=== PATIENT | male | born 1945 | race Caucasian/White ===

== ENCOUNTER 2017-12-09 09:11 | Emergency (ER) | payer MEDICARE, SELFPAY ==
[2017-12-09 09:16] VITALS: BP 150/74; PULSE 81; RESP 16; TEMP 37; O2SAT 95
--- NOTE | 2017-12-09 09:56 | DI.RAD_ITS ---
SYMPTOMS/DIAGNOSIS: PAIN LATERAL ANKLE, PAIN WITH AMBULATION RIGHT ANKLE: No bony or joint abnormality is seen.
--- NOTE | 2017-12-09 10:07 | ED.GENADUL_ITS ---
Discharge Plan Disposition Patient Disposition: HOME Discharge Details Chief Complaint: Orthopedic Clinical Impression: Right ankle sprain Primary Care Provider: Rayshawn Kothari ED Provider: Narayan Callahan Home Meds and New Rx's Prescriptions: Continue inhalational spacing device [Space Chamber Plus] 1 EACH spacer 1 ea Miscellaneous PRN Qty: 1 RF: 0 losartan 25 MG tablet 25 mg PO DAILY Qty: 90 RF: 4 omeprazole 20 MG capsule,delayed release(DR/EC) 20 mg PO DAILY Qty: 90 RF: 3 amlodipine [Norvasc] 10 MG tablet 1 tab PO HS Qty: 90 RF: 4 Atorvastatin Calcium 20 MG tablet 20 mg PO DAILY Qty: 90 RF: 4 lorazepam 0.5 MG tablet 0.5 mg PO BID PRNQty: 20 RF: 0 fluticasone-vilanterol [Breo Ellipta] 1 EACH blister with device 1 tab Inhalation DAILY RF: 0 tiotropium-olodaterol [Stiolto Respimat] 4 GM mist 2 puff Inhalation DAILY RF: 0 naloxone [Narcan] 4 MG spray,non-aerosol 4 mg NS PRN Qty: 2 RF: 0 hydrocodone-acetaminophen 5-325 mg tablet 1 tab PO TID PRN (Reason: chronic pain) Qty: 90 RF: 0 levalbuterol tartrate [Xopenex HFA] 200 PUFF HFA aerosol inhaler 2 puff Inhalation Q6H RF: 0 Discharge Instructions Instructions: Ankle Sprain (ED) Additional Instructions: Please use lace up ankle stabilizer and crutches for the next 1-2 weeks. Should symptoms persist or worsen despite treatment, please follow-up with orthopedics. Please contact your primary care physician to arrange follow-up. Return to the ER for any worsening or new concerning symptoms. Referrals: Eliot Pettit MD [ [facility] STAFF PHYSICIAN] - Rayshawn Kothari [Primary Care Provider] - Medical Decision Making MDM Narrative Medical decision making narrative: 72-year-old here with pain in his anterior lateral ankle with ambulation after severe cramp last night. Neurovascular intact distally. X-ray of the ankle reviewed and interpreted by me: No fracture Suspect sprain secondary to cramp. Plan to treat patient with lace up ankle stabilizer and crutches. He was encouraged to follow-up with his primary care physician and to return to the ER should he have any worsening or new concerning symptoms. HPI - General Adult General Date/Time Provider Initiated Documentation: 12/09/17 09:41 . Limitations to Documentation: no limitations . Information obtained by: patient . HPI Narrative: 72-year-old male presents with chief complaint of right ankle pain. Patient notes that last night while lying in bed he experienced a severe cramp in his right lower leg that caused his foot to pull medially. Patient notes that he has cramps every so often. Patient notes that since resolution of the cramp, anytime he tries to walk, he has pain in his anterior lateral ankle. Pain is described as sore. Occurs with ambulation only. No associated numbness or weakness. Related Data Home Medications Medication Instructions Recorded Confirmed inhalational spacing device [Space #1 04/27/14 Chamber Plus] levalbuterol tartrate [Xopenex HFA] 2 puff INHALATION Q6H 01/08/17 12/09/17 lorazepam 0.5 mg PO BID PRN #20 tab-cap 08/28/17 12/09/17 fluticasone-vilanterol [Breo 1 tab INHALATION DAILY 10/15/17 12/09/17 Ellipta] tiotropium-olodaterol [Stiolto 2 puff INHALATION DAILY 10/15/17 12/09/17 Respimat] Previous Rx's Medication Instructions Recorded losartan 25 mg PO DAILY #90 tab-cap 01/01/17 omeprazole 20 mg PO DAILY #90 tab-cap 03/10/17 amlodipine [Norvasc] 1 tab PO HS #90 tab-cap 05/05/17 naloxone [Narcan] 4 mg NS PRN #2 spray 10/15/17 hydrocodone 5 mg-acetaminophen 325 1 tab PO TID PRN #90 tab 11/28/17 mg tablet Allergies Allergy/AdvReac Type Severity Reaction Status Date / Time lisinopril Allergy Intermediate RASH; Unverified 12/09/17 09:20 PRURITIS diphenhydramine HCl AdvReac Severe Makes him Unverified 12/09/17 09:20 [From Benadryl] crazy/anxious NSAIDS (Non-Steroidal AdvReac Intermediate GI Unverified 12/09/17 09:20 Anti-Inflamma Intolerance tramadol AdvReac Intermediate nausea/vomi Unverified 12/09/17 09:20 ting gabapentin AdvReac Unknown GI UPSET Unverified 12/09/17 09:20 SCALLOP Allergy Severe THROAT Uncoded 12/09/17 09:20 SWELLING General Stated Complaint: Orthopedic ALFREDO: 4 Review of Systems Gastrointestinal Denies diarrhea and Denies vomiting Musculoskeletal Reports as per HPI, Denies deformity, Reports muscle cramps (Single muscle cramp as described in HPI), Denies muscle weakness and Denies numbness Neurologic Denies numbness PFSH Family History Mother Diabetes Essential hypertension Personal history of malignant neoplasm Heart disease Hyperlipidemia Brother Essential hypertension Heart disease Grandmother Personal history of malignant neoplasm Medical History Arthritis (Acute) Social History Smoking/Tobacco Use Status: Former Tobacco Use Surgical History Total replacement of hip Exam Const General: no acute distress and well developed Orientation: alert and awake HENMT Mouth: moist mucous membranes Cardio Rate: regular rate Rhythm: regular rhythm Pulses: dorsalis pedis pulses present Neuro General: alert, awake and tone normal Motor: other Other: distal motor and sensation intact Extrem General: no pedal edema Right lower extremity: ankle Details: tenderness Location: of the lateral malleolus and normal ROM; no swelling, no edema and no unusual warmth Course Vital Signs Temperature 37 C 12/09/17 09:16 Pulse 81 12/09/17 09:16 Respiratory Rate 16 12/09/17 09:16 Blood Pressure 150/74 H 12/09/17 09:16 Pulse Oximetry 95 12/09/17 09:16 Temperature 37 C 12/09/17 09:16 Pulse 81 12/09/17 09:16 Respiratory Rate 16 12/09/17 09:16 Blood Pressure 150/74 H 12/09/17 09:16 Pulse Oximetry 95 12/09/17 09:16
== END 2017-12-09 10:39 | disposition home or self-care (01) ==
PROVIDERS: Emergency Provider Student in an Organized Health Care Education/Training Program; PCP Family Medicine
DX: R25.2 Cramp and spasm (principal); S93.401A Sprain of unspecified ligament of right ankle, initial encounter; I10 Essential (primary) hypertension; J44.9 Chronic obstructive pulmonary disease, unspecified; Z87.891 Personal history of nicotine dependence
CPT/HCPCS: 29515; 99283; 73610; E0114; L1902

== ENCOUNTER 2018-01-15 01:09 | Outpatient (CLI) | payer MEDICARE, SELFPAY ==
[2018-01-15 13:26] LABS: CREATININE 1.14 mg/dL (0.70-1.30); Potassium 4.1 mmol/L (3.5-5.1)
== END 2018-01-15 01:29 ==
PROVIDERS: PCP Family Medicine; Visit Provider Family Medicine
DX: I10 Essential (primary) hypertension (principal)
CPT/HCPCS: 36415; 82565; 84132

== ENCOUNTER 2018-02-02 01:07 | Outpatient (CLI) | payer MEDICARE, SELFPAY ==
--- NOTE | 2018-02-02 14:26 | DI.CTLCSR_ITS ---
SYMPTOM/DIAGNOSIS: COPD, J44.9, FORMER SMOKER Z87.891 CT CHEST: CT scan of the chest was performed according to the lung cancer screening protocol. Comparison 02/03/17 There is atherosclerosis of the thoracic aorta. Heart size is within normal limits. No significant pericardial effusion is seen. No significant thoracic adenopathy is present. No pleural effusion or pneumothorax is identified. Since the prior examination there has developed an ill-defined opacity in the left upper lobe measuring 1.1 cm x 1 cm in size. There is a small ill-defined air space opacity also in the anterior aspect in the right upper lobe measuring 0.5 cm in diameter. No other nodules or infiltrates are seen in the lungs. Upper abdominal images again show a cyst in the upper pole of the right kidney which is stable in size. The liver has a nodular appearance with an enlarged left lobe and left caudad lobe suspicious for hepatic cirrhosis. Degenerative changes are seen in the spine. IMPRESSION: Interval development of two rounded opacities in the left upper lobe. Category 4-B.
== END 2018-02-02 01:27 ==
PROVIDERS: PCP Family Medicine; Visit Provider Internal Medicine
DX: J44.9 Chronic obstructive pulmonary disease, unspecified (principal); J98.4 Other disorders of lung; Z12.2 Encounter for screening for malignant neoplasm of respiratory organs; Z87.891 Personal history of nicotine dependence
CPT/HCPCS: G0297

== ENCOUNTER 2018-02-22 23:05 | Emergency (ER) | payer MEDICARE, SELFPAY ==
[2018-02-22 23:17] VITALS: BP 133/69; PULSE 74; RESP 19; TEMP 36.4; O2SAT 96
[2018-02-22 23:25] VITALS: RESP 18
[2018-02-22 23:26] LABS: Abs Immature Grans 0.02 k/cumm (0.0-0.09); Absolute Basophil Count 0.04 k/cumm (0.0-0.2); Absolute Lymphocyte Count 2.99 k/cumm (1.2-3.4); Absolute Monocyte Count 1.19 k/cumm (0.11-0.7); Absolute Neutrophil Count 5.98 k/cumm (1.2-6.7); Basophils % 0.4; Eosinophils % 3.8; HCT 40.2 % (40.0-50.0); HGB 13.9 g/dL (13.5-17.5); Immature Grans % 0.2; Lymphocytes % 28.2; Mean Corp. HGB Concentration 34.6 g/dL (32.0-36.0); Mean Corpuscular Hemoglobin 30.8 pg (27.0-33.0); Mean Corpuscular Volume 88.9 fL (80-95); Mean Platelet Volume 10.5 fL (8.0-11.0); Monocytes % 11.2; Neutrophils % 56.2; Platelet Count 123 x1000/uL (130-400); RBC 4.52 m/cumm (4.50-6.00); RBC Distribution Width 13.5 % (11.8-14.1); White Blood Cell Count 10.62 k/cumm (4.4-10.8)
[2018-02-22 23:31] VITALS: BP 135/83; PULSE 76; PULSE 83; RESP 19; O2SAT 93
--- NOTE | 2018-02-22 23:40 | W.ED.GENAD ---
Discharge Plan Disposition Patient Disposition: HOME Condition: Good Discharge Details Chief Complaint: Chest Pain Clinical Impression: Chest pain Primary Care Provider: Rayshawn Kohtari ED Provider: Fito Malave Home Meds and New Rx's Prescriptions: No Action levalbuterol tartrate [Xopenex HFA] 45 mcg/actuation HFA aerosol inhaler 2 puff Inhalation Q6H PRN (Reason: shortness of breath) Qty: 15 RF: 3 losartan 25 mg tablet 25 mg PO DAILY Qty: 90 RF: 4 inhalational spacing device [Space Chamber Plus] 1 EACH spacer 1 ea Miscellaneous PRN Qty: 1 RF: 0 amlodipine [Norvasc] 10 MG tablet 1 tab PO HS Qty: 90 RF: 4 Atorvastatin Calcium 20 MG tablet 20 mg PO DAILY Qty: 90 RF: 4 lorazepam 0.5 MG tablet 0.5 mg PO BID PRNQty: 20 RF: 0 fluticasone-vilanterol [Breo Ellipta] 1 EACH blister with device 1 tab Inhalation DAILY RF: 0 tiotropium-olodaterol [Stiolto Respimat] 4 GM mist 2 puff Inhalation DAILY RF: 0 naloxone [Narcan] 4 MG spray,non-aerosol 4 mg NS PRN Qty: 2 RF: 0 omeprazole 20 mg capsule,delayed release(DR/EC) 20 mg PO DAILY Qty: 90 RF: 3 hydrocodone-acetaminophen 5-325 mg tablet 1 tab PO TID MDD 3 tabs PRN (Reason: chronic pain) Qty: 90 RF: 0 Discharge Instructions Instructions: Chest Pain (ED), Palpitations (ED) Additional Instructions: Please come back on Friday and contact respiratory therapy for placement of your cardiac monitoring patch. Please contact your primary care provider this morning to set up a follow-up appointment this week. if you notice any worsening of your symptoms, or any new symptoms such as vomiting, diarrhea, fever, chills, shortness of breath, chest pain, numbness, weakness, or fainting , please return immediately to the emergency department for reevaluation. Please follow up with your primary care provider as soon as possible for reassessment and reevaluation. As always, it was a pleasure participating in your medical care today. Referrals: Rayshawn Kothari [Primary Care Provider] - Medical Decision Making This is a very pleasant 72-year-old male who presents for evaluation of intermittent nonexertional chest achiness, with no radiation to his neck or arm. He has some associated brief episodes of palpitations all lasting less than 1 minutes. He denies any syncope, pleuritic chest pain, or acute shortness of breath. Physical exam demonstrates no significant abnormalities. Patient signs and symptoms are very benign, and with the duration of 5 days, the nonexertional component, I feel it unlikely that he is actively having a heart attack. Patient did have a cardiac catheterization prior to getting his aortic valve replaced, at which time they noted no significant coronary artery disease. We will evaluate for potential cardiac etiology to the source of his pain, he currently has no pain whatsoever now. If the patient's cardiac and imaging workup is negative, I feel he can be safely discharged home with close follow-up with his primary care provider. EKG 23: 10 Rate 77, sinus rhythm, W[place] 138, QTc 455, QRS 114, RSR prime in V1, no significant ST elevations or depressions, no T wave inversions. No Q waves. Patient's laboratory workup has returned, his electrolytes are normal, no significant lab abnormalities, troponin is normal. Chest x-ray shows evidence of CO PD but no other acute process. Patient continues to have no significant chest pain or palpitations while here. He did have one brief episode of that sensation of palpitation, I did review it on the telemetry board and this was during the incidence of a PVC. No other abnormalities noted on EKG at that time. With a benign workup, and no other significant abnormalities I feel he can be safely discharged home however I do feel that he would benefit from a zeo patch. 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 With his symptoms lasting greater than 5 days, then being nonexertional, and with no consistent chest pain, I feel his signs and symptoms are certainly inconsistent with a cardiac ischemia etiology. I had a long discussion with the patient regarding red flags for which to return and the patient understands. I have extensively reviewed the treatment plan and discharge instructions with the patient. I have addressed all patient concerns at this time. The patient was made aware of what symptoms to monitor for that would warrant a return to the emergency department. Discussed the plan with the patient, they demonstrate verbal understanding and agreement with our assessment and plan at this time. FINDINGS: Lungs: Lungs are hyperinflated. Pleural space: Unremarkable. No evidence of pneumothorax. Heart/Mediastinum: Unremarkable. Heart size within normal limits for technique. Bones/joints: Unremarkable. No evidence of acute fracture. IMPRESSION: COPD. Dictated and Authenticated by: Eddie Leahy MD. HPI General Date/Time Provider Initiated Documentation: 02/22/18 23:16. HPI Narrative: This is a very pleasant 72-year-old male with a past medical history of COPD, hypertension, and high cholesterol, a bicuspid aortic valve which was replaced 1 year ago with a cow valve, cardiac catheterization 1 year ago which showed clean arteries, who presents today for evaluation of left-sided chest pain. Patient states that over the last 5 days he has had intermittent left-sided chest pain which she describes as being a very mild dull ache that comes and goes just medial to his left nipple. It is nonexertional, it is not improved with rest or activity. It lasts a few minutes and then goes away on its own. He has associated symptoms of feeling of intermittent palpitations over that area as well. He denies any associated tearing sensation, shortness of breath, pleuritic chest pain, arm neck or shoulder pain, or any other complaints. He denies having symptoms like this in the past. He denies any cough, fever, chills, hemoptysis, vomiting or diarrhea. He describes the pain is very mild in nature. Patient denies any other aggravating or relieving factors. Past surgical history is positive for open heart surgery for his valve replacement. Patient denies any current IV or illicit drug use. Patient has no other complaints at this time. Related Data Home Medications Medication Instructions Recorded Confirmed inhalational spacing device [Space #1 04/27/14 02/23/18 Chamber Plus] amlodipine [Norvasc] 1 tab PO HS #90 tab-cap 05/05/17 02/23/18 lorazepam 0.5 mg PO BID PRN #20 tab-cap 08/28/17 02/23/18 fluticasone-vilanterol [Breo 1 tab INHALATION DAILY 10/15/17 02/23/18 Ellipta] naloxone [Narcan] 4 mg NS PRN #2 spray 10/15/17 02/23/18 tiotropium-olodaterol [Stiolto 2 puff INHALATION DAILY 10/15/17 02/23/18 Respimat] omeprazole 20 mg capsule,delayed 20 mg PO DAILY #90 tab-cap 12/22/17 02/23/18 release levalbuterol HFA 45 mcg/actuation 2 puff INHALATION Q6H PRN #15 gm 01/14/18 02/23/18 aerosol inhaler losartan 25 mg tablet 25 mg PO DAILY #90 tab-cap 01/14/18 02/23/18 hydrocodone 5 mg-acetaminophen 325 1 tab PO TID PRN #90 tab MDD 3 tabs 01/23/18 02/23/18 mg tablet Previous Rx's Medication Instructions Recorded amlodipine [Norvasc] 1 tab PO HS #90 tab-cap 05/05/17 naloxone [Narcan] 4 mg NS PRN #2 spray 10/15/17 omeprazole 20 mg capsule,delayed 20 mg PO DAILY #90 tab-cap 12/22/17 release levalbuterol HFA 45 mcg/actuation 2 puff INHALATION Q6H PRN #15 gm 01/14/18 aerosol inhaler losartan 25 mg tablet 25 mg PO DAILY #90 tab-cap 01/14/18 hydrocodone 5 mg-acetaminophen 325 1 tab PO TID PRN #90 tab MDD 3 tabs 01/23/18 mg tablet Allergies Allergy/AdvReac Type Severity Reaction Status Date / Time lisinopril Allergy Intermediate RASH; Unverified 02/23/18 00:04 PRURITIS diphenhydramine HCl AdvReac Severe Makes him Unverified 02/23/18 00:04 [From Benadryl] crazy/anxious NSAIDS (Non-Steroidal AdvReac Intermediate GI Unverified 02/23/18 00:04 Anti-Inflamma Intolerance tramadol AdvReac Intermediate nausea/vomi Unverified 02/23/18 00:04 ting gabapentin AdvReac Unknown GI UPSET Unverified 02/23/18 00:04 SCALLOP Allergy Severe THROAT Uncoded 02/23/18 00:04 SWELLING General Stated Complaint: Chest Pain ALFREDO: 2 Review of Systems Review of Systems All systems reviewed & are unremarkable except as noted in HPI and below PFSH Family History Mother Diabetes Essential hypertension Personal history of malignant neoplasm Heart disease Hyperlipidemia Brother Essential hypertension Heart disease Grandmother Personal history of malignant neoplasm Medical History Arthritis (Acute) Social History Smoking/Tobacco Use Status: Former Tobacco Use Surgical History Total replacement of hip Social History Smoking/Tobacco Use Status: Former Tobacco Use Exam Narrative Exam Narrative: 1.Const: Well-nourished, Well-developed, appearing stated age 2.Eyes: PERRL, no conjunctival injection, and symmetrical lids. 3.ENT: Atraumatic external nose and ears. Moist MM. Neck: Symmetric, trachea midline, No thyromegaly. 4.CVS: +S1/S2, No murmurs or gallops. Peripheral pulses 2+ and equal in all extremities. Brisk capillary refill in all extremities. Radial pulses equal bilaterally. Brisk capillary refill. No significant reproducible chest wall tenderness. Patient does have an anterior thoracic scar noted. This is completely healed. 5.RESP: Unlabored respiratory effort. Clear to auscultation bilaterally. No wheezes rales or rhonchi 6.GI: Soft, Nontender/Nondistended, No hepatosplenomegaly. No guarding or rebound. 7.MSK: Normocephalic/Atraumatic, Extremities w/o deformity or ttp No cyanosis or clubbing, Normal movement of all extremities 8.Skin: Warm, Dry. No rashes or lesions. 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 Sensation grossly intact, no focal neurologic deficits. 10.Psych: (AAO) x3. Appropriate mood and affect Course Vital Signs Temperature 36.4 C L 02/22/18 23:17 Pulse 74 02/22/18 23:17 Respiratory Rate 19 02/22/18 23:17 Blood Pressure 133/69 02/22/18 23:17 Pulse Oximetry 96 02/22/18 23:17 Temperature 36.4 C L 02/22/18 23:17 Temperature Source Temporal Artery Scan 02/22/18 23:17 Pulse 74 02/22/18 23:17 Respiratory Rate 18 02/22/18 23:25 Respiratory Effort Non-Labored 02/22/18 23:25 Respiratory Depth Normal 02/22/18 23:25 Respiratory Pattern Normal 02/22/18 23:25 Blood Pressure 133/69 02/22/18 23:17 Blood Pressure Position Sitting 02/22/18 23:17 Pulse Oximetry 96 02/22/18 23:17 Oxygen Delivery Method Room Air 02/22/18 23:17 Oxygen Flow Rate 0 02/22/18 23:17 Pain Level 3 02/22/18 23:25 Lab/Test Results Lab/Test Results: Laboratory Tests Range/Units 02/22/18 23:21 WBC (4.4-10.8) k/cumm 10.62 RBC (4.50-6.00) m/cumm 4.52 Hgb (13.5-17.5) g/dL 13.9 Hct (40.0-50.0) % 40.2 MCV (80-95) fL 88.9 MCH (27.0-33.0) pg 30.8 MCHC (32.0-36.0) g/dL 34.6 RDW (11.8-14.1) % 13.5 Plt Count (130-400) x1000/uL 123 L MPV (8.0-11.0) fL 10.5 Immature Gran % 0.2 Neutrophils % 56.2 Lymphocytes % 28.2 Monocytes % 11.2 Eosinophils % 3.8 Basophils % 0.4 Absolute Neutrophils (1.2-6.7) k/cumm 5.98 Absolute Lymphocytes (1.2-3.4) k/cumm 2.99 Absolute Monocytes (0.11-0.7) k/cumm 1.19 H Absolute Eosinophils (0.0-0.7) k/cumm 0.40 Absolute Basophils (0.0-0.2) k/cumm 0.04
[2018-02-22 23:43] LABS: ALT 32 U/L (12-78); AST 25 U/L (15-37); Albumin 3.9 g/dL (3.4-5.0); Alkaline Phosphatase 109 U/L (46-116); Anion Gap 11.1 mmol/L (3-11); BUN 21 mg/dL (7-18); Bilirubin, Total 0.6 mg/dL (0.2-1.0); CO2 24.9 mmol/L (21.0-32.0); CREATININE 1.49 mg/dL (0.70-1.30); Calcium 9.1 mg/dL (8.5-10.1); Chloride 101 mmol/L (98-107); Estimated GFR 46.63 (mL/min/1.73m2); Glucose 93 mg/dL (70-100); Magnesium 1.9 mg/dL (1.8-2.4); Potassium 3.8 mmol/L (3.5-5.1); Sodium 137 mmol/L (136-145); Total Protein 7.7 g/dL (6.4-8.2)
[2018-02-22 23:44] LABS: Troponin I < 0.02 ng/mL (0.00-0.06)
[2018-02-22 23:46] VITALS: BP 143/77; PULSE 79; PULSE 82; RESP 18; O2SAT 94
--- NOTE | 2018-02-22 23:47 | DI.RAD_ITS ---
SYMPTOMS/DIAGNOSIS: LT CHEST PAIN JUST MEDIAL TO NIPPLE CHEST: Frontal and lateral views. Comparison 04/14/17. The heart size and pulmonary vasculature are within normal limits. The lungs are clear. No effusions or pneumothoraces are identified. The lungs are hyperinflated. There is an aortic valve replacement in place. IMPRESSION: No acute pulmonary process.
--- NOTE | 2018-02-23 00:35 | DI.VRAD_ITS ---
EXAM: XR Chest, 2 Views EXAM DATE/TIME: 02/22/2018 11:47 PM CLINICAL HISTORY: 72 years old, male; Pain; Chest pain; Left-sided chest pain; Prior surgery; Surgery date: 6+ months TECHNIQUE: XR of the chest, 2 views. COMPARISON: CR CHEST 2 VIEWS PA,LAT 04/14/2017 9:25 AM FINDINGS: Lungs: Lungs are hyperinflated. Pleural space: Unremarkable. No evidence of pneumothorax. Heart/Mediastinum: Unremarkable. Heart size within normal limits for technique. Bones/joints: Unremarkable. No evidence of acute fracture. IMPRESSION: COPD. Dictated and Authenticated by: Eddie Leahy MD. Ordering:JOAQUIN NOVOA MD
[2018-02-23] MEDS: Albuterol/Ipratropium 3 ML UPD VIAL UPD (00:55)
[2018-02-23 02:06] VITALS: BP 133/75; PULSE 70; RESP 17; TEMP 36.4; O2SAT 94
--- NOTE | 2018-03-03 16:49 | ZIOP_ITS ---
DATE OF DICTATION: March 03, 2018 STUDY INDICATION: Palpitations REQUESTING PROVIDER: Narayan Callahan M.D. FINDINGS: The patient was monitored for one day and twenty-two hours. The predominant underlying rhythm was sinus rhythm. Average heart rate in sinus rhythm 80 bpm, range 53-132 bpm. There was frequent supraventricular ectopy, 12.5% PAC's. There were 33 atrial runs, average heart ra te 127 bpm, range 78-169 bpm. The longest episode lasted 14.3 seconds with an average heart rate of 106 bpm. There was rare ventricular ectopy. There were no pauses greater than three seconds. There was no high-degree heart block. There were no patient events. FINAL INTERPRETATION: Asymptomatic bursts of supraventricular tachycardia.
== END 2018-02-23 02:06 | disposition home or self-care (01) ==
LOC: ER 02-23 01:47
PROVIDERS: Emergency Provider Student in an Organized Health Care Education/Training Program; PCP Family Medicine
DX: R07.9 Chest pain, unspecified (principal); R00.2 Palpitations; I25.810 Atherosclerosis of coronary artery bypass graft(s) without angina pectoris; Z95.1 Presence of aortocoronary bypass graft; J44.9 Chronic obstructive pulmonary disease, unspecified; Z87.891 Personal history of nicotine dependence; I10 Essential (primary) hypertension
CPT/HCPCS: 36415; 80053; 93005; 93225; 94640; 99285; 71046; 83735; 84484; 85025; 93010; J7620

== ENCOUNTER 2018-03-03 16:25 | Outpatient (CLI) | payer MEDICARE, SELFPAY | END 2018-03-03 16:45 | PROVIDERS: PCP Family Medicine; Referring Provider Student in an Organized Health Care Education/Training Program; Visit Provider Student in an Organized Health Care Education/Training Program | DX: R00.2 Palpitations (principal); I47.1 Supraventricular tachycardia | CPT/HCPCS: 0298T ==

== ENCOUNTER 2018-05-11 00:54 | Outpatient (CLI) | payer MEDICARE, SELFPAY ==
--- NOTE | 2018-05-11 08:16 | DI.CT_ITS ---
SYMPTOM/DIAGNOSIS: CHRONIC OBSTRUCTIVE LUNG DISEASE, J44.9, F/U JOSH NODULES CHEST CT: CT scan of the chest was performed according to the low dose protocol. Comparison CT scan is 02/02/18. There is atherosclerosis of the thoracic aorta. Heart size is within normal limits. No significant pericardial effusion is seen. Coronary artery calcifications are present. No significant adenopathy is seen in the chest on this noncontrast examination. No pleural effusion or pneumothorax is identified. Moderate centrilobular emphysematous changes are present in the lungs. The 1.1 cm. nodule in the left upper lobe appears stable. The smaller more ill defined opacity previously noted in the anterior aspect of the left upper lobe is no longer visualized. No new pulmonary nodules are appreciated. There are atelectatic changes seen in the right lung base. The tracheobronchial tree is unremarkable. There is again seen a nodular appearance of the liver with an enlarged left and caudate lobe suspicious for hepatic cirrhosis. There is a stable cyst in the upper pole of the right kidney. There is a moderate hiatal hernia noted. Degenerative changes are seen in the spine. Sternal wires are in place. IMPRESSION: 1. Stable 1.1 cm. left upper lobe pulmonary nodule. No other pulmonary nodules. The previously seen second nodule appears to have resolved and likely reflected an infiltrate. 2. Moderate centrilobular emphysema. 3. Findings suggestive of hepatic cirrhosis.
== END 2018-05-11 01:14 ==
PROVIDERS: PCP Family Medicine; Visit Provider Internal Medicine
DX: J44.9 Chronic obstructive pulmonary disease, unspecified (principal); R91.1 Solitary pulmonary nodule; J43.9 Emphysema, unspecified
CPT/HCPCS: 71250

== ENCOUNTER 2018-07-06 14:50 | Outpatient (CLI) | payer MEDICARE, SELFPAY | END 2018-07-06 15:10 | PROVIDERS: PCP Family Medicine; Referring Provider Family Medicine; Visit Provider Student in an Organized Health Care Education/Training Program | DX: M17.11 Unilateral primary osteoarthritis, right knee (principal); Z53.9 Procedure and treatment not carried out, unspecified reason; M67.911 Unspecified disorder of synovium and tendon, right shoulder; M67.912 Unspecified disorder of synovium and tendon, left shoulder | CPT/HCPCS: 20610; 99213; J1040 ==

== ENCOUNTER 2018-07-23 08:10 | Outpatient (CLI) | payer MEDICARE, SELFPAY ==
--- NOTE | 2018-07-23 09:00 | MERGE_ITS ---
*[facility]* *[facility]* [address] [place] [address] Date of study: 07/23/2018 Transthoracic Echocardiography M-mode, complete 2D, complete spectral Doppler, and color Doppler *STUDY CONCLUSIONS* Summary: 1. Left ventricle: The cavity size was normal. Wall thickness was increased in a pattern of mild LVH. Systolic function was normal. The estimated ejection fraction was 60-65%. Wall motion was normal; there were no regional wall motion abnormalities. 2. Right ventricle: The cavity size was normal. Systolic function was normal. 3. Left atrium: The atrium was mildly dilated. 4. Aortic valve: A bioprosthesis was present and functioning normally. Mean gradient (S): 18mm Hg. 5. Ascending aorta: The ascending aorta was mildly dilated (43 mm). 6. Pulmonary arteries: Pulmonary systolic pressure was increased, in the range of 40mm Hg to 45mm Hg. 7. Inferior vena cava: The vessel was patent and normal in size. The respirophasic diameter changes were in the normal range (greater than or equal to 50%), consistent with normal central venous pressure. *PATIENT PRESENTATION* Height: 170.2cm ((67in) ) S/D Pressure: 142 / 77 Weight: 76.2kg ((167.6lb) ) BSA: 1.91m^2 Test start time: 09:30 AM. Test stop time: 10:20 AM. ORDERING Nya Baez REFERRING Nya Baez PERFORMING Unknown CONSULTING Rayshawn Kothari PERFORMING [facility] FURNACE CLERK RT Francoise (R)(CT), RDCS *PROCEDURE DATA* Procedure information: The patient was identified by two identifiers. This study was interpreted by [facility]. Pertinent images and digital data are archived for permanent storage and are available for subsequent review. No prior study was available for comparison. Study status: Routine. Transthoracic echocardiography. M-mode, complete 2D, complete spectral Doppler, and color Doppler. A Transthoracic Echocardiogram was performed. Scanning was performed from the parasternal, apical, subcostal, and suprasternal notch acoustic windows. Images were obtained using an [id number] cardiac ultrasound machine. Image quality was adequate. Study completion: The patient tolerated the procedure well. There were no complications. History: PMH: Atrial fibrillation. I48.91 *CARDIAC ANATOMY* Left ventricle: The cavity size was normal. Wall thickness was increased in a pattern of mild LVH. Systolic function was normal. The estimated ejection fraction was 60-65%. Wall motion was normal; there were no regional wall motion abnormalities. Findings consistent with diastolic dysfunction. There was no evidence of elevated ventricular filling pressure by Doppler parameters. Aortic valve: A bioprosthesis was present and functioning normally. Mobility was not restricted. Doppler: Transvalvular velocity was within the normal range. There was no stenosis. There was no significant regurgitation. VTI ratio of LVOT to aortic valve: 0.48. Valve area (VTI): 1.4cm^2. Indexed valve area (VTI): 0.8cm^2/m^2. Peak velocity ratio of LVOT to aortic valve: 0.45. Valve area (Vmax): 1.4cm^2. Indexed valve area (Vmax): 0.7cm^2/m^2. Mean velocity ratio of LVOT to aortic valve: 0.47. Valve area (Vmean): 1.4cm^2. Indexed valve area (Vmean): 0.7cm^2/m^2. Mean gradient (S): 18mm Hg. Peak gradient (S): 30.3mm Hg. Aorta: Aortic root: The aortic root dilated. Ascending aorta: The ascending aorta was mildly dilated (43 mm). Mitral valve: Mildly calcified annulus. Mildly thickened leaflets. Mobility was not restricted. Doppler: Transvalvular velocity was within the normal range. There was no evidence for stenosis. There was mild regurgitation. Valve area by pressure half-time: 3.6cm^2. Indexed valve area by pressure half-time: 1.9cm^2/m^2. Peak gradient (D): 2.9mm Hg. Left atrium: The atrium was mildly dilated. Right ventricle: The cavity size was normal. Systolic function was normal. Pulmonic valve: Poorly visualized. Doppler: Transvalvular velocity was within the normal range. There was no evidence for stenosis. There was trivial regurgitation. Tricuspid valve: Structurally normal valve. Doppler: Transvalvular velocity was within the normal range. There was no evidence for stenosis. There was trivial regurgitation. Pulmonary artery: Poorly visualized. Pulmonary systolic pressure was increased, in the range of 40mm Hg to 45mm Hg. Right atrium: The atrium was dilated. Pericardium: There was no pericardial effusion. Systemic veins: Inferior vena cava: Well visualized. The vessel was patent and normal in size. The respirophasic diameter changes were in the normal range (greater than or equal to 50%), consistent with normal central venous pressure. Baseline ECG: Normal sinus rhythm. Measurements Left ventricle Value 11/07/2016 Reference LV ID, ED, PLAX 4.9 cm 5.5 3.5 - 6.0 LV ID, ES, PLAX 3.2 cm 3.7 2.1 - 4.0 LV PW thickness, ED, PLAX 1.0 cm 0.9 LV end-diastolic volume, 61 ml 79 1-p A2C LV ejection fraction, 1-p 72 % 66 A2C LV end-diastolic volume, 79 ml 130 1-p A4C LV ejection fraction, 1-p 62 % 62 A4C LV e', lateral 0.116 m/sec LV E/e', lateral 7 LV e', medial 0.094 m/sec LV E/e', medial 9 LV e', average 0.105 m/sec LV E/e', average 8 Ventricular septum Value 11/07/2016 Reference IVS thickness, ED, PLAX 1.2 cm 0.9 LVOT Value 11/07/2016 Reference LVOT ID, A-P 2.0 cm 2.1 LVOT area 3 cm^2 3.4 LVOT peak velocity, S 1.24 m/sec 0.93 LVOT mean velocity, S 0.97 m/sec LVOT VTI, S 28.8 cm 25.9 LVOT peak gradient, S 6.1 mm Hg LVOT mean gradient, S 4.1 mm Hg 2.3 Stroke volume (SV), LVOT 86 ml DP Stroke index (SV/bsa), 45 ml/m^2 LVOT DP Aortic valve Value 11/07/2016 Reference Aortic valve peak 2.8 m/sec 4 velocity, S Aortic valve mean 2.07 m/sec velocity, S Aortic valve VTI, S 60.0 cm Aortic mean gradient, S 18 mm Hg 39 Aortic peak gradient, S 30.3 mm Hg 62.4 VTI ratio, LVOT/AV 0.48 0.25 Aortic valve area, VTI 1.4 cm^2 0.8 Velocity ratio, peak, 0.45 0.23 LVOT/AV Aortic valve area, peak 1.4 cm^2 0.8 velocity Velocity ratio, mean, 0.47 LVOT/AV Aortic valve area, mean 1.4 cm^2 velocity Aortic valve area/bsa, 0.7 cm^2/m^2 mean velocity Aorta Value 11/07/2016 Reference Ascending aorta ID, A-P, S 4.3 cm 4.5 Left atrium Value 11/07/2016 Reference LA ID, A-P, ES 4.1 cm LA ID/bsa, A-P 2.1 cm/m^2 <=2.2 LA area, ES, A4C (H) 26 cm^2 22 8.8 - 23.4 LA area, ES, A2C 22 cm^2 LA volume/bsa, ES, 1-p A4C 42 ml/m^2 40 LA volume, ES, 2-p 67 ml LA volume/bsa, ES, 2-p 35 ml/m^2 Mitral valve Value 11/07/2016 Reference Mitral E-wave peak 0.85 m/sec 0.66 velocity Mitral A-wave peak 0.95 m/sec 0.82 velocity Mitral deceleration time 209 ms 150 - 230 Mitral pressure half-time 61 ms 102 Mitral peak gradient, D 2.9 mm Hg Mitral E/A ratio, peak 0.9 0.8 Mitral valve area, PHT, DP 3.6 cm^2 2.2 Tricuspid valve Value 11/07/2016 Reference Tricuspid regurg peak 2.9 m/sec 3.1 velocity Tricuspid peak RV-RA 33.8 mm Hg 38.2 gradient Right atrium Value 11/07/2016 Reference RA area, ES, A4C (H) 20.5 cm^2 23.6 8.3 - 19.5 Legend: (L) and (H) mercedes values outside specified reference range. I have personally reviewed the images and have reviewed and edited the reported findings. Electronically signed by Simon Mcdonough 07/23/2018 13:34
== END 2018-07-23 08:30 ==
PROVIDERS: PCP Family Medicine; Visit Provider Internal Medicine
DX: I48.91 Unspecified atrial fibrillation (principal); I51.7 Cardiomegaly; I10 Essential (primary) hypertension; Z95.2 Presence of prosthetic heart valve
CPT/HCPCS: 93306

== ENCOUNTER 2018-07-27 13:59 | Emergency (ER) | payer MEDICARE, SELFPAY ==
[2018-07-27] VITALS (35 sets, daily range): BP systolic 109–137; BP diastolic 66–88; PULSE 88–129; RESP 8–30; TEMP 36.6; O2SAT 93–98
--- NOTE | 2018-07-27 14:11 | ED.GENADUL_ITS ---
Discharge Plan Disposition Patient Disposition: HOME Condition: Stable Discharge Details Chief Complaint: SOB Clinical Impression: Chronic obstructive pulmonary disease Primary Care Provider: Rayshawn Kothari ED Provider: Alfonso Brown Home Meds and New Rx's Prescriptions: Continued levalbuterol tartrate [Xopenex HFA] 45 mcg/actuation HFA aerosol inhaler 2 puff Inhalation Q6H PRN (Reason: shortness of breath) Qty: 15 RF: 3 losartan 25 mg tablet 25 mg PO DAILY Qty: 90 RF: 4 hydrocodone-acetaminophen 5-325 mg tablet 1 tab PO TID MDD 3 tabs PRN (Reason: chronic pain) Qty: 90 RF: 0 Space Chamber Plus 1 EACH spacer 1 ea Miscellaneous PRN Qty: 1 RF: 0 Atorvastatin Calcium 20 MG tablet 20 mg PO DAILY Qty: 90 RF: 4 Breo Ellipta 1 EACH blister with device 1 tab Inhalation DAILY RF: 0 Stiolto Respimat 4 GM mist 2 puff Inhalation DAILY RF: 0 Narcan 4 MG spray,non-aerosol 4 mg NS PRN Qty: 2 RF: 0 omeprazole 20 mg capsule,delayed release(DR/EC) 20 mg PO DAILY Qty: 90 RF: 3 amlodipine [Norvasc] 10 mg tablet 10 mg PO HS Qty: 90 RF: 4 lorazepam 0.5 mg tablet 0.5 mg PO BID PRN (Reason: anxiety) Qty: 20 RF: 0 hydrocodone-acetaminophen 7.5-325 mg tablet 1 tab PO .q 8 h MDD 3 tabs PRN (Reason: pain) Qty: 60 RF: 0 Discharge Instructions Instructions: COPD (Chronic Obstructive Pulmonary Disease) (ED) Additional Instructions: Please continue current medications as previously prescribed. Follow-up with pulmonary on as planned. We will refer you for pulmonary rehab as well as pulmonary function testing. Return to the ED if you develop fever, cough, chest pain, acute worsening of shortness of breath. Referrals: Nya Baez MD [ [facility] STAFF PHYSICIAN] - Rayshawn Kothari [Primary Care Provider] - Discharge Data Discharge Date/Time-TO BE ENTERED AT DEPARTURE: 07/27/18 17:30 Medical Decision Making Patient presenting with a gradual but progressive worsening of shortness of breath. 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 She is initiating a cardiac work-up to be sure his breathing issues are not cardiac related. He has had an echo which is unremarkable. He has not seen cardiology yet. He did have a catheterization within the last few years before he got his aortic valve and had nonobstructive disease. He was not stented. He is given a DuoNeb treatment here which he states did not really help. He states that the nebulizers and inhalers at home do not really seem to help. Chest x-ray ordered. Laboratory studies ordered. CBC unremarkable other than platelet count being a little low. Chemistries with a little bit worsening renal function. Glucose a little high to 16. Troponin is negative. BNP is normal. Chest x-ray is unremarkable. ABG was obtained. His pH is normal and his PCO2 is normal. PO2 is low at 49 with saturations at 85%. This does not correlate with his pulse ox which is been persistently 93%. We got him up and ambulated him. He did not become overly tachypneic and he did not drop his saturations. There really has been no acute change in the patient's status. I do not see an admission to the hospital helping him at all. I have referred him to respiratory for PFTs and pulmonary rehab. According to respiratory he is due for PFTs as it was over 4 years ago. Patient will see his retail loss prevention investigator this week. Return to ED if he develops fever, cough, acute change in respiratory status, chest pain. Medical Records Medical records reviewed: Yes I reviewed the patient's medical records. Lab Data Lab results reviewed: Yes I reviewed the patient's lab results. ECG Data Attestation: I personally reviewed and interpreted this ECG (s) as follows: Prior ECG tracings: available for review Interpretation: Sinus rhythm at 100. Normal axis and intervals but incomplete right bundle branch block pattern. No acute ST changes. No change from old. HPI General Mode of arrival: ambulatory . Date/Time Provider Initiated Documentation: 07/27/18 14:06 . Limitations to Documentation: no limitations . Information obtained by: patient and old records reviewed . HPI Narrative: Patient presents to the ED with complaints of progressively worsening shortness of breath. He was seen by pulmonary a couple weeks ago. He was placed on prednisone. His inhalers have not been working. Ambulation makes his breathing much worse. When he gets significantly short of breath he develops chest tightness. He denies having cough. He denies having fever. He recently had an echo as part of the work-up his retail loss prevention investigator is doing for his worsening shortness of breath. He is becoming less able to even perform easy task without getting short of breath. Related Data Home Medications Medication Instructions Recorded Confirmed Space Chamber Plus #1 04/27/14 07/15/18 Breo Ellipta 1 tab INHALATION DAILY 10/15/17 07/15/18 Narcan 4 mg NS PRN #2 spray 10/15/17 07/15/18 Stiolto Respimat 2 puff INHALATION DAILY 10/15/17 07/15/18 omeprazole 20 mg capsule,delayed 20 mg PO DAILY #90 tab-cap 12/22/17 07/15/18 release levalbuterol HFA 45 mcg/actuation 2 puff INHALATION Q6H PRN #15 gm 01/14/18 07/15/18 aerosol inhaler losartan 25 mg tablet 25 mg PO DAILY #90 tab-cap 01/14/18 07/15/18 amlodipine 10 mg tablet 10 mg PO HS #90 tab-cap 03/18/18 07/15/18 lorazepam 0.5 mg tablet 0.5 mg PO BID PRN #20 tab 05/26/18 07/15/18 hydrocodone 7.5 mg-acetaminophen 1 tab PO .q 8 h PRN #60 tab MDD 3 06/19/18 07/15/18 325 mg tablet tabs hydrocodone 5 mg-acetaminophen 325 1 tab PO TID PRN #90 tab MDD 3 tabs 07/15/18 07/15/18 mg tablet Previous Rx's Medication Instructions Recorded Narcan 4 mg NS PRN #2 spray 10/15/17 omeprazole 20 mg capsule,delayed 20 mg PO DAILY #90 tab-cap 12/22/17 release levalbuterol HFA 45 mcg/actuation 2 puff INHALATION Q6H PRN #15 gm 01/14/18 aerosol inhaler losartan 25 mg tablet 25 mg PO DAILY #90 tab-cap 01/14/18 amlodipine 10 mg tablet 10 mg PO HS #90 tab-cap 03/18/18 lorazepam 0.5 mg tablet 0.5 mg PO BID PRN #20 tab 05/26/18 hydrocodone 7.5 mg-acetaminophen 1 tab PO .q 8 h PRN #60 tab MDD 3 06/19/18 325 mg tablet tabs hydrocodone 5 mg-acetaminophen 325 1 tab PO TID PRN #90 tab MDD 3 tabs 07/15/18 mg tablet Allergies Allergy/AdvReac Type Severity Reaction Status Date / Time lisinopril Allergy Intermediate RASH; Verified 07/15/18 07:59 PRURITIS diphenhydramine HCl AdvReac Severe Makes him Verified 07/15/18 07:59 [From Benadryl] crazy/anxious NSAIDS (Non-Steroidal AdvReac Intermediate GI Verified 07/15/18 07:59 Anti-Inflamma Intolerance tramadol AdvReac Intermediate nausea/vomi Verified 07/15/18 07:59 ting gabapentin AdvReac Unknown GI UPSET Verified 07/15/18 07:59 SCALLOP Allergy Severe THROAT Uncoded 07/06/18 14:11 SWELLING General ALFREDO: 2 Review of Systems Review of Systems 01/04 Review of Systems completed and is negative except as stated above in HPI (Systems reviewed: Const, Eyes, ENT, Resp, CV, GI, , MSK, Skin, Neuro) PFSH Medical History SVT (supraventricular tachycardia) (Chronic ~02/2018) Paroxysmal atrial fibrillation (Resolved 01/28/17) Gastro-esophageal reflux (Chronic 09/15/13) Essential hypertension (Chronic 02/26/16) Esophageal varices without bleeding (Chronic 05/14/16) Chronic obstructive pulmonary disease (Chronic 08/05/17) CAD (coronary artery disease) (Chronic 12/05/16) Benign prostatic hyperplasia (Chronic 02/03/13) Chronic pain syndrome (Chronic) Cirrhosis (Chronic) Surgical History Aortic valve replaced (Chronic) Total replacement of hip (Chronic) Family History Mother Diabetes Essential hypertension Personal history of malignant neoplasm Heart disease Hyperlipidemia Brother Essential hypertension Heart disease Grandmother Personal history of malignant neoplasm Social History Smoking/Tobacco Use Status: Former Tobacco Use Drug use: Never Do you feel safe at home: Yes Do you feel safe in your relationship?: Yes Exam Narrative Exam Narrative: Vitals: Afebrile. Mildly tachycardic on presentation but resolved. Saturations in low 90s on RA. Const: WDWN elderly male in NAD. HEENT: NC/AT. Normal facial exam. Eyes: Normal conjunctiva and sclera. Neck: Supple. Trachea midline. Lungs: Normal respiratory effort. Lungs are clear but a little diminished. Barrel chest. Cor: RRR without murmur/gallop. Good radial pulses. GI: Soft. NT/ND. No guarding or rebound. Neuro: A+O x 3. CN grossly in tact. Good strength and no focal deficit. Ext: No C/C/E. No deformity or tenderness. Skin: Warm and dry without rash.
--- NOTE | 2018-07-27 14:38 | DI.RAD_ITS ---
SYMPTOM/DIAGNOSIS: SOB FRONTAL AND LATERAL CHEST: Comparison is made with 02/22/18. Heart size and pulmonary vasculature are within normal limits. Sternal wires are in place. The lungs are clear. No effusions or pneumothoraces are identified. Note is made of an aortic valve replacement. IMPRESSION: No acute pulmonary process.
[2018-07-27 14:50] LABS: Abs Immature Grans 0.03 k/cumm (0.0-0.09); Absolute Eosinophil Count 0.01 k/cumm (0.0-0.7); Absolute Lymphocyte Count 0.77 k/cumm (1.2-3.4); Absolute Monocyte Count 0.58 k/cumm (0.11-0.7); Absolute Neutrophil Count 8.27 k/cumm (1.2-6.7); Eosinophils % 0.1; HGB 14.5 g/dL (13.5-17.5); Immature Grans % 0.3; Mean Corp. HGB Concentration 33.7 g/dL (32.0-36.0); Mean Corpuscular Hemoglobin 30.7 pg (27.0-33.0); Mean Corpuscular Volume 91.1 fL (80-95); Mean Platelet Volume 10.7 fL (8.0-11.0); Neutrophils % 85.6; Platelet Count 109 x1000/uL (130-400); RBC 4.72 m/cumm (4.50-6.00); RBC Distribution Width 14.2 % (11.8-14.1); White Blood Cell Count 9.66 k/cumm (4.4-10.8)
[2018-07-27] MEDS: Albuterol/Ipratropium 3 ML UPD VIAL (15:00)
[2018-07-27 15:09] LABS: Anion Gap 8.2 mmol/L (3-11); BUN 25 mg/dL (7-18); CO2 25.8 mmol/L (21.0-32.0); CREATININE 1.72 mg/dL (0.70-1.30); Calcium 9.2 mg/dL (8.5-10.1); Chloride 104 mmol/L (98-107); Estimated GFR 39.39 (mL/min/1.73m2); Glucose 216 mg/dL (70-100); Magnesium 1.9 mg/dL (1.8-2.4); NT-proBNP 94 pg/mL; Sodium 138 mmol/L (136-145); Troponin I 0.02 ng/mL (0.00-0.06)
[2018-07-27 15:52] LABS: BE 2.9 mmol/L (-3-3); HCO3 27 mmol/L (22-28); pCO2 41 mmHg (34-47); pH 7.43 (7.35-7.45); pO2 49 mmHg (83-108); sO2 85 % (94-98); tCO2 24 mmol/L (22-29)
[2018-07-27 15:55] LABS: Site Left Radial
[2018-07-27 15:56] LABS: FIO2 21 %
== END 2018-07-27 17:30 | disposition home or self-care (01) ==
PROVIDERS: Emergency Provider Emergency Medicine; PCP Family Medicine
DX: J44.9 Chronic obstructive pulmonary disease, unspecified (principal); I47.1 Supraventricular tachycardia; I48.0 Paroxysmal atrial fibrillation; I10 Essential (primary) hypertension; I25.10 Atherosclerotic heart disease of native coronary artery without angina pectoris; Z87.891 Personal history of nicotine dependence; Z95.2 Presence of prosthetic heart valve
CPT/HCPCS: 36415; 80048; 82805; 93005; 94640; 99285; 36600; 71046; 83735; 83880; 84484; 85025; 93010; J7620

== ENCOUNTER 2018-08-14 14:30 | Emergency (ER) | payer MEDICARE, SELFPAY ==
[2018-08-14] VITALS (23 sets, daily range): BP systolic 95–147; BP diastolic 55–77; PULSE 87–104; RESP 2–31; TEMP 37.2; O2SAT 92–99
--- NOTE | 2018-08-14 14:42 | DI.RAD_ITS ---
SYMPTOMS/DIAGNOSIS: COUGH, SHORTNESS OF BREATH PA AND LATERAL CHEST: Comparison is made with July,. The heart size is normal. Sternal wires and valve prosthesis are again noted. The lungs appear clear. No infiltrate, effusion or pulmonary edema is seen. There is minimal apical scarring. There are underlying emphysematous and mild fibrotic changes. IMPRESSION: No acute abnormality.
[2018-08-14] MEDS: Albuterol/Ipratropium 3 ML UPD VIAL UPD (14:44)
--- NOTE | 2018-08-14 14:45 | ED.GENADUL_ITS ---
Discharge Plan Disposition Patient Disposition: HOME Condition: Improving Discharge Details Chief Complaint: SOB Clinical Impression: Acute exacerbation of chronic obstructive pulmonary disease (COPD) Primary Care Provider: Rayshawn Kothari ED Provider: Tobias Gillespie Home Meds and New Rx's Prescriptions: New prednisone 10 mg tablet 10 mg PO DAILY Qty: 45 RF: 0 Continued levalbuterol tartrate [Xopenex HFA] 45 mcg/actuation HFA aerosol inhaler 2 puff Inhalation Q6H PRN (Reason: shortness of breath) Qty: 15 RF: 3 losartan 25 mg tablet 25 mg PO DAILY Qty: 90 RF: 4 Space Chamber Plus 1 EACH spacer 1 ea Miscellaneous PRN Qty: 1 RF: 0 Atorvastatin Calcium 20 MG tablet 20 mg PO DAILY Qty: 90 RF: 4 Breo Ellipta 1 EACH blister with device 1 tab Inhalation DAILY RF: 0 Stiolto Respimat 4 GM mist 2 puff Inhalation DAILY RF: 0 Narcan 4 MG spray,non-aerosol 4 mg NS PRN Qty: 2 RF: 0 omeprazole 20 mg capsule,delayed release(DR/EC) 20 mg PO DAILY Qty: 90 RF: 3 amlodipine [Norvasc] 10 mg tablet 10 mg PO HS Qty: 90 RF: 4 hydrocodone-acetaminophen 7.5-325 mg tablet 1 tab PO .q 8 h MDD 3 tabs PRN (Reason: pain) Qty: 60 RF: 0 hydrocodone-acetaminophen 5-325 mg tablet 1 tab PO TID MDD 3 tabs PRN (Reason: chronic pain) Qty: 90 RF: 0 lorazepam 0.5 mg tablet 0.5 mg PO BID PRN (Reason: anxiety) Qty: 20 RF: 0 Discharge Instructions Instructions: COPD (Chronic Obstructive Pulmonary Disease) (ED) Additional Instructions: Return if you develop a fever, increasing difficulty breathing, or any other acute concerns. I will refer you for a follow-up appointment with pulmonology. Please follow-up for pulmonary function testing on August 24 as planned. Take prednisone as prescribed including taper. Continue your regular medications Medical Decision Making 73-year-old male with advanced COPD presents with slowly worsening dyspnea over weeks time, more pronounced since discontinuing recent steroid burst and taper. He has a chronic cough but otherwise no new complaints. He arrives afebrile with a temperature of 37, pulse 80-90, blood pressure 129/77 and oxygenation of 93% on room air. He is quite diminished on exam. Differential diagnosis includes COPD exacerbation, bronchitis, must exclude underlying pneumonia or pneumothorax. Patient IV access established, given inhaled DuoNeb updraft, parenteral steroids and magnesium. He does report some jittery feelings when receiving beta agonist and GI second inhaled updraft was given with Xopenex. White blood cell count 7.8, hematocrit 42, platelets 199. Sodium 139, potassium 3.8, chloride 103, bicarb 25, BUN 15, creatinine 1.2, troponin less than 0.02. BNP 59. Chest x-ray with no acute infiltrate or acute findings. Please see formal report. He has some improvement with parenteral steroids, magnesium, inhaled beta agonist treatments. I do feel he has reached end-stage of COPD. He has PFTs scheduled for August 24 and I will asked that we arrange a follow-up appointment with pulmonology. At some point, he may benefit from a discussion of palliative options. I will place him on a burst and then taper of prednisone. He is stable, not hypoxic, and may be discharged home at this time. Please note: Parking Lot Attendant And Cashier/documentation created with NoWait software. There may be voice to text translation errors in this documentation. Lab Data Lab results reviewed: Yes I reviewed the patient's lab results. Laboratory Results - last 24 hr 08/14/18 08/14/18 08/14/18 14:35 14:35 14:35 WBC 7.85 RBC 4.69 Hgb 14.4 Hct 42.1 MCV 89.8 MCH 30.7 MCHC 34.2 RDW 13.2 Plt Count 199 MPV 9.8 Immature Gran % 0.3 Neutrophils % 51.9 Lymphocytes % 32.6 Monocytes % 11.0 Eosinophils % 3.8 Basophils % 0.4 Absolute Neutrophils 4.08 Absolute Lymphocytes 2.56 Absolute Monocytes 0.86 H Absolute Eosinophils 0.30 Absolute Basophils 0.03 Sodium 139 Potassium 3.8 Chloride 103 Carbon Dioxide 25.7 Anion Gap 10.3 BUN 15 Creatinine 1.29 Estimated GFR/1.73 m2 54.91 Glucose 87 Calcium 9.1 Magnesium 1.9 Total Bilirubin 0.5 AST 25 ALT 47 Alkaline Phosphatase 121 H Troponin I < 0.02 NT-Pro-B Natriuret Pep 59 Total Protein 7.6 Albumin 3.3 L ECG Data Attestation: I personally reviewed and interpreted this ECG (s) as follows: Interpretation: Normal sinus rhythm with a rate of 95, slight intraventricular conduction delay, no acute ST segment elevation HPI General Mode of arrival: ambulatory . Date/Time Provider Initiated Documentation: 08/14/18 14:34 . Limitations to Documentation: no limitations . Information obtained by: patient . History of Present Illness 73 year old M presents to the emergency department with the chief complaint of Shortness of breath, described as moderate and similar to prior episodes, Quality is described as dull and constant, and is localized to the chest. Patient reports no radiation. Patient started experiencing this day(s) and it has been constant. No relieving factors improve symptom(s), No exacerbating factors reported . Patient notes cough and shortness of breath; denies fever/chills. Patient did receive the following treatments prior to arrival, none Related Data Home Medications Medication Instructions Recorded Confirmed Space Chamber Plus #1 04/27/14 08/14/18 Breo Ellipta 1 tab INHALATION DAILY 10/15/17 08/14/18 Narcan 4 mg NS PRN #2 spray 10/15/17 08/14/18 Stiolto Respimat 2 puff INHALATION DAILY 10/15/17 08/14/18 omeprazole 20 mg capsule,delayed 20 mg PO DAILY #90 tab-cap 12/22/17 08/14/18 release levalbuterol HFA 45 mcg/actuation 2 puff INHALATION Q6H PRN #15 gm 01/14/18 08/14/18 aerosol inhaler losartan 25 mg tablet 25 mg PO DAILY #90 tab-cap 01/14/18 08/14/18 amlodipine 10 mg tablet 10 mg PO HS #90 tab-cap 03/18/18 08/14/18 hydrocodone 7.5 mg-acetaminophen 1 tab PO .q 8 h PRN #60 tab MDD 3 06/19/18 08/14/18 325 mg tablet tabs hydrocodone 5 mg-acetaminophen 325 1 tab PO TID PRN #90 tab MDD 3 tabs 08/12/18 08/14/18 mg tablet lorazepam 0.5 mg tablet 0.5 mg PO BID PRN #20 tab 08/12/18 08/14/18 prednisone 10 mg PO DAILY #45 tab 08/14/18 Previous Rx's Medication Instructions Recorded Narcan 4 mg NS PRN #2 spray 10/15/17 omeprazole 20 mg capsule,delayed 20 mg PO DAILY #90 tab-cap 12/22/17 release levalbuterol HFA 45 mcg/actuation 2 puff INHALATION Q6H PRN #15 gm 01/14/18 aerosol inhaler losartan 25 mg tablet 25 mg PO DAILY #90 tab-cap 01/14/18 amlodipine 10 mg tablet 10 mg PO HS #90 tab-cap 03/18/18 hydrocodone 7.5 mg-acetaminophen 1 tab PO .q 8 h PRN #60 tab MDD 3 06/19/18 325 mg tablet tabs hydrocodone 5 mg-acetaminophen 325 1 tab PO TID PRN #90 tab MDD 3 tabs 08/12/18 mg tablet lorazepam 0.5 mg tablet 0.5 mg PO BID PRN #20 tab 08/12/18 prednisone 10 mg PO DAILY #45 tab 08/14/18 Allergies Allergy/AdvReac Type Severity Reaction Status Date / Time lisinopril Allergy Intermediate RASH; Verified 07/15/18 07:59 PRURITIS diphenhydramine HCl AdvReac Severe Makes him Verified 07/15/18 07:59 [From Benadryl] crazy/anxious NSAIDS (Non-Steroidal AdvReac Intermediate GI Verified 07/15/18 07:59 Anti-Inflamma Intolerance tramadol AdvReac Intermediate nausea/vomi Verified 07/15/18 07:59 ting gabapentin AdvReac Unknown GI UPSET Verified 07/15/18 07:59 SCALLOP Allergy Severe THROAT Uncoded 07/06/18 14:11 SWELLING General Stated Complaint: SOB ALFREDO: 2 Review of Systems Review of Systems 6 systems reviewed and otherwise negative [facility] Medical History SVT (supraventricular tachycardia) (Chronic ~02/2018) Paroxysmal atrial fibrillation (Resolved 01/28/17) Gastro-esophageal reflux (Chronic 09/15/13) Essential hypertension (Chronic 02/26/16) Esophageal varices without bleeding (Chronic 05/14/16) Chronic obstructive pulmonary disease (Chronic 08/05/17) CAD (coronary artery disease) (Chronic 12/05/16) Benign prostatic hyperplasia (Chronic 02/03/13) Chronic pain syndrome (Chronic) Cirrhosis (Chronic) Surgical History Aortic valve replaced (Chronic) Total replacement of hip (Chronic) Family History Mother Diabetes Essential hypertension Personal history of malignant neoplasm Heart disease Hyperlipidemia Brother Essential hypertension Heart disease Grandmother Personal history of malignant neoplasm Social History Smoking/Tobacco Use Status: Former Tobacco Use Drug use: Never Do you feel safe at home: Yes Do you feel safe in your relationship?: Yes Exam Narrative Exam Narrative: GEN: awake, alert, oriented 3. Pleasant, well groomed, interactive. HEAD: Normocephalic, atraumatic ENT: Mucous membranes moist, oropharynx unremarkable, External ear exam unremarkable EYES: PERRL, EOMI NECK: Full ROM, no DAVE, no menigismus CHEST/RESP: Nontender, increased respiratory rate, diminished bilaterally with discrete end expiratory wheeze CARDIOVASCULAR: RRR, heart sounds distant, no murmur, rub shilpi. 2+ Rad pulse bilateral ABDOMEN: Soft, nontender, no mass. +Bowel sounds EXT: Full ROM, no edema, no rash Neuro: Grossly normal neurologic exam, conversant, interactive. Psych: Speech fluent, thoughts congruent, affect normal Course Vital Signs Temperature 37.2 C 08/14/18 14:35 Pulse 94 H 08/14/18 14:35 Respiratory Rate 30 H 08/14/18 14:35 Blood Pressure 129/77 08/14/18 14:35 Pulse Oximetry 95 08/14/18 14:35 Temperature 37.2 C 08/14/18 14:35 Temperature Source Skin 08/14/18 14:35 Pulse 94 H 08/14/18 14:35 Respiratory Rate 30 H 08/14/18 14:35 Respiratory Effort Labored 08/14/18 14:40 Blood Pressure 129/77 08/14/18 14:35 Blood Pressure Position Sitting 08/14/18 14:35 Pulse Oximetry 95 08/14/18 14:35 Oxygen Delivery Method Room Air 08/14/18 14:35 Oxygen Flow Rate 0 08/14/18 14:35
[2018-08-14] MEDS: MAGNESIUM SULFATE 1 GM/100 ML BAG IVPB (14:49)
[2018-08-14] MEDS: methylPREDNISolone SUCC 125 MG VIAL IVP (14:50)
[2018-08-14 14:56] LABS: Abs Immature Grans 0.02 k/cumm (0.0-0.09); Absolute Basophil Count 0.03 k/cumm (0.0-0.2); Absolute Lymphocyte Count 2.56 k/cumm (1.2-3.4); Absolute Monocyte Count 0.86 k/cumm (0.11-0.7); Absolute Neutrophil Count 4.08 k/cumm (1.2-6.7); Basophils % 0.4; Eosinophils % 3.8; HCT 42.1 % (40.0-50.0); HGB 14.4 g/dL (13.5-17.5); Immature Grans % 0.3; Lymphocytes % 32.6; Mean Corp. HGB Concentration 34.2 g/dL (32.0-36.0); Mean Corpuscular Hemoglobin 30.7 pg (27.0-33.0); Mean Corpuscular Volume 89.8 fL (80-95); Mean Platelet Volume 9.8 fL (8.0-11.0); Neutrophils % 51.9; Platelet Count 199 x1000/uL (130-400); RBC 4.69 m/cumm (4.50-6.00); RBC Distribution Width 13.2 % (11.8-14.1); White Blood Cell Count 7.85 k/cumm (4.4-10.8)
[2018-08-14] MEDS: Levalbuterol 1.25 MG/3 ML UPD VIAL UPD (15:05)
[2018-08-14 15:13] LABS: ALT 47 U/L (12-78); AST 25 U/L (15-37); Albumin 3.3 g/dL (3.4-5.0); Alkaline Phosphatase 121 U/L (46-116); Anion Gap 10.3 mmol/L (3-11); BUN 15 mg/dL (7-18); Bilirubin, Total 0.5 mg/dL (0.2-1.0); CO2 25.7 mmol/L (21.0-32.0); CREATININE 1.29 mg/dL (0.70-1.30); Calcium 9.1 mg/dL (8.5-10.1); Chloride 103 mmol/L (98-107); Estimated GFR 54.91 (mL/min/1.73m2); Glucose 87 mg/dL (70-100); Potassium 3.8 mmol/L (3.5-5.1); Sodium 139 mmol/L (136-145); Total Protein 7.6 g/dL (6.4-8.2); Troponin I < 0.02 ng/mL (0.00-0.06)
[2018-08-14 15:20] LABS: Magnesium 1.9 mg/dL (1.8-2.4); NT-proBNP 59 pg/mL
[2018-08-14] MEDS: predniSONE 40 MG, predniSONE 10 MG 50 MG PO (16:21)
--- NOTE | 2018-08-18 12:14 | CMPROGNOTE_ITS ---
Care Management Progress Note 08/18-Dr. Gillespie requested assistance with a Pulmonology f/u (Jayne) as soon as possible for COPD. Referral faxed to [facility] requested they make the referral.
== END 2018-08-14 16:23 | disposition home or self-care (01) ==
PROVIDERS: Emergency Provider Emergency Medicine; PCP Family Medicine
DX: J44.1 Chronic obstructive pulmonary disease with (acute) exacerbation (principal); I10 Essential (primary) hypertension; I25.10 Atherosclerotic heart disease of native coronary artery without angina pectoris; Z87.891 Personal history of nicotine dependence
CPT/HCPCS: 36415; 80053; 93005; 94640; 96365; 96375; 99285; 71046; 83735; 83880; 84484; 85025; 93010; J2930; J3475; J7512; J7614; J7620

== ENCOUNTER 2018-08-24 12:55 | Observation (INO) | payer MEDICARE, SELFPAY ==
[2018-08-24] VITALS (36 sets, daily range): BP systolic 114–158; BP diastolic 74–104; PULSE 75–109; RESP 10–24; TEMP 36.6–37.4; O2SAT 93–97
[2018-08-24 13:21] LABS: Abs Immature Grans 0.17 k/cumm (0.0-0.09); Absolute Basophil Count 0.01 k/cumm (0.0-0.2); Absolute Eosinophil Count 0.01 k/cumm (0.0-0.7); Absolute Lymphocyte Count 1.03 k/cumm (1.2-3.4); Absolute Monocyte Count 0.54 k/cumm (0.11-0.7); Absolute Neutrophil Count 9.25 k/cumm (1.2-6.7); Basophils % 0.1; Eosinophils % 0.1; HCT 43.9 % (40.0-50.0); HGB 15.1 g/dL (13.5-17.5); Immature Grans % 1.5; Lymphocytes % 9.4; Mean Corp. HGB Concentration 34.4 g/dL (32.0-36.0); Mean Corpuscular Hemoglobin 31.2 pg (27.0-33.0); Mean Corpuscular Volume 90.7 fL (80-95); Mean Platelet Volume 10.3 fL (8.0-11.0); Monocytes % 4.9; Platelet Count 167 x1000/uL (130-400); RBC 4.84 m/cumm (4.50-6.00); RBC Distribution Width 13.8 % (11.8-14.1); White Blood Cell Count 11.01 k/cumm (4.4-10.8)
--- NOTE | 2018-08-24 13:22 | W.ED.GENAD ---
Discharge Plan Disposition Patient Disposition: [facility] INPATIENT Condition: Stable Discharge Details Chief Complaint: GenMedical Clinical Impression: SOB (shortness of breath), Abnormal stress test Primary Care Provider: Rayshawn Kothari ED Provider: Fito Malave Home Meds and New Rx's Prescriptions: No Action levalbuterol tartrate [Xopenex HFA] 45 mcg/actuation HFA aerosol inhaler 2 puff Inhalation Q6H PRN (Reason: shortness of breath) Qty: 15 RF: 3 losartan 25 mg tablet 25 mg PO DAILY Qty: 90 RF: 4 Space Chamber Plus 1 EACH spacer 1 ea Miscellaneous PRN Qty: 1 RF: 0 Atorvastatin Calcium 20 MG tablet 20 mg PO DAILY Qty: 90 RF: 4 Breo Ellipta 1 EACH blister with device 1 tab Inhalation DAILY RF: 0 Stiolto Respimat 4 GM mist 2 puff Inhalation DAILY RF: 0 Narcan 4 MG spray,non-aerosol 4 mg NS PRN Qty: 2 RF: 0 omeprazole 20 mg capsule,delayed release(DR/EC) 20 mg PO DAILY Qty: 90 RF: 3 amlodipine [Norvasc] 10 mg tablet 10 mg PO HS Qty: 90 RF: 4 hydrocodone-acetaminophen 7.5-325 mg tablet 1 tab PO .q 8 h MDD 3 tabs PRN (Reason: pain) Qty: 60 RF: 0 hydrocodone-acetaminophen 5-325 mg tablet 1 tab PO TID MDD 3 tabs PRN (Reason: chronic pain) Qty: 90 RF: 0 lorazepam 0.5 mg tablet 0.5 mg PO BID PRN (Reason: anxiety) Qty: 20 RF: 0 prednisone 10 mg tablet 10 mg PO DAILY Qty: 45 RF: 0 Medical Decision Making This is a pleasant 73-year-old male with a past medical history of hypertension, high cholesterol, aortic valve replacement 2 years ago with a bioprosthetic valve, and a known chronic lung disease. He was seeing his director of nuclear medicine, after negative pulmonary function testing, and stress test was ordered and during that he had 1 to [address] depression in V4 V5 and V6. Pulmonology did contact Dr. Cosme of cardiology who recommended admission for provocative nuclear stress testing. Currently the patient is pain-free, he has no chest symptoms whatsoever. He does admit to notable shortness of breath with exertion. He denies any other complaints. No history of PE or dissection. Signs and symptoms appear clinically consistent with that. We will get basic laboratory work-up, check a troponin, EKG at this time is benign and unremarkable. 4:01 PM Patient's laboratory work-up is returned relatively benign, no significant abnormalities. Troponin is less than 0.02. Renal function stable, chest x-ray shows no acute process. Patient continues to remain pain-free. Initially no telemetry beds were available at [facility], we did contact [facility] with Dr. Cosme also works, and there were no telemetry beds available there either. However during this transition time a telemetry bed opened up, the patient has agreed to stay here overnight for serial troponins and then nuclear stress test on Friday. He is well aware of this delay and the current plan. I contacted and she agrees with the assessment and plan. I have extensively reviewed the treatment plan with the patient. I have addressed all patient concerns at this time. I have also discussed the plan with the admitting physician and they agree with the current assessment and plan and have agreed to assume responsibility for the patient. All parties demonstrate verbal understanding and agreement with our assessment and plan at this time. EKG 13: 07 Rate 87, intervals normal, sinus rhythm, no significant ST elevations or depressions, no T wave inversions, Q waves present in lead III. No evidence of STEMI. RSR in V1 is present. Exam(s) a RAD:XR chest 2V PA & lateral SYMPTOMS/DIAGNOSIS: CHRONIC SHORTNESS OF BREATH PA AND LATERAL CHEST: The heart is not enlarged. There is an aortic valve prosthesis. The lungs appear generally clear. No pleural effusion seen. CONCLUSION: No evidence of acute disease. Ordered By: Fito Malave DO CC: HPI General Date/Time Provider Initiated Documentation: 08/24/18 12:59. HPI Narrative: This is a 73-year-old male with a past medical history of bioprosthetic valve replacement roughly 2 years ago, chronic severe lung disease, who was being seen by pulmonology today for progressive shortness of breath over the last 2 weeks. He had no associated chest pain. Pulmonary function testing at pulmonology was negative for any worsening of his lung function, and he was doing a stress test today where they noted a small 1 to 2 mm depressions in V4 V5 and V6. Pulmonology contacted Dr. Cosme of cardiology, Dr. Cosme recommended the patient be admitted for nuclear stress testing and rule out. The patient did not want to go to [place], so he came down here for subsequent admission. Currently the patient states that he has no chest pain, arm pain neck pain shoulder pain or chest heaviness or tightness. He denies any pleuritic chest pain. He states that he does get notably short of breath with exertion. He denies any vomiting or diarrhea. He denies any calf pain or tenderness. He has no other complaints at this time. No other modifying factors. Related Data Home Medications Medication Instructions Recorded Confirmed Space Chamber Plus #1 04/27/14 08/14/18 Breo Ellipta 1 tab INHALATION DAILY 10/15/17 08/14/18 Narcan 4 mg NS PRN #2 spray 10/15/17 08/14/18 Stiolto Respimat 2 puff INHALATION DAILY 10/15/17 08/14/18 omeprazole 20 mg capsule,delayed 20 mg PO DAILY #90 tab-cap 12/22/17 08/14/18 release levalbuterol HFA 45 mcg/actuation 2 puff INHALATION Q6H PRN #15 gm 01/14/18 08/14/18 aerosol inhaler losartan 25 mg tablet 25 mg PO DAILY #90 tab-cap 01/14/18 08/14/18 amlodipine 10 mg tablet 10 mg PO HS #90 tab-cap 03/18/18 08/14/18 hydrocodone 7.5 mg-acetaminophen 1 tab PO .q 8 h PRN #60 tab MDD 3 06/19/18 08/14/18 325 mg tablet tabs hydrocodone 5 mg-acetaminophen 325 1 tab PO TID PRN #90 tab MDD 3 tabs 08/12/18 08/14/18 mg tablet lorazepam 0.5 mg tablet 0.5 mg PO BID PRN #20 tab 08/12/18 08/14/18 prednisone 10 mg PO DAILY #45 tab 08/14/18 Previous Rx's Medication Instructions Recorded Narcan 4 mg NS PRN #2 spray 10/15/17 omeprazole 20 mg capsule,delayed 20 mg PO DAILY #90 tab-cap 12/22/17 release levalbuterol HFA 45 mcg/actuation 2 puff INHALATION Q6H PRN #15 gm 01/14/18 aerosol inhaler losartan 25 mg tablet 25 mg PO DAILY #90 tab-cap 01/14/18 amlodipine 10 mg tablet 10 mg PO HS #90 tab-cap 03/18/18 hydrocodone 7.5 mg-acetaminophen 1 tab PO .q 8 h PRN #60 tab MDD 3 06/19/18 325 mg tablet tabs hydrocodone 5 mg-acetaminophen 325 1 tab PO TID PRN #90 tab MDD 3 tabs 08/12/18 mg tablet lorazepam 0.5 mg tablet 0.5 mg PO BID PRN #20 tab 08/12/18 prednisone 10 mg PO DAILY #45 tab 08/14/18 Allergies Allergy/AdvReac Type Severity Reaction Status Date / Time lisinopril Allergy Intermediate RASH; Verified 07/15/18 07:59 PRURITIS diphenhydramine HCl AdvReac Severe Makes him Verified 07/15/18 07:59 [From Benadryl] crazy/anxious NSAIDS (Non-Steroidal AdvReac Intermediate GI Verified 07/15/18 07:59 Anti-Inflamma Intolerance tramadol AdvReac Intermediate nausea/vomi Verified 07/15/18 07:59 ting gabapentin AdvReac Unknown GI UPSET Verified 07/15/18 07:59 SCALLOP Allergy Severe THROAT Uncoded 07/06/18 14:11 SWELLING General Stated Complaint: GenMedical ALFREDO: 3 Review of Systems Review of Systems All systems reviewed & are unremarkable except as noted in HPI and below PFSH Social History Smoking/Tobacco Use Status: Former Tobacco Use Drug use: Never Do you feel safe at home: Yes Do you feel safe in your relationship?: Yes Exam Narrative Exam Narrative: 1.Const: Well-nourished, Well-developed, appearing stated age 2.Eyes: PERRL, no conjunctival injection, and symmetrical lids. 3.ENT: Atraumatic external nose and ears. Moist MM. Neck: Symmetric, trachea midline, No thyromegaly. 4.CVS: +S1/S2, No murmurs or gallops. Peripheral pulses 2+ and equal in all extremities. Brisk capillary refill in all extremities. 5.RESP: Unlabored respiratory effort. Slightly reduced breath sounds throughout. Clear to auscultation bilaterally. No wheezes rales or rhonchi 6.GI: Soft, Nontender/Nondistended, No hepatosplenomegaly. No guarding or rebound. 7.MSK: Normocephalic/Atraumatic, Extremities w/o deformity or ttp No cyanosis or clubbing, Normal movement of all extremities. No calf tenderness. 8.Skin: Warm, Dry. No rashes or lesions. 9.Neuro: postdoctoral research fellow II-XII grossly intact. Sensation grossly intact, no focal neurologic deficits. 10.Psych: (AAO) x3. Appropriate mood and affect Course Vital Signs Temperature 36.8 C 08/24/18 13:01 Pulse 94 H 08/24/18 13:01 Respiratory Rate 12 08/24/18 13:01 Blood Pressure 131/78 08/24/18 13:01 Pulse Oximetry 96 08/24/18 13:01 Temperature 36.8 C 08/24/18 13:01 Temperature Source Temporal Artery Scan 08/24/18 13:01 Pulse 94 H 08/24/18 13:01 Respiratory Rate 12 08/24/18 13:01 Respiratory Effort Non-Labored 08/24/18 13:03 Blood Pressure 131/78 08/24/18 13:01 Blood Pressure Position Sitting 08/24/18 13:01 Pulse Oximetry 96 08/24/18 13:01 Oxygen Delivery Method Room Air 08/24/18 13:01 Oxygen Flow Rate 0 08/24/18 13:01 Pain Level 0 08/24/18 13:01 Lab/Test Results Lab/Test Results: Laboratory Tests Range/Units 08/24/18 13:11 WBC (4.4-10.8) k/cumm 11.01 H RBC (4.50-6.00) m/cumm 4.84 Hgb (13.5-17.5) g/dL 15.1 Hct (40.0-50.0) % 43.9 MCV (80-95) fL 90.7 MCH (27.0-33.0) pg 31.2 MCHC (32.0-36.0) g/dL 34.4 RDW (11.8-14.1) % 13.8 Plt Count (130-400) x1000/uL 167 MPV (8.0-11.0) fL 10.3 Immature Gran % 1.5 Neutrophils % 84.0 Lymphocytes % 9.4 Monocytes % 4.9 Eosinophils % 0.1 Basophils % 0.1 Absolute Neutrophils (1.2-6.7) k/cumm 9.25 H Absolute Lymphocytes (1.2-3.4) k/cumm 1.03 L Absolute Monocytes (0.11-0.7) k/cumm 0.54 Absolute Eosinophils (0.0-0.7) k/cumm 0.01 Absolute Basophils (0.0-0.2) k/cumm 0.01
--- NOTE | 2018-08-24 13:29 | ED.GENADUL_ITS ---
Discharge Plan Disposition Patient Disposition: [facility] INPATIENT Condition: Stable Discharge Details Chief Complaint: GenMedical Clinical Impression: SOB (shortness of breath), Abnormal stress test Primary Care Provider: Rayshawn Kothari ED Provider: Fito Malave Home Meds and New Rx's Prescriptions: No Action levalbuterol tartrate [Xopenex HFA] 45 mcg/actuation HFA aerosol inhaler 2 puff Inhalation Q6H PRN (Reason: shortness of breath) Qty: 15 RF: 3 losartan 25 mg tablet 25 mg PO DAILY Qty: 90 RF: 4 Space Chamber Plus 1 EACH spacer 1 ea Miscellaneous PRN Qty: 1 RF: 0 Atorvastatin Calcium 20 MG tablet 20 mg PO DAILY Qty: 90 RF: 4 Breo Ellipta 1 EACH blister with device 1 tab Inhalation DAILY RF: 0 Stiolto Respimat 4 GM mist 2 puff Inhalation DAILY RF: 0 Narcan 4 MG spray,non-aerosol 4 mg NS PRN Qty: 2 RF: 0 omeprazole 20 mg capsule,delayed release(DR/EC) 20 mg PO DAILY Qty: 90 RF: 3 amlodipine [Norvasc] 10 mg tablet 10 mg PO HS Qty: 90 RF: 4 hydrocodone-acetaminophen 7.5-325 mg tablet 1 tab PO .q 8 h MDD 3 tabs PRN (Reason: pain) Qty: 60 RF: 0 hydrocodone-acetaminophen 5-325 mg tablet 1 tab PO TID MDD 3 tabs PRN (Reason: chronic pain) Qty: 90 RF: 0 lorazepam 0.5 mg tablet 0.5 mg PO BID PRN (Reason: anxiety) Qty: 20 RF: 0 prednisone 10 mg tablet 10 mg PO DAILY Qty: 45 RF: 0 Medical Decision Making This is a pleasant 73-year-old male with a past medical history of hypertension, high cholesterol, aortic valve replacement 2 years ago with a bioprosthetic valve, and a known chronic lung disease. He was seeing his breakfast server, after negative pulmonary function testing, and stress test was ordered and during that he had 1 to [address] depression in V4 V5 and V6. Pulmonology did contact Dr. Cosme of cardiology who recommended admission for provocative nuclear stress testing. Currently the patient is pain-free, he has no chest symptoms whatsoever. He does admit to notable shortness of breath with exertion. He denies any other complaints. No history of PE or dissection. Signs and symptoms appear clinically consistent with that. We will get basic laboratory work-up, check a troponin, EKG at this time is benign and unremarkable. 4:01 PM Patient's laboratory work-up is returned relatively benign, no significant ab normalities. Troponin is less than 0.02. Renal function stable, chest x-ray shows no acute process. Patient continues to remain pain-free. Initially no telemetry beds were available at [facility], we did contact [facility] with Dr. Cosme also works, and there were no telemetry beds available there either. However during this transition time a telemetry bed opened up, the patient has agreed to stay here overnight for serial troponins and then nuclear stress test on Friday. He is well aware of this delay and the current plan. I contacted and she agrees with the assessment and plan. I have extensively reviewed the treatment plan with the patient. I have addressed all patient concerns at this time. I have also discussed the plan with the admitting physician and they agree with the current assessment and plan and have agreed to assume responsibility for the patient. All parties demonstrate verbal understanding and agreement with our assessment and plan at this time. EKG 13: 07 Rate 87, intervals normal, sinus rhythm, no significant ST elevations or depressions, no T wave inversions, Q waves present in lead III. No evidence of STEMI. RSR in V1 is present. Exam(s) a RAD:XR chest 2V PA & lateral SYMPTOMS/DIAGNOSIS: CHRONIC SHORTNESS OF BREATH PA AND LATERAL CHEST: The heart is not enlarged. There is an aortic valve prosthesis. The lungs appear generally clear. No pleural effusion seen. CONCLUSION: No evidence of acute disease. Ordered By: Fito Malave DO CC: HPI General Date/Time Provider Initiated Documentation: 08/24/18 12:59 . HPI Narrative: This is a 73-year-old male with a past medical history of biopros thetic valve replacement roughly 2 years ago, chronic severe lung disease, who was being seen by pulmonology today for progressive shortness of breath over the last 2 weeks. He had no associated chest pain. Pulmonary function testing at pulmonology was negative for any worsening of his lung function, and he was doing a stress test today where they noted a small 1 to 2 mm depressions in V4 V5 and V6. Pulmonology contacted Dr. Cosme of cardiology, Dr. Cosme recommended the patient be admitted for nuclear stress testing and rule out. The patient did not want to go to [place], so he came down here for subsequent admission. Currently the patient states that he has no chest pain, arm pain neck pain shoulder pain or chest heaviness or tightness. He denies any pleuritic chest pain. He states that he does get notably short of breath with exertion. He denies any vomiting or diarrhea. He denies any calf pain or tenderness. He has no other complaints at this time. No other modifying factors. Related Data Home Medications Medication Instructions Recorded Confirmed Space Chamber Plus #1 04/27/14 08/14/18 Breo Ellipta 1 tab INHALATION DAILY 10/15/17 08/14/18 Narcan 4 mg NS PRN #2 spray 10/15/17 08/14/18 Stiolto Respimat 2 puff INHALATION DAILY 10/15/17 08/14/18 omeprazole 20 mg capsule,delayed 20 mg PO DAILY #90 tab-cap 12/22/17 08/14/18 release levalbuterol HFA 45 mcg/actuation 2 puff INHALATION Q6H PRN #15 gm 01/14/18 08/14/18 aerosol inhaler losartan 25 mg tablet 25 mg PO DAILY #90 tab-cap 01/14/18 08/14/18 amlodipine 10 mg tablet 10 mg PO HS #90 tab-cap 03/18/18 08/14/18 hydrocodone 7.5 mg-acetaminophen 1 tab PO .q 8 h PRN #60 tab MDD 3 06/19/18 08/14/18 325 mg tablet tabs hydrocodone 5 mg-acetaminophen 325 1 tab PO TID PRN #90 tab MDD 3 tabs 08/12/18 08/14/18 mg tablet lorazepam 0.5 mg tablet 0.5 mg PO BID PRN #20 tab 08/12/18 08/14/18 prednisone 10 mg PO DAILY #45 tab 08/14/18 Previous Rx's Medication Instructions Recorded Narcan 4 mg NS PRN #2 spray 10/15/17 omeprazole 20 mg capsule,delayed 20 mg PO DAILY #90 tab-cap 12/22/17 release levalbuterol HFA 45 mcg/actuation 2 puff INHALATION Q6H PRN #15 gm 01/14/18 aerosol inhaler losartan 25 mg tablet 25 mg PO DAILY #90 tab-cap 01/14/18 amlodipine 10 mg tablet 10 mg PO HS #90 tab-cap 03/18/18 hydrocodone 7.5 mg-acetaminophen 1 tab PO .q 8 h PRN #60 tab MDD 3 06/19/18 325 mg tablet tabs hydrocodone 5 mg-acetaminophen 325 1 tab PO TID PRN #90 tab MDD 3 tabs 08/12/18 mg tablet lorazepam 0.5 mg tablet 0.5 mg PO BID PRN #20 tab 08/12/18 prednisone 10 mg PO DAILY #45 tab 08/14/18 Allergies Allergy/AdvReac Type Severity Reaction Status Date / Time lisinopril Allergy Intermediate RASH; Verified 07/15/18 07:59 PRURITIS diphenhydramine HCl AdvReac Severe Makes him Verified 07/15/18 07:59 [From Benadryl] crazy/anxious NSAIDS (Non-Steroidal AdvReac Intermediate GI Verified 07/15/18 07:59 Anti-Inflamma Intolerance tramadol AdvReac Intermediate nausea/vomi Verified 07/15/18 07:59 ting gabapentin AdvReac Unknown GI UPSET Verified 07/15/18 07:59 SCALLOP Allergy Severe THROAT Uncoded 07/06/18 14:11 SWELLING General Stated Complaint: GenMedical ALFREDO: 3 Review of Systems Review of Systems All systems reviewed & are unremarkable except as noted in HPI and below PFSH Social History Smoking/Tobacco Use Status: Former Tobacco Use Drug use: Never Do you feel safe at home: Yes Do you feel safe in your relationship?: Yes Exam Narrative Exam Narrative: 1.Const: Well-nourished, Well-developed, appearing stated age 2.Eyes: PERRL, no conjunctival injection, and symmetrical lids. 3.ENT: Atraumatic external nose and ears. Moist MM. Neck: Symmetric, trachea midline, No thyromegaly. 4.CVS: +S1/S2, No murmurs or gallops. Peripheral pulses 2+ and equal in all extremities. Brisk capillary refill in all extremities. 5.RESP: Unlabored respiratory effort. Slightly reduced breath sounds throughout. Clear to auscultation bilaterally. No wheezes rales or rhonchi 6.GI: Soft, Nontender/Nondistended, No hepatosplenomegaly. No guarding or rebound. 7.MSK: Normocephalic/Atraumatic, Extremities w/o deformity or ttp No cyanosis or clubbing, Normal movement of all extremities. No calf tenderness. 8.Skin: Warm, Dry. No rashes or lesions. 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 Sensation grossly intact, no focal neurologic deficits. 10.Psych: (AAO) x3. Appropriate mood and affect Course Vital Signs Temperature 36.8 C 08/24/18 13:01 Pulse 94 H 08/24/18 13:01 Respiratory Rate 12 08/24/18 13:01 Blood Pressure 131/78 08/24/18 13:01 Pulse Oximetry 96 08/24/18 13:01 Temperature 36.8 C 08/24/18 13:01 Temperature Source Temporal Artery Scan 08/24/18 13:01 Pulse 94 H 08/24/18 13:01 Respiratory Rate 12 08/24/18 13:01 Respiratory Effort Non-Labored 08/24/18 13:03 Blood Pressure 131/78 08/24/18 13:01 Blood Pressure Position Sitting 08/24/18 13:01 Pulse Oximetry 96 08/24/18 13:01 Oxygen Delivery Method Room Air 08/24/18 13:01 Oxygen Flow Rate 0 08/24/18 13:01 Pain Level 0 08/24/18 13:01 Lab/Test Results Lab/Test Results: Laboratory Tests Range/Units 08/24/18 13:11 WBC (4.4-10.8) k/cumm 11.01 H RBC (4.50-6.00) m/cumm 4.84 Hgb (13.5-17.5) g/dL 15.1 Hct (40.0-50.0) % 43.9 MCV (80-95) fL 90.7 MCH (27.0-33.0) pg 31.2 MCHC (32.0-36.0) g/dL 34.4 RDW (11.8-14.1) % 13.8 Plt Count (130-400) x1000/uL 167 MPV (8.0-11.0) fL 10.3 Immature Gran % 1.5 Neutrophils % 84.0 Lymphocytes % 9.4 Monocytes % 4.9 Eosinophils % 0.1 Basophils % 0.1 Absolute Neutrophils (1.2-6.7) k/cumm 9.25 H Absolute Lymphocytes (1.2-3.4) k/cumm 1.03 L Absolute Monocytes (0.11-0.7) k/cumm 0.54 Absolute Eosinophils (0.0-0.7) k/cumm 0.01 Absolute Basophils (0.0-0.2) k/cumm 0.01
[2018-08-24 13:34] LABS: Prothrombin Time 9.9 sec (9.3-11.0)
[2018-08-24 13:42] LABS: ALT 77 U/L (12-78); AST 32 U/L (15-37); Albumin 3.5 g/dL (3.4-5.0); Alkaline Phosphatase 119 U/L (46-116); Anion Gap 11.1 mmol/L (3-11); BUN 18 mg/dL (7-18); Bilirubin, Total 0.7 mg/dL (0.2-1.0); CO2 24.9 mmol/L (21.0-32.0); CREATININE 1.34 mg/dL (0.70-1.30); Calcium 9.4 mg/dL (8.5-10.1); Chloride 99 mmol/L (98-107); Estimated GFR 52.55 (mL/min/1.73m2); Glucose 245 mg/dL (70-100); Potassium 4.2 mmol/L (3.5-5.1); Sodium 135 mmol/L (136-145); Total Protein 7.4 g/dL (6.4-8.2); Troponin I < 0.02 ng/mL (0.00-0.06)
--- NOTE | 2018-08-24 14:07 | DI.RAD_ITS ---
SYMPTOMS/DIAGNOSIS: CHRONIC SHORTNESS OF BREATH PA AND LATERAL CHEST: The heart is not enlarged. There is an aortic valve prosthesis. The lungs appear generally clear. No pleural effusion seen. CONCLUSION: No evidence of acute disease.
[2018-08-24] MEDS: Omeprazole 20 MG CAPCR PO (16:06)
--- NOTE | 2018-08-24 18:36 | HPE_ITS ---
Date of service: 08/24/18 Time of Service: 18:48 Assessment and Plan (1) Positive cardiac stress test: Current visit: Yes Status: Acute positive exercise EKG stress test. Dr Cosme, who was consulted by Dr Baez, recommends inpatient nuclear stress test - will be obtained for 08/26/18. Will monitor on tele and trend troponins For now, will start on empiric asa - but will check hemoccult. There is a report that the patient has a h/o esophageal varices. (2) Chronic obstructive pulmonary disease: Current visit: No Status: Chronic on steroid taper - complete while inpatient (3) Gastro-esophageal reflux: Current visit: No Status: Chronic increase GERD as patient does describe symptoms thereof to me this morning (4) Essential hypertension: Current visit: No Status: Chronic Continue outpatient therapy (5) Paroxysmal atrial fibrillation: Current visit: No Status: Resolved rate appears controlled. Will be monitored on tele. (6) Chronic pain: Current visit: No Status: Chronic Continue outpatient therapy (7) CAD (coronary artery disease): Current visit: No Status: Chronic As above - will monitor on tele, trend troponins. For stress test on Friday (8) Esophageal varices without bleeding: Current visit: No Status: Chronic Check hemoccult. Avoid chemical DVT ppx due to this. (9) Hyperlipidemia: Current visit: Yes Status: Acute check fasting lipid panel (10) Discharge planning issues: Current visit: Yes Status: Acute Full code (11) DVT prophylaxis: Current visit: Yes Status: Acute TEDs + SCD's - avoiding chemical DVT ppx due to h/o esophageal varices. History of Present Illness Chief Complaint: positive EKG stress test Narrative: Mr Hanson is a 73 year old male with PMHx of AVR, paroxysmal Afib not on anticoagulation, HTN, HLP, COPD, presently on a steroid taper, sent in from his communication studies professor's office where he had an EKG exercise stress test today, which reportedly was positive and revealed ST depressions in V4-V6. The patient states that his symptoms during the stress test was extreme shortness of breath. He states he lasted about 10 minutes on the exercise bike. He denied any chest pain during stress test, but does occasionally get chest pains, sometimes on the right, sometimes on the left - he thinks maybe they are gas pains. The reason he had the stress test today is because he is being worked up for shortness of breath, especially bad for the last 12 weeks. He states he had 2 ER visits, is completing his second steroid taper, with very minimal relief. Shortness of breath happens with exertion but also with rest. The patient also describes feeling dizzy during stress test when he was asked to blow into a tube (?spirometry). Review of Systems Review of Systems 12 systems reviewed. Pertinent positives and negatives are as per HPI. Additionally reports long standing numbness of toes on RLE - worse lately. No ankle symptoms and denies back pain. Also reports leg cramping at night. [facility] Medical History SVT (supraventricular tachycardia) (Chronic ~02/2018) Paroxysmal atrial fibrillation (Resolved 01/28/17) Gastro-esophageal reflux (Chronic 09/15/13) Essential hypertension (Chronic 02/26/16) Esophageal varices without bleeding (Chronic 05/14/16) Chronic obstructive pulmonary disease (Chronic 08/05/17) CAD (coronary artery disease) (Chronic 12/05/16) Benign prostatic hyperplasia (Chronic 02/03/13) Chronic pain syndrome (Chronic) Anxiety (Chronic) Arthritis (Chronic) Cataracts, bilateral (Chronic) Chronic, continuous use of opioids (Chronic) Nocturnal hypoxia (Chronic) Cirrhosis (Chronic) Surgical History History of surgical procedure on eye proper using laser (Chronic) S/P cardiac cath (Chronic) Aortic valve replaced (Chronic) Total replacement of hip (Chronic) Social History Smoking/Tobacco Use Status: Former Tobacco Use Drug use: Never Do you feel safe at home: Yes Do you feel safe in your relationship?: Yes Meds Home Medications Medication Instructions Recorded Confirmed Type Space Chamber Plus #1 04/27/14 08/24/18 History Atorvastatin Calcium 20 mg PO DAILY #90 tab-cap 08/19/17 08/24/18 Clinic Breo Ellipta 1 tab INHALATION DAILY 10/15/17 08/24/18 History Stiolto Respimat 2 puff INHALATION DAILY 10/15/17 08/24/18 History losartan 25 mg tablet 25 mg PO DAILY #90 tab-cap 01/14/18 08/24/18 Rx hydrocodone 5 mg-acetaminophen 325 1 tab PO TID PRN #90 tab MDD 3 tabs 08/12/18 08/24/18 Rx mg tablet lorazepam 0.5 mg tablet 0.5 mg PO BID PRN #20 tab 08/12/18 08/24/18 Rx albuterol sulfate [Ventolin HFA] 2 puff INHALATION Q6H PRN 08/24/18 08/24/18 His tory amlodipine [Norvasc] 10 mg PO DAILY 08/24/18 08/24/18 History multivitamin 1 tab PO DAILY 08/24/18 08/24/18 History omeprazole 20 mg PO HS 08/24/18 08/24/18 History prednisone See Rx Instructions .ROUTE .COMPLEX 08/24/18 08/24/18 History Allergies Allergy/AdvReac Type Severity Reaction Status Date / Time lisinopril Allergy Intermediate RASH; Verified 07/15/18 07:59 PRURITIS diphenhydramine HCl AdvReac Severe Makes him Verified 07/15/18 07:59 [From Benadryl] crazy/anxious NSAIDS (Non-Steroidal AdvReac Intermediate GI Verified 07/15/18 07:59 Anti-Inflamma Intolerance tramadol AdvReac Intermediate nausea/vomi Verified 07/15/18 07:59 ting gabapentin AdvReac Unknown GI UPSET Verified 07/15/18 07:59 SCALLOP Allergy Severe THROAT Uncoded 07/06/18 14:11 SWELLING Exam Narrative Exam Narrative: General: Anxious elderly male, does not seem to have any problems completing multiple sentences while speaking with a loud voice, no coughing heard while I am in the room, A&Ox3, sitting comfortably at the edge of the bed Neurological: A&OX3, no focal deficits Psychiatric: Anxious; somewhat inappropriately confrontational about his course of treatment (insulin for his elevated BG, the fact that he was prescribed narcan as outpatient), otherwise appropriate speech pattern/content Skin: intact HEENT: Atraumatic, normocephalic, EOMI, MMM, +thrush, no submandibular or cervical lymphadenopathy, no goiter or JVD Cardiovascular: Irregularly irregular rhythm, quiet ERIS Lungs: CTAB with excellent bilateral air entry Gastrointestinal: abdomen is soft, nontender, nondistended Extremities: trace ankle edema, +1 pedal pulses B, no c/c Results Imaging Additional studies: EKG: HR 87, NSR, no acute ischemia or ST depressions appreciated. Unfortunately, the stress test EKG is not available for my review at this time, and I am unable to open the scanned document in [employer]. Labs : 08/24/18 13:11 08/24/18 13:11 Laboratory Results - last 24 hr 08/24/18 08/24/18 08/24/18 13:11 13:11 13:11 WBC 11.01 H RBC 4.84 Hgb 15.1 Hct 43.9 MCV 90.7 MCH 31.2 MCHC 34.4 RDW 13.8 Plt Count 167 MPV 10.3 Immature Gran % 1.5 Neutrophils % 84.0 Lymphocytes % 9.4 Monocytes % 4.9 Eosinophils % 0.1 Basophils % 0.1 Absolute Neutrophils 9.25 H Absolute Lymphocytes 1.03 L Absolute Monocytes 0.54 Absolute Eosinophils 0.01 Absolute Basophils 0.01 PT 9.9 INR 1.0 APTT 21.0 Sodium 135 L Potassium 4.2 Chloride 99 Carbon Dioxide 24.9 Anion Gap 11.1 H BUN 18 Creatinine 1.34 H Estimated GFR/1.73 m2 52.55 Glucose 245 H Calcium 9.4 Total Bilirubin 0.7 AST 32 ALT 77 Alkaline Phosphatase 119 H Troponin I < 0.02 Total Protein 7.4 Albumin 3.5 CXR 08/24/18: No evidence of acute disease. Last Vital Signs Temp 36.6 C 08/24/18 17:24 Pulse 93 H 08/24/18 17:24 Resp 20 08/24/18 17:24 BP 158/81 H 08/24/18 17:24 Pulse Ox 95 08/24/18 17:24
[2018-08-24] MEDS: Insulin Aspart 300 UNITS/3 ML PEN SC (18:46)
[2018-08-24] MEDS: Enoxaparin 40 MG/0.4 ML SYR SC (18:46)
[2018-08-24] MEDS: LORazepam 0.5 MG TAB PO (20:52)
[2018-08-24] MEDS: HYDROcodone 5/Acetaminophen 325 TAB PO (21:57)
[2018-08-24] MEDS: Pantoprazole 40 MG TABCR PO (21:58)
[2018-08-24] MEDS: Nystatin 500000 UNITS/5 ML SUSP 5ML CUP PO (21:58)
[2018-08-24 23:04] LABS: Troponin I < 0.02 ng/mL (0.00-0.06)
[2018-08-25] VITALS (12 sets, daily range): BP systolic 117–153; BP diastolic 71–84; PULSE 65–95; RESP 16–18; TEMP 36–37.2; O2SAT 95–96
[2018-08-25] MEDS: Mylanta Suspension 30 ML CUP PO (04:52)
[2018-08-25] MEDS: Nystatin 500000 UNITS/5 ML SUSP 5ML CUP PO ×5 (05:30→22:21)
[2018-08-25 07:02] LABS: Abs Immature Grans 0.11 k/cumm (0.0-0.09); Absolute Basophil Count 0.02 k/cumm (0.0-0.2); Absolute Eosinophil Count 0.17 k/cumm (0.0-0.7); Absolute Lymphocyte Count 2.67 k/cumm (1.2-3.4); Absolute Monocyte Count 0.99 k/cumm (0.11-0.7); Absolute Neutrophil Count 5.89 k/cumm (1.2-6.7); Basophils % 0.2; Eosinophils % 1.7; HCT 40.3 % (40.0-50.0); HGB 13.7 g/dL (13.5-17.5); Immature Grans % 1.1; Lymphocytes % 27.1; Mean Corpuscular Hemoglobin 31.1 pg (27.0-33.0); Mean Corpuscular Volume 91.4 fL (80-95); Mean Platelet Volume 10.1 fL (8.0-11.0); Monocytes % 10.1; Neutrophils % 59.8; Platelet Count 136 x1000/uL (130-400); RBC 4.41 m/cumm (4.50-6.00); RBC Distribution Width 13.9 % (11.8-14.1); White Blood Cell Count 9.85 k/cumm (4.4-10.8)
[2018-08-25 07:22] LABS: Anion Gap 6.1 mmol/L (3-11); BUN 24 mg/dL (7-18); CO2 29.9 mmol/L (21.0-32.0); CREATININE 1.32 mg/dL (0.70-1.30); Calcium 8.5 mg/dL (8.5-10.1); Calculated LDL 52; Chloride 104 mmol/L (98-107); Cholesterol 144 mg/dL (50-200); Estimated GFR 53.47 (mL/min/1.73m2); Glucose 116 mg/dL (70-100); HDL Cholesterol 75 mg/dL (40-60); Potassium 3.5 mmol/L (3.5-5.1); Sodium 140 mmol/L (136-145); Triglyceride 89 mg/dL (30-150)
[2018-08-25 07:23] LABS: Troponin I < 0.02 ng/mL (0.00-0.06)
[2018-08-25 07:45] LABS: Vitamin B12 478 pg/mL (193-986)
[2018-08-25] MEDS: amLODIPine 10 MG TAB PO (07:57)
[2018-08-25] MEDS: Aspirin E.C. 81 MG TABEC PO (07:58)
[2018-08-25] MEDS: predniSONE 20 MG TAB PO (07:58)
[2018-08-25] MEDS: Multivitamin TAB 1 TAB PO (07:58)
[2018-08-25] MEDS: Losartan 25 MG TAB PO (07:58)
[2018-08-25] MEDS: Atorvastatin 20 MG TAB PO (07:58)
[2018-08-25 08:03] LABS: Hemoglobin A1C 7.1 % (4.5-6.2)
--- NOTE | 2018-08-25 08:06 | PDOC.CMIN ---
- If Service Date Differs Date of service: 08/25/18 Time of Service: 08:07 Care Management Initial Assess REASON FOR HOSPITALIZATION:: Positive cardiac stress test PAST MEDICAL HISTORY/PAST SURGICAL HISTORY:: Medical History: SVT (supraventricular tachycardia) (Chronic ~02/2018). Paroxysmal atrial fibrillation (Resolved 01/28/17). Gastro-esophageal reflux (Chronic 09/15/13). Essential hypertension (Chronic 02/26/16). Esophageal varices without bleeding (Chronic 05/14/16). Chronic obstructive pulmonary disease (Chronic 08/05/17). CAD (coronary artery disease) (Chronic 12/05/16). Benign prostatic hyperplasia (Chronic 02/03/13). Chronic pain syndrome (Chronic). Anxiety (Chronic). Arthritis (Chronic). Cataracts, bilateral (Chronic). Chronic, continuous use of opioids (Chronic). Nocturnal hypoxia (Chronic). Cirrhosis (Chronic). Surgical History: History of surgical procedure on eye proper using laser (Chronic). S/P cardiac cath (Chronic). Aortic valve replaced (Chronic). Total replacement of hip (Chronic) PREVIOUS FUNCTIONAL STATUS/SOCIAL/FAMILY SUPPORTS:: Rafiq lives in [place] with his in a mobile home. 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 His is disabled so he also helps with her care as well. They have children but are estranged from them at the moment. He identifies a couple of nephews and a few close friends as his main support system. 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 CURRENT FUNCTIONAL STATUS:: Rafiq was sitting up in bed during CM visit. He was pleasant and engaged easily in conversation. He states that Dr. Cosme is coming tomorrow to do a nuclear stress test. According to Rafiq, his plan of care will be determined by the results of that test.CM will continue to follow. ADVANCE DIRECTIVES:: On file at [employer]. Perlita Hanson Has patient been provided with information about the portal?: Yes Did the patient sign up for the portal?: No CODE STATUS:: Full Code INSURANCE COVERAGE / FINANCIAL ISSUES:: Medicare. Financial Assist 100 CURRENT HOME/COMMUNITY SERVICES/EQUIPMENT:: none currently PRIMARY CARE PHYSICIAN:: Rayshawn Kothari MD POTENTIAL DISCHARGE NEEDS:: to be determined. PATIENT/FAMILY EDUCATION NEEDS:: Discharge plan, limitations, follow up plan of care, Ask me Three ANTICIPATED BARRIERS TO DISCHARGE:: none identified TRANSPORTATION:: Via private automobile with family or friends when ready. PLAN:: Rafiq is undergoing testing to follow up on an abnormal stress test done yesterday at his welcome center agent's office. He will have a nuclear stress test tomorrow and follow up plan of care will be determined by the test results. Rafiq stated he thinks that he may need new home oxygen. Appropriate testing will be completed to make that determination. CM will continue to provide support to patient, family, care team and discharge plan of care.
--- NOTE | 2018-08-25 08:12 | INITIAL_ITS ---
- If Service Date Differs Date of service: 08/25/18 Time of Service: 08:07 Care Management Initial Assess REASON FOR HOSPITALIZATION:: Positive cardiac stress test PAST MEDICAL HISTORY/PAST SURGICAL HISTORY:: Medical History: SVT (supraventricular tachycardia) (Chronic ~02/2018). Paroxysmal atrial fibrillation (Resolved 01/28/17). Gastro-esophageal reflux (Chronic 09/15/13). Essential hypertension (Chronic 02/26/16). Esophageal varices without bleeding (Chronic 05/14/16). Chronic obstructive pulmonary disease (Chronic 08/05/17). CAD (coronary artery disease) (Chronic 12/05/16). Benign prostatic hyperplasia (Chronic 02/03/13). Chronic pain syndrome (Chronic). Anxiety (Chronic). Arthritis (Chronic). Cataracts, bilateral (Chronic). Chronic, continuous use of opioids (Chronic). Nocturnal hypoxia (Chronic). Cirrhosis (Chronic). Surgical History: History of surgical procedure on eye proper using laser (Chronic). S/P cardiac cath (Chronic). Aortic valve replaced (Chronic). Total replacement of hip (Chronic) PREVIOUS FUNCTIONAL STATUS/SOCIAL/FAMILY SUPPORTS:: Rafiq lives in [place] with his in a mobile home. 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 His is disabled so he also helps with her care as well. They have children but are estranged from them at the moment. He identifies a couple of nephews and a few close friends as his main support system. 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 CURRENT FUNCTIONAL STATUS:: Rafiq was sitting up in bed during CM visit. He was pleasant and engaged easily in conversation. He states that Dr. Cosme is coming tomorrow to do a nuclear stress test. According to Rafiq, his plan of care will be determined by the results of that test.CM will continue to follow. ADVANCE DIRECTIVES:: On file at [facility]. Perlita Hanson Has patient been provided with information about the portal?: Yes Did the patient sign up for the portal?: No CODE STATUS:: Full Code INSURANCE COVERAGE / FINANCIAL ISSUES:: Medicare. Financial Assist 100 CURRENT HOME/COMMUNITY SERVICES/EQUIPMENT:: none currently PRIMARY CARE PHYSICIAN:: Rayshawn Kothari MD POTENTIAL DISCHARGE NEEDS:: to be determined. PATIENT/FAMILY EDUCATION NEEDS:: Discharge plan, limitations, follow up plan of care, Ask me Three ANTICIPATED BARRIERS TO DISCHARGE:: none identified TRANSPORTATION:: Via private automobile with family or friends when ready. PLAN:: Rafiq is undergoing testing to follow up on an abnormal stress test done yesterday at his sales service assistant's office. He will have a nuclear stress test tomorrow and follow up plan of care will be determined by the test results. Rafiq stated he thinks that he may need new home oxygen. Appropriate testing will be completed to make that determination. CM will continue to provide support to patient, family, care team and discharge plan of care.
[2018-08-25] MEDS: Normal Saline Flush 10 ML SYR IVP ×2 (09:41→20:02)
[2018-08-25] MEDS: Insulin Aspart 300 UNITS/3 ML PEN SC ×2 (11:46→16:41)
--- NOTE | 2018-08-25 18:21 | PGE_ITS ---
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 Cosme, cardiology.Troponin negative x3. Pending MPI tomorrow. Continue to monitor on telemetry. Continue empiric aspirin. Hematest stools. (2) Chronic obstructive pulmonary disease: Current visit: No Status: Chronic Complete current steroid taper. (3) Gastro-esophageal reflux: Current visit: No Status: Chronic Increased GERD symptoms. Increase PPI to 40mg BID. (4) Essential hypertension: Current visit: No Status: Chronic Controlled on amlodpine. Continue outpatient therapy. (5) Paroxysmal atrial fibrillation: Current visit: No Status: Resolved Has been in NSR with frequent PVCs occasional PACs on telemetry. Rate controlled in the 80s. Continue to monitor on tele. (6) Chronic pain: Current visit: No Status: Chronic Continue outpatient regimen. (7) CAD (coronary artery disease): Current visit: No Status: Chronic As above - Pending MPI. Troponin negative x3. Continue to monitor on tele. (8) Hyperlipidemia: Current visit: Yes Status: Acute Continue atorvastatin. (9) Anxiety: Current visit: Yes Status: Chronic Takes ativan 1 mg at HS as needed as an outpatient, continue current regimen. (10) DVT prophylaxis: Current visit: Yes Status: Acute TEDs + SCD's - avoiding chemical DVT ppx due to h/o esophageal varices. (11) Discharge planning issues: Current visit: Yes Status: Acute He is a FULL CODE. He is scheduled for MPI tomorrow. This case was discussed with Dr. Garrido who is in agreement. Subjective Interval history since last seen: Mr. Hanson is feeling anxious awaiting his stress test that is scheduled for tomorrow. He reports that he occasionally feels short of breath at rest, he has shortness of breath with activity, this has been present for the past 4 months. He has occasional bilateral chest pains that he states is gas pain. He has been experiencing acid reflux. He asked to hold off on PFTs until his stress test was complete. He is eating and drinking, he denies nausea, vomiting, diarrhea. His bowels have been moving slowly due to his decreased activity. He denies edema. Exam Narrative Exam Narrative: General: Anxious elderly male, does not appear short of breath at this time. He is A&Ox3, sitting comfortably at the edge of the bed. Pleasant and cooperative. Neurological: A&OX3, no focal deficits Psychiatric: appears anxious, appropriate speech pattern/content, speech clear and articulate. Skin: no significant rash or lesion noted. HEENT: Atraumatic, normocephalic, EOMI, MMM. Neck: supple, no JVD Cardiovascular: Irregularly irregular rhythm, 2/6 murmur noted at apex. Lungs: respirations even and unlabored. Lung sounds clear bilaterally. Gastrointestinal: normoactive bowel sounds, abdomen is soft, nontender, nondist ended Extremities: no lower extremity edema, +1 pedal pulses bilaterally. Objective Objective Clinical Data: Abnormal lab results 08/25/18 08/25/18 08/25/18 Range/Units 06:25 06:25 06:25 RBC 4.41 L (4.50-6.00) m/cumm Absolute Monocytes 0.99 H (0.11-0.7) k/cumm BUN 24 H (7-18) mg/dL Creatinine 1.32 H (0.70-1.30) mg/dL Glucose 116 H D (70-100) mg/dL Hemoglobin A1c 7.1 H (4.5-6.2) % HDL Cholesterol 75 H (40-60) mg/dL Vital Signs Temperature 36.0 C L 08/25/18 15:59 Temperature Source Tympanic 08/25/18 15:59 Pulse 82 08/25/18 15:59 Pulse Rhythm Regular 08/25/18 07:48 Pulse 103 H 08/24/18 16:31 Respiratory Rate 18 08/25/18 15:59 Respiratory Effort Short of Breath 08/25/18 07:48 Respiratory Depth Normal 08/25/18 07:48 Respiratory Pattern Normal 08/25/18 07:48 Blood Pressure 129/80 08/25/18 15:59 Blood Pressure Mean 100 08/24/18 16:31 Blood Pressure Position Sitting 08/24/18 13:01 Pulse Oximetry 96 08/25/18 15:59 Oxygen Delivery Method Room Air 08/25/18 15:59 Oxygen Flow Rate 0 08/25/18 15:59 Pain Level 0 08/24/18 23:38 Comment 08/24/18 17:24 Intake & Output 08/24/18 08/25/18 08/25/18 23:59 11:59 23:59 Intake Total 240 / 240 2740 / 2980 240 / 2980 Balance 240 / 240 2740 / 2980 240 / 2980 Weight 75.75 kg 74.1 kg Intake: IV Oral 240 / 240 2730 / 2970 240 / 2970 Other: Urine Color Pale Yellow Urine Appearance Clear Clear Urine Odor None Comment Urine not viewed at this time, voiding independently, denies any issues Pt voiding ad edie in toilet. Urine not seen at this time. Pt denies sx. other than a lesser stream than when he was younger. Stool Occult Blood Positive Stool Size Large Stool Characteristics Soft Formed Brown Voiding Methods Toilet Toilet Laboratory Results WBC 9.85 k/cumm (4.4-10.8) 08/25/18 06:25 RBC 4.41 m/cumm (4.50-6.00) L 08/25/18 06:25 Hgb 13.7 g/dL (13.5-17.5) 08/25/18 06:25 Hct 40.3 % (40.0-50.0) 08/25/18 06:25 MCV 91.4 fL (80-95) 08/25/18 06:25 MCH 31.1 pg (27.0-33.0) 08/25/18 06:25 MCHC 34.0 g/dL (32.0-36.0) 08/25/18 06:25 RDW 13.9 % (11.8-14.1) 08/25/18 06:25 Plt Count 136 x1000/uL (130-400) 08/25/18 06:25 MPV 10.1 fL (8.0-11.0) 08/25/18 06:25 Immature Gran % 1.1 08/25/18 06:25 Neutrophils % 59.8 08/25/18 06:25 Lymphocytes % 27.1 08/25/18 06:25 Monocytes % 10.1 08/25/18 06:25 Eosinophils % 1.7 08/25/18 06:25 Basophils % 0.2 08/25/18 06:25 Absolute Neutrophils 5.89 k/cumm (1.2-6.7) 08/25/18 06:25 Absolute Lymphocytes 2.67 k/cumm (1.2-3.4) 08/25/18 06:25 Absolute Monocytes 0.99 k/cumm (0.11-0.7) H 08/25/18 06:25 Absolute Eosinophils 0.17 k/cumm (0.0-0.7) 08/25/18 06:25 Absolute Basophils 0.02 k/cumm (0.0-0.2) 08/25/18 06:25 PT 9.9 sec (9.3-11.0) 08/24/18 13:11 INR 1.0 (0.9-1.1) 08/24/18 13:11 APTT 21.0 sec (21.0-31.4) 08/24/18 13:11 Sodium 140 mmol/L (136-145) 08/25/18 06:25 Potassium 3.5 mmol/L (3.5-5.1) 08/25/18 06:25 Chloride 104 mmol/L (98-107) 08/25/18 06:25 Carbon Dioxide 29.9 mmol/L (21.0-32.0) 08/25/18 06:25 Anion Gap 6.1 mmol/L (3-11) 08/25/18 06:25 BUN 24 mg/dL (7-18) H 08/25/18 06:25 Creatinine 1.32 mg/dL (0.70-1.30) H 08/25/18 06:25 Estimated GFR/1.73 m2 53.47 (mL/min/1.73m2) 08/25/18 06:25 Glucose 116 mg/dL (70-100) H D 08/25/18 06:25 Hemoglobin A1c 7.1 % (4.5-6.2) H 08/25/18 06:25 Calcium 8.5 mg/dL (8.5-10.1) 08/25/18 06:25 Magnesium 2.0 mg/dL (1.8-2.4) 08/25/18 06:25 Total Bilirubin 0.7 mg/dL (0.2-1.0) 08/24/18 13:11 AST 32 U/L (15-37) 08/24/18 13:11 ALT 77 U/L (12-78) 08/24/18 13:11 Alkaline Phosphatase 119 U/L (46-116) H 08/24/18 13:11 Troponin I < 0.02 ng/mL (0.00-0.06) 08/25/18 06:25 Total Protein 7.4 g/dL (6.4-8.2) 08/24/18 13:11 Albumin 3.5 g/dL (3.4-5.0) 08/24/18 13:11 Triglycerides 89 mg/dL (30-150) 08/25/18 06:25 Total Cholesterol 144 mg/dL (50-200) 08/25/18 06:25 LDL Cholesterol, Calc 52 08/25/18 06:25 HDL Cholesterol 75 mg/dL (40-60) H 08/25/18 06:25 Vitamin B12 478 pg/mL (193-986) 08/25/18 06:25
[2018-08-25] MEDS: Omeprazole 20 MG CAPCR 40 MG PO (18:51)
[2018-08-25] MEDS: LORazepam 1 MG TAB PO (20:01)
[2018-08-26] VITALS (7 sets, daily range): BP systolic 126–150; BP diastolic 76–90; PULSE 66–96; RESP 16–18; TEMP 36.4–37.1; O2SAT 95–98
[2018-08-26] MEDS: Nystatin 500000 UNITS/5 ML SUSP 5ML CUP PO ×2 (05:21→11:54)
[2018-08-26 06:57] LABS: HGB 13.9 g/dL (13.5-17.5); Mean Corp. HGB Concentration 33.9 g/dL (32.0-36.0); Mean Corpuscular Volume 91.3 fL (80-95); Mean Platelet Volume 10.5 fL (8.0-11.0); Platelet Count 126 x1000/uL (130-400); RBC 4.49 m/cumm (4.50-6.00); RBC Distribution Width 13.7 % (11.8-14.1)
[2018-08-26 07:02] LABS: Anion Gap 7.6 mmol/L (3-11); BUN 22 mg/dL (7-18); CO2 27.4 mmol/L (21.0-32.0); CREATININE 1.07 mg/dL (0.70-1.30); Calcium 8.4 mg/dL (8.5-10.1); Chloride 104 mmol/L (98-107); Glucose 106 mg/dL (70-100); Magnesium 2.2 mg/dL (1.8-2.4); Potassium 3.7 mmol/L (3.5-5.1); Sodium 139 mmol/L (136-145)
[2018-08-26] MEDS: Omeprazole 20 MG CAPCR 40 MG PO (08:20)
[2018-08-26] MEDS: Multivitamin TAB 1 TAB PO (08:21)
[2018-08-26] MEDS: amLODIPine 10 MG TAB PO (08:21)
[2018-08-26] MEDS: Atorvastatin 20 MG TAB PO (08:21)
[2018-08-26] MEDS: Aspirin E.C. 81 MG TABEC PO (08:21)
[2018-08-26] MEDS: Losartan 25 MG TAB PO (08:21)
[2018-08-26] MEDS: predniSONE 10 MG TAB PO (08:21)
[2018-08-26] MEDS: Normal Saline Flush 10 ML SYR IVP (08:23)
--- NOTE | 2018-08-26 09:30 | MERGEMPI_ITS ---
*[facility]* *[facility]* [address] [place] [address] Myocardial Perfusion Imaging - SPECT Regadenoson Date of study: 08/26/2018 *PATIENT PRESENTATION* Height: 166.4cm (65.5in) Blood Pressure: Weight: 75.9kg (167lb) BSA: 1.89m^2 Referring physician: Anastasia Baez Ordering physician: Anastasia Baez Impressions: Normal myocardial perfusion and contraction after pharmacological stress. Summary: 1. Myocardial perfusion imaging: No myocardial perfusion defects noted. 2. The calculated left ventricular ejection fraction after stress: 62%. LV global systolic function is normal. No left ventricular regional motion abnormality. 3. Stress ECG conclusions: The stress ECG is negative. Indication: R06.02. History: REASON FOR TESTING: PATIENT PRESENTED TO THE ER ON 08/24/18 WITH SOB BOTH WITH EXERTION AND AT REST THAT HAS BEEN WORSE OVER THE LAST 12 WEEKS. 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 HE STATES 2 RECENT ER VISITS FOR SOB AND HAS HAD 2 STERIOD TAPERS WITH VERY MINIMAL RELIEF. HE DENIES CHEST PAIN/PRESSURE UPON ARRIVAL FOR TESTING TODAY. SIGNIFICANT PAST MEDICAL HISTORY: POSITIVE CARDIAC STRESS TEST, SVT, PULMONARY NODULE LESS THAN 6 CM, PAROXYSMAL ATRIAL FIBRILLATION, GERD, COPD CAD. SMOKING STATUS: QUIT 2006. SMOKED FOR 50 YEARS 2 PPD. 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 PMH: COPD. Risk factors: Family history of coronary artery disease. Hypertension. Cholesterol: 144mg/dl. HDL: 75mg/dl. LDL: 52mg/dl. Triglycerides: 89mg/dl. ALLERGIES: NSAIDS, BENEDRYL, SCALLOPS. MEDICATIONS: OMEPRAZOLE 20 MG DAILY, MULTIVITAMIN DAILY, NORVASC 10 MG DAILY, LOSARTAN 25 MG DAILY, LORAZEPAM 0.5 MG BID PRN, HYDROCODONE 5 MG/ACETAMINOPHEN 325 TID PRN, ALBUTEROL SULFATE (VENTOLIN HFA) 2 PUFFS Q 6 HRS PRN, STIOLTO RESPIMAT 2 PUFFS DAILY, BREO ELIPTA 1 INH DAILY, ATORVASTATIN CALCIUM 20 MG DAILY. Imaging Technique: Protocol: Regadenoson. Acquisition: Gated SPECT; 1 day - rest/stress. The patient was imaged in the supine position. Attenuation correction used. Isotope administration: - Rest. Tc[99m]-sestamibi. Dose: 10.8mCi. Injection time: 08:45 AM. Injection to stress time: 00:45. - Stress. Tc[99m]-sestamibi. Dose: 32.4mCi. Injection time: 11:00 AM. 1-2 min before end of exercise Baseline ECG: SINUS RHYTHM. 87 BPM. Normal ECG. Stress protocol: +--------+---+ + + !Stage !HR !BP (mmHg) !Comments ! +--------+---+ + + !Baseline!87 !134/78 (97)! ! +--------+---+ + + !1 min !100!128/70 (89)!Inject Regadenoson.! +--------+---+ + + !3 min !88 !118/78 (91)! ! +--------+---+ + + !6 min !92 !120/78 (92)! ! +--------+---+ + + !1 min !---! !Inject Regadenoson.! +--------+---+ + + * Stress results: STRESS TEST ENDED IN 7 MINUTES 34 SECONDS. NORMAL HEART RATE AND BLOOD PRESSURE RESPONSE TO LEXISCAN INJECTION. NO ECTOPY. NO ANGINA. NO SIGNIFICANT ST SEGMENT CHANGES. The rate-pressure product for the peak heart rate and blood pressure was 21202rd Hg/min. Stress ECG: The stress ECG is negative. Myocardial perfusion: Imaging information: gated. The image quality was good. Left ventricular size is normal. No myocardial perfusion defects noted. Ventricular Function (Wall Motion): The calculated left ventricular ejection fraction after stress: 62%. LV global systolic function is normal. No left ventricular regional motion abnormality. Study data: Alf Napier MD supervised and was readily available during the procedure. This study was interpreted by [facility]. Study status: Routine. Consent: The risks, benefits, and alternatives to the procedure were explained to the patient and informed consent was obtained. Procedure: Initial setup. A baseline ECG was recorded. Surface ECG leads and manual cuff blood pressure measurements were monitored. Heart sounds: Normal. Lung sounds: Normal. Regadenoson stress test. Stress testing was performed, with regadenoson by intravenous bolus, for a total dose of 0.4mgover 10.00sec, followed by a 5ml saline flush. The infusion was terminated due to per protocol. Study completion: All catheters inserted during the procedure were removed. The patient tolerated the procedure well and was discharged from the lab. Discharge: The patient left the laboratory in stable condition. Birthdate: Patient birthdate: 1945. Sex: Gender: male. Study date: Study date: 08/26/2018. Study time: 00:01 AM. Signature Documentation: - The imaging portion of this study was interpreted by [employer] Alf Napier MD. - The Stress ECG portion of this study was interpreted by Alf Napier MD. Electronically signed by Alf Napier 08/26/2018 14:55
[2018-08-26] MEDS: Insulin Aspart 300 UNITS/3 ML PEN SC ×2 (11:55→16:54)
[2018-08-26] MEDS: HYDROcodone 5/Acetaminophen 325 TAB PO (11:55)
[2018-08-26] MEDS: Sucralfate 1 GM TAB PO ×2 (11:55→16:28)
[2018-08-26] MEDS: Regadenoson 0.4 MG/5 ML SYR IVP (12:24)
--- NOTE | 2018-08-26 14:49 | PDOC.CMPRO ---
- If Service Date Differs Date of service: 08/26/18 Time of Service: 14:49 Care Management Progress Note S/O: Rafiq was sitting up in bed chatting with the vocational rehabilitation counselor when CM came to visit. He was smiling and engaged easily and stated he is anxiously waiting for his test results. He states that he may need to go to [facility] for a cardiac cath or folllow up as an outpatient. A: Rafiq is a 73 year old gentleman admitted to [facility] on 07/24/18 with a diagnosis of positive cardiac stress test. P:Rafiq is undergoing testing to follow up on an abnormal stress test done yesterday at his quality assurance technician's office. He had a nuclear stress test done today and is awaiting results. Follow up plan of care will be determined by the test results. CM will continue to provide support to patient, family, care team and discharge plan of care.
--- NOTE | 2018-08-26 15:08 | CHAPLAIN ---
Rafiq was waiting for the result of his nuclear test, when I visited this afternoon. He said he is prepared for whatever the results are as he believes this is in God's hands. 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
--- NOTE | 2018-08-26 16:00 | DSE_ITS ---
Date of service: 08/26/18 Time of Service: 15:58 DS: Diagnosis Discharge Diagnosis (1) Shortness of breath: Status: Acute (2) Chronic obstructive pulmonary disease: Status: Chronic (3) Gastro-esophageal reflux: Status: Chronic (4) Essential hypertension: Status: Chronic (5) Paroxysmal atrial fibrillation: Status: Resolved (6) Chronic pain: Status: Chronic (7) CAD (coronary artery disease): Status: Chronic (8) Hyperlipidemia: Status: Acute (9) Anxiety: Status: Chronic Discharge Plan Disposition Patient Disposition: HOME Condition: Stable Discharge Details Reason For Visit: POSITIVE EKG STRESS TEST Admit Date/Time: 08/24/18 16:28 Admit Provider: Chelsie Garrido Attending Provider: Chelsie Garrido Primary Care Provider: Rayshawn Kothari Hospital Course Hospital Course: Eddie Hanson is a very pleasant 73 year old man with a past medical history significant for Aortic valve replacement, paroxysmal Afib not on anticoagulation, HTN, HLP, COPD, presently on a steroid taper, who was referred for admission after being seen in his measurement psychologist's office. Apparently, he had a cardiopulmonary exercise stress test which was noted to be positive and revealed >[address] depressions in leads V4-V6. Dr. Baez contacted Dr. Cosme who felt that the patient needed to go to the ED for furhter testing including serial troponins and an MPI vs heart catheterization. He was at the [facility] at the time and preferred to be admitted to [facility], so he transported himself to the [facility] ED. At the time of his presentation, he reported a 16 week history of shortness of breath especially with exertion. He reports occasional bilateral chest tightness which he attributes to gas. His troponin was trended and noted to be <0.02 x3. He went on to have an MPI on the day of discharge which showed no myocardial perfusion defects, the calculated left ventricular ejection fraction after stress was 62%, LV global systolic function was normal. No left ventricular regional motion abnormality. The stress ECG is negative. Given the results of the stress test, he is discharged home in stable condition. He has a history of esophageal varices and had heme positive stools (although he reports having hemorrhoids), therefore, in the setting of a negative MPI, he was not initiated on aspirin therapy at this point. He was noted to have increasing GERD symptoms and was given an increased PPI dose while in the hospital. He will be discharged on an increased PPI dose. He also has a history of anxiety and takes ativan PRN. We discussed how his anxiety exacerbates his shortness of breath. He will discuss this with his PCP and would consider taking a daily medication to control his anxiety. His blood glucose was elevated in the setting of multiple steroid tapers. A Hgb A1c was assessed and noted to be 7.1, he will follow up with his PCP on the elevated glucose/Hgb A1c. He is scheduled to follow up with Pulmonology next week. He is scheduled to follow up with Cardiology on 09/08/18. He will follow up with his PCP as scheduled. Home Meds and New Rx's Prescriptions: New nystatin 100,000 unit/mL Suspension 500,000 units PO 5X/DAY 7 Days Qty: 175 RF: 0 pantoprazole [Protonix] 40 mg tablet,delayed release (DR/EC) 40 mg PO DAILY Qty: 30 RF: 0 Continued losartan 25 mg tablet 25 mg PO DAILY Qty: 90 RF: 4 Space Chamber Plus 1 EACH spacer 1 ea Miscellaneous PRN Qty: 1 RF: 0 Atorvastatin Calcium 20 MG tablet 20 mg PO DAILY Qty: 90 RF: 4 Breo Ellipta 1 EACH blister with device 1 tab Inhalation DAILY RF: 0 Stiolto Respimat 4 GM mist 2 puff Inhalation DAILY RF: 0 hydrocodone-acetaminophen 5-325 mg tablet 1 tab PO TID MDD 3 tabs PRN (Reason: chronic pain) Qty: 90 RF: 0 lorazepam 0.5 mg tablet 0.5 mg PO BID PRN (Reason: anxiety) Qty: 20 RF: 0 albuterol sulfate [Ventolin HFA] 90 mcg/actuation Hfa Aerosol Inhaler 2 puff INHALATION Q6H PRNRF: 0 multivitamin Tablet 1 tab PO DAILY RF: 0 prednisone 10 mg tablet See Rx Instructions .ROUTE .COMPLEX RF: 0 amlodipine [Norvasc] 10 mg tablet 10 mg PO DAILY RF: 0 Discontinued omeprazole 20 mg capsule,delayed release(DR/EC) 20 mg PO HS RF: 0 Discharge Instructions Instructions: Dyspnea (GEN) Additional Instructions: Your stress test was negative. Complete the prednisone taper as directed. Your GERD medication has been increased. Continue the Nystatin swish and swallow for oral thrush. Follow up with Pulmonology, cardiology and PCP as scheduled. Stand Alone Forms: Nursing Discharge Form Referrals: Nya Baez MD [ NON-[facility] STAFF PHYSICIAN] - Rayshawn Kothari [Primary Care Provider] - 09/08/18 1:20 pm Activity:: Activity as Tolerated Equipment/Supplies:: No Equipment Needed Diet:: Carb Counting Discharge Orders Discharge Orders: Discharge Order (Routine); Ordered 08/26/18 Ordered By: Anastasia Baez Exam Narrative Exam Narrative: General: elderly male, does not appear short of breath at rest. He is A&Ox3, sitting comfortably at the edge of the bed. Pleasant and cooperative. Neurological: A&OX3, no focal deficits Psychiatric: appears less anxious than yesterday, appropriate speech pattern/content, speech clear and articulate. Skin: no significant rash or lesion noted. HEENT: Atraumatic, normocephalic, EOMI, MMM. Neck: supple, no JVD Cardiovascular: Irregularly irregular rhythm, 2/6 murmur noted at apex. Lungs: respirations even and unlabored. Lung sounds clear bilaterally. Gastrointestinal: normoactive bowel sounds, abdomen is soft, nontender, nondistended Extremities: no lower extremity edema, +1 pedal pulses bilaterally. DS: Data Vitals/I&O Vitals and I&O: Vital Signs Temperature 36.6 C 08/26/18 12:00 Temperature Source Tympanic 08/26/18 12:00 Pulse 96 H 08/26/18 15:29 Pulse Rhythm Regular 08/26/18 08:26 Pulse 103 H 08/24/18 16:31 Respiratory Rate 17 08/26/18 12:00 Respiratory Effort Non-Labored 08/26/18 08:26 Respiratory Depth Normal 08/26/18 08:26 Respiratory Pattern Normal 08/26/18 08:26 Blood Pressure 126/81 08/26/18 12:00 Blood Pressure Mean 100 08/24/18 16:31 Blood Pressure Position Sitting 08/24/18 13:01 Pulse Oximetry 96 08/26/18 12:00 Oxygen Delivery Method Room Air 08/26/18 12:00 Oxygen Flow Rate 0 08/26/18 12:00 Pain Level 8 08/26/18 12:00 Comment 08/24/18 17:24 Intake & Output 08/25/18 08/26/18 08/26/18 23:59 11:59 23:59 Intake Total 490 / 3230 10 / 250 240 / 250 Balance 490 / 3230 10 / 250 240 / 250 Weight 73.1 kg Intake: IV Oral 480 / 3210 240 / 240 Other: Urine Color Pale Yellow Urine Appearance Clear Urine Odor None Comment per patient verbalization reports voiding this morning Stool Occult Blood Positive Negative Stool Size Moderate Moderate Stool Characteristics Formed Soft Brown Brown Voiding Methods Toilet Completed studies during hospitalization [Text1]: 08/24/18: PA AND LATERAL CHEST: The heart is not enlarged. There is an aortic valve prosthesis. The lungs appear generally clear. No pleural effusion seen. CONCLUSION: No evidence of acute disease. Date of study: 08/26/2018 *PATIENT PRESENTATION* Height: 166.4cm (65.5in) Blood Pressure: Weight: 75.9kg (167lb) BSA: 1.89m^2 Referring physician: Anastasia Baez Ordering physician: Anastasia Baez Impressions: Normal myocardial perfusion and contraction after pharmacological stress. Summary: 1. Myocardial perfusion imaging: No myocardial perfusion defects noted. 2. The calculated left ventricular ejection fraction after stress: 62%. LV global systolic function is normal. No left ventricular regional motion abnormality. 3. Stress ECG conclusions: The stress ECG is negative. Labs on day of discharge: Labs from last 24 hours 08/26/18 08/26/18 06:08 06:08 WBC 11.30 H RBC 4.49 L Hgb 13.9 Hct 41.0 MCV 91.3 MCH 31.0 MCHC 33.9 RDW 13.7 Plt Count 126 L MPV 10.5 Sodium 139 Potassium 3.7 Chloride 104 Carbon Dioxide 27.4 Anion Gap 7.6 BUN 22 H Creatinine 1.07 Estimated GFR/1.73 m2 >= 60.00 Glucose 106 H Calcium 8.4 L Magnesium 2.2 PFSH Medical History SVT (supraventricular tachycardia) (Chronic ~02/2018) Paroxysmal atrial fibrillation (Resolved 01/28/17) Gastro-esophageal reflux (Chronic 09/15/13) Essential hypertension (Chronic 02/26/16) Esophageal varices without bleeding (Chronic 05/14/16) Chronic obstructive pulmonary disease (Chronic 08/05/17) CAD (coronary artery disease) (Chronic 12/05/16) Benign prostatic hyperplasia (Chronic 02/03/13) Chronic pain syndrome (Chronic) Anxiety (Chronic) Arthritis (Chronic) Cataracts, bilateral (Chronic) Chronic, continuous use of opioids (Chronic) Nocturnal hypoxia (Chronic) Cirrhosis (Chronic) Surgical History History of surgical procedure on eye proper using laser (Chronic) S/P cardiac cath (Chronic) Aortic valve replaced (Chronic) Total replacement of hip (Chronic) Family History Mother Diabetes Essential hypertension Personal history of malignant neoplasm Heart disease Hyperlipidemia Brother Essential hypertension Heart disease Grandmother Personal history of malignant neoplasm Social History Smoking/Tobacco Use Status: Former Tobacco Use Drug use: Never Do you feel safe at home: Yes Do you feel safe in your relationship?: Yes
== END 2018-08-26 17:26 | disposition home or self-care (01) ==
LOC: ER 16:41 → MS 08-25 09:26
PROVIDERS: Nurse Practitioner; Admitting Provider Internal Medicine; Emergency Provider Student in an Organized Health Care Education/Training Program; PCP Family Medicine; Visit Provider Internal Medicine
DX: R06.02 Shortness of breath (principal); J44.9 Chronic obstructive pulmonary disease, unspecified; K21.9 Gastro-esophageal reflux disease without esophagitis; I10 Essential (primary) hypertension; I48.0 Paroxysmal atrial fibrillation; I25.10 Atherosclerotic heart disease of native coronary artery without angina pectoris; E78.5 Hyperlipidemia, unspecified; F41.9 Anxiety disorder, unspecified; I85.00 Esophageal varices without bleeding; R73.01 Impaired fasting glucose; T38.0X5A Adverse effect of glucocorticoids and synthetic analogues, initial encounter; B37.0 Candidal stomatitis; R19.5 Other fecal abnormalities; I47.1 Supraventricular tachycardia; Z87.891 Personal history of nicotine dependence; Z95.2 Presence of prosthetic heart valve
CPT/HCPCS: 36415; 78452; 80048; 80053; 80061; 83721; 85027; 93005; 93016; 93018; 94640; 99220; 99232; 99239; 99285; J1650; 71046; 82607; 83036; 83735; 84484; 85025; 85610; 85730; 93010; 93017; 99217; 99225; G0378; J2785; J7512

== ENCOUNTER 2018-09-15 07:30 | Outpatient (CLI) | payer MEDICARE, SELFPAY ==
--- NOTE | 2018-09-15 | PFT_ITS ---
PULMONARY FUNCTION TEST REPORT Patient - Eddie Hanson DATE OF SERVICE September 15, 2018 REQUESTING PROVIDER Rayshawn Kothari M.D. INTERPRETATION OF STUDY Spirometry shows severe obstructive airways disease with no significant bronchodilator response. LUNG VOLUMES - Lung volumes show no evidence of restriction. There is moderate hyperinflation and air trapping. DIFFUSION CAPACITY- Moderately reduced, which is mildly reduced when corrected to alveolar volume. AIRWAY RESISTANCE - Normal. IMPRESSION Severe obstructive airways disease with no significant bronchodilator response. This is associated with moderate hyperinflation and air trapping and moderate diffusion defect. Clinical correlation recommended. When this study was compared to previous ones from 06-21-17, 06-07-09, 09-27-14 and 01-10-15, the patient has an initial substantial decline and then a gradual further decline in FVC of a total of 2060 cc. FEV1 has had a similar pattern with an overall decline of 760 cc. Clinical correlation recommended. Nya Baez M.D. ADITHYA/ T- 09/17/2018
[2018-09-15] MEDS: Albuterol HFA 18 GM 200 PUFF INH IH (13:26)
[2018-09-15] MEDS: Inhaler, Assist Device 1 EACH MC (13:26)
== END 2018-09-15 07:50 ==
PROVIDERS: PCP Family Medicine; Visit Provider Family Medicine
DX: J44.9 Chronic obstructive pulmonary disease, unspecified (principal); Z87.891 Personal history of nicotine dependence; R06.09 Other forms of dyspnea
CPT/HCPCS: 94060; 94150; 94726; 94729

== ENCOUNTER 2018-09-19 17:45 | Emergency (ER) | payer MEDICARE, SELFPAY ==
[2018-09-19 17:48] VITALS: BP 117/80; PULSE 87; RESP 18; TEMP 37.3; O2SAT 96
--- NOTE | 2018-09-19 17:56 | DI.RAD_ITS ---
SYMPTOM/DIAGNOSIS: PAIN OVER CALCANEUS RIGHT ANKLE: Comparison is made with 09 Dec 2017. There is soft tissue swelling around the malleoli. No fracture or ankle mortise widening is seen. The bones appear osteopenic. IMPRESSION: No acute abnormality.
--- NOTE | 2018-09-19 17:57 | ED.GENADUL_ITS ---
Discharge Plan Disposition Patient Disposition: HOME Condition: Stable Discharge Details Chief Complaint: Orthopedic Clinical Impression: Pain in right ankle Primary Care Provider: Rayshawn Kothari ED Provider: Frederick Novoa Home Meds and New Rx's Prescriptions: No Action losartan 25 mg tablet 25 mg PO DAILY Qty: 90 RF: 4 trazodone 100 mg tablet 100 mg PO DAILY Qty: 30 RF: 2 Space Chamber Plus 1 EACH spacer 1 ea Miscellaneous PRN Qty: 1 RF: 0 Breo Ellipta 1 EACH blister with device 1 tab Inhalation DAILY RF: 0 Stiolto Respimat 4 GM mist 2 puff Inhalation DAILY RF: 0 lorazepam 0.5 mg tablet 0.5 mg PO BID PRN (Reason: anxiety) Qty: 20 RF: 0 hydrocodone-acetaminophen 5-325 mg tablet 1 tab PO TID MDD 3 tabs PRN (Reason: chronic pain) Qty: 90 RF: 0 atorvastatin 20 mg tablet 20 mg PO QPM Qty: 90 RF: 3 albuterol sulfate [Ventolin HFA] 90 mcg/actuation Hfa Aerosol Inhaler 2 puff INHALATION Q6H PRNRF: 0 multivitamin Tablet 1 tab PO DAILY RF: 0 amlodipine [Norvasc] 10 mg tablet 10 mg PO DAILY RF: 0 pantoprazole [Protonix] 40 mg tablet,delayed release (DR/EC) 40 mg PO DAILY Qty: 30 RF: 0 Discharge Instructions Instructions: Leg Pain (ED) Additional Instructions: your xray did not show any broken bones if pain continues in a week see your primary care provider return to the emergency department for severe worsening pain, fevers, redness spreading up the leg or if you feel more ill Medical Decision Making 73 yo male states 4 days or so ago he had a cramp in his leg that he gets frequently and caused his right ankle to invert and has had pain since so came here. Denies falls, fevers, swelling. Has full rom of the ankle and foot without pain over metatarsals and intact sensation and pulses. HAs pain over calcaneus. Suspect sprain but will xray to eval for fx/dislocation xray negative on my read, if vrad agrees will d/c home. Still no redness eryt sushil or other concerning findings on exam. Advised f/u with pcp in a week if pain continues and return precautions given Differential Diagnosis sprain, strain Imaging Data Radiologic Study: Attestation: I personally reviewed and interpreted this imaging study as follows: Imaging: X-Ray Radiologist's impression: IMPRESSION: 1. No acute osseous abnormalities. 2. Osteopenia. 3. Question mild lateral and posterior soft tissue swelling. HPI General Mode of arrival: ambulatory . Date/Time Provider Initiated Documentation: 09/19/18 17:45 . Limitations to Documentation: no limitations . Information obtained by: patient . History of Present Illness 73 year old M presents to the emergency department with the chief complaint of right ankle pain, described as moderate, and it has been constant. No relieving factors improve symptom(s), No exacerbating factors reported . Patient notes no other symptoms.. Patient did receive the following treatments prior to arrival, none Related Data Home Medications Medication Instructions Recorded Confirmed Space Chamber Plus #1 04/27/14 09/19/18 Breo Ellipta 1 tab INHALATION DAILY 10/15/17 09/19/18 Stiolto Respimat 2 puff INHALATION DAILY 10/15/17 09/19/18 losartan 25 mg tablet 25 mg PO DAILY #90 tab-cap 01/14/18 09/19/18 albuterol sulfate [Ventolin HFA] 2 puff INHALATION Q6H PRN 08/24/18 09/19/18 amlodipine [Norvasc] 10 mg PO DAILY 08/24/18 09/19/18 multivitamin 1 tab PO DAILY 08/24/18 09/19/18 pantoprazole [Protonix] 40 mg PO DAILY #30 tab 08/26/18 09/19/18 lorazepam 0.5 mg tablet 0.5 mg PO BID PRN #20 tab 09/02/18 09/19/18 trazodone 100 mg tablet 100 mg PO DAILY #30 tab 09/08/18 09/19/18 hydrocodone 5 mg-acetaminophen 325 1 tab PO TID PRN #90 tab MDD 3 tabs 09/11/18 09/19/18 mg tablet atorvastatin 20 mg tablet 20 mg PO QPM #90 tab 09/15/18 09/19/18 Previous Rx's Medication Instructions Recorded losartan 25 mg tablet 25 mg PO DAILY #90 tab-cap 01/14/18 pantoprazole [Protonix] 40 mg PO DAILY #30 tab 08/26/18 lorazepam 0.5 mg tablet 0.5 mg PO BID PRN #20 tab 09/02/18 trazodone 100 mg tablet 100 mg PO DAILY #30 tab 09/08/18 hydrocodone 5 mg-acetaminophen 325 1 tab PO TID PRN #90 tab MDD 3 tabs 09/11/18 mg tablet atorvastatin 20 mg tablet 20 mg PO QPM #90 tab 09/15/18 Allergies Allergy/AdvReac Type Severity Reaction Status Date / Time lisinopril Allergy Intermediate RASH; Verified 09/19/18 17:53 PRURITIS diphenhydramine HCl AdvReac Severe Makes him Verified 09/19/18 17:53 [From Benadryl] crazy/anxious NSAIDS (Non-Steroidal AdvReac Intermediate GI Verified 09/19/18 17:53 Anti-Inflamma Intolerance tramadol AdvReac Intermediate nausea/vomi Verified 09/19/18 17:53 ting gabapentin AdvReac Unknown GI UPSET Verified 09/19/18 17:53 SCALLOP Allergy Severe THROAT Uncoded 09/19/18 17:53 SWELLING General Stated Complaint: Orthopedic ALFREDO: 4 Review of Systems Review of Systems All systems reviewed & are unremarkable except as noted in HPI and below Constitutional Denies chills, Denies fever(s) and Denies weakness Cardiovascular Denies chest pain and Denies dyspnea Respiratory Denies cough and Denies dyspnea Gastrointestinal Denies abdominal pain, Denies nausea and Denies vomiting Musculoskeletal Denies joint swelling Neurologic Denies weakness Endocrine Denies heat intolerance [facility] Social History Smoking/Tobacco Use Status: Former Tobacco Use Alcohol Intake: never Drug use: Never Do you feel safe at home: Yes Do you feel safe in your relationship?: Yes Exam Const General: no acute distress Orientation: alert [facility] Head: normal to inspection Ears: external ears normal General nose exam: external nose normal Mouth: moist mucous membranes Eyes General: appearance normal, both eyes and all related structures Neck Neck: normal visual inspection Resp Effort & Inspection: normal respiratory effort and able to speak in complete sentences Cardio Rate: regular rate Skin General skin exam: no rashes or lesions noted Neuro General: alert and oriented x3 Extrem General: normal to inspection Psych Mental Status: mental status grossly normal Course Vital Signs Temperature 37.3 C 09/19/18 17:48 Pulse 87 09/19/18 17:48 Respiratory Rate 18 09/19/18 17:48 Blood Pressure 117/80 09/19/18 17:48 Pulse Oximetry 96 09/19/18 17:48 Temperature 37.3 C 09/19/18 17:48 Temperature Source Temporal Artery Scan 09/19/18 17:48 Pulse 87 09/19/18 17:48 Respiratory Rate 18 09/19/18 17:48 Respiratory Effort Non-Labored 09/19/18 17:52 Blood Pressure 117/80 09/19/18 17:48 Blood Pressure Position Sitting 09/19/18 17:48 Pulse Oximetry 96 09/19/18 17:48 Oxygen Delivery Method Room Air 09/19/18 17:48 Oxygen Flow Rate 0 09/19/18 17:48 Pain Level 8 09/19/18 17:48
--- NOTE | 2018-09-19 18:23 | DI.VRAD_ITS ---
EXAM: XR Right Ankle EXAM DATE/TIME: 09/19/2018 5:57 PM CLINICAL HISTORY: 73 years old, male; Other: Pain over calcaneus TECHNIQUE: Imaging protocol: XR Right ankle. Views: 3 or more views. COMPARISON: CR XR ANKLE RT COMPLETE 12/09/2017 9:47 AM FINDINGS: Bones/joints: Osteopenia. No fractures. No blastic or lytic lesions. No periostitis or osteolysis. The ankle mortise joint is well maintained. No gross ankle joint effusion. No hindfoot coalition. Soft tissues: Question mild posterior and lateral soft tissue swelling. No radiopaque foreign body. Other findings: The visualized hindfoot and midfoot are grossly well aligned. IMPRESSION: 1. No acute osseous abnormalities. 2. Osteopenia. 3. Question mild lateral and posterior soft tissue swelling. Dictated and Authenticated by: Jesse Gonsales MD. Ordering:LESLEY Mack MD
--- NOTE | 2018-09-20 11:59 | NUR.NOTE ---
pt's own ankle stabilizer lace up from a previous visit applied to ankle, pt came in wearing it. Nursing Note:
== END 2018-09-19 18:25 | disposition home or self-care (01) ==
PROVIDERS: Emergency Provider Emergency Medicine; PCP Family Medicine
DX: M25.571 Pain in right ankle and joints of right foot (principal); X50.9XXA Other and unspecified overexertion or strenuous movements or postures, initial encounter
CPT/HCPCS: 99283; 73610

== ENCOUNTER 2018-10-12 08:44 | Outpatient (CLI) | payer MEDICARE, SELFPAY | END 2018-10-12 09:04 | PROVIDERS: PCP Family Medicine; Visit Provider Internal Medicine Interventional Cardiology | DX: Q23.0 Congenital stenosis of aortic valve (principal); I10 Essential (primary) hypertension; J44.9 Chronic obstructive pulmonary disease, unspecified; Z87.891 Personal history of nicotine dependence; I48.91 Unspecified atrial fibrillation | CPT/HCPCS: 99213 ==

== ENCOUNTER 2018-11-03 10:15 | Outpatient (RCR) | payer MEDICARE, SELFPAY | END 2018-11-21 23:59 | disposition home or self-care (01) | LOC: PRC 10:15 | PROVIDERS: PCP Family Medicine; Visit Provider Family Medicine | DX: Z51.89 Encounter for other specified aftercare (principal) ==

== ENCOUNTER 2018-12-09 14:00 | Outpatient (RCR) | payer MEDICARE, SELFPAY | END 2018-12-21 23:59 | disposition home or self-care (01) | LOC: PRC 14:00 | PROVIDERS: PCP Family Medicine; Visit Provider Family Medicine | DX: Z51.89 Encounter for other specified aftercare (principal); J44.9 Chronic obstructive pulmonary disease, unspecified | CPT/HCPCS: G0424 ==

== ENCOUNTER 2018-12-22 14:31 | Outpatient (RCR) | payer SELFPAY | END 2019-01-21 23:59 | disposition home or self-care (01) | LOC: PRC 14:31 | PROVIDERS: PCP Family Medicine; Visit Provider Family Medicine | DX: J44.9 Chronic obstructive pulmonary disease, unspecified (principal); Z51.89 Encounter for other specified aftercare ==

== ENCOUNTER 2018-12-28 13:26 | Emergency (ER) | payer MEDICARE, SELFPAY ==
[2018-12-28 13:29] VITALS: BP 132/66; PULSE 84; RESP 24; TEMP 37; O2SAT 95
--- NOTE | 2018-12-28 13:50 | ED.GENADUL_ITS ---
Discharge Plan Disposition Patient Disposition: HOME Condition: Stable Discharge Details Chief Complaint: RespSymp Clinical Impression: Cough Primary Care Provider: Rayshawn Kothari ED Provider: Vandana Callahan Home Meds and New Rx's Prescriptions: Continued aspirin [Enteric Coated Aspirin] 81 mg tablet,delayed release (DR/EC) 81 mg PO DAILY RF: 0 (DME) Space Chamber Plus 1 EACH spacer 1 ea Miscellaneous PRN Qty: 1 RF: 0 Breo Ellipta 1 EACH blister with device 1 tab Inhalation DAILY RF: 0 Stiolto Respimat 4 GM mist 2 puff Inhalation DAILY RF: 0 atorvastatin 20 mg tablet 20 mg PO QPM Qty: 90 RF: 3 amlodipine [Norvasc] 10 mg tablet 10 mg PO DAILY Qty: 90 RF: 3 omeprazole 20 mg tablet,delayed release (DR/EC) 20 mg PO DAILY Qty: 90 RF: 3 multivitamin Tablet 1 tab PO DAILY RF: 0 trazodone 100 mg tablet 100 mg PO DAILY PRNRF: 0 No Action sildenafil (antihypertensive) 20 mg tablet 20 - 100 mg PO DAILY PRN (Reason: sexual activity) Qty: 30 RF: 5 losartan 25 mg tablet 25 mg PO DAILY Qty: 90 RF: 4 hydrocodone-acetaminophen 5-325 mg tablet 1 tab PO TID MDD 3 tabs PRN (Reason: chronic pain) Qty: 90 RF: 0 Hold Instructions: Home Medication placed on hold at Doctor's office albuterol sulfate [Ventolin HFA] 90 mcg/actuation HFA aerosol inhaler 2 puff INHALATION Q6H PRNRF: 0 Discharge Instructions Instructions: Doxycycline (By mouth), Acute Cough (ED) Additional Instructions: Please return immediately to the emergency department if you develop any new or worsening symptoms, if your symptoms do not improve as expected, or if you become otherwise concerned. It is extremely important that you call as soon as possible to make an appointment to be seen in follow-up for this visit by your primary care doctor. Referrals: Rayshawn Kothari [Primary Care Provider] - Discharge Data Discharge Date/Time-TO BE ENTERED AT DEPARTURE: 12/28/18 15:45 Medical Decision Making Eddie Hanson is a 73-year-old man with history of COPD, hyperlipidemia, coronary artery disease, hypertension who presented to the emergency department with 3 days of nasal congestion, productive cough without shortness of breath or pain. On exam patient is well and nontoxic appearing. Benign cardio pulmonary exam. No lower extremity edema or posterior calf tenderness to palpation. Concern for pneumonia, viral URI. Exam/history is not consistent with metabolic/lyte derangement, pulmonary embolism, ACS, sepsis, acute aortic pathology, pneumothorax, other acute emergent life-threatening process. Plan for chest x-ray, flu swab. Will monitor and reassess. Chest x-ray, flu swab negative. Patient continues to be very well-appearing, normal work of breathing, intermittent cough on reassessment. Given reported fevers, history of significant COPD, concern for possible occult pneumonia. Plan for doxycycline. I had a lengthy discussion with the patient regarding home care, return to emergency department precautions including red flags for which to return, and importance of follow-up with patient's PCP. He verbalized understanding of the plan and was amenable. All questions were answered. Patient was discharged home with clear plan for outpatient follow-up. Medical Records Medical records reviewed: Yes I reviewed the patient's medical records. Imaging Data Radiologic Study: Attestation: I personally reviewed and interpreted this imaging study as follows: Radiologist's impression: EXAM: XR CHEST 2V PA LATERAL INDICATION: cough. COMPARISON: XR CHEST 2V PA LATERAL from 08/24/2018 TECHNIQUE: 2D digital imaging was performed. FINDINGS: The heart is not enlarged. There is an apparent aortic valve prosthesis. Ascending aorta is probably ectatic unchanged from prior study August 2018. No acute consolidation. No pleural effusion. IMPRESSION: No evidence of acute process. Lab Data Lab results reviewed: Yes I reviewed the patient's lab results. Labs: 12/28/18 14:10 Nose Influenza Types A,B Antigen - Final HPI General Mode of arrival: ambulatory . Date/Time Provider Initiated Documentation: 12/28/18 13:50 . Limitations to Documentation: no limitations . Information obtained by: patient, RN notes reviewed and old records reviewed . HPI Narrative: Eddie Hanson is a 73-year-old man with history of COPD, SVT, GERD, coronary artery disease taking no anticoagulants (patient reports that he does not take aspirin as prescribed) presenting to the emergency department with cough. Patient reports that he has had 3 days of cough productive of yellow phlegm, also nasal congestion. Patient reports that he has had no shortness of breath and has not been using his COPD medications more than usual for him. He states that he does not feel that he is having COPD exacerbation. Patient reports that since onset of symptoms 2 days ago he has been having subjective fevers. Has had some mild loose stool. He denies having any pain, rash, numbness, weakness, vomiting. Patient states that overall he feels fairly well, but he came to the emergency department because in the past he had similar symptoms and did not see a doctor and ended up getting admitted to the hospital because his symptoms had progressed. Patient reports he has been eating and drinking as usual. No other recent illness. No recent travel. Related Data Home Medications Medication Instructions Recorded Confirmed Space Chamber Plus #1 04/27/14 01/12/19 Breo Ellipta 1 tab INHALATION DAILY 10/15/17 01/12/19 Stiolto Respimat 2 puff INHALATION DAILY 10/15/17 01/12/19 multivitamin 1 tab PO DAILY 08/24/18 01/12/19 atorvastatin 20 mg tablet 20 mg PO QPM #90 tab 09/15/18 01/12/19 amlodipine 10 mg tablet 10 mg PO DAILY #90 tab 09/23/18 01/12/19 aspirin 81 mg tablet,delayed 81 mg PO DAILY 10/12/18 01/12/19 release omeprazole 20 mg tablet,delayed 20 mg PO DAILY #90 tab 11/30/18 01/12/19 release trazodone 100 mg PO DAILY PRN 12/28/18 01/12/19 hydrocodone 5 mg-acetaminophen 325 1 tab PO TID PRN #90 tab MDD 3 tabs 01/05/19 01/12/19 mg tablet albuterol sulfate 90 mcg/actuation 2 puff INHALATION Q6H PRN 01/12/19 01/12/19 aerosol inhaler losartan 25 mg tablet 25 mg PO DAILY #90 tab-cap 01/12/19 01/12/19 sildenafil (antihypertensive) 20 20 - 100 mg PO DAILY PRN #30 tab 01/12/19 01/12/19 mg tablet Previous Rx's Medication Instructions Recorded atorvastatin 20 mg tablet 20 mg PO QPM #90 tab 09/15/18 amlodipine 10 mg tablet 10 mg PO DAILY #90 tab 09/23/18 omeprazole 20 mg tablet,delayed 20 mg PO DAILY #90 tab 11/30/18 release hydrocodone 5 mg-acetaminophen 325 1 tab PO TID PRN #90 tab MDD 3 tabs 01/05/19 mg tablet losartan 25 mg tablet 25 mg PO DAILY #90 tab-cap 01/12/19 sildenafil (antihypertensive) 20 20 - 100 mg PO DAILY PRN #30 tab 01/12/19 mg tablet Allergies Allergy/AdvReac Type Severity Reaction Status Date / Time lisinopril Allergy Intermediate RASH; Verified 01/12/19 08:48 PRURITIS diphenhydramine HCl AdvReac Severe Makes him Verified 01/12/19 08:48 [From Benadryl] crazy/anxious NSAIDS (Non-Steroidal AdvReac Intermediate GI Verified 01/12/19 08:48 Anti-Inflamma Intolerance tramadol AdvReac Intermediate nausea/vomi Verified 01/12/19 08:48 ting gabapentin AdvReac Unknown GI UPSET Verified 01/12/19 08:48 SCALLOP Allergy Severe THROAT Uncoded 01/12/19 08:48 SWELLING General Stated Complaint: RespSymp ALFREDO: 3 Review of Systems Review of Systems Narrative: Constitutional: reports subjective fevers Eyes: denies eye pain ENT: denies facial pain, dental pain, sore throat Cardiovascular: denies chest pain, edema Respiratory: denies SOB, reports cough GI: denies abdominal pain, vomiting, reports loose stool : denies flank pain MSK: denies back pain, neck pain, arthralgias, myalgias Skin: denies rash Neuro: denies headaches, numbness, weakness [facility] Medical History Anxiety (Chronic) Arthritis (Chronic) Benign prostatic hyperplasia (Chronic 02/03/13) CAD (coronary artery disease) (Chronic 12/05/16) [place]05[place] [facility] [place] Cataracts, bilateral (Chronic) Chronic obstructive pulmonary disease (Chronic 08/05/17) Chronic pain syndrome (Chronic) Chronic shoulder pain 07/17/16~CONTROLLED [employer]ANCE AGREEMENT Chronic, continuous use of opioids (Chronic) Cirrhosis (Chronic) Esophageal varices without bleeding (Chronic 05/14/16) Essential hypertension (Chronic 02/26/16) Gastro-esophageal reflux (Chronic 09/15/13) Nocturnal hypoxia (Chronic) Paroxysmal atrial fibrillation (Resolved 01/28/17) ford operative aortic valve replacement SVT (supraventricular tachycardia) (Chronic ~02/2018) Social History Smoking/Tobacco Use Status: Former Tobacco Use Quit Date: 03/24/04 Pack-years: 90 Tobacco: How many years used: 45 Alcohol Intake: never Drug use: Never Do you feel safe at home: Yes Do you feel safe in your relationship?: Yes Exam Narrative Exam Narrative: Constitutional: well and [id number], pleasant, conversing normally HENT: head atraumatic/normocephalic/normal inspection, mucous membranes moist Eyes: conjunctiva normal, sclera normal, pupils 3mm b/l Neck: no stridor, normal ROM, trachea midline Chest: normal inspection Resp: normal work of breathing, LCTAB Cardio: normal rate, normal rhythm Back: normal inspection, no rash Skin: warm, dry, normal color, no rash Neuro: alert, not altered, grossly non-focal, normal tone Ext: no lower extremitiy edema, no posterior calf tenderness to palpation Psych: normal mood, normal affect, normal behavior Course Vital Signs Vital signs: Vital Signs Temperature 37 C 12/28/18 13:29 Pulse 84 12/28/18 13:29 Respiratory Rate 24 12/28/18 13:29 Blood Pressure 132/66 12/28/18 13:29 Pulse Oximetry 95 12/28/18 13:29 Temperature 37 C 12/28/18 13:29 Temperature Source Skin 12/28/18 13:29 Pulse 84 12/28/18 13:29 Respiratory Rate 24 12/28/18 13:29 Respiratory Effort 12/28/18 13:40 Respiratory Depth Normal 12/28/18 13:40 Blood Pressure 132/66 12/28/18 13:29 Blood Pressure Position Sitting 12/28/18 13:29 Pulse Oximetry 95 12/28/18 13:29 Oxygen Delivery Method Room Air 12/28/18 13:29 Oxygen Flow Rate 0 12/28/18 13:29
--- NOTE | 2018-12-28 14:37 | DI.RAD_ITS ---
EXAM: XR CHEST 2V PA LATERAL INDICATION: cough. COMPARISON: XR CHEST 2V PA LATERAL from 08/24/2018 TECHNIQUE: 2D digital imaging was performed. FINDINGS: The heart is not enlarged. There is an apparent aortic valve prosthesis. Ascending aorta is probabl y ectatic unchanged from prior study August 2018. No acute consolidation. No pleural effusion. IMPRESSION: No evidence of acute process.
[2018-12-28] MEDS: Doxycycline Hyclate 100 MG CAP PO (15:41)
[2018-12-28 15:45] VITALS: BP 128/79; PULSE 76; RESP 20; O2SAT 96
== END 2018-12-28 15:45 | disposition home or self-care (01) ==
PROVIDERS: Emergency Provider Student in an Organized Health Care Education/Training Program; PCP Family Medicine
DX: R05 Cough (principal); J44.9 Chronic obstructive pulmonary disease, unspecified; I10 Essential (primary) hypertension; Z87.891 Personal history of nicotine dependence
CPT/HCPCS: 87449; 99283; 71046

== ENCOUNTER 2019-05-03 01:23 | Outpatient (CLI) | payer MEDICARE, SELFPAY ==
--- NOTE | 2019-05-03 08:36 | DI.CTLCSR_ITS ---
EXAM: CT CHEST LUNG CANCER SCREEN CLINICAL HISTORY: H/O SMOKING, Z87.891 PERSONAL H/O NICOTINE DEPENDENCE TECHNIQUE: Low-dose noncontrast protocol for lung cancer screening COMPARISON: CT CHEST WO from 05/11/2018 XR CHEST 2V PA LATERAL from 12/28/2018 FINDINGS: There is a stable 5 millimeter nodule in the left upper lobe. There is a new nodule, in the left up per lobe measuring 8 by 6 by 7 millimeters. There are multiple other tiny scattered nodules measuring 2-3 millimeters in size. There is mild biapical scarring. There are underlying changes of centrilo bular emphysema. No pleural or pericardial effusions or infiltrates are seen. Aortic valve prosthes is and sternal wires are noted. There is high density material at the proximal aorta which could be from an aortic repair. The ascending aorta measures 5 cm proximally. Aortic calcifications and pul monary artery calcifications are seen. There is a cyst at the upper pole of the right kidney. Liver again has a lobulated contour. IMPRESSION: Lung RADS Cat 4A - Suspicious: Findings for which additional diagnostic testing and/or tissue sampli ng recommended
== END 2019-05-03 01:43 ==
PROVIDERS: PCP Family Medicine; Visit Provider Internal Medicine
DX: Z12.2 Encounter for screening for malignant neoplasm of respiratory organs (principal); Z87.891 Personal history of nicotine dependence; R91.1 Solitary pulmonary nodule; J98.4 Other disorders of lung; J43.8 Other emphysema; Z95.2 Presence of prosthetic heart valve
CPT/HCPCS: G0297

== ENCOUNTER 2019-05-22 15:00 | Emergency (ER) | payer MEDICARE, SELFPAY ==
[2019-05-22] VITALS (28 sets, daily range): BP systolic 118–159; BP diastolic 63–91; PULSE 69–97; RESP 2–27; TEMP 37; O2SAT 93–100
--- NOTE | 2019-05-22 15:00 | DI.RAD_ITS ---
EXAM: XR CHEST 2V PA AND LATERAL INDICATION: SOB, H/O COPD, R/O ACUTE DISEASE. COMPARISON: CT CHEST LUNG CANCER SCREEN from 05/03/2019 TECHNIQUE: 2D digital imaging was performed. FINDINGS: Heart size is within normal limits. An aortic valve prosthesis and sternal wires are seen. The lung s appear clear. No infiltrate or effusion is seen. IMPRESSION: No acute abnormality. DATA REPOSITORY: RADIATION DOSE DELIVERED:
--- NOTE | 2019-05-22 15:03 | ED.GENADUL_ITS ---
Discharge Plan Disposition Patient Disposition: HOME Condition: Stable Discharge Details Chief Complaint: SOB Clinical Impression: Acute exacerbation of chronic obstructive pulmonary disease Primary Care Provider: Rayshawn Kothari ED Provider: Brittanie Valdez Home Meds and New Rx's Prescriptions: New prednisone 20 mg tablet See Rx Instructions .ROUTE .COMPLEX Qty: 12 RF: 0 benzonatate [Tessalon Perles] 100 mg capsule 100 mg PO TID PRN (Reason: cough) Qty: 14 RF: 0 Continued sildenafil (pulm.hypertension) 20 mg tablet 20 - 100 mg PO DAILY PRN (Reason: sexual activity) Qty: 30 RF: 5 losartan 25 mg tablet 25 mg PO DAILY Qty: 90 RF: 4 aspirin [Enteric Coated Aspirin] 81 mg tablet,delayed release (DR/EC) 81 mg PO DAILY RF: 0 (DME) Space Chamber Plus 1 EACH spacer 1 ea Miscellaneous PRN Qty: 1 RF: 0 Breo Ellipta 1 EACH blister with device 1 tab Inhalation DAILY RF: 0 Stiolto Respimat 4 GM mist 2 puff Inhalation DAILY RF: 0 atorvastatin 20 mg tablet 20 mg PO QPM Qty: 90 RF: 3 amlodipine [Norvasc] 10 mg tablet 10 mg PO DAILY Qty: 90 RF: 3 omeprazole 20 mg tablet,delayed release (DR/EC) 20 mg PO DAILY Qty: 90 RF: 3 hydrocodone-acetaminophen 5-325 mg tablet 1 tab PO TID MDD 3 tabs PRN (Reason: chronic pain) Qty: 90 RF: 0 Hold Instructions: Home Medication placed on hold at Doctor's office lorazepam 0.5 mg tablet 0.5 mg PO BID PRN (Reason: anxiety) Qty: 20 RF: 0 multivitamin Tablet 1 tab PO DAILY RF: 0 albuterol sulfate [Ventolin HFA] 90 mcg/actuation HFA aerosol inhaler 2 puff INHALATION Q6H PRNRF: 0 trazodone 100 mg tablet 100 mg PO DAILY PRNRF: 0 Discharge Instructions Instructions: COPD (Chronic Obstructive Pulmonary Disease) (ED) Additional Instructions: Use your inhalers that you have at home as directed. Use your Xopenex as needed and directed for shortness of breath or cough. Take the steroids until finished. Take the Robitussin with codeine to help with cough as needed at nighttime. Take the Tessalon Perles as needed throughout the day for cough. Follow-up with your scheduled appointment with Dr. Villanueva on Friday. Return to the emergency department if you develop any worsening or new concerning symptoms. Discharge Data Discharge Date/Time-TO BE ENTERED AT DEPARTURE: 05/22/19 17:55 Discharge Physician: Brittanie Valdez Medical Decision Making 1510 -- 74-year-old male with history of anxiety, CAD, hypertension, paroxysmal atrial fibrillation, COPD, aortic valve replacement presents for intermittent cough, shortness of breath and chest pain since yesterday. EKG on arrival notes a rate of 84, sinus, PACs, no acute ST ischemic changes. Patient appears nontoxic. He is speaking in full sentences. He has normal oxygen saturation. He has slightly diminished breath sounds with scattered wheezing throughout. No lower extremity edema. Differential diagnosis includes acute bronchitis, acute COPD exacerbation, pneumonia, influenza. History and presentation not consistent with ACS, PE or dissection. Will check screening labs, chest x-ray and give steroids. Patient declined albuterol or DuoNeb as he states this only makes his symptoms worse. Discussed with patient and respiratory who know him well and plan will be for Xopenex but patient states usually helps him. 1610 -- pt reassessed -- pt denies any improvement. Breath sounds improved throughout w/ increase in wheezing. Will give another Xopenex. Pt appears mildly anxious and has a h/o anxiety for which he takes ativan at home prn. Will give a dose of Ativan. 1700 -- pt reassessed -- he was able to ambulate and states he feels much better. O2 saturation remains high 90s on room air. Patient is requesting to go home. He was given 2 doses of Robitussin with codeine as well as prescription for Tessalon Perles and prednisone. 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 Usual and customary return precautions given prior to discharge. Medical Records Medical records reviewed: Yes I reviewed the patient's medical records. Imaging Data Radiologic Study: Radiologist's impression: XR Chest, 2 Views Exam date and time: 05/22/2019 3:44 PM Age: 74 years old Clinical indication: Other: SOB, h/o copd, R/O acute disease; Prior surgery; Surgery date: 6+ months; Surgery type: Open heart 28 months prior TECHNIQUE: Imaging protocol: XR of the chest Views: 2 views. COMPARISON: CR XR CHEST 2V PA LATERAL 12/28/2018 2:32 PM FINDINGS: Lungs: Lungs hyperinflated suggestive of COPD. No consolidation. Pleural space: Unremarkable. No pleural effusion. No pneumothorax. Heart/Mediastinum: Unremarkable. No cardiomegaly. Bones/joints: Previous median sternotomy. IMPRESSION: No acute abnormality. Lab Data Lab results reviewed: Yes I reviewed the patient's lab results. Labs: Laboratory Tests Range/Units 05/22/19 05/22/19 15:12 15:12 WBC (4.4-10.8) k/cumm 6.54 RBC (4.50-6.00) m/cumm 4.76 Hgb (13.5-17.5) g/dL 14.8 Hct (40.0-50.0) % 42.5 MCV (80-95) fL 89.3 MCH (27.0-33.0) pg 31.1 MCHC (32.0-36.0) g/dL 34.8 RDW (11.8-14.1) % 12.8 Plt Count (130-400) x1000/uL 114 L MPV (8.0-11.0) fL 10.4 Immature Gran % % 0.3 Neutrophils % 56.5 Lymphocytes % 26.3 Monocytes % 12.7 Eosinophils % 3.4 Basophils % 0.8 Absolute Neutrophils (1.2-6.7) k/cumm 3.70 Absolute Lymphocytes (1.2-3.4) k/cumm 1.72 Absolute Monocytes (0.11-0.7) k/cumm 0.83 H Absolute Eosinophils (0.0-0.7) k/cumm 0.22 Absolute Basophils (0.0-0.2) k/cumm 0.05 Sodium (136-145) mmol/L 142 Potassium (3.5-5.1) mmol/L 3.7 Chloride (98-107) mmol/L 105 Carbon Dioxide (21.0-32.0) mmol/L 26.4 Anion Gap (3-11) mmol/L 10.6 BUN (7-18) mg/dL 18 Creatinine (0.70-1.30) mg/dL 1.29 Estimated GFR/1.73 m2 (mL/min/1.73m2) 54.75 Glucose (74-106) mg/dL 94 Calcium (8.5-10.1) mg/dL 7.9 L Magnesium (1.8-2.4) mg/dL 1.8 Total Bilirubin (0.2-1.0) mg/dL 0.5 AST (15-37) U/L 24 ALT (16-63) U/L 32 Alkaline Phosphatase (46-116) U/L 119 H Troponin I (<0.06) ng/Ml < 0.05 Total Protein (6.4-8.2) g/dL 7.3 Albumin (3.4-5.0) g/dL 3.9 ECG Data Attestation: I personally reviewed and interpreted this ECG (s) as follows: Interpretation: Rate of 84, sinus, PACs. No acute ST elevation depression. SD 146. QTc 466. QRS 116. HPI General Mode of arrival: ambulatory . Date/Time Provider Initiated Documentation: 05/22/19 15:02 . Limitations to Documentation: no limitations . Information obtained by: patient . History of Present Illness 74 year old M presents to the emergency department with the chief complaint of Dry cough, shortness of breath, chest pain, Quality is described as sharp, Patient extremity (Left arm). Patient started experiencing this day(s) (Since yesterday) and it has been intermittent. Medication improves symptom(s), (Some relief with Xopenex) No exacerbating factors reported . Patient notes chest pain (Intermittent sharp, substernal with radiation to left arm, none at present), cough (Dry), fever/chills (Sweats at times) and shortness of breath; denies loss of appetite, malaise, nausea/vomiting, syncope and weakness. Patient did receive the following treatments prior to arrival, other (Xopenex and inhalers) Related Data Home Medications Medication Instructions Recorded Confirmed Space Chamber Plus #1 04/27/14 04/13/19 Breo Ellipta 1 tab INHALATION DAILY 10/15/17 04/13/19 Stiolto Respimat 2 puff INHALATION DAILY 10/15/17 04/13/19 multivitamin 1 tab PO DAILY 08/24/18 04/13/19 atorvastatin 20 mg tablet 20 mg PO QPM #90 tab 09/15/18 04/13/19 amlodipine 10 mg tablet 10 mg PO DAILY #90 tab 09/23/18 04/13/19 aspirin 81 mg tablet,delayed 81 mg PO DAILY 10/12/18 04/13/19 release omeprazole 20 mg tablet,delayed 20 mg PO DAILY #90 tab 11/30/18 04/13/19 release trazodone 100 mg PO DAILY PRN 12/28/18 04/13/19 albuterol sulfate 90 mcg/actuation 2 puff INHALATION Q6H PRN 01/12/19 04/13/19 aerosol inhaler losartan 25 mg tablet 25 mg PO DAILY #90 tab-cap 01/12/19 04/13/19 sildenafil (pulm.hypertension) 20 20 - 100 mg PO DAILY PRN #30 tab 01/12/19 04/13/19 mg tablet hydrocodone 5 mg-acetaminophen 325 1 tab PO TID PRN #90 tab MDD 3 tabs 05/04/19 mg tablet lorazepam 0.5 mg tablet 0.5 mg PO BID PRN #20 tab 05/11/19 benzonatate [Tessalon Perles] 100 mg PO TID PRN #14 cap 05/22/19 prednisone See Rx Instructions .ROUTE 05/22/19 .COMPLEX #12 tab Previous Rx's Medication Instructions Recorded atorvastatin 20 mg tablet 20 mg PO QPM #90 tab 09/15/18 amlodipine 10 mg tablet 10 mg PO DAILY #90 tab 09/23/18 omeprazole 20 mg tablet,delayed 20 mg PO DAILY #90 tab 11/30/18 release losartan 25 mg tablet 25 mg PO DAILY #90 tab-cap 01/12/19 sildenafil (pulm.hypertension) 20 20 - 100 mg PO DAILY PRN #30 tab 01/12/19 mg tablet hydrocodone 5 mg-acetaminophen 325 1 tab PO TID PRN #90 tab MDD 3 tabs 05/04/19 mg tablet lorazepam 0.5 mg tablet 0.5 mg PO BID PRN #20 tab 05/11/19 benzonatate [Tessalon Perles] 100 mg PO TID PRN #14 cap 05/22/19 prednisone See Rx Instructions .ROUTE 05/22/19 .COMPLEX #12 tab Allergies Allergy/AdvReac Type Severity Reaction Status Date / Time lisinopril Allergy Intermediate RASH; Verified 05/22/19 15:07 PRURITIS diphenhydramine HCl AdvReac Severe Makes him Verified 05/22/19 15:07 [From Benadryl] crazy/anxious NSAIDS (Non-Steroidal AdvReac Intermediate GI Verified 05/22/19 15:07 Anti-Inflamma Intolerance tramadol AdvReac Intermediate nausea/vomi Verified 05/22/19 15:07 ting gabapentin AdvReac Unknown GI UPSET Verified 05/22/19 15:07 SCALLOP Allergy Severe THROAT Uncoded 05/22/19 15:07 SWELLING General ALFREDO: 3 Review of Systems All systems reviewed & are unremarkable except as noted in HPI and below Constitutional Constitutional: Reports as per HPI, Denies chills and Denies fever(s) Eyes Eyes: Denies blurry vision ENT Ears, Nose, Mouth, and Throat: Denies dizziness, Denies sore throat and Denies throat swelling Cardiovascular Cardiovascular: Reports chest pain and Reports dyspnea Respiratory Respiratory: Reports cough and Reports dyspnea Gastrointestinal Gastrointestinal: Denies abdominal pain, Denies diarrhea and Denies vomiting Genitourinary Genitourinary: Denies hematuria and Denies dysuria Musculoskeletal Musculoskeletal: Denies back pain and Denies numbness Integumentary/Breasts Skin/Breast: Denies lesions and Denies rash Neurologic Neurologic: Denies dizziness, Denies focal weakness and Denies numbness Allergic/Immunologic Allergic/Immunologic: Denies throat swelling [facility] Medical History Anxiety (Chronic) Arthritis (Chronic) Benign prostatic hyperplasia (Chronic 02/03/13) CAD (coronary artery disease) (Chronic 12/05/16) 12/05/16 [facility]~NON OBSTRUCTIVE Cataracts, bilateral (Chronic) Chronic obstructive pulmonary disease (Chronic 08/05/17) Chronic pain syndrome (Chronic) Chronic shoulder pain 07/17/16~CONTROLLED SUBSTANCE AGREEMENT Chronic, continuous use of opioids (Chronic) Cirrhosis (Chronic) Esophageal varices without bleeding (Chronic 05/14/16) Essential hypertension (Chronic 02/26/16) Gastro-esophageal reflux (Chronic 09/15/13) Nocturnal hypoxia (Chronic) Paroxysmal atrial fibrillation (Resolved 01/28/17) ford operative aortic valve replacement SVT (supraventricular tachycardia) (Chronic ~02/2018) Surgical History Aortic valve replaced (Chronic) History of surgical procedure on eye proper using laser (Chronic) S/P cardiac cath (Chronic) negative 2 years ago Total replacement of hip (Chronic) LEFT Family History Mother Diabetes Essential hypertension Personal history of malignant neoplasm Heart disease Hyperlipidemia Brother Essential hypertension Heart disease Grandmother Personal history of malignant neoplasm Social History Smoking/Tobacco Use Status: Former Tobacco Use Quit Date: 03/24/04 Pack-years: 90 Tobacco: How many years used: 45 Alcohol Intake: never Drug use: Rarely Substance use type: marijuana Do you feel safe at home: Yes Do you feel safe in your relationship?: Yes Exam Const General: cooperative and no acute distress Orientation: alert, awake and oriented x3 HENMT Head: normal to inspection Ears: hearing grossly normal bilaterally and external ears normal General nose exam: external nose normal Face and sinus: normal facial exam Mouth: oral mucosae normal Teeth and gingiva: dentition normal Throat: posterior oropharynx normal Eyes General: appearance normal, both eyes and all related structures Eyelids: eyelids normal Pupils: PERRL EOM: EOM intact bilaterally Neck Neck: normal visual inspection Lymphatic: no lymphadenopathy noted Chest Chest: normal inspection of the chest Resp Effort & Inspection: normal respiratory effort and able to speak in complete sentences Auscultation: diminished lung sounds bilaterally throughout (Mild) and wheezes scattered wheezes Cardio Rate: regular rate Rhythm: regular rhythm GI Inspection: normal to inspection Palpation: soft, not firm, no guarding, no hepatosplenomegaly, no masses and nontender Auscultation: normal bowel sounds Skin General skin exam: no rashes or lesions noted Neuro General: alert and awake Cognition: normal cognition Speech: speech normal Gait: normal gait Motor: muscle tone normal throughout Sensory Exam: no sensory deficits noted Extrem General: normal to inspection, full ROM, normal capillary refill, no calf tenderness bilaterally and no edema Psych Appearance: grossly normal Mental Status: mental status grossly normal Speech and Movement: speech and movement normal Affect: normal affect Thought Process: normal
[2019-05-22 15:19] LABS: Abs Immature Grans 0.02 k/cumm (0.0-0.09); Absolute Basophil Count 0.05 k/cumm (0.0-0.2); Absolute Eosinophil Count 0.22 k/cumm (0.0-0.7); Absolute Lymphocyte Count 1.72 k/cumm (1.2-3.4); Absolute Monocyte Count 0.83 k/cumm (0.11-0.7); Basophils % 0.8; Eosinophils % 3.4; HCT 42.5 % (40.0-50.0); HGB 14.8 g/dL (13.5-17.5); Immature Grans % 0.3 %; Lymphocytes % 26.3; Mean Corp. HGB Concentration 34.8 g/dL (32.0-36.0); Mean Corpuscular Hemoglobin 31.1 pg (27.0-33.0); Mean Corpuscular Volume 89.3 fL (80-95); Mean Platelet Volume 10.4 fL (8.0-11.0); Monocytes % 12.7; Neutrophils % 56.5; Platelet Count 114 x1000/uL (130-400); RBC 4.76 m/cumm (4.50-6.00); RBC Distribution Width 12.8 % (11.8-14.1); White Blood Cell Count 6.54 k/cumm (4.4-10.8)
[2019-05-22 15:46] LABS: ALT 32 U/L (16-63); AST 24 U/L (15-37); Albumin 3.9 g/dL (3.4-5.0); Alkaline Phosphatase 119 U/L (46-116); Anion Gap 10.6 mmol/L (3-11); BUN 18 mg/dL (7-18); Bilirubin, Total 0.5 mg/dL (0.2-1.0); CO2 26.4 mmol/L (21.0-32.0); CREATININE 1.29 mg/dL (0.70-1.30); Calcium 7.9 mg/dL (8.5-10.1); Chloride 105 mmol/L (98-107); Estimated GFR 54.75 (mL/min/1.73m2); Glucose 94 mg/dL (74-106); Magnesium 1.8 mg/dL (1.8-2.4); Potassium 3.7 mmol/L (3.5-5.1); Sodium 142 mmol/L (136-145); Total Protein 7.3 g/dL (6.4-8.2)
[2019-05-22 15:47] LABS: Troponin I < 0.05 ng/Ml (<0.06)
[2019-05-22] MEDS: Levalbuterol 1.25 MG/3 ML UPD VIAL UPD ×2 (15:48→16:35)
--- NOTE | 2019-05-22 16:29 | DI.VRAD_ITS ---
PROCEDURE INFORMATION: Exam: XR Chest, 2 Views Exam date and time: 05/22/2019 3:44 PM Age: 74 years old Clinical indication: Other: SOB, h/o copd, R/O acute disease; Prior surgery; Surgery date: 6+ months; Surgery type: Open heart 28 months prior TECHNIQUE: Imaging protocol: XR of the chest Views: 2 views. COMPARISON: CR XR CHEST 2V PA LATERAL 12/28/2018 2:32 PM FINDINGS: Lungs: Lungs hyperinflated suggestive of COPD. No consolidation. Pleural space: Unremarkable. No pleural effusion. No pneumothorax. Heart/Mediastinum: Unremarkable. No cardiomegaly. Bones/joints: Previous median sternotomy. IMPRESSION: No acute abnormality. Dictated and Authenticated by: Agustin Veliz MD. Ordering:RISHI Gu MD
[2019-05-22] MEDS: methylPREDNISolone SUCC 125 MG VIAL IVP (16:35)
[2019-05-22] MEDS: Normal Saline 500 ML IV (16:36)
[2019-05-22] MEDS: LORazepam 0.5 MG TAB PO (16:36)
[2019-05-22] MEDS: guaiFENesin/CODEINE PHOSPHATE 10 ML CUP 20 ML PO (17:49)
== END 2019-05-22 17:55 | disposition home or self-care (01) ==
PROVIDERS: Emergency Provider Physician Assistant; PCP Family Medicine
DX: R06.02 Shortness of breath (principal); J44.1 Chronic obstructive pulmonary disease with (acute) exacerbation; I10 Essential (primary) hypertension; Z87.891 Personal history of nicotine dependence
CPT/HCPCS: 80053; 93005; 94640; 96361; 96374; 99285; 71046; 83735; 84484; 85025; 93010; 99284; J2930; J7614; J7620

== ENCOUNTER 2019-05-24 05:59 | Inpatient (IN) | payer MEDICARE, SELFPAY ==
[2019-05-24] VITALS (28 sets, daily range): BP systolic 135–158; BP diastolic 68–92; PULSE 76–132; RESP 4–29; TEMP 36.5–37.6; O2SAT 89–99
[2019-05-24] MEDS: methylPREDNISolone SUCC 125 MG VIAL IVP (06:21)
[2019-05-24] MEDS: Albuterol/Ipratropium 3 ML UPD VIAL 9 ML UPD (06:22)
[2019-05-24 06:27] LABS: BE (Venous) 0.4 mmol/L (-3-3); HCO3 (Venous) 25 mmol/L (22-28); O2 Sat (Venous) 99 % (70-80); TCO2 (Venous) 21 mmol/L (22-29); pCO2 (Venous) 36 mm/Hg (34-47); pH (Venous) 7.45 (7.35-7.45); pO2 (Venous) 127 mm/Hg (28-44)
[2019-05-24 06:30] LABS: Abs Immature Grans 0.03 k/cumm (0.0-0.09); Absolute Basophil Count 0.03 k/cumm (0.0-0.2); Absolute Eosinophil Count 0.01 k/cumm (0.0-0.7); Absolute Lymphocyte Count 1.68 k/cumm (1.2-3.4); Absolute Monocyte Count 1.23 k/cumm (0.11-0.7); Absolute Neutrophil Count 10.22 k/cumm (1.2-6.7); Basophils % 0.2; Eosinophils % 0.1; HCT 41.3 % (40.0-50.0); HGB 14.5 g/dL (13.5-17.5); Immature Grans % 0.2 %; Lymphocytes % 12.7; Mean Corp. HGB Concentration 35.1 g/dL (32.0-36.0); Mean Corpuscular Hemoglobin 31.2 pg (27.0-33.0); Mean Corpuscular Volume 88.8 fL (80-95); Mean Platelet Volume 10.5 fL (8.0-11.0); Monocytes % 9.3; Neutrophils % 77.5; Platelet Count 146 x1000/uL (130-400); RBC 4.65 m/cumm (4.50-6.00); RBC Distribution Width 13.2 % (11.8-14.1); White Blood Cell Count 13.19 k/cumm (4.4-10.8)
--- NOTE | 2019-05-24 06:30 | DI.RAD_ITS ---
EXAM: XR CHEST 2V PA LATERAL INDICATION: cough, SOB. COMPARISON: No exams were available for comparison TECHNIQUE: 2D digital imaging was performed. FINDINGS: The heart size is normal. The patient is status post AVR. There is mild biapical scarring. No supe rimposed infiltrate, effusion or pulmonary edema seen. IMPRESSION: No acute abnormality. DATA REPOSITORY: RADIATION DOSE DELIVERED:
--- NOTE | 2019-05-24 06:38 | DI.VRAD_ITS ---
PROCEDURE INFORMATION: Exam: XR Chest, 2 Views Exam date and time: 05/24/2019 6:30 AM Age: 74 years old Clinical indication: Cough and shortness of breath; Prior surgery; Surgery date: 6+ months; Surgery type: Aortic valve; Patient HX: HX of copd, cad cough and SOB for a week TECHNIQUE: Imaging protocol: XR of the chest Views: 2 views. COMPARISON: CR XR CHEST 2V PA LATERAL 05/22/2019 3:43 PM FINDINGS: Lungs: Hyperinflation compatible with COPD. Pleural space: Unremarkable. No pleural effusion. No pneumothorax. Heart/Mediastinum: Unremarkable. No cardiomegaly. Bones/joints: Unremarkable. IMPRESSION: Hyperinflation compatible with COPD. Dictated and Authenticated by: Sukhdeep Munson MD. Ordering:JOAQUIN Payton MD
[2019-05-24 06:43] LABS: Prothrombin Time 10.4 sec (9.3-11.0)
[2019-05-24 06:49] LABS: ALT 38 U/L (16-63); AST 38 U/L (15-37); Albumin 3.9 g/dL (3.4-5.0); Alkaline Phosphatase 88 U/L (46-116); Anion Gap 11.1 mmol/L (3-11); BUN 21 mg/dL (7-18); Bilirubin, Total 0.5 mg/dL (0.2-1.0); CO2 24.9 mmol/L (21.0-32.0); CREATININE 1.25 mg/dL (0.70-1.30); Calcium 8.4 mg/dL (8.5-10.1); Chloride 106 mmol/L (98-107); Estimated GFR 56.78 (mL/min/1.73m2); Glucose 98 mg/dL (74-106); NT-proBNP 125 pg/mL (<300); Potassium 3.6 mmol/L (3.5-5.1); Sodium 142 mmol/L (136-145); Total Protein 7.1 g/dL (6.4-8.2); Troponin I < 0.05 ng/Ml (<0.06)
--- NOTE | 2019-05-24 06:50 | W.ED.GENAD ---
Discharge Plan Disposition Patient Disposition: [facility] INPATIENT Condition: Stable Discharge Details Chief Complaint: SOB Clinical Impression: COPD exacerbation, Acute dyspnea Primary Care Provider: Rayshawn Kothari ED Provider: Fito Malave Home Meds and New Rx's Prescriptions: No Action sildenafil (pulm.hypertension) 20 mg tablet 20 - 100 mg PO DAILY PRN (Reason: sexual activity) Qty: 30 RF: 5 losartan 25 mg tablet 25 mg PO DAILY Qty: 90 RF: 4 aspirin [Enteric Coated Aspirin] 81 mg tablet,delayed release (DR/EC) 81 mg PO DAILY RF: 0 (DME) Space Chamber Plus 1 EACH spacer 1 ea Miscellaneous PRN Qty: 1 RF: 0 Breo Ellipta 1 EACH blister with device 1 tab Inhalation DAILY RF: 0 Stiolto Respimat 4 GM mist 2 puff Inhalation DAILY RF: 0 atorvastatin 20 mg tablet 20 mg PO QPM Qty: 90 RF: 3 amlodipine [Norvasc] 10 mg tablet 10 mg PO DAILY Qty: 90 RF: 3 omeprazole 20 mg tablet,delayed release (DR/EC) 20 mg PO DAILY Qty: 90 RF: 3 hydrocodone-acetaminophen 5-325 mg tablet 1 tab PO TID MDD 3 tabs PRN (Reason: chronic pain) Qty: 90 RF: 0 Hold Instructions: Home Medication placed on hold at Doctor's office lorazepam 0.5 mg tablet 0.5 mg PO BID PRN (Reason: anxiety) Qty: 20 RF: 0 levalbuterol HCl 1.25 mg/3 mL Solution For Nebulization 2.5 mg INHALATION Q1-4H PRNRF: 0 multivitamin Tablet 1 tab PO DAILY RF: 0 albuterol sulfate [Ventolin HFA] 90 mcg/actuation HFA aerosol inhaler 2 puff INHALATION Q6H PRNRF: 0 trazodone 100 mg tablet 100 mg PO DAILY PRNRF: 0 prednisone 20 mg tablet See Rx Instructions .ROUTE .COMPLEX Qty: 12 RF: 0 benzonatate [Tessalon Perles] 100 mg capsule 100 mg PO TID PRN (Reason: cough) Qty: 14 RF: 0 Medical Decision Making This is a pleasant 74-year-old male with history of anxiety, CAD, hypertension, paroxysmal atrial fibrillation, COPD, aortic count valve replacement who presents today for evaluation of shortness of breath. 3-1/2 days ago the patient developed cough, with clear productive sputum, shortness of breath. He presented to the ER, is diagnosed with mild exacerbation of his chronic COPD. He was deemed appropriate for discharge home at that time. He was instructed to return if his symptoms worsened or did not improve. Unfortunately over the last 3 days his symptoms have not improved. He has been on steroids, he has been taking his breathing treatments, with no improvement. This morning it felt slightly worsened. He denies any significant chest pain except when coughing. He denies fever or chills. He denies hemoptysis. He states that this does not feel like his previous heart attacks in the past. He denies any significant weight gain. Physical exam demonstrates diffuse wheezes throughout, no significant pitting edema. Oxygenation status is stable at this time. Mild increased work of breathing. Will give duo nebs, round of Solu-Medrol steroid, monitor closely and reassess. Differential is highest for lack of improvement with COPD. Less likely pneumonia or cardiac etiology. Symptoms appearing inconsistent with significant fluid overload. 7:42 AM Laboratory work-up is returned, minimal white count, however he is on steroids. Influenza negative. Chest x-ray negative per virtual radiology. Compatible with COPD. After steroids and 3 nebulizers the patient is still notably dyspneic, especially with ambulation although oxygen saturation is stable. Respiratory therapy did come and evaluate the patient, they do not feel that he is appropriate for discharge, I agree with this assessment. We will contact the hospitalist for admission. I did speak with Dr. Garrido, she agrees with the assessment and plan. Diagnosis COPD exacerbation, failed outpatient therapy. Out of precaution we will start the patient on 2 g of Rocephin and doxycycline. I have extensively reviewed the treatment plan with the patient. I have addressed all patient concerns at this time. I have also discussed the plan with the admitting physician and they agree with the current assessment and plan and have agreed to assume responsibility for the patient. All parties demonstrate verbal understanding and agreement with our assessment and plan at this time. EKG 6: 9 Rate 86, NH 140, QTc 471, QRS 110, sinus rhythm, no significant ST elevations or depressions, no T wave inversions. No evidence of STEMI. FINDINGS: Lungs: Hyperinflation compatible with COPD. Pleural space: Unremarkable. No pleural effusion. No pneumothorax. Heart/Mediastinum: Unremarkable. No cardiomegaly. Bones/joints: Unremarkable. IMPRESSION: Hyperinflation compatible with COPD. Dictated and Authenticated by: Sukhdeep Munson MD. HPI General Date/Time Provider Initiated Documentation: 05/24/19 06:02. HPI Narrative: This is a pleasant 74-year-old male with history of anxiety, CAD, hypertension, paroxysmal atrial fibrillation, COPD, aortic count valve replacement who presents today for evaluation of shortness of breath. 3-1/2 days ago the patient developed cough, with clear productive sputum, shortness of breath. He presented to the ER, is diagnosed with mild exacerbation of his chronic COPD. He was deemed appropriate for discharge home at that time. He was instructed to return if his symptoms worsened or did not improve. Unfortunately over the last 3 days his symptoms have not improved. He has been on steroids, he has been taking his breathing treatments, with no improvement. This morning it felt slightly worsened. He denies any significant chest pain except when coughing. He denies fever or chills. He denies hemoptysis. He states that this does not feel like his previous heart attacks in the past. He denies any significant weight gain. No other complaints at this time. No other modifying factors. Related Data Home Medications Medication Instructions Recorded Confirmed Space Chamber Plus #1 04/27/14 05/24/19 Breo Ellipta 1 tab INHALATION DAILY 10/15/17 05/24/19 Stiolto Respimat 2 puff INHALATION DAILY 10/15/17 05/24/19 multivitamin 1 tab PO DAILY 08/24/18 05/24/19 atorvastatin 20 mg tablet 20 mg PO QPM #90 tab 09/15/18 05/24/19 amlodipine 10 mg tablet 10 mg PO DAILY #90 tab 09/23/18 05/24/19 aspirin 81 mg tablet,delayed 81 mg PO DAILY 10/12/18 05/24/19 release omeprazole 20 mg tablet,delayed 20 mg PO DAILY #90 tab 11/30/18 05/24/19 release trazodone 100 mg PO DAILY PRN 12/28/18 05/24/19 albuterol sulfate 90 mcg/actuation 2 puff INHALATION Q6H PRN 01/12/19 05/24/19 aerosol inhaler losartan 25 mg tablet 25 mg PO DAILY #90 tab-cap 01/12/19 05/24/19 sildenafil (pulm.hypertension) 20 20 - 100 mg PO DAILY PRN #30 tab 01/12/19 05/24/19 mg tablet hydrocodone 5 mg-acetaminophen 325 1 tab PO TID PRN #90 tab MDD 3 tabs 05/04/19 05/24/19 mg tablet lorazepam 0.5 mg tablet 0.5 mg PO BID PRN #20 tab 05/11/19 05/24/19 benzonatate [Tessalon Perles] 100 mg PO TID PRN #14 cap 05/22/19 05/24/19 prednisone See Rx Instructions .ROUTE 05/22/19 05/24/19 .COMPLEX #12 tab levalbuterol HCl 2.5 mg INHALATION Q1-4H PRN 05/24/19 05/24/19 Previous Rx's Medication Instructions Recorded atorvastatin 20 mg tablet 20 mg PO QPM #90 tab 09/15/18 amlodipine 10 mg tablet 10 mg PO DAILY #90 tab 09/23/18 omeprazole 20 mg tablet,delayed 20 mg PO DAILY #90 tab 11/30/18 release losartan 25 mg tablet 25 mg PO DAILY #90 tab-cap 01/12/19 sildenafil (pulm.hypertension) 20 20 - 100 mg PO DAILY PRN #30 tab 01/12/19 mg tablet hydrocodone 5 mg-acetaminophen 325 1 tab PO TID PRN #90 tab MDD 3 tabs 05/04/19 mg tablet lorazepam 0.5 mg tablet 0.5 mg PO BID PRN #20 tab 05/11/19 benzonatate [Tessalon Perles] 100 mg PO TID PRN #14 cap 05/22/19 prednisone See Rx Instructions .ROUTE 05/22/19 .COMPLEX #12 tab Allergies Allergy/AdvReac Type Severity Reaction Status Date / Time lisinopril Allergy Intermediate RASH; Verified 05/24/19 06:12 PRURITIS diphenhydramine HCl AdvReac Severe Makes him Verified 05/24/19 06:12 [From Benadryl] crazy/anxious NSAIDS (Non-Steroidal AdvReac Intermediate GI Verified 05/24/19 06:12 Anti-Inflamma Intolerance tramadol AdvReac Intermediate nausea/vomi Verified 05/24/19 06:12 ting gabapentin AdvReac Unknown GI UPSET Verified 05/24/19 06:12 SCALLOP Allergy Severe THROAT Uncoded 05/24/19 06:12 SWELLING General Stated Complaint: SOB ALFREDO: 3 Review of Systems All systems reviewed & are unremarkable except as noted in HPI and below PFSH Social History Smoking/Tobacco Use Status: Former Tobacco Use Quit Date: 03/24/04 Pack-years: 90 Tobacco: How many years used: 45 Alcohol Intake: never Drug use: Rarely Substance use type: marijuana Details: cbd gummy bears for pain Do you feel safe at home: Yes Do you feel safe in your relationship?: Yes Exam Narrative Exam Narrative: 1.Const: Well-nourished, Well-developed, appearing stated age 2.Eyes: PERRL, no conjunctival injection, and symmetrical lids. 3.ENT: Atraumatic external nose and ears. Moist MM. Neck: Symmetric, trachea midline, No thyromegaly. 4.CVS: +S1/S2, No murmurs or gallops. Peripheral pulses 2+ and equal in all extremities. Brisk capillary refill in all extremities. 5.RESP: Unlabored respiratory effort. Clear to auscultation bilaterally. No wheezes rales or rhonchi 6.GI: Soft, Nontender/Nondistended, No hepatosplenomegaly. No guarding or rebound. 7.MSK: Normocephalic/Atraumatic, Extremities w/o deformity or ttp No cyanosis or clubbing, Normal movement of all extremities 8.Skin: Warm, Dry. No rashes or lesions. 9.Neuro: glass embosser II-XII grossly intact. Sensation grossly intact, no focal neurologic deficits. 10.Psych: (AAO) x3. Appropriate mood and affect Course Vital Signs Vital signs: Vital Signs Temperature 36.5 C 05/24/19 06:04 Pulse 91 H 05/24/19 06:04 Respiratory Rate 29 H 05/24/19 06:04 Blood Pressure 151/68 H 05/24/19 06:04 Pulse Oximetry 96 05/24/19 06:04 Temperature 36.5 C 05/24/19 06:04 Temperature Source Skin 05/24/19 06:04 Pulse 79 05/24/19 06:22 Respiratory Rate 17 05/24/19 06:22 Respiratory Effort Incrsd Work of Breathing 05/24/19 06:07 Respiratory Depth Normal 05/24/19 06:07 Respiratory Pattern Normal 05/24/19 06:07 Blood Pressure 151/68 H 05/24/19 06:04 Pulse Oximetry 95 05/24/19 06:22 Oxygen Delivery Method Room Air 05/24/19 06:22 Oxygen Flow Rate 0 05/24/19 06:22 Pain Level 3 05/24/19 06:04 Lab/Test Results Lab/Test Results: 05/24/19 06:20 Nose Influenza Types A,B Antigen - Pending Laboratory Tests Range/Units 05/24/19 05/24/19 05/24/19 06:20 06:20 06:20 WBC (4.4-10.8) k/cumm 13.19 H RBC (4.50-6.00) m/cumm 4.65 Hgb (13.5-17.5) g/dL 14.5 Hct (40.0-50.0) % 41.3 MCV (80-95) fL 88.8 MCH (27.0-33.0) pg 31.2 MCHC (32.0-36.0) g/dL 35.1 RDW (11.8-14.1) % 13.2 Plt Count (130-400) x1000/uL 146 MPV (8.0-11.0) fL 10.5 Immature Gran % % 0.2 Neutrophils % 77.5 Lymphocytes % 12.7 Monocytes % 9.3 Eosinophils % 0.1 Basophils % 0.2 Absolute Neutrophils (1.2-6.7) k/cumm 10.22 H Absolute Lymphocytes (1.2-3.4) k/cumm 1.68 Absolute Monocytes (0.11-0.7) k/cumm 1.23 H Absolute Eosinophils (0.0-0.7) k/cumm 0.01 Absolute Basophils (0.0-0.2) k/cumm 0.03 PT (9.3-11.0) sec 10.4 INR (0.9-1.1) 1.0 APTT (21.0-31.4) sec 25.0 VBG pH (7.35-7.45) VBG pCO2 (34-47) mm/Hg VBG pO2 (28-44) mm/Hg VBG HCO3 (22-28) mmol/L VBG Total CO2 (22-29) mmol/L VBG O2 Saturation (70-80) % VBG Base Excess (-3-3) mmol/L Sodium (136-145) mmol/L 142 Potassium (3.5-5.1) mmol/L 3.6 Chloride (98-107) mmol/L 106 Carbon Dioxide (21.0-32.0) mmol/L 24.9 Anion Gap (3-11) mmol/L 11.1 H BUN (7-18) mg/dL 21 H Creatinine (0.70-1.30) mg/dL 1.25 Estimated GFR/1.73 m2 (mL/min/1.73m2) 56.78 Glucose (74-106) mg/dL 98 Calcium (8.5-10.1) mg/dL 8.4 L Total Bilirubin (0.2-1.0) mg/dL 0.5 AST (15-37) U/L 38 H ALT (16-63) U/L 38 Alkaline Phosphatase (46-116) U/L 88 Troponin I (<0.06) ng/Ml < 0.05 NT-Pro-B Natriuret Pep (<300) pg/mL 125 Total Protein (6.4-8.2) g/dL 7.1 Albumin (3.4-5.0) g/dL 3.9 Range/Units 05/24/19 06:20 WBC (4.4-10.8) k/cumm RBC (4.50-6.00) m/cumm Hgb (13.5-17.5) g/dL Hct (40.0-50.0) % MCV (80-95) fL MCH (27.0-33.0) pg MCHC (32.0-36.0) g/dL RDW (11.8-14.1) % Plt Count (130-400) x1000/uL MPV (8.0-11.0) fL Immature Gran % % Neutrophils % Lymphocytes % Monocytes % Eosinophils % Basophils % Absolute Neutrophils (1.2-6.7) k/cumm Absolute Lymphocytes (1.2-3.4) k/cumm Absolute Monocytes (0.11-0.7) k/cumm Absolute Eosinophils (0.0-0.7) k/cumm Absolute Basophils (0.0-0.2) k/cumm PT (9.3-11.0) sec INR (0.9-1.1) APTT (21.0-31.4) sec VBG pH (7.35-7.45) 7.45 VBG pCO2 (34-47) mm/Hg 36 VBG pO2 (28-44) mm/Hg 127 H VBG HCO3 (22-28) mmol/L 25 VBG Total CO2 (22-29) mmol/L 21 L VBG O2 Saturation (70-80) % 99 H VBG Base Excess (-3-3) mmol/L 0.4 Sodium (136-145) mmol/L Potassium (3.5-5.1) mmol/L Chloride (98-107) mmol/L Carbon Dioxide (21.0-32.0) mmol/L Anion Gap (3-11) mmol/L BUN (7-18) mg/dL Creatinine (0.70-1.30) mg/dL Estimated GFR/1.73 m2 (mL/min/1.73m2) Glucose (74-106) mg/dL Calcium (8.5-10.1) mg/dL Total Bilirubin (0.2-1.0) mg/dL AST (15-37) U/L ALT (16-63) U/L Alkaline Phosphatase (46-116) U/L Troponin I (<0.06) ng/Ml NT-Pro-B Natriuret Pep (<300) pg/mL Total Protein (6.4-8.2) g/dL Albumin (3.4-5.0) g/dL
[2019-05-24] MEDS: Budesonide/Formoterol 160/4.5 6 GM 60 PUFF INH IH ×2 (08:22→19:44)
[2019-05-24 09:02] LABS: Procalcitonin < 0.1 ng/mL
[2019-05-24 09:53] LABS: Troponin I < 0.05 ng/Ml (<0.06)
[2019-05-24] MEDS: Enoxaparin 40 MG/0.4 ML SYR SC (10:35)
[2019-05-24] MEDS: guaiFENesin 600 MG TABCR PO (10:36)
[2019-05-24] MEDS: Pantoprazole 40 MG VIAL IVP (10:37)
[2019-05-24] MEDS: Normal Saline Flush 10 ML SYR IVP (10:38)
[2019-05-24] MEDS: DOXYCYCLINE 100 MG in Normal Saline 100 ML IVPB ×2 (10:40→19:44)
[2019-05-24] MEDS: Normal Saline 1,000 ML 100 ML IV ×2 (11:25→23:38)
[2019-05-24] MEDS: guaiFENesin/D-METHORPHAN HB 5 ML CUP 10 ML PO (11:45)
[2019-05-24] MEDS: cefTRIAXone 2 GM/50 ML BAG IVPB (11:57)
[2019-05-24] MEDS: Losartan 25 MG TAB PO (12:56)
[2019-05-24] MEDS: Cetirizine 10 MG TAB PO (12:56)
[2019-05-24] MEDS: Multivitamin TAB 1 TAB PO (12:57)
[2019-05-24] MEDS: amLODIPine 10 MG TAB PO (12:57)
[2019-05-24] MEDS: HYDROcodone 5/Acetaminophen 325 TAB PO ×2 (13:11→15:31)
[2019-05-24] MEDS: Levalbuterol 0.63 MG/3 ML UPD VIAL UPD ×3 (13:22→23:38)
[2019-05-24] MEDS: methylPREDNISolone SUCC 125 MG VIAL 80 MG IVP ×2 (13:26→21:59)
--- NOTE | 2019-05-24 13:52 | HPE_ITS ---
Date of service: 05/24/19 Time of Service: 13:54 Assessment and Plan Assessment and plan (1) Acute exacerbation of chronic obstructive pulmonary disease: Start date: 05/24/19 Start time: 14:06 Status: Acute Assessment and plan: 3 day history of SOB with cough, worsening overnight to the point he felt he could not breath. Initially seen 3 days ago in the ED diagnosed with mild copd exacerbation and given steroid. Overnight patient states SOB worsened. Presented here with oxygen saturation 89 requiring 1 liter. Given nebs and steroids in ED now at 99% oxygen on RA. Admitted for further management. IVF @ 100, antitussives, rocehpin and doxy IV. Nebs and up draft prn. Monitor. (2) Anxiety: Start date: 05/24/19 Start time: 14:11 Status: Chronic Assessment and plan: Anxious at baseline. Takes lorazepam 0.5 po BID prn, continue medication. Xoponex for nebs and updrafts. (3) Hyperlipidemia: Start date: 05/24/19 Start time: 14:12 Status: Acute Assessment and plan: Continue lipitor (4) Chronic pain: Start date: 05/24/19 Start time: 14:12 Status: Chronic Assessment and plan: Pain regimen at home, hydrocodone TID prn for pain, will continue regimen from home. (5) Gastro-esophageal reflux: Start date: 05/24/19 Start time: 14:13 Status: Chronic Assessment and plan: Could be worsening refulx in setting of steroid use with throat sore. Will give protonix IVP daily. (6) Essential hypertension: Start date: 05/24/19 Start time: 14:13 Status: Chronic Assessment and plan: Currently on losartan and amlodipine for BP management. BP in 150's at this time, could be due to coughing, steroids and updrafts. Monitor BP. (7) Arthritis: Start date: 05/24/19 Start time: 14:14 Status: Acute Assessment and plan: Pain management as above. (8) DVT prophylaxis: Start date: 05/24/19 Start time: 14:14 Status: Acute Assessment and plan: Lovenox subcu daily. (9) Discharge planning issues: Start date: 05/24/19 Start time: 14:15 Status: Acute Assessment and plan: Home when medically ready Above case discussed with Dr. Garrido who is in agreement. History of Present Illness History of Present Illness Chief Complaint: COPD exacerbation Narrative: 74 y.o male with PMH HTN, COPD, valve replacement, chronic pain syndrome, arthritis, and hip replacement presents to [facility] with worsening SOB, cough and not feeling well. Patient was seen 3 days ago with SOB and diagnosed with minimal COPD exacerbation given steroids and sent home. Today he returns with worsening symptoms. Labs in ED reveal WBC 13.19 ( likely steroid induced), otherwise unremarkable. Imaging revealing for hyperinflation compatible with COPD. He was admitted to m/s for further management. He does c/o dry hacking cough with SOB when speaking. afebrile SOB worsened overnight. IVF started, antitussives for cough, steroids, updrafts and nebs. He states he is feeling better than prior to arrival to the ED. Strep pending, though more likely post nasal drip or reflux from steroids. Turbinates in nares swollen and erythemic. Not requiring oxygen at this time. He denies CP, N/V/D. Review of Systems All systems reviewed & are unremarkable except as noted in HPI and below PFSH Social History Smoking/Tobacco Use Status: Former Tobacco Use Quit Date: 03/24/04 Pack-years: 90 Tobacco: How many years used: 45 Alcohol Intake: never Drug use: Rarely Substance use type: marijuana Details: cbd gummy bears for pain Do you feel safe at home: Yes Do you feel safe in your relationship?: Yes Meds Home Medications and Allergies Home Medications Medication Instructions Recorded Confirmed Type Space Chamber Plus #1 04/27/14 05/24/19 History Breo Ellipta 1 tab INHALATION DAILY 10/15/17 05/24/19 History Stiolto Respimat 2 puff INHALATION DAILY 10/15/17 05/24/19 History multivitamin 1 tab PO DAILY 08/24/18 05/24/19 History atorvastatin 20 mg tablet 20 mg PO QPM #90 tab 09/15/18 05/24/19 Rx amlodipine 10 mg tablet 10 mg PO DAILY #90 tab 09/23/18 05/24/19 Rx aspirin 81 mg tablet,delayed 81 mg PO DAILY 10/12/18 05/24/19 History release omeprazole 20 mg tablet,delayed 20 mg PO DAILY #90 tab 11/30/18 05/24/19 Rx release trazodone 100 mg PO DAILY PRN 12/28/18 05/24/19 History albuterol sulfate 90 mcg/actuation 2 puff INHALATION Q6H PRN 01/12/19 05/24/19 History aerosol inhaler losartan 25 mg tablet 25 mg PO DAILY #90 tab-cap 01/12/19 05/24/19 Rx sildenafil (pulm.hypertension) 20 20 - 100 mg PO DAILY PRN #30 tab 01/12/19 05/24/19 Rx mg tablet hydrocodone 5 mg-acetaminophen 325 1 tab PO TID PRN #90 tab MDD 3 tabs 05/04/19 05/24/19 Rx mg tablet lorazepam 0.5 mg tablet 0.5 mg PO BID PRN #20 tab 05/11/19 05/24/19 Rx benzonatate [Tessalon Perles] 100 mg PO TID PRN #14 cap 05/22/19 05/24/19 Rx prednisone See Rx Instructions .ROUTE 05/22/19 05/24/19 Rx .COMPLEX #12 tab levalbuterol HCl 2.5 mg INHALATION Q1-4H PRN 05/24/19 05/24/19 History Allergies Allergy/AdvReac Type Severity Reaction Status Date / Time lisinopril Allergy Intermediate RASH; Verified 05/24/19 06:12 PRURITIS diphenhydramine HCl AdvReac Severe Makes him Verified 05/24/19 06:12 [From Benadryl] crazy/anxious NSAIDS (Non-Steroidal AdvReac Intermediate GI Verified 05/24/19 06:12 Anti-Inflamma Intolerance tramadol AdvReac Intermediate nausea/vomi Verified 05/24/19 06:12 ting gabapentin AdvReac Unknown GI UPSET Verified 05/24/19 06:12 SCALLOP Allergy Severe THROAT Uncoded 05/24/19 06:12 SWELLING Exam Const General: cooperative, no acute distress and ill appearing chronically Nutritional Appearance: thin Orientation: alert, awake and oriented x3 HENMT Head: normal to inspection, normocephalic and atraumatic General nose exam: mucous membranes and turbinates abnormal (swollen and eryt hemic) Mouth: moist mucous membranes Throat: postnasal drainage and other (erythema) Eyes Sclera: sclerae normal Cornea: corneas normal Pupils: PERRL EOM: EOM intact bilaterally Neck Neck: normal visual inspection Carotids: normal carotid upstroke Lymphatic: no lymphadenopathy noted and no lymphedema noted Chest Chest: normal inspection of the chest Resp Effort & Inspection: not able to speak in complete sentences and cough Quality of cough: dry Auscultation: diminished lung sounds Cardio Jugular venous pressure: no JVD Rate: tachycardic Rhythm: regular rhythm Heart Sounds: S1 normal, S2 normal and murmur GI Inspection: normal to inspection Palpation: soft and no hepatosplenomegaly Auscultation: normal bowel sounds General: deferred Back/Spine/Pelvis Back: no CVA tenderness Thoracic/Lumbar Spine: thoracic and lumbar spine normal to inspection Skin General skin exam: no rashes or lesions noted Neuro General: alert, awake, oriented x3 and moves all extremities Cognition: normal cognition Extrem General: normal to inspection, full ROM and no clubbing, cyanosis or edema Psych Appearance: grossly normal Speech and Movement: speech and movement normal Mood: congruent mood Affect: normal affect Attitude: cooperative Thought Content: normal Results Labs Result diagrams: 05/24/19 06:20 05/24/19 06:20 Labs: Laboratory Results - last 24 hr 05/24/19 05/24/19 05/24/19 06:20 06:20 06:20 WBC 13.19 H RBC 4.65 Hgb 14.5 Hct 41.3 MCV 88.8 MCH 31.2 MCHC 35.1 RDW 13.2 Plt Count 146 MPV 10.5 Immature Gran % 0.2 Neutrophils % 77.5 Lymphocytes % 12.7 Monocytes % 9.3 Eosinophils % 0.1 Basophils % 0.2 Absolute Neutrophils 10.22 H Absolute Lymphocytes 1.68 Absolute Monocytes 1.23 H Absolute Eosinophils 0.01 Absolute Basophils 0.03 PT 10.4 INR 1.0 APTT 25.0 VBG pH VBG pCO2 VBG pO2 VBG HCO3 VBG Total CO2 VBG O2 Saturation VBG Base Excess Sodium 142 Potassium 3.6 Chloride 106 Carbon Dioxide 24.9 Anion Gap 11.1 H BUN 21 H Creatinine 1.25 Estimated GFR/1.73 m2 56.78 Glucose 98 Calcium 8.4 L Total Bilirubin 0.5 AST 38 H ALT 38 Alkaline Phosphatase 88 Troponin I < 0.05 NT-Pro-B Natriuret Pep 125 Total Protein 7.1 Albumin 3.9 Procalcitonin 05/24/19 05/24/19 05/24/19 06:20 06:23 09:30 WBC RBC Hgb Hct MCV MCH MCHC RDW Plt Count MPV Immature Gran % Neutrophils % Lymphocytes % Monocytes % Eosinophils % Basophils % Absolute Neutrophils Absolute Lymphocytes Absolute Monocytes Absolute Eosinophils Absolute Basophils PT INR APTT VBG pH 7.45 VBG pCO2 36 VBG pO2 127 H VBG HCO3 25 VBG Total CO2 21 L VBG O2 Saturation 99 H VBG Base Excess 0.4 Sodium Potassium Chloride Carbon Dioxide Anion Gap BUN Creatinine Estimated GFR/1.73 m2 Glucose Calcium Total Bilirubin AST ALT Alkaline Phosphatase Troponin I < 0.05 NT-Pro-B Natriuret Pep Total Protein Albumin Procalcitonin < 0.1 Last Vital Signs Temp 37.1 C 05/24/19 09:39 Pulse 115 H 05/24/19 13:24 Resp 18 05/24/19 13:24 BP 158/87 H 05/24/19 09:39 Pulse Ox 99 05/24/19 13:24
--- NOTE | 2019-05-24 14:51 | CHAPLAIN ---
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 He told me he came to the ER two days ago and was feeling better and went home. Then came back this morning after having a difficult time breathing all night. Rafiq said the same thing happened two and a half years ago. He said he prefers to be here when he can be monitored and receive respiratory care as needed. He asked for prayers.
[2019-05-24] MEDS: Acetaminophen 325 MG TAB PO (15:31)
[2019-05-24] MEDS: Benzonatate 200 MG CAP PO (16:48)
[2019-05-24] MEDS: Mylanta Suspension 30 ML CUP PO (18:39)
[2019-05-24] MEDS: guaiFENesin/CODEINE PHOSPHATE 10 ML CUP 5 ML PO (19:43)
[2019-05-24] MEDS: Atorvastatin 20 MG TAB PO (19:43)
[2019-05-25] VITALS (19 sets, daily range): BP systolic 124–147; BP diastolic 70–80; PULSE 50–97; RESP 4–28; TEMP 36.9–38; O2SAT 92–98
[2019-05-25] MEDS: Levalbuterol 0.63 MG/3 ML UPD VIAL UPD ×5 (03:56→20:21)
[2019-05-25] MEDS: guaiFENesin/CODEINE PHOSPHATE 10 ML CUP 5 ML PO ×4 (04:11→23:52)
[2019-05-25] MEDS: methylPREDNISolone SUCC 125 MG VIAL 80 MG IVP ×3 (06:19→21:03)
[2019-05-25 06:58] LABS: Abs Immature Grans 0.06 k/cumm (0.0-0.09); Absolute Basophil Count 0.01 k/cumm (0.0-0.2); Absolute Lymphocyte Count 0.78 k/cumm (1.2-3.4); Absolute Neutrophil Count 10.65 k/cumm (1.2-6.7); Basophils % 0.1; HCT 38.5 % (40.0-50.0); HGB 13.2 g/dL (13.5-17.5); Immature Grans % 0.5 %; Lymphocytes % 6.4; Mean Corp. HGB Concentration 34.3 g/dL (32.0-36.0); Mean Corpuscular Hemoglobin 31.1 pg (27.0-33.0); Mean Corpuscular Volume 90.6 fL (80-95); Mean Platelet Volume 10.9 fL (8.0-11.0); Platelet Count 132 x1000/uL (130-400); RBC 4.25 m/cumm (4.50-6.00); RBC Distribution Width 13.2 % (11.8-14.1); White Blood Cell Count 12.24 k/cumm (4.4-10.8)
[2019-05-25 07:03] LABS: Absolute Monocyte Count 0.73 k/cumm (0.11-0.7)
[2019-05-25 07:16] LABS: Anion Gap 7.8 mmol/L (3-11); BUN 17 mg/dL (7-18); CO2 26.2 mmol/L (21.0-32.0); CREATININE 1.22 mg/dL (0.70-1.30); Calcium 8.1 mg/dL (8.5-10.1); Chloride 108 mmol/L (98-107); Estimated GFR 58.39 (mL/min/1.73m2); Glucose 161 mg/dL (74-106); Magnesium 1.9 mg/dL (1.8-2.4); Potassium 3.8 mmol/L (3.5-5.1); Sodium 142 mmol/L (136-145)
[2019-05-25] MEDS: DOXYCYCLINE 100 MG in Normal Saline 100 ML IVPB ×2 (08:31→20:24)
[2019-05-25] MEDS: Normal Saline Flush 10 ML SYR IVP ×3 (08:33→20:24)
[2019-05-25] MEDS: Benzonatate 200 MG CAP PO ×2 (08:33→16:23)
[2019-05-25] MEDS: Pantoprazole 40 MG VIAL IVP (08:33)
[2019-05-25] MEDS: Docusate Sodium 100 MG CAP PO (08:33)
[2019-05-25] MEDS: Cetirizine 10 MG TAB PO (08:33)
[2019-05-25] MEDS: Losartan 25 MG TAB PO (08:34)
[2019-05-25] MEDS: amLODIPine 10 MG TAB PO (08:34)
[2019-05-25] MEDS: Multivitamin TAB 1 TAB PO (08:34)
[2019-05-25] MEDS: Tiotropium/Olodaterol 10 PUFF INHALER IH (10:20)
[2019-05-25] MEDS: Normal Saline 1,000 ML 100 ML IV (10:32)
[2019-05-25] MEDS: Enoxaparin 40 MG/0.4 ML SYR SC (10:34)
--- NOTE | 2019-05-25 10:37 | PHA.ADMREV ---
Pharmacy Clinical Review - Admission Clinical Review (Last Reviewed 05/24/19 @ 06:12 by Mildred Webster) Acute exacerbation of chronic obstructive pulmonary disease (Acute) COPD exacerbation (Acute) Acute dyspnea (Acute) DVT prophylaxis (Acute) Discharge planning issues (Acute) Hyperlipidemia (Acute) Arthritis (Acute 04/02/12) lisinopril Allergy (Intermediate, Verified 05/24/19 06:12) RASH; PRURITIS diphenhydramine HCl [From Benadryl] Adverse Reaction (Severe, Verified 05/24/19 06:12) Makes him crazy/anxious NSAIDS (Non-Steroidal Anti-Inflamma Adverse Reaction (Intermediate, Verified 05/24/19 06:12) GI Intolerance tramadol Adverse Reaction (Intermediate, Verified 05/24/19 06:12) nausea/vomiting gabapentin Adverse Reaction (Unknown, Verified 05/24/19 06:12) GI UPSET SCALLOP Allergy (Severe, Uncoded 05/24/19 06:12) THROAT SWELLING Height 5 ft 6 in Weight 71.1 kg - Renal Dosing Renal Dosing: BUN 17 mg/dL (7-18) 05/25/19 06:25 Creatinine 1.22 mg/dL (0.70-1.30) 05/25/19 06:25 Medications needing adjustments: Reviewed (Est CrCl~ 49 mL/min) - Anticoagulation Anticoagulation: Hgb 13.2 g/dL (13.5-17.5) L 05/25/19 06:25 Hct 38.5 % (40.0-50.0) L 05/25/19 06:25 Plt Count 132 x1000/uL (130-400) 05/25/19 06:25 INR 1.0 (0.9-1.1) 05/24/19 06:20 Creatinine 1.22 mg/dL (0.70-1.30) 05/25/19 06:25 Medications: Enoxaparin - Opiate Usage Evaluate Pain Scale/Pains Meds: Reviewed (Stephon Perkins) Scheduled Bowel Reg ordered if on Opiates?: Yes (DSS & MOM) - Relevant Labs Sodium 142 mmol/L (136-145) 05/25/19 06:25 Potassium 3.8 mmol/L (3.5-5.1) 05/25/19 06:25 Chloride 108 mmol/L (98-107) H 05/25/19 06:25 Magnesium 1.9 mg/dL (1.8-2.4) 05/25/19 06:25 - Antimicrobial Stewardship Antibiotic appropriateness: Reviewed (Ceftriaxone Doxycycline) Surgical Abx d/c within 24 hr: N/A De-escalation: N/A Culture review/Resistance: Reviewed (Sputum, Strep swab -pending Flu-negative) - DM Control DM Control: Glucose 161 mg/dL (74-106) H 05/25/19 06:25 Insulin Dosing: N/A - Heart Failure/GA Heart Failure/GA: Troponin I < 0.05 ng/Ml (<0.06) 05/24/19 09:30 NT-Pro-B Natriuret Pep 125 pg/mL (<300) 05/24/19 06:20 EF%, GI's, B-Blockers, Diuretics: Reviewed - BP Control BP Control: Blood Pressure 136/80 Blood Pressure 135/74 Blood Pressure 141/74 If elevated: Reviewed (Norvasc, Losartan) - QTc Review If Elevated: Reviewed - IV to PO Switch IV Medications: Reviewed (QTc-471 on Zofran, Protonix & Trazodone) - Home Meds Home Med List reviewed: Reviewed (Viagra, Naloxone Chapman, ASA,) - Current meds Current Medication Order Review: Reviewed - Comments Comments/Follow Ups: Donald Miller: patient on both Breo Elippta & Stoilto per office. 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
--- NOTE | 2019-05-25 13:01 | RESPIRATORY ---
Rt discussed with patient about possibly starting to do Pulmonary Rehab again to help with his breathing. Patient stated the exercises done there hurt him more than benefit him. He stated the exercises bother his arthritis and cause him to not be able to move very well the days that follow. Patient said he's normally very active every day and doesn't stop. Feels he exercises enough and what he does at home doesn't bother him as much as Pulmonary Rehab did.
--- NOTE | 2019-05-25 14:02 | W.PM.PROGNOT ---
Date of Service Date of service: 05/25/19 Time of Service: 14:02 Assessment and Plan Assessment and plan (1) Acute exacerbation of chronic obstructive pulmonary disease: Status: Acute Assessment and plan: slowly improving, continue current regimen for now. no step down or taper today, consider for tomorrow if improved still. (2) Anxiety: Status: Chronic Assessment and plan: stable, continue home lorazepam 0.5 po BID prn, continue medication. Xoponex for nebs and updrafts. (3) Hyperlipidemia: Status: Acute Assessment and plan: continue statin (4) Chronic pain syndrome: Status: Chronic Assessment and plan: stable, continue home hydrocodone TID prn for pain. (5) Gastro-esophageal reflux: Status: Chronic Assessment and plan: IV protonix daily while hospitalized (6) Essential hypertension: Status: Chronic Assessment and plan: continue home medications, losartan and amlodipine for BP management. monitor blood pressure and adjust as needed. (7) DVT prophylaxis: Status: Acute Assessment and plan: lovenox subcu, daily (8) Discharge planning issues: Status: Acute Assessment and plan: home when medically stable, no services anticipated Subjective Subjective Patient reports: no new complaints, feels better, tolerating liquids well and tolerating a regular diet Interval history since last seen: oxygenating well on room air, still with some cough. reports he ambulated in clemente but was significantly short of breath and fatigued from his walk when compared with baseline. he has had no oxygen requirements. Exam Const General: cooperative, healthy appearing, comfortable and no acute distress Nutritional Appearance: average body habitus Orientation: alert, awake and oriented x3 HENMT Head: normal to inspection, normocephalic and atraumatic Mouth: oral mucosae normal (no exudates) Chest Chest: normal inspection of the chest Resp Effort & Inspection: normal respiratory effort and able to speak in complete sentences Auscultation: no crackles, diminished lung sounds bilaterally, no rhonchi and wheezes expiratory wheezes and scattered wheezes Cardio Rate: regular rate Rhythm: regular rhythm GI Inspection: normal to inspection Palpation: soft Auscultation: normal bowel sounds Skin General skin exam: no rashes or lesions noted Neuro General: alert, awake and oriented x3 Cranial Nerves: CN's II-XI intact bilaterally Cognition: normal cognition Speech: speech normal Gait: normal gait Extrem General: normal to inspection and full ROM Objective Objective Clinical Data: Abnormal lab results 05/25/19 05/25/19 Range/Units 06:25 06:25 WBC 12.24 H (4.4-10.8) k/cumm RBC 4.25 L (4.50-6.00) m/cumm Hgb 13.2 L (13.5-17.5) g/dL Hct 38.5 L (40.0-50.0) % Absolute Neutrophils 10.65 H (1.2-6.7) k/cumm Absolute Lymphocytes 0.78 L (1.2-3.4) k/cumm Absolute Monocytes 0.73 H (0.11-0.7) k/cumm Chloride 108 H (98-107) mmol/L Glucose 161 H (74-106) mg/dL Calcium 8.1 L (8.5-10.1) mg/dL Vital Signs Temperature 37.2 C 05/25/19 12:10 Temperature Source Tympanic 05/25/19 12:10 Pulse 96 H 05/25/19 13:06 Pulse Rhythm Regular 05/25/19 08:45 Pulse 114 H 05/24/19 08:50 Respiratory Rate 20 05/25/19 13:06 Respiratory Effort 05/25/19 08:45 Respiratory Depth Deep 05/25/19 08:45 Respiratory Pattern Tachypnea 05/25/19 08:45 Blood Pressure 124/74 05/25/19 12:10 Blood Pressure Mean 105 05/24/19 06:20 Pulse Oximetry 96 05/25/19 13:06 Oxygen Delivery Method Room Air 05/25/19 12:57 Oxygen Flow Rate 0 05/25/19 12:57 Pain Level 1 05/25/19 12:10 Intake & Output 05/24/19 05/25/19 05/25/19 23:59 11:59 23:59 Intake Total 1490 / 1490 1660 / 1660 Output Total 725 / 725 850 / 850 Balance 765 / 765 810 / 810 Weight 71.1 kg Intake: IV 1250 / 1250 1000 / 1000 Oral 240 / 240 660 / 660 Output: Urine 725 / 725 850 / 850 Other: Urine Color Yellow Dark Su Urine Appearance Clear Clear Urine Odor Normal None Voiding Methods Urinal Urinal Laboratory Results WBC 12.24 k/cumm (4.4-10.8) H 05/25/19 06:25 RBC 4.25 m/cumm (4.50-6.00) L 05/25/19 06:25 Hgb 13.2 g/dL (13.5-17.5) L 05/25/19 06:25 Hct 38.5 % (40.0-50.0) L 05/25/19 06:25 MCV 90.6 fL (80-95) 05/25/19 06:25 MCH 31.1 pg (27.0-33.0) 05/25/19 06:25 MCHC 34.3 g/dL (32.0-36.0) 05/25/19 06:25 RDW 13.2 % (11.8-14.1) 05/25/19 06:25 Plt Count 132 x1000/uL (130-400) 05/25/19 06:25 MPV 10.9 fL (8.0-11.0) 05/25/19 06:25 Immature Gran % 0.5 % 05/25/19 06:25 Neutrophils % 87.0 05/25/19 06:25 Lymphocytes % 6.4 05/25/19 06:25 Monocytes % 6.0 05/25/19 06:25 Eosinophils % 0.0 05/25/19 06:25 Basophils % 0.1 05/25/19 06:25 Absolute Neutrophils 10.65 k/cumm (1.2-6.7) H 05/25/19 06:25 Absolute Lymphocytes 0.78 k/cumm (1.2-3.4) L 05/25/19 06:25 Absolute Monocytes 0.73 k/cumm (0.11-0.7) H 05/25/19 06:25 Absolute Eosinophils 0.00 k/cumm (0.0-0.7) 05/25/19 06:25 Absolute Basophils 0.01 k/cumm (0.0-0.2) 05/25/19 06:25 PT 10.4 sec (9.3-11.0) 05/24/19 06:20 INR 1.0 (0.9-1.1) 05/24/19 06:20 APTT 25.0 sec (21.0-31.4) 05/24/19 06:20 VBG pH 7.45 (7.35-7.45) 05/24/19 06:20 VBG pCO2 36 mm/Hg (34-47) 05/24/19 06:20 VBG pO2 127 mm/Hg (28-44) H 05/24/19 06:20 VBG HCO3 25 mmol/L (22-28) 05/24/19 06:20 VBG Total CO2 21 mmol/L (22-29) L 05/24/19 06:20 VBG O2 Saturation 99 % (70-80) H 05/24/19 06:20 VBG Base Excess 0.4 mmol/L (-3-3) 05/24/19 06:20 Sodium 142 mmol/L (136-145) 05/25/19 06:25 Potassium 3.8 mmol/L (3.5-5.1) 05/25/19 06:25 Chloride 108 mmol/L (98-107) H 05/25/19 06:25 Carbon Dioxide 26.2 mmol/L (21.0-32.0) 05/25/19 06:25 Anion Gap 7.8 mmol/L (3-11) 05/25/19 06:25 BUN 17 mg/dL (7-18) 05/25/19 06:25 Creatinine 1.22 mg/dL (0.70-1.30) 05/25/19 06:25 Estimated GFR/1.73 m2 58.39 (mL/min/1.73m2) 05/25/19 06:25 Glucose 161 mg/dL (74-106) H 05/25/19 06:25 Calcium 8.1 mg/dL (8.5-10.1) L 05/25/19 06:25 Magnesium 1.9 mg/dL (1.8-2.4) 05/25/19 06:25 Total Bilirubin 0.5 mg/dL (0.2-1.0) 05/24/19 06:20 AST 38 U/L (15-37) H 05/24/19 06:20 ALT 38 U/L (16-63) 05/24/19 06:20 Alkaline Phosphatase 88 U/L (46-116) 05/24/19 06:20 Troponin I < 0.05 ng/Ml (<0.06) 05/24/19 09:30 NT-Pro-B Natriuret Pep 125 pg/mL (<300) 05/24/19 06:20 Total Protein 7.1 g/dL (6.4-8.2) 05/24/19 06:20 Albumin 3.9 g/dL (3.4-5.0) 05/24/19 06:20 Procalcitonin < 0.1 ng/mL 05/24/19 06:23
[2019-05-25] MEDS: cefTRIAXone 1 GM/50 ML BAG IVPB (14:36)
--- NOTE | 2019-05-25 15:16 | PDOC.CMIN ---
- If Service Date Differs Date of service: 05/25/19 Time of Service: 15:16 Care Management Initial Assess REASON FOR HOSPITALIZATION:: Acute exacerbation of COPD PAST MEDICAL HISTORY/PAST SURGICAL HISTORY:: Medical History: SVT (supraventricular tachycardia) (Chronic ~02/2018). Paroxysmal atrial fibrillation (Resolved 01/28/17). Gastro-esophageal reflux (Chronic 09/15/13). Essential hypertension (Chronic 02/26/16). Esophageal varices without bleeding (Chronic 05/14/16). Chronic obstructive pulmonary disease (Chronic 08/05/17). CAD (coronary artery disease) (Chronic 12/05/16). Benign prostatic hyperplasia (Chronic 02/03/13). Chronic pain syndrome (Chronic). Anxiety (Chronic). Arthritis (Chronic). Cataracts, bilateral (Chronic). Chronic, continuous use of opioids (Chronic). Nocturnal hypoxia (Chronic). Cirrhosis (Chronic). Surgical History: History of surgical procedure on eye proper using laser (Chronic). S/P cardiac cath (Chronic). Aortic valve replaced (Chronic). Total replacement of hip (Chronic) PREVIOUS FUNCTIONAL STATUS/SOCIAL/FAMILY SUPPORTS:: Rafiq lives in [place] with his in a mobile home. 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 His is disabled so he helps with her care as well. They have children but are estranged from them at the moment. He identifies a couple of nephews and a few close friends as his main support system. 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 CURRENT FUNCTIONAL STATUS:: Rafiq was sitting up in bed when CM met with him. He was pleasant and open to conversation. Rafiq stated that he is feeling much better than when he was first admitted. His vital signs are good, although he is slightly tachycardic. His oxygen saturation is in the low 90's on room ait. Rafiq does not use home oxygen. ADVANCE DIRECTIVES:: on file. Aracely AVITIA Has patient been provided with information about the portal?: Yes Did the patient sign up for the portal?: No CODE STATUS:: Full Code INSURANCE COVERAGE / FINANCIAL ISSUES:: medicare. Financial Assist 100 CURRENT HOME/COMMUNITY SERVICES/EQUIPMENT:: Rafiq has a cane and crutches at home. He receives no services at this time PRIMARY CARE PHYSICIAN:: Rayshawn Kothari POTENTIAL DISCHARGE NEEDS:: Follow up with PCP and discharge plan of care PATIENT/FAMILY EDUCATION NEEDS:: Discharge plan, limitations, follow up plan, Ask Me Three. TRANSPORTATION:: via private vehicle with friends or family PLAN:: Rafqi will likely be discharged home with no new services. He will follow up with his PCP and discharge plan of care. CM will continue to support Rafiq and his discharge needs.
--- NOTE | 2019-05-25 15:22 | CHAPLAIN ---
Rafiq said he is feeling better today, although he didn't get much sleep last night. He'll likely stay one more night, he said. Rafiq shared some personal history, telling me about where he grew up, his parents' divorce, and his move back to [place]. 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
--- NOTE | 2019-05-25 16:57 | W.NUTCONSULT ---
Date of service: 05/25/19 Time of Service: 16:57 Nutritional Consult ASSESSMENT: 74 year old male admitted with COPD. Following Heart Healthy Diet with adequate intake. BMI wnl for age. Not considered at nutritional risk. MONITORING AND EVALUATION: labs, po intake, weight Time Spent in Nutritional Counseling and Treatment: 0 time spent face to face
[2019-05-25] MEDS: Atorvastatin 20 MG TAB PO (20:20)
[2019-05-25] MEDS: traZODone 100 MG TAB PO (21:02)
[2019-05-25] MEDS: Budesonide/Formoterol 160/4.5 6 GM 60 PUFF INH IH (21:35)
[2019-05-25] MEDS: HYDROcodone 5/Acetaminophen 325 TAB PO (23:57)
[2019-05-26] VITALS (14 sets, daily range): BP systolic 115–162; BP diastolic 67–85; PULSE 58–108; RESP 4–23; TEMP 36.6–37.5; O2SAT 90–99
[2019-05-26] MEDS: Levalbuterol 0.63 MG/3 ML UPD VIAL UPD ×3 (04:23→13:24)
[2019-05-26] MEDS: Mylanta Suspension 30 ML CUP PO (04:25)
[2019-05-26] MEDS: methylPREDNISolone SUCC 125 MG VIAL 80 MG IVP (06:17)
[2019-05-26] MEDS: Normal Saline Flush 10 ML SYR IVP ×3 (06:18→17:42)
--- NOTE | 2019-05-26 07:37 | NUR.NOTE ---
Pt refused 00:00 Nebulizer treatment. At approx 4 am woke complaining of chest pain, VS stable, but rhoncorous lung sounds heard. With some prompting, agreed to a nebulizer treatment. This am, this RN asked if feeling better, pt stated much better. This RN pointed out that the nebulizer treatments are very necessary and he shouldn't refuse them. Pt then stated I never refused them, I don't know what you're talking about. Pt told 3 separate RNs he didn't want this treatment.
[2019-05-26 07:40] LABS: Abs Immature Grans 0.04 k/cumm (0.0-0.09); Absolute Basophil Count 0.01 k/cumm (0.0-0.2); Absolute Lymphocyte Count 0.94 k/cumm (1.2-3.4); Absolute Monocyte Count 0.73 k/cumm (0.11-0.7); Absolute Neutrophil Count 8.39 k/cumm (1.2-6.7); Basophils % 0.1; HCT 38.5 % (40.0-50.0); HGB 12.9 g/dL (13.5-17.5); Immature Grans % 0.4 %; Lymphocytes % 9.3; Mean Corp. HGB Concentration 33.5 g/dL (32.0-36.0); Mean Corpuscular Hemoglobin 30.4 pg (27.0-33.0); Mean Corpuscular Volume 90.6 fL (80-95); Mean Platelet Volume 10.9 fL (8.0-11.0); Monocytes % 7.2; Platelet Count 122 x1000/uL (130-400); RBC 4.25 m/cumm (4.50-6.00); RBC Distribution Width 13.1 % (11.8-14.1); White Blood Cell Count 10.11 k/cumm (4.4-10.8)
[2019-05-26 07:52] LABS: Anion Gap 7.7 mmol/L (3-11); BUN 21 mg/dL (7-18); CO2 27.3 mmol/L (21.0-32.0); Calcium 8.1 mg/dL (8.5-10.1); Chloride 107 mmol/L (98-107); Estimated GFR 59.51 (mL/min/1.73m2); Glucose 190 mg/dL (74-106); Potassium 3.8 mmol/L (3.5-5.1); Sodium 142 mmol/L (136-145)
[2019-05-26] MEDS: Tiotropium/Olodaterol 10 PUFF INHALER IH (07:58)
[2019-05-26] MEDS: DOXYCYCLINE 100 MG in Normal Saline 100 ML IVPB (09:16)
[2019-05-26] MEDS: Cetirizine 10 MG TAB PO (09:16)
[2019-05-26] MEDS: amLODIPine 10 MG TAB PO (09:16)
[2019-05-26] MEDS: Multivitamin TAB 1 TAB PO (09:16)
[2019-05-26] MEDS: Pantoprazole 40 MG VIAL IVP (09:16)
[2019-05-26] MEDS: HYDROcodone 5/Acetaminophen 325 TAB PO (09:16)
[2019-05-26] MEDS: Losartan 25 MG TAB PO (09:16)
--- NOTE | 2019-05-26 10:25 | PDOC.CMPRO ---
- If Service Date Differs Date of service: 05/26/19 Time of Service: 10:25 Care Management Progress Note S/O:Rafiq was seen ambulating in the halls with no oxygen. A short time later CM met with him in his room and he was visibly short of breath with oxygen. He shared that he had had an exercise oximetry test earlier in the day and had passed. When asked what that meant he said that his oxygen levels had dropped but not very low. Rafiq stated yesterday that he did not want to get home oxygen, but today he admitted to other CM staff that he did, in fact, want home oxygen because he felt it would help him. Rafiq also talked about his healthcare goals and shared that he hopes to live to be 89. Rafiq stated that he keeps very active and will never be one of those people who retire to a recliner and TV to . A: Rafiq is a 74 year old man admitted on 05/24/19 with exacerbation of COPD P: Rafiq will likely be discharged home with no new services, although he would like to qualify for home oxygen. He will follow up with his PCP and discharge plan of care. CM will continue to support Rafiq and his discharge needs
[2019-05-26] MEDS: Enoxaparin 40 MG/0.4 ML SYR SC (10:35)
[2019-05-26] MEDS: cefTRIAXone 1 GM/50 ML BAG IVPB (10:35)
[2019-05-26] MEDS: Ipratropium 0.5 MG/2.5 ML UPD VIAL UPD (13:25)
[2019-05-26] MEDS: LORazepam 0.5 MG TAB PO ×2 (14:44→20:01)
--- NOTE | 2019-05-26 15:20 | PCNE_ITS ---
Date of service: 05/26/19 Time of Service: 15:20 History of Present Illness History of Present Illness Chief Complaint: Shortness of breath Narrative: Eddie hanson is a very pleasant 74 year old man with a past medical history significant for hypertension, COPD, aortic valve replacement, paroxysmal atrial fibrillation, anxiety and arthritis who presented to the emergency department initially 4 days ago, was diagnosed with a COPD exacerbation and discharged home with steroids. He presented back to the emergency department on 05/24/2019 with worsening shortness of breath and cough. She is currently being treated with antibiotics, steroids and nebulizer treatments. A palliative care consult was placed at the time of his admission to discuss goals of care. Mr. Hanson states that he is generally active. 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 He reports that he was renovating a kitchen when he started to become short of breath. 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 He also has a long history of smoking cigarettes, he quit in 2006, trying to quit for over 20 years. He lives with his and 2 dogs, he reports that there are some issues with his since she had back surgery several years ago. They do not appear to have a close relationship. It does not appear that he has a support system at home. He states that his has difficulty caring for herself. He remains short of breath with speaking today. He states his breathing is better today than when he presented, but he is still not at his baseline. He is interested in trying low dose liquid mophine to help his breathing. Patient has been instructed at nursing home he is not requiring oxygen, his saturation is in the 90s on room air. He continues to cough, occasionally producing brown/dorsey sputum. He feels shaky and feels that this is related to his depression and updrafts. He denies chest pain or pressure. He denies having any lower extremity edema since his heart valve was replaced. He is eating and drinking and tolerating his diet. He had a bowel movement last night, no abdominal pain or nausea. He ambulates independently in the halls. He feels depressed, he is not on an antidepressant. Assessment and Plan Assessment and plan (1) Acute exacerbation of chronic obstructive pulmonary disease: Status: Acute Assessment and plan: Currently being treated for COPD exacerbation with antibiotics, steroids and nebulizer treatments. Hospitalist team is transitioning him to oral steroids. Not requiring oxygen at this time. However, he remains short of breath at rest. Recommend low-dose liquid morphine to help with work of breathing. (2) Acute dyspnea: Status: Acute Assessment and plan: As above, discussed adding liquid morphine for shortness of breath with Nataly Joseph, hospitalist VETERANS SERVICE REPRESENTATIVE, who is in agreement with the plan. We will add low-dose liquid morphine for shortness of breath. (3) Insomnia: Status: Chronic Assessment and plan: He reports taking trazodone last night which did not will work well for him, he was apparently talking in his sleep. Hospitalist to trial melatonin tonight, his dose may need to be increased to 9 mg at at bedtime. (4) Anxiety: Status: Chronic Assessment and plan: He takes lorazepam 0.5 mg twice daily at home, this has been continued in the hospital. This may also help with his respiratory symptoms. He may need adjustment with medication for anxiety and depression. SS RI could be considered. (5) Palliative care patient: Status: Acute Assessment and plan: He established care with palliative today. He will follow-up in the office as an outpatient after he is discharged home. There is concern related to the fact that he does not have a good support system at home. His would not be able to be a caregiver for him, should that need arise. Palliative will continue to discuss goals and plans, including addressing CODE STATUS. Discussed with Dr. Elizabeth Araiza who was present at the time of the visit and is in agreement with the plan. Review of Systems All systems reviewed & are unremarkable except as noted in HPI and below [facility] Medical History (Updated 05/26/19 @ 15:51 by Anastasia Baez NP) Anxiety (Chronic) Arthritis (Chronic) Benign prostatic hyperplasia (Chronic 02/03/13) CAD (coronary artery disease) (Chronic 12/05/16) 12/05/16 [facility]~NON OBSTRUCTIVE Cataracts, bilateral (Chronic) Chronic obstructive pulmonary disease (Chronic 08/05/17) Chronic pain syndrome (Chronic) Chronic shoulder pain 07/17/16~CONTROLLED SUBSTANCE AGREEMENT Chronic, continuous use of opioids (Chronic) Cirrhosis (Chronic) Esophageal varices without bleeding (Chronic 05/14/16) Essential hypertension (Chronic 02/26/16) Gastro-esophageal reflux (Chronic 09/15/13) Nocturnal hypoxia (Chronic) Palliative care patient (Acute) Paroxysmal atrial fibrillation (Resolved 01/28/17) ford operative aortic valve replacement SVT (supraventricular tachycardia) (Chronic ~02/2018) Surgical History Aortic valve replaced (Chronic) History of surgical procedure on eye proper using laser (Chronic) S/P cardiac cath (Chronic) negative 2 years ago Total replacement of hip (Chronic) LEFT Family History Mother Diabetes Essential hypertension Personal history of malignant neoplasm Heart disease Hyperlipidemia Brother Essential hypertension Heart disease Grandmother Personal history of malignant neoplasm Social History Smoking/Tobacco Use Status: Former Tobacco Use Quit Date: 03/24/04 Pack-years: 90 Tobacco: How many years used: 45 Alcohol Intake: never Drug use: Rarely Substance use type: marijuana Details: cbd gummy bears for pain Do you feel safe at home: Yes Do you feel safe in your relationship?: Yes Exam Narrative Exam Narrative: General: Chronically ill-appearing 74-year-old man, sitting at edge of bed, dyspnea with speaking. Alert and oriented, pleasant and cooperati ve. Tearful at times. HEENT: Normocephalic, atraumatic, pupils symmetrical, mucous membranes moist. Neck: Supple, no JVD. Cardiovascular: Tachycardic, with rate of 104, murmur noted at right sternal border. Respiratory: Appears short of breath at rest. Coarse expiratory wheezes noted bilaterally, right greater than left. No rales. GI: Normoactive bowel sounds, abdomen soft, nontender on palpation, nondistended. Extremities: No clubbing, cyanosis or edema. Teds on bilaterally. Psych: Pleasant and cooperative, tearful at times when talking about feeling depressed. Results Last Vital Signs Temp 37.2 C 05/26/19 11:05 Pulse 104 H 05/26/19 13:29 Resp 16 05/26/19 13:29 BP 127/67 05/26/19 11:05 Pulse Ox 99 03/04/20 13:29 Labs Result diagrams: 05/26/19 07:00 05/26/19 07:00 Labs: Laboratory Results - last 24 hr 05/26/19 05/26/19 07:00 07:00 WBC 10.11 RBC 4.25 L Hgb 12.9 L Hct 38.5 L MCV 90.6 MCH 30.4 MCHC 33.5 RDW 13.1 Plt Count 122 L MPV 10.9 Immature Gran % 0.4 Neutrophils % 83.0 Lymphocytes % 9.3 Monocytes % 7.2 Eosinophils % 0.0 Basophils % 0.1 Absolute Neutrophils 8.39 H Absolute Lymphocytes 0.94 L Absolute Monocytes 0.73 H Absolute Eosinophils 0.00 Absolute Basophils 0.01 Sodium 142 Potassium 3.8 Chloride 107 Carbon Dioxide 27.3 Anion Gap 7.7 BUN 21 H Creatinine 1.20 Estimated GFR/1.73 m2 59.51 Glucose 190 H Calcium 8.1 L
--- NOTE | 2019-05-26 17:00 | W.PM.PROGNOT ---
Date of Service Date of service: 05/26/19 Time of Service: 17:00 Assessment and Plan Assessment and plan (1) Acute exacerbation of chronic obstructive pulmonary disease: Start date: 05/26/19 Start time: 17:12 Status: Acute Assessment and plan: Improving. Wheezing on expiration bilateral to lower lobes. C/o xoponex causing worsening SOB. Takes xoponex at home. Will trial albuterol. Morphine liquid and Ativan TID for dyspnea and anxiety continue steroid, duonebs, updrafts and antiboitics. (2) Anxiety: Start date: 05/26/19 Start time: 17:14 Status: Chronic Assessment and plan: Anxious at baseline. Liquid morphine for dyspnea with ativan TID for anxiety. (3) Hyperlipidemia: Start date: 05/26/19 Start time: 17:15 Status: Acute Assessment and plan: Continue lipitor (4) Chronic pain: Start date: 05/26/19 Start time: 17:16 Status: Chronic Assessment and plan: Pain regimen at home, hydrocodone TID prn for pain, will continue regimen from home. (5) Gastro-esophageal reflux: Start date: 05/26/19 Start time: 17:16 Status: Chronic Assessment and plan: continue PPI (6) Essential hypertension: Start date: 05/26/19 Start time: 17:17 Status: Chronic Assessment and plan: Normotensive at this time on Current regimen. Continue on losartan and amlodipine for BP management. (7) Arthritis: Start date: 05/26/19 Start time: 17:17 Status: Acute Assessment and plan: Pain management as above. (8) DVT prophylaxis: Start date: 05/26/19 Start time: 17:17 Status: Acute Assessment and plan: Lovenox subcu daily. (9) Discharge planning issues: Start date: 05/26/19 Start time: 17:18 Status: Acute Assessment and plan: Home when medically ready Above case discussed with Dr. Garrido who is in agreement. Subjective Subjective Patient reports: shortness of breath and other Interval history since last seen: Patient ambulatory around halls throughout the day. States atrovent is drying out his mouth and xoponex is causing worsening SOB. Feels he needs to wear oxygen despite oxygen level 98% on RA. He does use xoponex at home. Will change xoponex to albuterol for trial. Does not need oxygen though he feels he does. Exercise oximetry 96% on RA and 98% on RA. He does have SOB but oxgyenation remains in high 90's. He is very anxious. On ativan TID scheduled and liquid morphine for dsypnea. Denies CP, N/V/D Exam Const General: cooperative, no acute distress and ill appearing chronically Nutritional Appearance: thin Orientation: alert, awake and oriented x3 HENMT Head: normal to inspection, normocephalic and atraumatic General nose exam: mucous membranes and turbinates abnormal (swollen and erythemic) Mouth: moist mucous membranes Throat: postnasal drainage and other (erythema) Eyes Sclera: sclerae normal Cornea: corneas normal Pupils: PERRL EOM: EOM intact bilaterally Neck Neck: normal visual inspection Carotids: normal carotid upstroke Lymphatic: no lymphadenopathy noted and no lymphedema noted Chest Chest: normal inspection of the chest Resp Effort & Inspection: able to speak in complete sentences and cough Quality of cough: dry Auscultation: diminished lung sounds and wheezes expiratory wheezes, left lower and right lower Cardio Jugular venous pressure: no JVD Rate: tachycardic Rhythm: regular rhythm Heart Sounds: S1 normal, S2 normal and murmur GI Inspection: normal to inspection Palpation: soft and no hepatosplenomegaly Auscultation: normal bowel sounds General: deferred Back/Spine/Pelvis Back: no CVA tenderness Thoracic/Lumbar Spine: thoracic and lumbar spine normal to inspection Skin General skin exam: no rashes or lesions noted Neuro General: alert, awake, oriented x3 and moves all extremities Cognition: normal cognition Extrem General: normal to inspection, full ROM and no clubbing, cyanosis or edema Psych Appearance: grossly normal Speech and Movement: speech and movement normal Mood: congruent mood Affect: normal affect Attitude: cooperative Thought Content: normal Objective Objective Clinical Data: Abnormal lab results 05/26/19 05/26/19 Range/Units 07:00 07:00 RBC 4.25 L (4.50-6.00) m/cumm Hgb 12.9 L (13.5-17.5) g/dL Hct 38.5 L (40.0-50.0) % Plt Count 122 L (130-400) x1000/uL Absolute Neutrophils 8.39 H (1.2-6.7) k/cumm Absolute Lymphocytes 0.94 L (1.2-3.4) k/cumm Absolute Monocytes 0.73 H (0.11-0.7) k/cumm BUN 21 H (7-18) mg/dL Glucose 190 H (74-106) mg/dL Calcium 8.1 L (8.5-10.1) mg/dL Vital Signs Temperature 37.2 C 05/26/19 11:05 Temperature Source Tympanic 05/26/19 11:05 Pulse 104 H 05/26/19 13:29 Pulse Rhythm Regular 05/26/19 16:01 Pulse 114 H 05/24/19 08:50 Respiratory Rate 16 05/26/19 13:29 Respiratory Effort Incrsd Work of Breathing 05/26/19 16:01 Respiratory Depth Normal 05/26/19 16:01 Respiratory Pattern Normal 05/26/19 16:01 Blood Pressure 127/67 05/26/19 11:05 Blood Pressure Mean 105 05/24/19 06:20 Pulse Oximetry 99 05/26/19 13:29 Oxygen Delivery Method Room Air 05/26/19 13:25 Oxygen Flow Rate 0 05/26/19 13:25 Pain Level 2 05/26/19 11:05 Intake & Output 05/25/19 05/26/19 05/26/19 23:59 11:59 23:59 Intake Total 640 / 2400 240 / 1630 1390 / 1630 Balance 640 / 1550 240 / 1630 1390 / 1630 Weight 72.6 kg Intake: IV 150 / 1250 1150 / 1150 Oral 490 / 1150 240 / 480 240 / 480 Other: Urine Appearance Clear Clear Stool Size Moderate Stool Characteristics Formed Voiding Methods Toilet Toilet Laboratory Results WBC 10.11 k/cumm (4.4-10.8) 05/26/19 07:00 RBC 4.25 m/cumm (4.50-6.00) L 05/26/19 07:00 Hgb 12.9 g/dL (13.5-17.5) L 05/26/19 07:00 Hct 38.5 % (40.0-50.0) L 05/26/19 07:00 MCV 90.6 fL (80-95) 05/26/19 07:00 MCH 30.4 pg (27.0-33.0) 05/26/19 07:00 MCHC 33.5 g/dL (32.0-36.0) 05/26/19 07:00 RDW 13.1 % (11.8-14.1) 05/26/19 07:00 Plt Count 122 x1000/uL (130-400) L 05/26/19 07:00 MPV 10.9 fL (8.0-11.0) 05/26/19 07:00 Immature Gran % 0.4 % 05/26/19 07:00 Neutrophils % 83.0 05/26/19 07:00 Lymphocytes % 9.3 05/26/19 07:00 Monocytes % 7.2 05/26/19 07:00 Eosinophils % 0.0 05/26/19 07:00 Basophils % 0.1 05/26/19 07:00 Absolute Neutrophils 8.39 k/cumm (1.2-6.7) H 05/26/19 07:00 Absolute Lymphocytes 0.94 k/cumm (1.2-3.4) L 05/26/19 07:00 Absolute Monocytes 0.73 k/cumm (0.11-0.7) H 05/26/19 07:00 Absolute Eosinophils 0.00 k/cumm (0.0-0.7) 05/26/19 07:00 Absolute Basophils 0.01 k/cumm (0.0-0.2) 05/26/19 07:00 PT 10.4 sec (9.3-11.0) 05/24/19 06:20 INR 1.0 (0.9-1.1) 05/24/19 06:20 APTT 25.0 sec (21.0-31.4) 05/24/19 06:20 VBG pH 7.45 (7.35-7.45) 05/24/19 06:20 VBG pCO2 36 mm/Hg (34-47) 05/24/19 06:20 VBG pO2 127 mm/Hg (28-44) H 05/24/19 06:20 VBG HCO3 25 mmol/L (22-28) 05/24/19 06:20 VBG Total CO2 21 mmol/L (22-29) L 05/24/19 06:20 VBG O2 Saturation 99 % (70-80) H 03/02/20 06:20 VBG Base Excess 0.4 mmol/L (-3-3) 05/24/19 06:20 Sodium 142 mmol/L (136-145) 05/26/19 07:00 Potassium 3.8 mmol/L (3.5-5.1) 05/26/19 07:00 Chloride 107 mmol/L (98-107) 05/26/19 07:00 Carbon Dioxide 27.3 mmol/L (21.0-32.0) 05/26/19 07:00 Anion Gap 7.7 mmol/L (3-11) 05/26/19 07:00 BUN 21 mg/dL (7-18) H 05/26/19 07:00 Creatinine 1.20 mg/dL (0.70-1.30) 05/26/19 07:00 Estimated GFR/1.73 m2 59.51 (mL/min/1.73m2) 05/26/19 07:00 Glucose 190 mg/dL (74-106) H 05/26/19 07:00 Calcium 8.1 mg/dL (8.5-10.1) L 05/26/19 07:00 Magnesium 1.9 mg/dL (1.8-2.4) 05/25/19 06:25 Total Bilirubin 0.5 mg/dL (0.2-1.0) 05/24/19 06:20 AST 38 U/L (15-37) H 05/24/19 06:20 ALT 38 U/L (16-63) 05/24/19 06:20 Alkaline Phosphatase 88 U/L (46-116) 05/24/19 06:20 Troponin I < 0.05 ng/Ml (<0.06) 05/24/19 09:30 NT-Pro-B Natriuret Pep 125 pg/mL (<300) 05/24/19 06:20 Total Protein 7.1 g/dL (6.4-8.2) 05/24/19 06:20 Albumin 3.9 g/dL (3.4-5.0) 05/24/19 06:20 Procalcitonin < 0.1 ng/mL 05/24/19 06:23
[2019-05-26] MEDS: methylPREDNISolone SUCC 125 MG VIAL 60 MG IVP (17:41)
[2019-05-26] MEDS: Doxycycline Hyclate 100 MG CAP PO (20:00)
[2019-05-26] MEDS: Cefpodoxime 200 MG TAB PO (20:00)
[2019-05-26] MEDS: Atorvastatin 20 MG TAB PO (20:01)
[2019-05-26] MEDS: Albuterol/Ipratropium 3 ML UPD VIAL UPD (21:30)
[2019-05-26] MEDS: Melatonin 3 MG TAB 6 MG PO (22:48)
[2019-05-27] VITALS (8 sets, daily range): BP systolic 144–153; BP diastolic 70–88; PULSE 49–90; RESP 8–20; TEMP 36.3–37.2; O2SAT 9–96
[2019-05-27] MEDS: Albuterol/Ipratropium 3 ML UPD VIAL UPD ×3 (05:35→17:40)
[2019-05-27] MEDS: Normal Saline Flush 10 ML SYR IVP (05:58)
[2019-05-27] MEDS: methylPREDNISolone SUCC 125 MG VIAL 60 MG IVP (05:58)
[2019-05-27 07:19] LABS: Abs Immature Grans 0.06 k/cumm (0.0-0.09); HCT 41.7 % (40.0-50.0); Mean Corp. HGB Concentration 33.6 g/dL (32.0-36.0); Mean Corpuscular Hemoglobin 30.2 pg (27.0-33.0); Mean Corpuscular Volume 89.9 fL (80-95); Mean Platelet Volume 10.8 fL (8.0-11.0); Platelet Count 138 x1000/uL (130-400); RBC 4.64 m/cumm (4.50-6.00); White Blood Cell Count 11.61 k/cumm (4.4-10.8)
[2019-05-27 07:30] LABS: BUN 24 mg/dL (7-18); CREATININE 1.27 mg/dL (0.70-1.30); Calcium 8.4 mg/dL (8.5-10.1); Chloride 103 mmol/L (98-107); Estimated GFR 55.75 (mL/min/1.73m2); Glucose 167 mg/dL (74-106); Magnesium 2.1 mg/dL (1.8-2.4); Potassium 3.9 mmol/L (3.5-5.1); Sodium 139 mmol/L (136-145)
[2019-05-27 07:37] LABS: Anion Gap 9.7 mmol/L (3-11); CO2 26.3 mmol/L (21.0-32.0)
[2019-05-27] MEDS: Tiotropium/Olodaterol 10 PUFF INHALER IH (07:54)
[2019-05-27 08:15] LABS: Absolute Lymphocyte Count 1.39 k/cumm (1.2-3.4); Absolute Monocyte Count 0.35 k/cumm (0.11-0.7); Absolute Neutrophil Count 9.87 k/cumm (1.2-6.7); Atypical Lymphocytes % 2; Diff Comment Manual Differential
[2019-05-27 08:16] LABS: Poikilocytes 1+
[2019-05-27] MEDS: amLODIPine 10 MG TAB PO (08:47)
[2019-05-27] MEDS: LORazepam 0.5 MG TAB PO ×3 (08:47→20:11)
[2019-05-27] MEDS: Losartan 25 MG TAB PO (08:47)
[2019-05-27] MEDS: Doxycycline Hyclate 100 MG CAP PO ×2 (08:47→20:10)
[2019-05-27] MEDS: Omeprazole 20 MG CAPCR PO (08:48)
[2019-05-27] MEDS: Cefpodoxime 200 MG TAB PO ×2 (08:48→20:10)
[2019-05-27] MEDS: Multivitamin TAB 1 TAB PO (08:48)
[2019-05-27] MEDS: Cetirizine 10 MG TAB PO (08:48)
[2019-05-27] MEDS: HYDROcodone 5/Acetaminophen 325 TAB PO (08:50)
[2019-05-27] MEDS: Enoxaparin 40 MG/0.4 ML SYR SC (11:18)
--- NOTE | 2019-05-27 12:19 | PDOC.CMPRO ---
- If Service Date Differs Date of service: 05/27/19 Time of Service: 12:19 Care Management Progress Note S/O:Rafiq has been ambulating frequently in the halls, he has not needed oxygen during ambulation. He will transition to oral steroids today and anticipate he will be discharged home on Friday with no additional services. A: Rafiq is a 74 year old man admitted on 05/24/19 with exacerbation of COPD P: Rafiq will be discharged home with no additional services when he is medically ready. Rafiq will transport himself home at time of discharge. CM completed IMM with the patient. CM to continue to provide support and assessment of discharge needs.
--- NOTE | 2019-05-27 12:25 | W.PM.PROGNOT ---
Date of Service Date of service: 05/27/19 Time of Service: 12:25 Assessment and Plan Assessment and plan (1) Acute exacerbation of chronic obstructive pulmonary disease: Status: Acute Assessment and plan: symptoms improving. no oxygen requirements. continue vantin and doxycycline. taper steroids. (2) Anxiety: Status: Chronic Assessment and plan: Anxious at baseline. Liquid morphine for dyspnea with ativan TID for anxiety (3) Hyperlipidemia: Status: Acute Assessment and plan: continue lipitor (4) Chronic pain: Status: Chronic Assessment and plan: continue home pain regimen, hydrocodone TID prn for pain, will continue regimen from home. (5) Gastro-esophageal reflux: Status: Chronic Assessment and plan: stable, continue PPI (6) Essential hypertension: Status: Chronic Assessment and plan: Normotensive at this time on Current regimen. Continue on losartan and amlodipine for BP management. (7) Arthritis: Status: Acute Assessment and plan: Pain management as above (8) DVT prophylaxis: Status: Acute Assessment and plan: Lovenox subcu daily. (9) Discharge planning issues: Status: Acute Assessment and plan: Home when medically ready Subjective Subjective Patient reports: no new complaints and feels better Interval history since last seen: ambulating in [place] without difficulties. no oxygen requirements. no fevers, has been hemodynamically stable. still has a moist cough, decreased sputum production. Exam Narrative Exam Narrative: Const General: cooperative, no acute distress and ill appearing chronically Nutritional Appearance: thin Orientation: alert, awake and oriented x3 HENMT Head: normal to inspection, normocephalic and atraumatic General nose exam: mucous membranes and turbinates abnormal (swollen and erythemic) Mouth: moist mucous membranes, no exudates Eyes Sclera: sclerae normal Cornea: corneas normal Pupils: PERRL EOM: EOM intact bilaterally Neck Neck: normal visual inspection Carotids: normal carotid upstroke Lymphatic: no lymphadenopathy noted and no lymphedema noted Chest Chest: normal inspection of the chest Resp Effort & Inspection: able to speak in complete sentences and cough Quality of cough: dry Auscultation: diminished lung sounds and wheezes expiratory wheezes, left lower and right lower Cardio Jugular venous pressure: no JVD Rate: tachycardic Rhythm: regular rhythm Heart Sounds: S1 normal, S2 normal and murmur GI Inspection: normal to inspection Palpation: soft and no hepatosplenomegaly Auscultation: normal bowel sounds General: deferred Back/Spine/Pelvis Back: no CVA tenderness Thoracic/Lumbar Spine: thoracic and lumbar spine normal to inspection Skin General skin exam: no rashes or lesions noted Neuro General: alert, awake, oriented x3 and moves all extremities Cognition: normal cognition Extrem General: normal to inspection, full ROM and no clubbing, cyanosis or edema Psych Appearance: grossly normal Speech and Movement: speech and movement normal Mood: congruent mood Affect: normal affect Attitude: cooperative Thought Content: normal Objective Objective Clinical Data: Abnormal lab results 05/27/19 05/27/19 Range/Units 06:32 06:32 WBC 11.61 H (4.4-10.8) k/cumm Absolute Neutrophils 9.87 H (1.2-6.7) k/cumm BUN 24 H (7-18) mg/dL Glucose 167 H (74-106) mg/dL Calcium 8.4 L (8.5-10.1) mg/dL Vital Signs Temperature 37.2 C 05/27/19 12:08 Temperature Source Tympanic 05/27/19 12:08 Pulse 83 05/27/19 12:08 Pulse Rhythm Regular 05/27/19 05:00 Pulse 114 H 05/24/19 08:50 Respiratory Rate 16 05/27/19 12:08 Respiratory Effort Incrsd Work of Breathing 05/27/19 05:00 Respiratory Depth Shallow 05/27/19 05:00 Respiratory Pattern Normal 05/27/19 05:00 Blood Pressure 147/88 H 05/27/19 12:08 Blood Pressure Mean 105 05/24/19 06:20 Pulse Oximetry 94 L 05/27/19 12:08 Oxygen Delivery Method Room Air 05/27/19 12:08 Oxygen Flow Rate 0 05/27/19 12:08 Pain Level 0 05/27/19 12:08 Intake & Output 05/26/19 05/27/19 05/27/19 23:59 11:59 23:59 Intake Total 1630 / 1870 480 / 480 Balance 1630 / 1870 480 / 480 Weight 72 kg Intake: IV 1150 / 1150 Oral 480 / 720 480 / 480 Other: Comment Pt voiding independently into the toilet. Voiding Methods Toilet Laboratory Results WBC 11.61 k/cumm (4.4-10.8) H 05/27/19 06:32 RBC 4.64 m/cumm (4.50-6.00) 05/27/19 06:32 Hgb 14.0 g/dL (13.5-17.5) 05/27/19 06:32 Hct 41.7 % (40.0-50.0) 05/27/19 06:32 MCV 89.9 fL (80-95) 05/27/19 06:32 MCH 30.2 pg (27.0-33.0) 05/27/19 06:32 MCHC 33.6 g/dL (32.0-36.0) 05/27/19 06:32 RDW 13.0 % (11.8-14.1) 05/27/19 06:32 Plt Count 138 x1000/uL (130-400) 05/27/19 06:32 MPV 10.8 fL (8.0-11.0) 05/27/19 06:32 Immature Gran % 0.0 % 05/27/19 06:32 Neutrophils % 85.0 05/27/19 06:32 Lymphocytes % 10.0 05/27/19 06:32 Atypical Lymphs % 2 05/27/19 06:32 Monocytes % 3.0 05/27/19 06:32 Eosinophils % 0.0 05/27/19 06:32 Basophils % 0.0 05/27/19 06:32 Absolute Neutrophils 9.87 k/cumm (1.2-6.7) H 05/27/19 06:32 Absolute Lymphocytes 1.39 k/cumm (1.2-3.4) 05/27/19 06:32 Absolute Monocytes 0.35 k/cumm (0.11-0.7) 05/27/19 06:32 Absolute Eosinophils 0.00 k/cumm (0.0-0.7) 05/27/19 06:32 Absolute Basophils 0.00 k/cumm (0.0-0.2) 05/27/19 06:32 Differential Comment Manual differential 05/27/19 06:32 RBC Morphology See below 05/27/19 06:32 Poikilocytosis 1+ 05/27/19 06:32 PT 10.4 sec (9.3-11.0) 05/24/19 06:20 INR 1.0 (0.9-1.1) 03/02/20 06:20 APTT 25.0 sec (21.0-31.4) 05/24/19 06:20 VBG pH 7.45 (7.35-7.45) 05/24/19 06:20 VBG pCO2 36 mm/Hg (34-47) 05/24/19 06:20 VBG pO2 127 mm/Hg (28-44) H 05/24/19 06:20 VBG HCO3 25 mmol/L (22-28) 05/24/19 06:20 VBG Total CO2 21 mmol/L (22-29) L 05/24/19 06:20 VBG O2 Saturation 99 % (70-80) H 05/24/19 06:20 VBG Base Excess 0.4 mmol/L (-3-3) 05/24/19 06:20 Sodium 139 mmol/L (136-145) 05/27/19 06:32 Potassium 3.9 mmol/L (3.5-5.1) 05/27/19 06:32 Chloride 103 mmol/L (98-107) 05/27/19 06:32 Carbon Dioxide 26.3 mmol/L (21.0-32.0) 05/27/19 06:32 Anion Gap 9.7 mmol/L (3-11) 05/27/19 06:32 BUN 24 mg/dL (7-18) H 05/27/19 06:32 Creatinine 1.27 mg/dL (0.70-1.30) 05/27/19 06:32 Estimated GFR/1.73 m2 55.75 (mL/min/1.73m2) 05/27/19 06:32 Glucose 167 mg/dL (74-106) H 05/27/19 06:32 Calcium 8.4 mg/dL (8.5-10.1) L 05/27/19 06:32 Magnesium 2.1 mg/dL (1.8-2.4) 05/27/19 06:32 Total Bilirubin 0.5 mg/dL (0.2-1.0) 05/24/19 06:20 AST 38 U/L (15-37) H 05/24/19 06:20 ALT 38 U/L (16-63) 05/24/19 06:20 Alkaline Phosphatase 88 U/L (46-116) 05/24/19 06:20 Troponin I < 0.05 ng/Ml (<0.06) 05/24/19 09:30 NT-Pro-B Natriuret Pep 125 pg/mL (<300) 05/24/19 06:20 Total Protein 7.1 g/dL (6.4-8.2) 05/24/19 06:20 Albumin 3.9 g/dL (3.4-5.0) 05/24/19 06:20 Procalcitonin < 0.1 ng/mL 05/24/19 06:23
[2019-05-27] MEDS: guaiFENesin/CODEINE PHOSPHATE 10 ML CUP 5 ML PO (18:39)
[2019-05-27] MEDS: predniSONE 20 MG TAB 60 MG PO (20:10)
[2019-05-27] MEDS: Atorvastatin 20 MG TAB PO (20:10)
[2019-05-27] MEDS: Melatonin 3 MG TAB 6 MG PO (23:12)
[2019-05-28] MEDS: Albuterol/Ipratropium 3 ML UPD VIAL UPD ×3 (00:19→13:00)
[2019-05-28 04:05] VITALS: BP 157/94; PULSE 62; RESP 18; TEMP 37; O2SAT 94
[2019-05-28] MEDS: Normal Saline Flush 10 ML SYR IVP (04:26)
[2019-05-28 06:56] VITALS: BP 153/83; PULSE 87; RESP 20; TEMP 37.4; O2SAT 92
[2019-05-28 07:20] VITALS: PULSE 89; RESP 1; RESP 16; RESP 8; O2SAT 93
[2019-05-28 07:27] LABS: HCT 41.7 % (40.0-50.0); HGB 14.3 g/dL (13.5-17.5); Mean Corp. HGB Concentration 34.3 g/dL (32.0-36.0); Mean Corpuscular Hemoglobin 30.4 pg (27.0-33.0); Mean Corpuscular Volume 88.7 fL (80-95); Mean Platelet Volume 10.6 fL (8.0-11.0); Platelet Count 134 x1000/uL (130-400); RBC Distribution Width 12.8 % (11.8-14.1); White Blood Cell Count 9.67 k/cumm (4.4-10.8)
[2019-05-28 07:36] VITALS: PULSE 107; RESP 1; RESP 18; RESP 7; RESP 8; O2SAT 97
[2019-05-28 07:39] LABS: Anion Gap 8.3 mmol/L (3-11); BUN 22 mg/dL (7-18); CO2 27.7 mmol/L (21.0-32.0); CREATININE 1.17 mg/dL (0.70-1.30); Calcium 8.5 mg/dL (8.5-10.1); Chloride 101 mmol/L (98-107); Glucose 180 mg/dL (74-106); Potassium 3.9 mmol/L (3.5-5.1); Sodium 137 mmol/L (136-145)
[2019-05-28] MEDS: Tiotropium/Olodaterol 10 PUFF INHALER IH (07:40)
[2019-05-28 08:31] LABS: Absolute Lymphocyte Count 2.51 k/cumm (1.2-3.4); Absolute Neutrophil Count 6.67 k/cumm (1.2-6.7); Atypical Lymphocytes % 10
[2019-05-28 08:32] LABS: Absolute Monocyte Count 0.48 k/cumm (0.11-0.7); Diff Comment Manual Differential
[2019-05-28 08:49] LABS: RBC Morphology Normal
[2019-05-28] MEDS: Multivitamin TAB 1 TAB PO (09:37)
[2019-05-28] MEDS: Cefpodoxime 200 MG TAB PO (09:38)
[2019-05-28] MEDS: amLODIPine 10 MG TAB PO (09:38)
[2019-05-28] MEDS: Losartan 25 MG TAB PO (09:38)
[2019-05-28] MEDS: Cetirizine 10 MG TAB PO (09:38)
[2019-05-28] MEDS: Doxycycline Hyclate 100 MG CAP PO (09:38)
[2019-05-28] MEDS: Omeprazole 20 MG CAPCR PO (09:38)
[2019-05-28] MEDS: LORazepam 0.5 MG TAB PO (09:39)
[2019-05-28] MEDS: predniSONE 20 MG TAB 60 MG PO (09:39)
--- NOTE | 2019-05-28 12:32 | W.PM.DS.N ---
Date of service: 05/28/19 Time of Service: 12:35 DS: Diagnosis Discharge Diagnosis (1) Acute exacerbation of chronic obstructive pulmonary disease: Status: Acute (2) Anxiety: Status: Chronic (3) Hyperlipidemia: Status: Acute (4) Chronic pain: Status: Chronic (5) Gastro-esophageal reflux: Status: Chronic (6) Essential hypertension: Status: Chronic (7) Arthritis: Status: Acute Discharge Plan Disposition Patient Disposition: HOME Condition: Stable Discharge Details Chief Complaint: SOB Clinical Impression: COPD exacerbation, Acute dyspnea Reason For Visit: ACUTE EXACERBATION OF COPD, FAILURE OF OUTPT THERA Admit Date/Time: 05/24/19 07:48 Admit Provider: Chelsie Garrido Attending Provider: Chelsie Garrido Primary Care Provider: Rayshawn Kothari ED Provider: Fito Malave Hospital Course Hospital Course: This is a 74 y.o male with history of HTN, COPD, valve replacement, chronic pain syndrome, arthritis, and hip replacement presents to [facility] with worsening SOB, cough and not feeling well. Patient was seen 3 days ago with SOB and diagnosed with COPD exacerbation given steroids and sent home. He returned with worsening symptoms. Labs in ED reveal WBC 13.19 ( likely steroid induced), otherwise unremarkable. Imaging revealing for hyperinflation compatible with COPD. He was admitted to m/s for further management. He was started on IV steroids and antibiotics. his symptoms were slow to recover. he did not have oxygen requirements. he will be discharged to home to complete a 7 day course of antiboitics and steroid taper. Home Meds and New Rx's Prescriptions: New doxycycline hyclate 100 mg Capsule 100 mg PO BID Qty: 7 RF: 0 cefpodoxime 200 mg Tablet 200 mg PO BID Qty: 7 RF: 0 prednisone 20 mg Tablet 60 mg PO BID Qty: 6 RF: 0 morphine 10 mg/5 mL Solution 5 - 10 mg PO HS PRN PRNQty: 40 RF: 0 codeine-guaifenesin 10-100 mg/5 mL Liquid 5 ml PO Q6H PRN PRNQty: 60 RF: 0 albuterol sulfate 2.5 mg /3 mL (0.083 %) solution for nebulization 2.5 mg IH QID PRN (Reason: shortness of breath or wheezing) Qty: 180 RF: 0 Continued sildenafil (pulm.hypertension) 20 mg tablet 20 - 100 mg PO DAILY PRN (Reason: sexual activity) Qty: 30 RF: 5 losartan 25 mg tablet 25 mg PO DAILY Qty: 90 RF: 4 aspirin [Enteric Coated Aspirin] 81 mg tablet,delayed release (DR/EC) 81 mg PO DAILY RF: 0 (DME) Space Chamber Plus 1 EACH spacer 1 ea Miscellaneous PRN Qty: 1 RF: 0 Breo Ellipta 1 EACH blister with device 1 tab Inhalation DAILY RF: 0 Stiolto Respimat 4 GM mist 2 puff Inhalation DAILY RF: 0 atorvastatin 20 mg tablet 20 mg PO QPM Qty: 90 RF: 3 amlodipine [Norvasc] 10 mg tablet 10 mg PO DAILY Qty: 90 RF: 3 omeprazole 20 mg tablet,delayed release (DR/EC) 20 mg PO DAILY Qty: 90 RF: 3 hydrocodone-acetaminophen 5-325 mg tablet 1 tab PO TID MDD 3 tabs PRN (Reason: chronic pain) Qty: 90 RF: 0 Hold Instructions: Home Medication placed on hold at Doctor's office lorazepam 0.5 mg tablet 0.5 mg PO BID PRN (Reason: anxiety) Qty: 20 RF: 0 albuterol sulfate [Ventolin HFA] 90 mcg/actuation HFA aerosol inhaler 2 puff INHALATION Q6H PRNQty: 1 RF: 0 multivitamin Tablet 1 tab PO DAILY RF: 0 trazodone 100 mg tablet 100 mg PO DAILY PRNRF: 0 prednisone 20 mg tablet See Rx Instructions .ROUTE .COMPLEX Qty: 12 RF: 0 benzonatate [Tessalon Perles] 100 mg capsule 100 mg PO TID PRN (Reason: cough) Qty: 14 RF: 0 Discontinued levalbuterol HCl 1.25 mg/3 mL Solution For Nebulization 2.5 mg INHALATION Q1-4H PRNRF: 0 Discharge Instructions Instructions: COPD (Chronic Obstructive Pulmonary Disease) (DC) Additional Instructions: taper steroids as directed, 3 tabs 2 times daily for one day 2 tabs 2 times daily for 2 days, then 1 tab 2 times daily for one day, then one tab daily for one day then stop. Stand Alone Forms: Nursing Discharge Form Referrals: Nya Baez MD [ NON-[facility] STAFF PHYSICIAN] - 06/03/19 9:30 am Activity:: Activity as Tolerated Equipment/Supplies:: No Equipment Needed Diet:: As Tolerated DS: Summary Status at Discharge Functional status at discharge: independent ambulation Overall status at discharge: patient is back to baseline Mental Status: mental status grossly normal Speech and Movement: speech and movement normal Mood: congruent mood Affect: normal affect Exam Narrative Exam Narrative: General: cooperative, no acute distress and ill appearing chronically Nutritional Appearance: thin Orientation: alert, awake and oriented x3 HENMT Head: normal to inspection, normocephalic and atraumatic General nose exam: mucous membranes and turbinates abnormal (swollen and erythemic) Mouth: moist mucous membranes, no exudates Eyes Sclera: sclerae normal Cornea: corneas normal Pupils: PERRL EOM: EOM intact bilaterally Neck Neck: normal visual inspection Carotids: normal carotid upstroke Lymphatic: no lymphadenopathy noted and no lymphedema noted Chest Chest: normal inspection of the chest Resp Effort & Inspection: able to speak in complete sentences and cough Quality of cough: dry Auscultation: diminished lung sounds and wheezes expiratory wheezes, left lower and right lower Cardio Jugular venous pressure: no JVD Rate: tachycardic Rhythm: regular rhythm Heart Sounds: S1 normal, S2 normal and murmur GI Inspection: normal to inspection Palpation: soft and no hepatosplenomegaly Auscultation: normal bowel sounds General: deferred Back/Spine/Pelvis Back: no CVA tenderness Thoracic/Lumbar Spine: thoracic and lumbar spine normal to inspection Skin General skin exam: no rashes or lesions noted Neuro General: alert, awake, oriented x3 and moves all extremities Cognition: normal cognition Extrem General: normal to inspection, full ROM and no clubbing, cyanosis or edema Psych Appearance: grossly normal Speech and Movement: speech and movement normal Mood: congruent mood Affect: normal affect Attitude: cooperative Thought Content: normal Psych Mental Status: mental status grossly normal Speech and Movement: speech and movement normal Mood: congruent mood Affect: normal affect DS: Data Vitals/I&O Vitals and I&O: Vital Signs Temperature 37.4 C 05/28/19 06:56 Temperature Source Temporal Artery Scan 05/28/19 06:56 Pulse 107 H 05/28/19 07:36 Pulse Rhythm Regular 05/28/19 09:45 Pulse 114 H 05/24/19 08:50 Respiratory Rate 18 05/28/19 07:36 Respiratory Effort Non-Labored 05/28/19 09:45 Respiratory Depth Normal 05/28/19 09:45 Respiratory Pattern Normal 05/28/19 09:45 Blood Pressure 153/83 H 05/28/19 06:56 Blood Pressure Mean 105 05/24/19 06:20 Pulse Oximetry 97 05/28/19 07:36 Oxygen Delivery Method Room Air 05/28/19 07:20 Oxygen Flow Rate 0 05/28/19 07:20 Pain Level 0 05/27/19 16:40 Intake & Output 05/27/19 05/28/19 05/28/19 23:59 11:59 23:59 Intake Total 960 / 1440 1585 / 1585 Balance 960 / 1440 1585 / 1585 Weight 69.8 kg Intake: Oral 960 / 1440 1585 / 1585 Other: Comment Pt reports voiding w/o difficulty VOID X 4 DURING NOC SHIFT INDEPEDENTLY Stool Size Large Stool Characteristics Hard Voiding Methods Toilet Urinal Incontinent Data Completed and Pending Labs on day of discharge: Labs from last 24 hours 05/28/19 05/28/19 06:50 06:50 WBC 9.67 RBC 4.70 Hgb 14.3 Hct 41.7 MCV 88.7 MCH 30.4 MCHC 34.3 RDW 12.8 Plt Count 134 MPV 10.6 Immature Gran % 0.0 Neutrophils % 69.0 Lymphocytes % 16.0 Atypical Lymphs % 10 Monocytes % 5.0 Eosinophils % 0.0 Basophils % 0.0 Absolute Neutrophils 6.67 Absolute Lymphocytes 2.51 Absolute Monocytes 0.48 Absolute Eosinophils 0.00 Absolute Basophils 0.00 Differential Comment Manual differential RBC Morphology Normal Anisocytosis Sodium 137 Potassium 3.9 Chloride 101 Carbon Dioxide 27.7 Anion Gap 8.3 BUN 22 H Creatinine 1.17 Estimated GFR/1.73 m2 >= 60.00 Glucose 180 H Calcium 8.5 PFSH Medical History (Updated 05/26/19 @ 15:51 by Anastasia Baez NP) Anxiety (Chronic) Arthritis (Chronic) Benign prostatic hyperplasia (Chronic 02/03/13) CAD (coronary artery disease) (Chronic 12/05/16) [place]16 [facility] [place] [facility] [place] Cataracts, bilateral (Chronic) Chronic obstructive pulmonary disease (Chronic 08/05/17) Chronic pain syndrome (Chronic) Chronic shoulder pain 07/17/16~CONTROLLED SUBSTANCE AGREEMENT Chronic, continuous use of opioids (Chronic) Cirrhosis (Chronic) Esophageal varices without bleeding (Chronic 05/14/16) Essential hypertension (Chronic 02/26/16) Gastro-esophageal reflux (Chronic 09/15/13) Nocturnal hypoxia (Chronic) Palliative care patient (Acute) Paroxysmal atrial fibrillation (Resolved 01/28/17) ford operative aortic valve replacement SVT (supraventricular tachycardia) (Chronic ~02/2018) Surgical History Aortic valve replaced (Chronic) History of surgical procedure on eye proper using laser (Chronic) S/P cardiac cath (Chronic) negative 2 years ago Total replacement of hip (Chronic) LEFT Family History Mother Diabetes Essential hypertension Personal history of malignant neoplasm Heart disease Hyperlipidemia Brother Essential hypertension Heart disease Grandmother Personal history of malignant neoplasm Social History Smoking/Tobacco Use Status: Former Tobacco Use Quit Date: 03/24/04 Pack-years: 90 Tobacco: How many years used: 45 Alcohol Intake: never Drug use: Rarely Substance use type: marijuana Details: cbd gummy bears for pain Do you feel safe at home: Yes Do you feel safe in your relationship?: Yes
[2019-05-28 13:00] VITALS: PULSE 98; RESP 16; RESP 8; O2SAT 93
[2019-05-28 13:05] VITALS: PULSE 54; RESP 20; RESP 8; O2SAT 96
--- NOTE | 2019-05-28 16:20 | PDOC.CMDIS ---
- If Service Date Differs Date of service: 05/28/19 Time of Service: 16:20 LACE Index Scoring Tool - Questions: Length of Stay (in days): 4 - 6 Acuity (Admit via E.D.?): Yes Comorbidities: Chronic Pulmonary Disease E.D. Visits: 7 - Answers: Total Score: 13 Risk of Readmission: High Risk Care Management Discharge Reason for Hospitalization: Acute exacerbation of COPD Discharge Plan: Rafiq will be discharged home with no additional services. He will transport himself home via private vehicle and follow up with his PCP and discharge plan of care. Patient/Family Education Needs: Discharge plan, limitations, follow up and Ask Me Three.
== END 2019-05-28 13:48 | disposition home or self-care (01) | DRG 192 ==
LOC: ER 08:50 → MS 09:08
PROVIDERS: Nurse Practitioner Acute Care; Nurse Practitioner Family; Admitting Provider Internal Medicine; Emergency Provider Student in an Organized Health Care Education/Training Program; PCP Family Medicine; Visit Provider Internal Medicine
DX: J44.1 Chronic obstructive pulmonary disease with (acute) exacerbation (principal); I25.10 Atherosclerotic heart disease of native coronary artery without angina pectoris; I48.0 Paroxysmal atrial fibrillation; Z95.2 Presence of prosthetic heart valve; I10 Essential (primary) hypertension; F41.9 Anxiety disorder, unspecified; I25.2 Old myocardial infarction; Z87.891 Personal history of nicotine dependence; E78.5 Hyperlipidemia, unspecified; K21.9 Gastro-esophageal reflux disease without esophagitis; G89.29 Other chronic pain; M19.90 Unspecified osteoarthritis, unspecified site; F51.04 Psychophysiologic insomnia
CPT/HCPCS: 36415; 80048; 80053; 82805; 84145; 87449; 93005; 94618; 94640; 96374; 99223; 99233; 99239; 99252; 99285; J1650; 71046; 83735; 83880; 84484; 85025; 85610; 85730; 87070; 87081; 87205; 93010; J0696; J2930; J7512; J7614; J7620; J7644

== ENCOUNTER 2019-06-19 17:11 | Emergency (ER) | payer MEDICARE, SELFPAY ==
[2019-06-19 17:14] VITALS: BP 144/81; PULSE 89; RESP 20; TEMP 36.6; O2SAT 94
--- NOTE | 2019-06-19 17:34 | W.ED.GENAD ---
Discharge Plan Disposition Patient Disposition: HOME Condition: Stable Discharge Details Chief Complaint: Laceration Clinical Impression: Splinter in skin Primary Care Provider: Rayshawn Kothari ED Provider: Yana Orozco Home Meds and New Rx's Prescriptions: No Action losartan 25 mg tablet 25 mg PO DAILY Qty: 90 RF: 4 morphine concentrate 100 mg/5 mL (20 mg/mL) solution 5 mg PO Q6H MDD 20 mg PRN (Reason: dyspnea) Qty: 30 RF: 0 aspirin [Enteric Coated Aspirin] 81 mg tablet,delayed release (DR/EC) 81 mg PO DAILY RF: 0 atorvastatin 20 mg tablet 20 mg PO QPM Qty: 90 RF: 3 hydrocodone-acetaminophen 5-325 mg tablet 1 tab PO TID MDD 3 tabs PRN (Reason: chronic pain) Qty: 90 RF: 0 Hold Instructions: Home Medication placed on hold at Doctor's office (DME) Space Chamber Plus 1 EACH spacer 1 ea Miscellaneous PRN Qty: 1 RF: 0 Breo Ellipta 1 EACH blister with device 1 tab Inhalation DAILY RF: 0 Stiolto Respimat 4 GM mist 2 puff Inhalation DAILY RF: 0 amlodipine [Norvasc] 10 mg tablet 10 mg PO DAILY Qty: 90 RF: 3 omeprazole 20 mg tablet,delayed release (DR/EC) 20 mg PO DAILY Qty: 90 RF: 3 lorazepam 0.5 mg tablet 0.5 mg PO TID PRN (Reason: anxiety) Qty: 30 RF: 0 albuterol sulfate [Ventolin HFA] 90 mcg/actuation HFA aerosol inhaler 2 puff INHALATION Q6H PRNQty: 1 RF: 0 albuterol sulfate 2.5 mg /3 mL (0.083 %) solution for nebulization 2.5 mg IH QID PRN (Reason: shortness of breath or wheezing) Qty: 180 RF: 0 multivitamin Tablet 1 tab PO DAILY RF: 0 Discharge Instructions Instructions: Soft Tissue Foreign Body (ED) Additional Instructions: Wash area gently with soap and water once or twice daily. Apply small amount of antibiotic ointment to the wound and apply a Band-Aid. Observe for any signs of infection specifically redness, swelling, drainage or pain at the site. For any concerns have immediate reevaluation in the emergency room. Your most recent tetanus was June 17, 2016. You are currently up-to-date. Return if needed sooner for any worsening or concerns as discussed Medical Decision Making Is a very pleasant 74-year-old patient presenting to the emergency room for concern of retained foreign body in the left second digit which he sustained while moving pressure-treated wood prior to arrival. Patient's tetanus was up-to-date per his medical record June [id number]. Patient is seeking foreign body removal as he is concerned with the possibility of infection if he does not have splinter removed which has happened to him in the past. Patient did complete a course of prednisone today. Patient denies any pain with range of motion. On exam is full flexion extension. Has no loss of sensation distally. Small palpable foreign body noted over the middle phalanx of the second digit. Patient consents to procedure for foreign body removal. Lidocaine 1% used locally after Betadine prep of the area. Less than 1 cc used. Foreign body removed with use of forceps alone. Foreign body removed in 1 piece. No incision required. Wound cleaned and irrigated. Dressing applied. Patient tolerated procedure with no difficulty. Patient has intact range of motion after procedure. Nothing to indicate complication. Wound care discussed. Signs of infection discussed. The patient was stable and requested discharge. Prior to discharge, my usual and customary return precautions were reviewed with the patient - this included follow-up instructions and reasons to return to the Emergency Department if conditions worsens, does not improve as expected, or other new concerns arise. HPI General Date/Time Provider Initiated Documentation: 06/19/19 17:14. HPI Narrative: This is a 74-year-old gentleman presenting to the emergency room for concern of a left second digit foreign body. Patient was moving pressure-treated wood and sustained a splinter which is now beneath his skin and he was unable to remove at home. Patient's tetanus is unknown. Patient denies numbness, tingling or weakness. No bleeding. Full range of motion of the finger. No pain in the finger. No other concerns or complaints at this time. Injury occurred prior to arrival. Of note patient did complete a course of prednisone today. Related Data Home Medications Medication Instructions Recorded Confirmed Space Chamber Plus #1 04/27/14 06/08/19 Breo Ellipta 1 tab INHALATION DAILY 10/15/17 06/19/19 Stiolto Respimat 2 puff INHALATION DAILY 10/15/17 06/19/19 multivitamin 1 tab PO DAILY 08/24/18 06/19/19 amlodipine 10 mg tablet 10 mg PO DAILY #90 tab 09/23/18 06/19/19 aspirin 81 mg tablet,delayed 81 mg PO DAILY 10/12/18 06/08/19 release omeprazole 20 mg tablet,delayed 20 mg PO DAILY #90 tab 11/30/18 06/19/19 release losartan 25 mg tablet 25 mg PO DAILY #90 tab-cap 01/12/19 06/19/19 albuterol sulfate 2.5 mg IH QID PRN #180 ml 05/28/19 06/19/19 albuterol sulfate [Ventolin HFA] 2 puff INHALATION Q6H PRN #1 device 05/28/19 06/19/19 lorazepam 0.5 mg tablet 0.5 mg PO TID PRN #30 tab 05/28/19 06/19/19 morphine concentrate 100 mg/5 mL 5 mg PO Q6H PRN #30 ml MDD 20 mg 06/04/19 06/19/19 (20 mg/mL) oral solution atorvastatin 20 mg tablet 20 mg PO QPM #90 tab 06/08/19 06/19/19 hydrocodone 5 mg-acetaminophen 325 1 tab PO TID PRN #90 tab MDD 3 tabs 06/08/19 06/19/19 mg tablet Previous Rx's Medication Instructions Recorded amlodipine 10 mg tablet 10 mg PO DAILY #90 tab 09/23/18 omeprazole 20 mg tablet,delayed 20 mg PO DAILY #90 tab 11/30/18 release losartan 25 mg tablet 25 mg PO DAILY #90 tab-cap 01/12/19 albuterol sulfate 2.5 mg IH QID PRN #180 ml 05/28/19 albuterol sulfate [Ventolin HFA] 2 puff INHALATION Q6H PRN #1 device 05/28/19 lorazepam 0.5 mg tablet 0.5 mg PO TID PRN #30 tab 05/28/19 morphine concentrate 100 mg/5 mL 5 mg PO Q6H PRN #30 ml MDD 20 mg 06/04/19 (20 mg/mL) oral solution atorvastatin 20 mg tablet 20 mg PO QPM #90 tab 06/08/19 hydrocodone 5 mg-acetaminophen 325 1 tab PO TID PRN #90 tab MDD 3 tabs 06/08/19 mg tablet Allergies Allergy/AdvReac Type Severity Reaction Status Date / Time lisinopril Allergy Intermediate RASH; Verified 06/08/19 10:42 PRURITIS diphenhydramine HCl AdvReac Severe Makes him Verified 06/08/19 10:42 [From Benadryl] crazy/anxious NSAIDS (Non-Steroidal AdvReac Intermediate GI Verified 06/08/19 10:42 Anti-Inflamma Intolerance tramadol AdvReac Intermediate nausea/vomi Verified 06/08/19 10:42 ting gabapentin AdvReac Unknown GI UPSET Verified 06/08/19 10:42 SCALLOP Allergy Severe THROAT Uncoded 06/08/19 10:42 SWELLING General Stated Complaint: Laceration ALFREDO: 4 Review of Systems All systems reviewed & are unremarkable except as noted in HPI and below Constitutional Constitutional: Denies chills, Denies fatigue and Denies fever(s) Musculoskeletal Musculoskeletal: Denies arthralgias, Denies joint swelling, Denies numbness and Denies tingling Integumentary/Breasts Skin/Breast: Denies pruritus, Denies erythema, Reports wounds and Reports other (Splinter, wooden) Neurologic Neurologic: Denies numbness and Denies tingling Endocrine Endocrine: Denies fatigue [facility] Medical History Anxiety (Chronic) Arthritis (Chronic) Benign prostatic hyperplasia (Chronic 02/03/13) CAD (coronary artery disease) (Chronic 12/05/16) 12/05/16 [facility] [place] Cataracts, bilateral (Chronic) Chronic obstructive pulmonary disease (Chronic 08/05/17) Chronic pain syndrome (Chronic) Chronic shoulder pain 07/17/16~CONTROLLED SUBSTANCE AGREEMENT Chronic, continuous use of opioids (Chronic) Cirrhosis (Chronic) Esophageal varices without bleeding (Chronic 05/14/16) Essential hypertension (Chronic 02/26/16) Gastro-esophageal reflux (Chronic 09/15/13) No able caregiver in household (Acute) Nocturnal hypoxia (Chronic) Palliative care patient (Acute) Parent-child estrangement nec (Chronic) not involved in either daughter's life Paroxysmal atrial fibrillation (Resolved 01/28/17) ford operative aortic valve replacement Social isolation (Acute) SVT (supraventricular tachycardia) (Chronic ~02/2018) Social History Smoking/Tobacco Use Status: Former Tobacco Use Quit Date: 03/24/04 Pack-years: 90 Tobacco: How many years used: 45 Second Hand Exposure: No ( smokes outside, Rafiq very careful to avoid cig smoke) Alcohol Intake: former Year quit: 1984 Drug use: Rarely Substance use type: marijuana Details: cbd gummy bears for pain Caregiver/Support person: No Household members: spouse Housing: house Number of Children: 2 Communication Needs: Corrective Lenses Education Level: college Details: [employer] AD in psychology Do you need help understanding health information?: Rarely 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 Pets and animals: Yes Sexually active: No What is your relationship status?: How often do you talk on the phone with friends or family?: never How often do you get together with friends or relatives?: never Do you belong to any clubs or organized social groups?: no Panel score (0-1 are the most socially isolated patients): 1 What type of physical activity do you participate in: walking and independent ambulation Duration: > 90 minutes/day Frequency: daily Special ofelia needs: No Seatbelt use: always Working smoke detector in home: Yes Fire extinguisher in home: Yes Carbon monox detector in home: Yes Firearms in home: No Do you feel safe at home: Yes Do you feel safe in your relationship?: Yes Additional Social history: Not emotionally close to his , #3. She is chronically ill, obese, sedentary, smokes outside. Rafiq does most of the cooking and all the shopping. They live very separate lives in same trailer. Exam Narrative Exam Narrative: CONST: Healthy appearing patient, in no acute distress. Well hydrated. Alert and oriented. MUSCULOSKELETAL: Focused exam left hand. Full range of motion, no bony pain with palpation. Palpable foreign body beneath the skin over the middle phalanx of the second digit. Small wound at the proximal aspect of the foreign body. Flexion extension intact. Sensation intact distally. Bleeding controlled. No sign of infection surrounding. No drainage from the wound. SKIN: Normal. Dry. No rashes. See above description of wound. Small puncture wound with palpable foreign body in the left second digit. NEURO: Alert and awake. Speech clear. PSYCH: Normal affect. Cooperative. Course Vital Signs Vital signs: Vital Signs Temperature 36.6 C 03/28/20 17:14 Pulse 89 06/19/19 17:14 Respiratory Rate 20 06/19/19 17:14 Blood Pressure 144/81 H 06/19/19 17:14 Pulse Oximetry 94 L 06/19/19 17:14 Temperature 36.6 C 06/19/19 17:14 Temperature Source Skin 06/19/19 17:14 Pulse 89 06/19/19 17:14 Respiratory Rate 20 06/19/19 17:14 Respiratory Effort Non-Labored 06/19/19 17:17 Blood Pressure 144/81 H 06/19/19 17:14 Blood Pressure Position Sitting 06/19/19 17:14 Pulse Oximetry 94 L 06/19/19 17:14 Oxygen Delivery Method Room Air 06/19/19 17:14 Oxygen Flow Rate 0 06/19/19 17:14 Pain Level 0 06/19/19 17:14
== END 2019-06-19 17:40 | disposition home or self-care (01) ==
PROVIDERS: Emergency Provider Physician Assistant; PCP Family Medicine
DX: S61.241A Puncture wound with foreign body of left index finger without damage to nail, initial encounter (principal); W45.8XXA Other foreign body or object entering through skin, initial encounter; J44.9 Chronic obstructive pulmonary disease, unspecified; Z87.891 Personal history of nicotine dependence; I10 Essential (primary) hypertension
CPT/HCPCS: 99282; 99283

== ENCOUNTER 2019-06-29 20:48 | Emergency (ER) | payer MEDICARE, SELFPAY ==
[2019-06-29 20:56] VITALS: BP 123/79; PULSE 88; RESP 18; TEMP 36.9; O2SAT 95
[2019-06-29 21:10] VITALS: RESP 18
--- NOTE | 2019-06-29 21:10 | ED.GENADUL_ITS ---
Discharge Plan Disposition Patient Disposition: HOME Condition: Stable Discharge Details Chief Complaint: Vascular Clinical Impression: Left arm swelling Primary Care Provider: Rayshawn Kothari ED Provider: Frederick Novoa Home Meds and New Rx's Prescriptions: Continued losartan 25 mg tablet 25 mg PO DAILY Qty: 90 RF: 4 morphine concentrate 100 mg/5 mL (20 mg/mL) solution 5 mg PO Q6H MDD 20 mg PRN (Reason: dyspnea) Qty: 30 RF: 0 aspirin [Enteric Coated Aspirin] 81 mg tablet,delayed release (DR/EC) 81 mg PO DAILY RF: 0 atorvastatin 20 mg tablet 20 mg PO QPM Qty: 90 RF: 3 hydrocodone-acetaminophen 5-325 mg tablet 1 tab PO TID MDD 3 tabs PRN (Reason: chronic pain) Qty: 90 RF: 0 Hold Instructions: Home Medication placed on hold at Doctor's office (DME) Space Chamber Plus 1 EACH spacer 1 ea Miscellaneous PRN Qty: 1 RF: 0 Breo Ellipta 1 EACH blister with device 1 tab Inhalation DAILY RF: 0 Stiolto Respimat 4 GM mist 2 puff Inhalation DAILY RF: 0 amlodipine [Norvasc] 10 mg tablet 10 mg PO DAILY Qty: 90 RF: 3 omeprazole 20 mg tablet,delayed release (DR/EC) 20 mg PO DAILY Qty: 90 RF: 3 lorazepam 0.5 mg tablet 0.5 mg PO TID PRN (Reason: anxiety) Qty: 30 RF: 0 albuterol sulfate [Ventolin HFA] 90 mcg/actuation HFA aerosol inhaler 2 puff INHALATION Q6H PRNQty: 1 RF: 0 albuterol sulfate 2.5 mg /3 mL (0.083 %) solution for nebulization 2.5 mg IH QID PRN (Reason: shortness of breath or wheezing) Qty: 180 RF: 0 multivitamin Tablet 1 tab PO DAILY RF: 0 Discharge Instructions Additional Instructions: you should be contacted with an appointment for an ultrasound tomorrow if you feel significant shortness of breath or pain return to the emergency department Medical Decision Making 74 yo male with multiple medical problems comes in after he noticed a hard swollen area on his anterior bicep. HE had an IV placed within the last few weeks more distal in the arm. HAs not had pain or other symptoms, full rom and no dyspnea or other complaints. He has a 4cm straight area along superficial appearing vein on bicep this is hard to touch, not fluctuant, warm or erythematous. Suspect superficial thrombophlebitis but could also be dvt. Discussed with him pros and cons of lovenox dose to cover until u/s can be done tomorrow and he chooses to have dose of lovenox and return tomorrow for u/s. Return precautions given Differential Diagnosis Differential Diagnosis: dvt, superficial thrombophlebitis HPI General Mode of arrival: ambulatory . Date/Time Provider Initiated Documentation: 06/29/19 20:56 . Limitations to Documentation: no limitations . Information obtained by: patient . Related Data Home Medications Medication Instructions Recorded Confirmed Space Chamber Plus #1 04/27/14 06/29/19 Breo Ellipta 1 tab INHALATION DAILY 10/15/17 06/29/19 Stiolto Respimat 2 puff INHALATION DAILY 10/15/17 06/29/19 multivitamin 1 tab PO DAILY 08/24/18 06/29/19 amlodipine 10 mg tablet 10 mg PO DAILY #90 tab 09/23/18 06/29/19 aspirin 81 mg tablet,delayed 81 mg PO DAILY 10/12/18 06/29/19 release omeprazole 20 mg tablet,delayed 20 mg PO DAILY #90 tab 11/30/18 06/29/19 release losartan 25 mg tablet 25 mg PO DAILY #90 tab-cap 01/12/19 06/29/19 albuterol sulfate 2.5 mg IH QID PRN #180 ml 05/28/19 06/29/19 albuterol sulfate [Ventolin HFA] 2 puff INHALATION Q6H PRN #1 device 05/28/19 06/29/19 lorazepam 0.5 mg tablet 0.5 mg PO TID PRN #30 tab 05/28/19 06/29/19 morphine concentrate 100 mg/5 mL 5 mg PO Q6H PRN #30 ml MDD 20 mg 06/04/19 06/29/19 (20 mg/mL) oral solution atorvastatin 20 mg tablet 20 mg PO QPM #90 tab 06/08/19 06/29/19 hydrocodone 5 mg-acetaminophen 325 1 tab PO TID PRN #90 tab MDD 3 tabs 06/08/19 06/29/19 mg tablet Previous Rx's Medication Instructions Recorded amlodipine 10 mg tablet 10 mg PO DAILY #90 tab 09/23/18 omeprazole 20 mg tablet,delayed 20 mg PO DAILY #90 tab 11/30/18 release losartan 25 mg tablet 25 mg PO DAILY #90 tab-cap 01/12/19 albuterol sulfate 2.5 mg IH QID PRN #180 ml 05/28/19 albuterol sulfate [Ventolin HFA] 2 puff INHALATION Q6H PRN #1 device 05/28/19 lorazepam 0.5 mg tablet 0.5 mg PO TID PRN #30 tab 05/28/19 morphine concentrate 100 mg/5 mL 5 mg PO Q6H PRN #30 ml MDD 20 mg 06/04/19 (20 mg/mL) oral solution atorvastatin 20 mg tablet 20 mg PO QPM #90 tab 06/08/19 hydrocodone 5 mg-acetaminophen 325 1 tab PO TID PRN #90 tab MDD 3 tabs 06/08/19 mg tablet Allergies Allergy/AdvReac Type Severity Reaction Status Date / Time lisinopril Allergy Intermediate RASH; Verified 06/29/19 21:01 PRURITIS diphenhydramine HCl AdvReac Severe Makes him Verified 06/29/19 21:01 [From Benadryl] crazy/anxious NSAIDS (Non-Steroidal AdvReac Intermediate GI Verified 06/29/19 21:01 Anti-Inflamma Intolerance tramadol AdvReac Intermediate nausea/vomi Verified 06/29/19 21:01 ting gabapentin AdvReac Unknown GI UPSET Verified 06/29/19 21:01 SCALLOP Allergy Severe THROAT Uncoded 06/29/19 21:01 SWELLING General Stated Complaint: Vascular ALFREDO: 3 Review of Systems All systems reviewed & are unremarkable except as noted in HPI and below Constitutional Constitutional: Denies chills, Denies fever(s) and Denies weakness Cardiovascular Cardiovascular: Denies chest pain and Denies dyspnea Respiratory Respiratory: Denies cough and Denies dyspnea Gastrointestinal Gastrointestinal: Denies abdominal pain, Denies nausea and Denies vomiting Musculoskeletal Musculoskeletal: Denies joint swelling Neurologic Neurologic: Denies weakness Psychiatric Psychiatric: Denies depression [facility] Social History Smoking/Tobacco Use Status: Former Tobacco Use Quit Date: 03/24/04 Pack-years: 90 Tobacco: How many years used: 45 Second Hand Exposure: No ( smokes outside, Rafiq very careful to avoid cig smoke) Alcohol Intake: former Year quit: 1984 Drug use: Rarely Substance use type: marijuana Details: cbd gummy bears for pain Caregiver/Support person: No Household members: spouse Housing: house Number of Children: 2 Communication Needs: Corrective Lenses Education Level: college Details: [employer] AD in psychology Do you need help understanding health information?: Rarely 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 Pets and animals: Yes Sexually active: No What is your relationship status?: How often do you talk on the phone with friends or family?: never How often do you get together with friends or relatives?: never Do you belong to any clubs or organized social groups?: no Panel score (0-1 are the most socially isolated patients): 1 What type of physical activity do you participate in: walking and independent ambulation Duration: > 90 minutes/day Frequency: daily Special ofelia needs: No Seatbelt use: always Working smoke detector in home: Yes Fire extinguisher in home: Yes Carbon monox detector in home: Yes Firearms in home: No Do you feel safe at home: Yes Do you feel safe in your relationship?: Yes Additional Social history: Not emotionally close to his , #3. She is chronically ill, obese, sedentary, smokes outside. Rafiq does most of the cooking and all the shopping. They live very separate lives in same trailer. Exam Const General: no acute distress Orientation: alert [facility] Head: normal to inspection Ears: external ears normal General nose exam: external nose normal Mouth: moist mucous membranes Eyes General: appearance normal, both eyes and all related structures Neck Neck: normal visual inspection Resp Effort & Inspection: normal respiratory effort and able to speak in complete sentences Cardio Rate: regular rate Skin General skin exam: no rashes or lesions noted Neuro General: patient alert and patient oriented x3 Extrem General: full ROM and capillary refill normal Psych Mental Status: mental status grossly normal Course Vital Signs Vital signs: Vital Signs Temperature 36.9 C 06/29/19 20:56 Pulse 88 06/29/19 20:56 Respiratory Rate 18 06/29/19 20:56 Blood Pressure 123/79 06/29/19 20:56 Pulse Oximetry 95 06/29/19 20:56 Temperature 36.9 C 06/29/19 20:56 Temperature Source Skin 06/29/19 20:56 Pulse 88 06/29/19 20:56 Respiratory Rate 18 06/29/19 20:56 Blood Pressure 123/79 06/29/19 20:56 Blood Pressure Position Sitting 06/29/19 20:56 Pulse Oximetry 95 06/29/19 20:56 Oxygen Delivery Method Room Air 06/29/19 20:56 Oxygen Flow Rate 0 06/29/19 20:56 Pain Level 0 06/29/19 20:56
[2019-06-29] MEDS: Enoxaparin 100 MG/ML SYR SC (21:17)
--- NOTE | 2019-06-30 01:07 | NUR.NOTE ---
follow up tomorrow W/ ED regarding DI. Nursing Note:
== END 2019-06-29 21:20 | disposition home or self-care (01) ==
PROVIDERS: Emergency Provider Emergency Medicine; PCP Family Medicine
DX: R60.0 Localized edema (principal)
CPT/HCPCS: 96372; 99284; 99283; J1650

== ENCOUNTER 2019-06-30 09:33 | Emergency (ER) | payer MEDICARE, SELFPAY ==
[2019-06-30 09:41] VITALS: BP 140/80; PULSE 85; RESP 19; TEMP 36.9; O2SAT 97
--- NOTE | 2019-06-30 16:31 | ED.GENADUL_ITS ---
Discharge Plan Disposition Patient Disposition: HOME Condition: Stable Discharge Details Chief Complaint: Vascular Clinical Impression: Thrombophlebitis of cephalic vein Primary Care Provider: Rayshawn Kothari ED Provider: Yana Orozco Home Meds and New Rx's Prescriptions: No Action losartan 25 mg tablet 25 mg PO DAILY Qty: 90 RF: 4 morphine concentrate 100 mg/5 mL (20 mg/mL) solution 5 mg PO Q6H MDD 20 mg PRN (Reason: dyspnea) Qty: 30 RF: 0 aspirin [Enteric Coated Aspirin] 81 mg tablet,delayed release (DR/EC) 81 mg PO DAILY RF: 0 atorvastatin 20 mg tablet 20 mg PO QPM Qty: 90 RF: 3 hydrocodone-acetaminophen 5-325 mg tablet 1 tab PO TID MDD 3 tabs PRN (Reason: chronic pain) Qty: 90 RF: 0 Hold Instructions: Home Medication placed on hold at Doctor's office (DME) Space Chamber Plus 1 EACH spacer 1 ea Miscellaneous PRN Qty: 1 RF: 0 Breo Ellipta 1 EACH blister with device 1 tab Inhalation DAILY RF: 0 Stiolto Respimat 4 GM mist 2 puff Inhalation DAILY RF: 0 amlodipine [Norvasc] 10 mg tablet 10 mg PO DAILY Qty: 90 RF: 3 omeprazole 20 mg tablet,delayed release (DR/EC) 20 mg PO DAILY Qty: 90 RF: 3 lorazepam 0.5 mg tablet 0.5 mg PO TID PRN (Reason: anxiety) Qty: 30 RF: 0 albuterol sulfate [Ventolin HFA] 90 mcg/actuation HFA aerosol inhaler 2 puff INHALATION Q6H PRNQty: 1 RF: 0 albuterol sulfate 2.5 mg /3 mL (0.083 %) solution for nebulization 2.5 mg IH QID PRN (Reason: shortness of breath or wheezing) Qty: 180 RF: 0 multivitamin Tablet 1 tab PO DAILY RF: 0 Discharge Instructions Instructions: Superficial Thrombophlebitis (ED) Additional Instructions: Frequent warm compresses to the area. Use caution not to burn your skin. Continue daily aspirin as discussed. Follow-up with ultrasound in 5 days to be sure clot in the vein is not extending as scheduled as discussed. Follow-up with Dr. Kothari for your results as well as for any concerns or worsening. Immediately return to the emergency room for any acute concerns, increase in arm pain, swelling, increasing shortness of breath, difficulty breathing, chest pain, dizziness or abdominal pain as discussed sooner if needed Discharge Data Discharge Date/Time-TO BE ENTERED AT DEPARTURE: 06/30/19 11:09 Medical Decision Making Is a 74-year-old patient presenting to the emergency room for known left cephalic vein thrombus noted on ultrasound this morning. Patient referred to the ER from radiology. Patient reports he had IV placed for 5 days in the area due to recent admission to the hospital. Patient reports in the last 2 days he noted increase in the area specifically a palpable cord beginning in the left AC extending to the proximal biceps. Patient denies any swelling of the arm. Patient reports he was admitted due to COPD and reports some improvement in his shortness of breath but denies any new or increasing shortness of breath or chest pain. Patient denies headache or dizziness. Patient denies any history of DVT. Patient is status post a valvular repair several years ago. Denies use of anticoagulation medications, does take a daily baby aspirin. Reviewed patient's images which do reveal a left cephalic vein thrombus. Cephalic vein is a superficial vein of the left arm, no deep extension noted on ultrasound per radiology report. Clinically patient has no associated cellulitis or signs of infection. Exam consistent with superficial thrombophlebitis. Spoke with patient's PCP Dr. Kothari regarding plan of care, treatment plan and discharge. Dr. Kothari agrees with continued use of aspirin addition of warm compresses and repeat ultrasound in 5 days to be sure there is no propagation of the superficial thrombophlebitis which is present at this time with no evidence of DVT. Patient was scheduled for an outpatient ultrasound in 5 days to be followed up in the emergency room. Patient agrees with this plan of care. Precautions were discussed at length. We will plan to hold on anticoagulation at this time pending repeat ultrasound or increase in symptoms. Patient agrees with this plan of care and would also prefer to avoid use of anticoagulant, would prefer conservative treatments initially. Nothing to indicate complicatio n at this time. Patient's vital signs reviewed and are stable. Patient feels comfortable with discharge plan, Dr. Kothari will follow up with the patient after discharge. HPI General Date/Time Provider Initiated Documentation: 06/30/19 09:43 . HPI Narrative: This is a 74-year-old patient presenting to the emergency room from ultrasound for concern of a cephalic vein thrombus noted on ultrasound this morning done as an outpatient. Patient reports he was recently discharged from a hospital admission for COPD during which time he had a IV in place in his left AC. Patient reports he had a medication infused which seemed to irritate the area. Patient reports he had no concerns on discharge home. Patient reports after being discharged he noticed a small area of irritation near the skin beginning at the left AC and extending into the biceps area. Patient ultimately noted a palpable cord in the area yesterday. Patient denies any increase in shortness of breath, chest pain or abdominal pain. Denies any headache. Patient sent to the ER after results reveal cephalic vein thrombus for appropriate management. Related Data Home Medications Medication Instructions Recorded Confirmed Space Chamber Plus #1 04/27/14 06/30/19 Breo Ellipta 1 tab INHALATION DAILY 10/15/17 06/30/19 Stiolto Respimat 2 puff INHALATION DAILY 10/15/17 06/30/19 multivitamin 1 tab PO DAILY 08/24/18 06/30/19 amlodipine 10 mg tablet 10 mg PO DAILY #90 tab 09/23/18 06/30/19 aspirin 81 mg tablet,delayed 81 mg PO DAILY 10/12/18 06/30/19 release omeprazole 20 mg tablet,delayed 20 mg PO DAILY #90 tab 11/30/18 06/30/19 release losartan 25 mg tablet 25 mg PO DAILY #90 tab-cap 01/12/19 06/30/19 albuterol sulfate 2.5 mg IH QID PRN #180 ml 05/28/19 06/30/19 albuterol sulfate [Ventolin HFA] 2 puff INHALATION Q6H PRN #1 device 05/28/19 06/30/19 lorazepam 0.5 mg tablet 0.5 mg PO TID PRN #30 tab 05/28/19 06/30/19 morphine concentrate 100 mg/5 mL 5 mg PO Q6H PRN #30 ml MDD 20 mg 06/04/19 06/30/19 (20 mg/mL) oral solution atorvastatin 20 mg tablet 20 mg PO QPM #90 tab 06/08/19 06/30/19 hydrocodone 5 mg-acetaminophen 325 1 tab PO TID PRN #90 tab MDD 3 tabs 06/08/19 06/30/19 mg tablet Previous Rx's Medication Instructions Recorded amlodipine 10 mg tablet 10 mg PO DAILY #90 tab 09/23/18 omeprazole 20 mg tablet,delayed 20 mg PO DAILY #90 tab 11/30/18 release losartan 25 mg tablet 25 mg PO DAILY #90 tab-cap 01/12/19 albuterol sulfate 2.5 mg IH QID PRN #180 ml 05/28/19 albuterol sulfate [Ventolin HFA] 2 puff INHALATION Q6H PRN #1 device 05/28/19 lorazepam 0.5 mg tablet 0.5 mg PO TID PRN #30 tab 05/28/19 morphine concentrate 100 mg/5 mL 5 mg PO Q6H PRN #30 ml MDD 20 mg 06/04/19 (20 mg/mL) oral solution atorvastatin 20 mg tablet 20 mg PO QPM #90 tab 06/08/19 hydrocodone 5 mg-acetaminophen 325 1 tab PO TID PRN #90 tab MDD 3 tabs 06/08/19 mg tablet Allergies Allergy/AdvReac Type Severity Reaction Status Date / Time lisinopril Allergy Intermediate RASH; Verified 06/30/19 09:46 PRURITIS diphenhydramine HCl AdvReac Severe Makes him Verified 06/30/19 09:46 [From Benadryl] crazy/anxious NSAIDS (Non-Steroidal AdvReac Intermediate GI Verified 06/30/19 09:46 Anti-Inflamma Intolerance tramadol AdvReac Intermediate nausea/vomi Verified 06/30/19 09:46 ting gabapentin AdvReac Unknown GI UPSET Verified 06/30/19 09:46 SCALLOP Allergy Severe THROAT Uncoded 06/30/19 09:46 SWELLING General Stated Complaint: Vascular ALFREDO: 3 Review of Systems All systems reviewed & are unremarkable except as noted in HPI and below Constitutional Constitutional: Denies fatigue, Denies headache(s) and Denies malaise ENT Ears, Nose, Mouth, and Throat: Denies headache(s) Cardiovascular Cardiovascular: Denies chest pain, Denies diaphoresis, Denies syncope, Denies lightheadedness and Reports dyspnea (Baseline no worse) Respiratory Respiratory: Denies cough and Reports dyspnea (Baseline no worse) Gastrointestinal Gastrointestinal: Denies abdominal pain Integumentary/Breasts Skin/Breast: Denies erythema and Reports other (Mild inflammation of the left bicep) Neurologic Neurologic: Denies syncope and Denies headache(s) Endocrine Endocrine: Denies fatigue [facility] Medical History Anxiety (Chronic) Arthritis (Chronic) Benign prostatic hyperplasia (Chronic 02/03/13) CAD (coronary artery disease) (Chronic 12/05/16) 12/05/16 [facility] [place]~NON OBSTRUCTIVE Cataracts, bilateral (Chronic) Chronic obstructive pulmonary disease (Chronic 08/05/17) Chronic pain syndrome (Chronic) Chronic shoulder pain 07/17/16~CONTROLLED SUBSTANCE AGREEMENT Chronic, continuous use of opioids (Chronic) Cirrhosis (Chronic) Esophageal varices without bleeding (Chronic 05/14/16) Essential hypertension (Chronic 02/26/16) Gastro-esophageal reflux (Chronic 09/15/13) No able caregiver in household (Acute) Nocturnal hypoxia (Chronic) Palliative care patient (Acute) Parent-child estrangement nec (Chronic) not involved in either daughter's life Paroxysmal atrial fibrillation (Resolved 01/28/17) ford operative aortic valve replacement Social isolation (Acute) SVT (supraventricular tachycardia) (Chronic ~02/2018) Social History Smoking/Tobacco Use Status: Former Tobacco Use Quit Date: 03/24/04 Pack-years: 90 Tobacco: How many years used: 45 Second Hand Exposure: No ( smokes outside, Rafiq very careful to avoid cig smoke) Alcohol Intake: former Year quit: 1984 Drug use: Rarely Substance use type: marijuana Details: cbd gummy bears for pain Caregiver/Support person: No Household members: spouse Housing: house Number of Children: 2 Communication Needs: Corrective Lenses Education Level: college 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: 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 AD in psychology Do you need help understanding health information?: Rarely 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 Pets and animals: Yes Sexually active: No What is your relationship status?: How often do you talk on the phone with friends or family?: never How often do you get together with friends or relatives?: never Do you belong to any clubs or organized social groups?: no Panel score (0-1 are the most socially isolated patients): 1 What type of physical activity do you participate in: walking and independent ambulation Duration: > 90 minutes/day Frequency: daily Special ofelia needs: No Seatbelt use: always Working smoke detector in home: Yes Fire extinguisher in home: Yes Carbon monox detector in home: Yes Firearms in home: No Do you feel safe at home: Yes Do you feel safe in your relationship?: Yes Additional Social history: Not emotionally close to his , #3. She is chronically ill, obese, sedentary, smokes outside. Rafiq does most of the cooking and all the shopping. They live very separate lives in same trailer. Exam Narrative Exam Narrative: CONST: Healthy appearing patient, in no acute distress. Well hydrated. Alert and oriented. HENMT: Head nomocephalic, normal to inspection. Atraumatic. Hearing grossly normal. EYES: General normal appearance. Alignment normal. Eyelids normal. Conjunctiva normal. NECK: Normal visual inspection. FROM. Trachea midline. No Midline tenderness. CHEST: Normal insepection of the chest. RESP: Normal respiratory effort. Speaking full sentences. No cough. No audible wheezing. No retractions. Breath sounds clear, full and equal bilaterally. CARDIO: No JVD. Regular rate and rhythm MUSCULOSKELETAL: Normal Gait. FROM of all extremities. Left arm, no edema, palpable cord noted in the left AC extending toward the proximal bicep. No significant surrounding erythema or sign of infection. No significant warmth. Nontender SKIN: Normal. Dry. No rashes. NEURO: Alert and awake. Speech clear. PSYCH: Normal affect. Cooperative. Course Vital Signs Vital signs: Vital Signs Temperature 36.9 C 06/30/19 09:41 Pulse 85 06/30/19 09:41 Respiratory Rate 19 06/30/19 09:41 Blood Pressure 140/80 06/30/19 09:41 Pulse Oximetry 97 06/30/19 09:41 Temperature 36.9 C 06/30/19 09:41 Temperature Source Temporal Artery Scan 06/30/19 09:41 Pulse 85 06/30/19 09:41 Respiratory Rate 19 06/30/19 09:41 Respiratory Effort 06/30/19 09:48 Blood Pressure 140/80 06/30/19 09:41 Blood Pressure Position Sitting 06/30/19 09:41 Pulse Oximetry 97 06/30/19 09:41 Oxygen Delivery Method Room Air 06/30/19 09:41 Oxygen Flow Rate 0 06/30/19 09:41 Pain Level 0 06/30/19 11:00
== END 2019-06-30 11:09 | disposition home or self-care (01) ==
LOC: ER 11:25
PROVIDERS: Emergency Provider Physician Assistant; PCP Family Medicine
DX: I82.612 Acute embolism and thrombosis of superficial veins of left upper extremity (principal)
CPT/HCPCS: 99282; 93971

== ENCOUNTER 2019-06-30 10:00 | Outpatient (CLI) | payer MEDICARE, SELFPAY ==
--- NOTE | 2019-06-30 | DI.US_ITS ---
EXAM: US UPPER EXTREMITY VENOUS LT CLINICAL HISTORY: LT ARM LOCALIZED SWELLING, IV 2 WEEKS AGO TECHNIQUE: Ultrasound performed using standard protocol. COMPARISON: Cardiac from 07/23/2018 FINDINGS: Venous ultrasound of the left upper extremity was performed according to the usual protocol. Note is made of visible thrombus which may be occlusive in the cephalic vein in the mid to distal portion of the vein. Remainder of the deep venous and superficial venous system appears patent. IMPRESSION: Examination is positive for thrombus of mid to distal left cephalic vein, thrombus is probably occlus mert. DATA REPOSITORY:
== END 2019-06-30 10:20 ==
PROVIDERS: PCP Family Medicine; Visit Provider Emergency Medicine
DX: R22.32 Localized swelling, mass and lump, left upper limb (principal); I82.622 Acute embolism and thrombosis of deep veins of left upper extremity
CPT/HCPCS: 93971

== ENCOUNTER 2019-07-05 01:46 | Outpatient (CLI) | payer MEDICARE, SELFPAY ==
--- NOTE | 2019-07-05 | DI.US_ITS ---
EXAM: US UPPER EXTREMITY VENOUS LT CLINICAL HISTORY: ACUTE THROMBOSIS LT UPPER EXTREMITY,I82.612. TECHNIQUE: Ultrasound examination of the left upper extremity venous system(s) is performed using gr ayscale, color-flow, and spectral Doppler analysis. COMPARISON: US UPPER EXTREMITY VENOUS LT from 06/30/2019 FINDINGS: The left internal jugular, axillary, subclavian, basilic, brachial, radial, and ulnar veins are paten t without evidence of thrombosis. Thrombus is again visible in the mid to distal cephalic vein measu ring a length of approximately 11 cm. IMPRESSION: Stable appearance of distal cephalic vein thrombosis. No new areas of thrombosis are seen. DATA REPOSITORY:
== END 2019-07-05 02:06 ==
PROVIDERS: PCP Family Medicine; Visit Provider Physician Assistant
DX: I82.612 Acute embolism and thrombosis of superficial veins of left upper extremity (principal)
CPT/HCPCS: 93971

== ENCOUNTER 2019-08-19 00:51 | Emergency (ER) | payer MEDICARE, SELFPAY ==
[2019-08-19 00:44] VITALS: BP 135/72; PULSE 79; RESP 18; TEMP 36.6; O2SAT 96
--- NOTE | 2019-08-19 00:50 | ED.GENADUL_ITS ---
Discharge Plan Disposition Patient Disposition: HOME Condition: Good Discharge Details Chief Complaint: Nausea/Vomit/Diar Clinical Impression: Nausea and vomiting Primary Care Provider: Rayshawn Kothari ED Provider: Alfonso Brown Home Meds and New Rx's Prescriptions: New ondansetron 4 mg tablet,disintegrating 4 mg PO Q8H PRNQty: 10 RF: 0 Continued losartan 25 mg tablet 25 mg PO DAILY Qty: 90 RF: 4 aspirin [Enteric Coated Aspirin] 81 mg tablet,delayed release (DR/EC) 81 mg PO DAILY RF: 0 atorvastatin 20 mg tablet 20 mg PO QPM Qty: 90 RF: 3 (DME) Space Chamber Plus 1 EACH spacer 1 ea Miscellaneous PRN Qty: 1 RF: 0 Breo Ellipta 1 EACH blister with device 1 tab Inhalation DAILY RF: 0 Stiolto Respimat 4 GM mist 2 puff Inhalation DAILY RF: 0 amlodipine [Norvasc] 10 mg tablet 10 mg PO DAILY Qty: 90 RF: 3 omeprazole 20 mg tablet,delayed release (DR/EC) 20 mg PO DAILY Qty: 90 RF: 3 lorazepam 0.5 mg tablet 0.5 mg PO TID PRN (Reason: anxiety) Qty: 30 RF: 1 morphine concentrate 100 mg/5 mL (20 mg/mL) solution 5 mg PO Q6H MDD 20 mg PRN (Reason: dyspnea) Qty: 30 RF: 0 hydrocodone-acetaminophen 5-325 mg tablet 1 tab PO TID MDD 3 tabs PRN (Reason: chronic pain) Qty: 90 RF: 0 Hold Instructions: Home Medication placed on hold at Doctor's office albuterol sulfate [Ventolin HFA] 90 mcg/actuation HFA aerosol inhaler 2 puff INHALATION Q6H PRNQty: 1 RF: 0 albuterol sulfate 2.5 mg /3 mL (0.083 %) solution for nebulization 2.5 mg IH QID PRN (Reason: shortness of breath or wheezing) Qty: 180 RF: 0 multivitamin Tablet 1 tab PO DAILY RF: 0 Discharge Instructions Instructions: Acute Nausea and Vomiting (ED) Additional Instructions: Clear liquid/bland diet for today. Ondansetron as needed for nausea vomiting. Follow-up with primary care in the next few days if not better. Return to ED for worsening abdominal pain, persistent vomiting, fever, chest pain, other concerns. Referrals: Rayshawn Kothari [Primary Care Provider] - Medical Decision Making Elderly male no previous abdominal surgery presenting with onset of vomiting, upper abdominal discomfort and some diarrhea this evening. Has a benign abdomen on exam. Is not febrile and has normal vital signs. Will place IV and give fluids and Zofran. Check laboratory studies and CT of abdomen pelvis. He is not a drinker. He does not use nonsteroidals. Patient's laboratory studies significant for an elevated white count of 14. Chemistries are okay, potassium a little low. Creatinine is bumped a little 1.4 but it seems to vary over time and is not as elevated as it has been in the past. Liver function is normal. Lipase is normal. CT scan shows cirrhosis and diverticulosis but no acute pathology. On reevaluation after some fluids and Zofran he feels better. Will finish his liter of fluid given his type contrast and bumped creatinine. P.o. challenge and if tolerates home with Zofran orally. Patient has tolerated fluids. He has been up to the bathroom. He will be discharged later this morning when he can get his ride. Follow-up with primary care if not better in the next few days. Return to ED for fever, worsening p ain, persistent vomiting, other concerns or problems. Medical Records Medical records reviewed: Yes I reviewed the patient's medical records. Lab Data Lab results reviewed: Yes I reviewed the patient's lab results. HPI General Mode of arrival: EMS . Date/Time Provider Initiated Documentation: 08/19/19 00:57 . Limitations to Documentation: no limitations . Information obtained by: patient, RN notes reviewed and old records reviewed . HPI Narrative: Patient comes in tonight with onset of nausea and vomiting approximately 10 PM. He has generalized upper abdominal discomfort. He has subsequently developed some diarrhea. There is no hematemesis or hematochezia. No previous abdominal surgery. No fever. No chest pain or pressure. His breathing is baseline for his COPD. He seems to be okay when he sitting up. Whenever he lies down he gets more nauseated. He denies headache or vertigo. Transported in by EMS for persistent vomiting. Related Data Home Medications Medication Instructions Recorded Confirmed Space Chamber Plus #1 04/27/14 06/30/19 Breo Ellipta 1 tab INHALATION DAILY 10/15/17 08/19/19 Stiolto Respimat 2 puff INHALATION DAILY 10/15/17 08/19/19 multivitamin 1 tab PO DAILY 08/24/18 08/19/19 amlodipine 10 mg tablet 10 mg PO DAILY #90 tab 09/23/18 08/19/19 aspirin 81 mg tablet,delayed 81 mg PO DAILY 10/12/18 08/19/19 release omeprazole 20 mg tablet,delayed 20 mg PO DAILY #90 tab 11/30/18 08/19/19 release losartan 25 mg tablet 25 mg PO DAILY #90 tab-cap 01/12/19 08/19/19 albuterol sulfate 2.5 mg IH QID PRN #180 ml 05/28/19 08/19/19 albuterol sulfate [Ventolin HFA] 2 puff INHALATION Q6H PRN #1 device 05/28/19 08/19/19 atorvastatin 20 mg tablet 20 mg PO QPM #90 tab 06/08/19 08/19/19 lorazepam 0.5 mg tablet 0.5 mg PO TID PRN #30 tab 07/02/19 08/19/19 morphine concentrate 100 mg/5 mL 5 mg PO Q6H PRN #30 ml MDD 20 mg 07/08/19 08/19/19 (20 mg/mL) oral solution hydrocodone 5 mg-acetaminophen 325 1 tab PO TID PRN #90 tab MDD 3 tabs 08/04/19 08/19/19 mg tablet ondansetron 4 mg PO Q8H PRN #10 tab 08/19/19 Previous Rx's Medication Instructions Recorded amlodipine 10 mg tablet 10 mg PO DAILY #90 tab 09/23/18 omeprazole 20 mg tablet,delayed 20 mg PO DAILY #90 tab 11/30/18 release losartan 25 mg tablet 25 mg PO DAILY #90 tab-cap 01/12/19 albuterol sulfate 2.5 mg IH QID PRN #180 ml 05/28/19 albuterol sulfate [Ventolin HFA] 2 puff INHALATION Q6H PRN #1 device 05/28/19 atorvastatin 20 mg tablet 20 mg PO QPM #90 tab 06/08/19 lorazepam 0.5 mg tablet 0.5 mg PO TID PRN #30 tab 07/02/19 morphine concentrate 100 mg/5 mL 5 mg PO Q6H PRN #30 ml MDD 20 mg 07/08/19 (20 mg/mL) oral solution hydrocodone 5 mg-acetaminophen 325 1 tab PO TID PRN #90 tab MDD 3 tabs 08/04/19 mg tablet ondansetron 4 mg PO Q8H PRN #10 tab 08/19/19 Allergies Allergy/AdvReac Type Severity Reaction Status Date / Time lisinopril Allergy Intermediate RASH; Verified 08/19/19 00:54 PRURITIS diphenhydramine HCl AdvReac Severe Makes him Verified 08/19/19 00:54 [From Benadryl] crazy/anxious NSAIDS (Non-Steroidal AdvReac Intermediate GI Verified 08/19/19 00:54 Anti-Inflamma Intolerance tramadol AdvReac Intermediate nausea/vomi Verified 08/19/19 00:54 ting gabapentin AdvReac Unknown GI UPSET Verified 08/19/19 00:54 SCALLOP Allergy Severe THROAT Uncoded 08/19/19 00:54 SWELLING General ALFREDO: 3 Review of Systems Narrative: As documented in HPI otherwise negative as below. Const: no fever, chills, weakness Resp: no cough, SOB, pleuritic pain CV: no CP, diaphoresis, edema, syncope GI: abdominal pain, nausea, vomiting, diarrhea Neuro: no headache, numbness, focal weakness, confusion PFSH Medical History Anxiety (Chronic) Arthritis (Chronic) Benign prostatic hyperplasia (Chronic 02/03/13) CAD (coronary artery disease) (Chronic 12/05/16) 12/05/16 [facility] [place]~NON OBSTRUCTIVE Cataracts, bilateral (Chronic) Chronic obstructive pulmonary disease (Chronic 08/05/17) Chronic pain syndrome (Chronic) Chronic shoulder pain 07/17/16~CONTROLLED SUBSTANCE AGREEMENT Chronic, continuous use of opioids (Chronic) Cirrhosis (Chronic) Esophageal varices without bleeding (Chronic 05/14/16) Essential hypertension (Chronic 02/26/16) Gastro-esophageal reflux (Chronic 09/15/13) No able caregiver in household (Acute) Nocturnal hypoxia (Chronic) Palliative care patient (Acute) Parent-child estrangement nec (Chronic) not involved in either daughter's life Paroxysmal atrial fibrillation (Resolved 01/28/17) ford operative aortic valve replacement Social isolation (Acute) SVT (supraventricular tachycardia) (Chronic ~02/2018) Surgical History Aortic valve replaced (Chronic) History of surgical procedure on eye proper using laser (Chronic) S/P cardiac cath (Chronic) negative 2 years ago Total replacement of hip (Chronic) LEFT Social History Smoking/Tobacco Use Status: Former Tobacco Use Quit Date: 03/24/04 Pack-years: 90 Tobacco: How many years used: 45 Second Hand Exposure: No ( smokes outside, Rafiq very careful to avoid cig smoke) Alcohol Intake: former Year quit: 1984 Drug use: Rarely Substance use type: marijuana Details: cbd gummy bears for pain Caregiver/Support person: No Household members: spouse Housing: house Number of Children: 2 Communication Needs: Corrective Lenses Education Level: college Details: [employer] AD in psychology Do you need help understanding health information?: Rarely 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 Pets and animals: Yes Sexually active: No What is your relationship status?: How often do you talk on the phone with friends or family?: never How often do you get together with friends or relatives?: never Do you belong to any clubs or organized social groups?: no Panel score (0-1 are the most socially isolated patients): 1 What type of physical activity do you participate in: walking and independent ambulation Duration: > 90 minutes/day Frequency: daily Special ofelia needs: No Seatbelt use: always Working smoke detector in home: Yes Fire extinguisher in home: Yes Carbon monox detector in home: Yes Firearms in home: No Do you feel safe at home: Yes Do you feel safe in your relationship?: Yes Additional Social history: Not emotionally close to his , #3. She is chronically ill, obese, sedentary, smokes outside. Rafiq does most of the cooking and all the shopping. They live very separate lives in same trailer. Exam Narrative Exam Narrative: Vitals: Afebrile with normal vital signs and normal room air pulse ox. Const: WDWN elderly male in NAD. HEENT: NC/AT. Normal facial exam. Eyes: Normal conjunctiva and sclera. Neck: Supple. Trachea midline. Lungs: Normal respiratory effort. Cor: Good radial pulses. GI: Soft. NT/ND. No guarding or rebound. Neuro: A+O x 3. Normal speech, mentation. Cranial nerves II - XII grossly intact. No gross motor or sensory deficit. Ext: No C/C/E. Skin: Warm and dry without rash.
[2019-08-19] MEDS: Ondansetron 4 MG/2 ML VIAL IVP (01:11)
[2019-08-19] MEDS: Lactated Ringers 1,000 ML 150 ML IV (01:11)
[2019-08-19 01:12] LABS: Abs Immature Grans 0.04 k/cumm (0.0-0.09); Absolute Basophil Count 0.01 k/cumm (0.0-0.2); Absolute Lymphocyte Count 1.37 k/cumm (1.2-3.4); Absolute Monocyte Count 1.09 k/cumm (0.11-0.7); Basophils % 0.1; Eosinophils % 1.4; HCT 41.6 % (40.0-50.0); HGB 14.2 g/dL (13.5-17.5); Immature Grans % 0.3 %; Lymphocytes % 9.6; Mean Corp. HGB Concentration 34.1 g/dL (32.0-36.0); Mean Corpuscular Hemoglobin 31.2 pg (27.0-33.0); Mean Corpuscular Volume 91.4 fL (80-95); Mean Platelet Volume 10.1 fL (8.0-11.0); Monocytes % 7.7; Neutrophils % 80.9; Platelet Count 164 x1000/uL (130-400); RBC 4.55 m/cumm (4.50-6.00); RBC Distribution Width 13.7 % (11.8-14.1); White Blood Cell Count 14.22 k/cumm (4.4-10.8)
[2019-08-19 01:27] LABS: ALT 32 U/L (16-63); AST 29 U/L (15-37); Alkaline Phosphatase 82 U/L (46-116); Anion Gap 9.8 mmol/L (3-11); BUN 19 mg/dL (7-18); Bilirubin, Total 0.5 mg/dL (0.2-1.0); CO2 24.2 mmol/L (21.0-32.0); CREATININE 1.41 mg/dL (0.70-1.30); Calcium 8.9 mg/dL (8.5-10.1); Chloride 105 mmol/L (98-107); Estimated GFR 49.41 (mL/min/1.73m2); Glucose 122 mg/dL (74-106); Potassium 3.4 mmol/L (3.5-5.1); Sodium 139 mmol/L (136-145); Total Protein 7.4 g/dL (6.4-8.2)
[2019-08-19 01:43] LABS: Lipase 143 U/L (73-393)
--- NOTE | 2019-08-19 01:58 | DI.CT_ITS ---
EXAM: CT ABDOMEN PELVIS W CLINICAL HISTORY: abdominal pain/vomiting. TECHNIQUE: Imaging Protocol: Axial computed tomography images with coronal and sagittal reformatted images were created and reviewed CONTRAST MATERIAL: Intravenous: Omnipaque 350 Contrast volume:structured data in ml Oral: yes / no COMPARISON: CT ABD PELVIS WITH CONTRAST from 05/10/2016 CT CHEST FOR PULMONARY EMBOLUS from 01/07/2017 FINDINGS: ABDOMEN: Lung Bases: Normal where visualized. Liver: Normal density. No measurable mass. Shrunken appearance with enlargement of the caudate lobe and nodular surface, consistent with cirrhosis. Recanalized umbilical vein is noted. There is promi nence of the portal vein but no evidence of portal vein thrombosis. Mild varices are seen near the d istal esophagus. Gallbladder and biliary tract: No radiodense calculus or dilation. Pancreas: Normal density, no abnormal calcifications or inflammatory process. Spleen: Normal. Kidneys: Normal size, contour and axis. No radiodense stones or obstructive uropathy. Bilateral torrie l cysts. No masses seen. Adrenal glands: No masses seen. Abdominal Aorta: Abdominal portion non-dilated. There is reduction in diameter of the proximal iliac arteries secondary to calcification. PELVIS: Bladder: Symmetric distention, no gross wall thickening. Bowel: Diverticulosis of the descending and sigmoid without evidence of diverticulitis. No obstructi on or bowel wall thickening. Normal appendix Peritoneal cavity: No ascites, collection or mesenteric inflammatory response. Bones: Left hip prosthesis creating artifact at the low pelvis. Portions of the bladder are obscured . There are facet degenerative changes at L4-5 causing mild spondylolisthesis. There are mild L4-5 degenerative disc changes and [id number] disc bulging. The remaining levels are unremarkable. Reproductive organs: Prostate mildly enlarged. Lymph nodes: Unremarkable. Impression: No change in cirrhotic-appearing liver. No acute abnormality is seen in the abdomen or pelvis.. RADIATION DOSE DELIVERED: 676.36mGy.cm Total DLP DATA REPOSITORY: All CT scans at this facility are submitted to the National Radiology Data Registry (NRDR) Dose Index Registry (DIR) with the [employer] (ACR). RADIATION OPTIMIZATION: All CT scans at this facility use at least one of these dose optimization te chniques: automated exposure control; mA and/or kV adjustment per patient size (includes targeted exa ms where dose is matched to clinical indication); or iterative reconstruction.
[2019-08-19] MEDS: Normal Saline - Diluent 50 ML VIAL IV (02:05)
[2019-08-19] MEDS: Omnipaque 350 MG/ML 100 ML BTL IJ (02:06)
[2019-08-19 02:10] VITALS: PULSE 75; RESP 24
[2019-08-19 02:12] VITALS: BP 116/60; PULSE 67; PULSE 76; RESP 17; O2SAT 96
[2019-08-19 02:16] VITALS: BP 117/57; PULSE 74; PULSE 77; RESP 17; O2SAT 95
[2019-08-19] MEDS: Normal Saline Flush 10 ML SYR IVP (02:18)
[2019-08-19 02:20] VITALS: PULSE 78; RESP 23; O2SAT 91
--- NOTE | 2019-08-19 02:27 | DI.VRAD_ITS ---
PROCEDURE INFORMATION: Exam: CT Abdomen And Pelvis With Contrast Exam date and time: 08/19/2019 1:00 AM Age: 74 years old Clinical indication: Abdominal pain; Generalized; Prior surgery; Surgery date: 6+ months; Surgery type: Heart valve replacement TECHNIQUE: Imaging protocol: Computed tomography of the abdomen and pelvis with intravenous contrast. Radiation optimization: All CT scans at this facility use at least one of these dose optimization techniques: automated exposure control; mA and/or kV adjustment per patient size (includes targeted exams where dose is matched to clinical indication); or iterative reconstruction. Contrast material: [id number]; Contrast volume: 100 ml; Contrast route: IV RT FOREARM 18G; COMPARISON: CT ABD PELVIS WITH CONTRAST 05/10/2016 11:16 PM FINDINGS: Lungs: Lung bases are clear and heart size is normal. No pleural or pericardial effusions are detected. Liver: The liver is small in size and demonstrates nodularity of surface contour without focal hepatic lesion. Gallbladder and bile ducts: Normal. No calcified stones. No ductal dilation. Pancreas: Normal. No ductal dilation. Spleen: Normal. No splenomegaly. Adrenals: Normal. No mass. Kidneys and ureters: A large 5.8 cm cyst is seen at the upper pole of the right kidney with a few smaller left renal cysts also evident. There is no evidence of hydronephrosis or solid renal lesion. Ureters are normal course and caliber bilaterally. Stomach and bowel: Multiple diverticula involve the descending and sigmoid colonic segments without evidence of associated diverticulitis. Other segments of large and small bowel are unremarkable. Appendix: No evidence of appendicitis. Intraperitoneal space: Unremarkable. No free air. No significant fluid collection. Vasculature: Aortoiliac atherosclerotic calcifications are evident without aneurysm. There is recanalization of the paraumbilical vein with a few additional portosystemic venous collaterals are identified in the upper abdomen. Lymph nodes: Unremarkable. No enlarged lymph nodes. Bladder: Unremarkable as visualized. Reproductive: Unremarkable as visualized. Bones/joints: Click appendix there is grade 1 anterolisthesis of L4 upon L5 and changes of facet arthropathy are seen at lower lumbar levels with no acute fractures detected there has been previous left-sided total hip arthroplasty. Soft tissues: Unremarkable. IMPRESSION: 1. Liver is small in size and demonstrates nodularity of surface contour suggesting cirrhosis or other diffuse hepatocellular disease and there is evidence of portal hypertension with multiple portosystemic venous collaterals identified as detailed above. Correlation with clinical data requested. 2. Diverticulosis without evidence of diverticulitis. THIS REPORT CONTAINS FINDINGS THAT MAY BE CRITICAL TO PATIENT CARE. The findings were verbally communicated via telephone conference with RODERICK RAJAN at 2:26 AM EDT on 08/19/2019. The findings were acknowledged and understood. Dictated and Authenticated by: Zane Cervantes MD. Ordering:AXEL Hamilton MD
[2019-08-19 04:42] VITALS: BP 135/93; PULSE 79; RESP 16; O2SAT 97
== END 2019-08-19 04:16 | disposition home or self-care (01) ==
LOC: ER 04:47
PROVIDERS: Emergency Provider Emergency Medicine; PCP Family Medicine
DX: R11.2 Nausea with vomiting, unspecified (principal); R10.10 Upper abdominal pain, unspecified; D72.829 Elevated white blood cell count, unspecified; E87.6 Hypokalemia; R19.7 Diarrhea, unspecified; J44.9 Chronic obstructive pulmonary disease, unspecified; Z87.891 Personal history of nicotine dependence; I10 Essential (primary) hypertension
CPT/HCPCS: 36415; 80053; 83690; 96361; 96374; 99285; 74177; 85025; 99284; J2405; J3490

== ENCOUNTER 2019-09-21 15:13 | Outpatient (REF) | payer MEDICARE, SELFPAY ==
[2019-09-21 20:22] LABS: *AMPHETAMINES SCREEN URINE Negative (Negative); *BARBITURATES SCREEN URINE Negative (Negative); *BENZODIAZEPINES SCREEN URINE Negative (Negative); Cannabinoids THC POSITIVE (Negative); Cocaine Screen,Urine Negative (Negative); METHADONE URINE SCREEN Negative (Negative); OPIATES URINE SCREEN Negative (Negative)
[2019-09-21 20:23] LABS: Tricyclic Antidepressants Negative (Negative)
== END 2019-09-21 15:33 ==
LOC: LBN 15:13
PROVIDERS: PCP Family Medicine; Visit Provider Family Medicine
DX: G89.4 Chronic pain syndrome (principal)
CPT/HCPCS: 80307

== ENCOUNTER 2019-10-05 01:38 | Outpatient (CLI) | payer MEDICARE, SELFPAY ==
--- NOTE | 2019-10-05 15:13 | DI.CT_ITS ---
EXAM: CT CHEST WO CLINICAL HISTORY: CHRONIC OBSTRUCTIVE LUNG DISEASE,J44.9,F/U ON [place] AND LT BASE NODULE TECHNIQUE: COMPARISON: CT CT CHEST LUNG CANCER SCREEN from 05/03/2019 FINDINGS: CT examination of the chest was performed without contrast administration. Examination is compared w [facility] chest CT May 03, 2019. Images obtained through the upper abdomen show multiple apparent bilateral renal cysts. There is a n odular contour of the liver consistent with hepatic cirrhosis. Splenic granulomas are noted. Pancre as is unremarkable in appearance and there is no evident biliary dilatation. There is a small hiatal hernia. No gross mediastinal abnormality. Ascending aorta is ectatic at 44 millimeters. There is a prior ao rtic valve replacement note is made of coronary artery calcification. Prior examination showed a left upper lobe nodule measuring about 8 millimeters in greatest diameter. This has decreased markedly in size in comparison with the previous examination and is now only fan ntly visible measuring about 2 x 4 millimeters in diameter and of low attenuation. There is a new le ft apical nodule, this measures about 13 x 9 millimeters in diameter on axial images and measures up to 15 millimeters in diameter on coronal images. There is a new focal area of consolidation in the m edial aspect of the right upper lobe with surrounding reticular radiodensities. Reticulo nodular rad iodensities are seen in the right upper lobe laterally which are more prominent than on the prior tierney dy and there is a new 8 millimeter spiculated nodule of the medial aspect of the right lower lobe at the level of the gloria. No pleural effusion seen. No pleural based mass. Tracheobronchial tree is unremarkable. Diffuse ce ntral lobular emphysematous changes are noted most prominent in the lung apices. IMPRESSION: There is pattern of multiple pulmonary nodules which are increasing and decreasing in size, a 15 mill imeter spiculated nodule of the left lung apex is new and is worrisome for neoplastic disease althoug h this was not present only 5 months ago. Alternatively these findings may all be on the basis of an infectious or inflammatory process. Correlation is also requested regarding any history of metastat ic neoplasm. Additional abdominal findings as described above.
== END 2019-10-05 01:58 ==
PROVIDERS: PCP Family Medicine; Visit Provider Internal Medicine
DX: J44.9 Chronic obstructive pulmonary disease, unspecified (principal); R91.8 Other nonspecific abnormal finding of lung field; J98.4 Other disorders of lung
CPT/HCPCS: 71250

== ENCOUNTER 2019-12-12 17:36 | Emergency (ER) | payer MEDICARE, SELFPAY ==
[2019-12-12 17:43] VITALS: BP 123/84; PULSE 73; RESP 18; TEMP 36.7; O2SAT 95
--- NOTE | 2019-12-12 18:20 | W.ED.GENAD ---
Discharge Plan Disposition Patient Disposition: HOME Condition: Stable Discharge Details Clinical Impression: Vitreous floaters of left eye Primary Care Provider: Rayshawn Kothari ED Provider: Mary Mancilla Home Meds and New Rx's Prescriptions: Continued losartan 25 mg tablet 25 mg PO DAILY Qty: 90 RF: 4 amlodipine [Norvasc] 10 mg tablet 10 mg PO DAILY Qty: 90 RF: 3 omeprazole 20 mg tablet,delayed release (DR/EC) 20 mg PO DAILY Qty: 90 RF: 3 tamsulosin 0.4 mg capsule 0.4 mg PO DAILY Qty: 30 RF: 2 atorvastatin 20 mg tablet 20 mg PO QPM Qty: 90 RF: 3 (DME) Space Chamber Plus 1 EACH spacer 1 ea Miscellaneous PRN Qty: 1 RF: 0 Breo Ellipta 1 EACH blister with device 1 tab Inhalation DAILY RF: 0 Stiolto Respimat 4 GM mist 2 puff Inhalation DAILY RF: 0 morphine concentrate 100 mg/5 mL (20 mg/mL) solution 5 mg PO Q6H MDD 20 mg PRN (Reason: dyspnea) Qty: 30 RF: 0 lorazepam 0.5 mg tablet 0.5 mg PO TID PRN (Reason: anxiety) Qty: 30 RF: 1 aspirin [Enteric Coated Aspirin] 81 mg tablet,delayed release (DR/EC) 81 mg PO DAILY Qty: 90 RF: 3 hydrocodone-acetaminophen 5-325 mg tablet 1 tab PO TID MDD 3 tabs PRN (Reason: chronic pain) Qty: 90 RF: 0 Hold Instructions: Home Medication placed on hold at Doctor's office albuterol sulfate [Ventolin HFA] 90 mcg/actuation HFA aerosol inhaler 2 puff INHALATION Q6H PRNQty: 1 RF: 0 albuterol sulfate 2.5 mg /3 mL (0.083 %) solution for nebulization 2.5 mg IH QID PRN (Reason: shortness of breath or wheezing) Qty: 180 RF: 0 multivitamin Tablet 1 tab PO DAILY RF: 0 Discharge Instructions Instructions: Blurred Vision (ED) Additional Instructions: I spoke with ophthalmology at [facility] Dr. Duke discussed your case with her and she states that you would be able to be seen in their office in [place] on the same day recall she recommends being seen in the next 1 to 2 days. If you are more comfortable seeing your own textile technologist or eye doctor he can also do that but I encourage you to be seen as soon as possible. Return to the ED for any eye pain, headache, worsening vision or any severe worsening or concerns. Do not put anything else into the eye until seen by ophthalmology. Follow up with primary care provider in 3-5 days. Return to ED sooner if any worsening or concerns. Increase oral fluids. Dr. Duke [facility] [address] [place] [address] Dr. Reynolds [place] Referrals: Rayshawn Kothari [Primary Care Provider] - Medical Decision Making 182: Tonometer used to achieve a intraocular pressure first reading is 10 additional rating is 11. Will page ophthalmology at [facility] regarding patient for consult. At this time retinal detachment suspicion is low as no redness or pain or evidence of conjunctivitis. 183: Call made to consult ophthalmology at [facility]. 1845: Spoke with textile technologist Dr. Duke configuration analyst with [facility], discussed patient case and details with her she verbalized understanding and states that patient can follow-up in their clinic in [place] or with his own kardex clerk or textile technologist wherever he is more comfortable. She states that they will be able to see him same day he calls. She does not recommend any further care or treatment here in the ER at this time. Discussed plan with patient and recommendation for close follow-up with ophthalmology he verbalizes understanding and will call Dr. Hassan's office in the morning. Discussed strict return instructions instructed to return if any eye pain, headache, weakness dizziness or any concerns worsening vision problems. HPI General Mode of arrival: ambulatory. Date/Time Provider Initiated Documentation: 12/12/19 17:52. Limitations to Documentation: no limitations. Information obtained by: patient. HPI Narrative: 74-year-old male presents to the ER with left eye complaint. He reports seeing black spots and floaters to his left eye that started at 10 AM this morning. He reports spots of gotten worse over the day. He denies any eye pain but his eye does feel irritated. Patient states that originally he thought something was in his eye and tried to flush it out repeatedly while at home which did not improve his symptoms. Visual acuity shows 20/200 to his left eye which is the affected eye and 20/40 to the right eye. He does wear glasses. He does have a history of macular degeneration which he takes vitamins for and cataracts and removal to that eye. He states that his vision has always been worse in his left eye. He has no headache no focal neuro deficits or any other complaints at this time. He denies any head trauma. Related Data Home Medications Medication Instructions Recorded Confirmed Space Chamber Plus #1 04/27/14 12/12/19 Breo Ellipta 1 tab INHALATION DAILY 10/15/17 12/12/19 Stiolto Respimat 2 puff INHALATION DAILY 10/15/17 12/12/19 multivitamin 1 tab PO DAILY 08/24/18 12/12/19 losartan 25 mg tablet 25 mg PO DAILY #90 tab-cap 01/12/19 12/12/19 albuterol sulfate 2.5 mg IH QID PRN #180 ml 05/28/19 12/12/19 albuterol sulfate [Ventolin HFA] 2 puff INHALATION Q6H PRN #1 device 05/28/19 12/12/19 atorvastatin 20 mg tablet 20 mg PO QPM #90 tab 06/08/19 12/12/19 morphine concentrate 100 mg/5 mL 5 mg PO Q6H PRN #30 ml MDD 20 mg 07/08/19 12/12/19 (20 mg/mL) oral solution amlodipine 10 mg tablet 10 mg PO DAILY #90 tab 09/21/19 12/12/19 omeprazole 20 mg tablet,delayed 20 mg PO DAILY #90 tab 09/21/19 12/12/19 release tamsulosin 0.4 mg capsule 0.4 mg PO DAILY #30 cap 09/21/19 12/12/19 lorazepam 0.5 mg tablet 0.5 mg PO TID PRN #30 tab 10/25/19 12/12/19 aspirin 81 mg tablet,delayed 81 mg PO DAILY #90 tab 11/19/19 12/12/19 release hydrocodone 5 mg-acetaminophen 325 1 tab PO TID PRN #90 tab MDD 3 tabs 11/30/19 12/12/19 mg tablet Previous Rx's Medication Instructions Recorded losartan 25 mg tablet 25 mg PO DAILY #90 tab-cap 01/12/19 albuterol sulfate 2.5 mg IH QID PRN #180 ml 05/28/19 albuterol sulfate [Ventolin HFA] 2 puff INHALATION Q6H PRN #1 device 05/28/19 atorvastatin 20 mg tablet 20 mg PO QPM #90 tab 06/08/19 morphine concentrate 100 mg/5 mL 5 mg PO Q6H PRN #30 ml MDD 20 mg 07/08/19 (20 mg/mL) oral solution amlodipine 10 mg tablet 10 mg PO DAILY #90 tab 09/21/19 omeprazole 20 mg tablet,delayed 20 mg PO DAILY #90 tab 09/21/19 release tamsulosin 0.4 mg capsule 0.4 mg PO DAILY #30 cap 09/21/19 lorazepam 0.5 mg tablet 0.5 mg PO TID PRN #30 tab 10/25/19 aspirin 81 mg tablet,delayed 81 mg PO DAILY #90 tab 11/19/19 release hydrocodone 5 mg-acetaminophen 325 1 tab PO TID PRN #90 tab MDD 3 tabs 11/30/19 mg tablet Allergies Allergy/AdvReac Type Severity Reaction Status Date / Time lisinopril Allergy Intermediate RASH; Verified 12/12/19 17:53 PRURITIS diphenhydramine HCl AdvReac Severe Makes him Verified 12/12/19 17:53 [From Benadryl] crazy/anxious NSAIDS (Non-Steroidal AdvReac Intermediate GI Verified 12/12/19 17:53 Anti-Inflamma Intolerance tramadol AdvReac Intermediate nausea/vomi Verified 12/12/19 17:53 ting gabapentin AdvReac Unknown GI UPSET Verified 12/12/19 17:53 SCALLOP Allergy Severe THROAT Uncoded 12/12/19 17:53 SWELLING General Stated Complaint: EyeProblem ALFREDO: 3 Review of Systems Constitutional Constitutional: Denies headache(s) and Denies weakness Eyes Eyes: Denies exophthalmos, Denies eye discharge, Reports floaters, Reports irritation, Denies eye pain, Reports requires corrective lenses, Denies seeing flashes and Reports spots in vision ENT Ears, Nose, Mouth, and Throat: Denies headache(s) Neurologic Neurologic: Denies headache(s) and Denies weakness [facility] Medical History (Updated 12/12/19 @ 18:50 by Mary Mancilla) Anxiety Arthritis Benign prostatic hyperplasia (02/03/13) CAD (coronary artery disease) (12/05/16) 12/05/16 [facility]~NON OBSTRUCTIVE Cataracts, bilateral Chronic obstructive pulmonary disease (08/05/17) Chronic pain syndrome Chronic shoulder pain 07/17/16~CONTROLLED SUBSTANCE AGREEMENT Chronic, continuous use of opioids Cirrhosis Esophageal varices without bleeding (05/14/16) Essential hypertension (02/26/16) Gastro-esophageal reflux (09/15/13) Lower urinary tract symptoms (LUTS) No able caregiver in household Nocturnal hypoxia Palliative care patient Parent-child estrangement nec not involved in either daughter's life Paroxysmal atrial fibrillation (01/28/17) ford operative aortic valve replacement Social isolation SVT (supraventricular tachycardia) (~02/2018) Surgical History Aortic valve replaced History of surgical procedure on eye proper using laser S/P cardiac cath negative 2 years ago Total replacement of hip LEFT Family History Mother , age 76 from widespread cancer of uncertain origin and ESRD Diabetes Essential hypertension Heart disease Hyperlipidemia Dialysis patient Personal history of malignant neoplasm Brother Essential hypertension Heart disease Grandmother Personal history of malignant neoplasm Father , disappeared when Rafiq was 5 yo; about age 40 Alcohol abuse Sister , from uncertain cause about age 55 Alcohol abuse Substance abuse Brother No problems noted. Daughter Parent-child estrangement nec Daughter Parent-child estrangement nec Social History Smoking/Tobacco Use Status: Former Tobacco Use Quit Date: 03/24/04 Pack-years: 90 Tobacco: How many years used: 45 Second Hand Exposure: No ( smokes outside, Rafiq very careful to avoid cig smoke) Alcohol Intake: former Year quit: 1984 Drug use: Rarely Substance use type: marijuana Details: cbd gummy bears for pain Caregiver/Support person: No Household members: spouse Housing: house Number of Children: 2 Communication Needs: Corrective Lenses Education Level: college Details: 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 AD in psychology Do you need help understanding health information?: Rarely 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 Pets and animals: Yes Sexually active: No What is your relationship status?: How often do you talk on the phone with friends or family?: never How often do you get together with friends or relatives?: never Do you belong to any clubs or organized social groups?: no Panel score (0-1 are the most socially isolated patients): 1 What type of physical activity do you participate in: walking and independent ambulation Duration: > 90 minutes/day Frequency: daily Special ofelia needs: No Seatbelt use: always Working smoke detector in home: Yes Fire extinguisher in home: Yes Carbon monox detector in home: Yes Firearms in home: No Do you feel safe at home: Yes Do you feel safe in your relationship?: Yes Additional Social history: Not emotionally close to his , #3. She is chronically ill, obese, sedentary, smokes outside. Rafiq does most of the cooking and all the shopping. They live very separate lives in same trailer. Exam Eyes Alignment and Position: alignment normal and position normal Periorbital: periorbital findings normal Eyelids: eyelids normal Conjunctivae: conjunctivae normal Sclera: sclerae normal Cornea: corneas normal Pupils: PERRL and dilated (s/p cataract removal) on the left EOM: EOM intact bilaterally Direct ophthalmoscopy: normal light reflex and macular abnormality Course Vital Signs Vital signs: Vital Signs Temperature 36.7 C 12/12/19 17:43 Pulse 73 12/12/19 17:43 Respiratory Rate 18 12/12/19 17:43 Blood Pressure 123/84 12/12/19 17:43 Pulse Oximetry 95 12/12/19 17:43 Temperature 36.7 C 12/12/19 17:43 Temperature Source Temporal Artery Scan 12/12/19 17:43 Pulse 73 12/12/19 17:43 Respiratory Rate 18 12/12/19 17:43 Respiratory Effort Non-Labored 12/12/19 17:49 Blood Pressure 123/84 12/12/19 17:43 Blood Pressure Position Sitting 12/12/19 17:43 Pulse Oximetry 95 12/12/19 17:43 Oxygen Delivery Method Room Air 12/12/19 17:43 Oxygen Flow Rate 0 12/12/19 17:43 Pain Level 4 12/12/19 17:43 Comment 12/12/19 17:43
== END 2019-12-12 18:55 | disposition home or self-care (01) ==
PROVIDERS: Emergency Provider Registered Nurse Emergency; PCP Family Medicine
DX: H43.392 Other vitreous opacities, left eye (principal); J44.9 Chronic obstructive pulmonary disease, unspecified; Z87.891 Personal history of nicotine dependence; I10 Essential (primary) hypertension
CPT/HCPCS: 99282; 99283

== ENCOUNTER → 2019-12-16 11:24 | Outpatient (BNVA) | payer MEDICARE, SELFPAY | PROVIDERS: PCP Family Medicine; Referring Provider Family Medicine; Visit Provider Student in an Organized Health Care Education/Training Program | DX: M67.911 Unspecified disorder of synovium and tendon, right shoulder (principal); M67.912 Unspecified disorder of synovium and tendon, left shoulder; J44.9 Chronic obstructive pulmonary disease, unspecified; I10 Essential (primary) hypertension | CPT/HCPCS: 20610; 99213; J1040 ==

== ENCOUNTER 2020-01-19 19:13 | Emergency (ER) | payer MEDICARE, SELFPAY ==
[2020-01-19] VITALS (31 sets, daily range): BP systolic 127–173; BP diastolic 71–94; PULSE 62–108; RESP 13–29; TEMP 36.7; O2SAT 92–96
--- NOTE | 2020-01-19 19:15 | RT.EKG_ITS ---
APPROVED REPORT Exam: Resting ECG Patient Location: E HR:95 bpm ECG Measurements Heart Rate [address] [id number] P [id number] QRSd 111 QRS 87 QT 390 T 40 QTc 466 Conclusion Atrial flutter/fibrillation...A-rate 234, multiple Ps Has p waves, feel more ilely sins with pacs
--- NOTE | 2020-01-19 19:27 | ED.GENADUL_ITS ---
Discharge Plan Disposition Patient Disposition: HOME Condition: Good Discharge Details Clinical Impression: Pain, upper back, Pulmonary nodules/lesions, multiple Primary Care Provider: Rayshawn Kothari ED Provider: Alfonso Brown Home Meds and New Rx's Prescriptions: Continued amlodipine [Norvasc] 10 mg tablet 10 mg PO DAILY Qty: 90 RF: 3 omeprazole 20 mg tablet,delayed release (DR/EC) 20 mg PO DAILY Qty: 90 RF: 3 Narcan 4 mg/actuation spray,non-aerosol 4 mg NS PRN Qty: 2 RF: 0 losartan 25 mg tablet 25 mg PO DAILY Qty: 90 RF: 4 atorvastatin 20 mg tablet 20 mg PO QPM Qty: 90 RF: 3 (DME) Space Chamber Plus 1 EACH spacer 1 ea Miscellaneous PRN Qty: 1 RF: 0 Breo Ellipta 1 EACH blister with device 1 tab Inhalation DAILY RF: 0 Stiolto Respimat 4 GM mist 2 puff Inhalation DAILY RF: 0 aspirin [Enteric Coated Aspirin] 81 mg tablet,delayed release (DR/EC) 81 mg PO DAILY Qty: 90 RF: 3 lorazepam 0.5 mg tablet 0.5 mg PO TID PRN (Reason: anxiety) Qty: 30 RF: 2 hydrocodone-acetaminophen 5-325 mg tablet 1 tab PO TID MDD 3 tabs PRN (Reason: chronic pain) Qty: 84 RF: 0 Hold Instructions: Home Medication placed on hold at Doctor's office tamsulosin 0.4 mg capsule 0.4 mg PO DAILY Qty: 90 RF: 3 albuterol sulfate [Ventolin HFA] 90 mcg/actuation HFA aerosol inhaler 2 puff INHALATION Q6H PRNQty: 1 RF: 0 albuterol sulfate 2.5 mg /3 mL (0.083 %) solution for nebulization 2.5 mg IH QID PRN (Reason: shortness of breath or wheezing) Qty: 180 RF: 0 morphine concentrate 100 mg/5 mL (20 mg/mL) solution 0.25 mg PO Q6H MDD 20 mg PRN (Reason: dyspnea) RF: 0 multivitamin Tablet 1 tab PO DAILY RF: 0 Discharge Instructions Instructions: Back Pain (ED) Additional Instructions: EKG and laboratory studies look fine. CT scan shows no inflammatory nodules but the old ones have resolved. 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 Return to the ED for fever, shortness of breath, new or worsening pain. Referrals: Nya Baez MD [[facility] STAFF PHYSICIAN] - Rayshawn Kothari [Primary Care Provider] - Medical Decision Making <Frederick Novoa MD - Last Filed: 01/19/20 19:38> 74 yo male with hx of copd and former smoker, bicuspid aortic valve s/p replacement, htn, chronic pain, paroxysmal afib, who comes in with cc of left upper back pain since 2pm and started while he was taking out some air conditioner covers and replacing them. Denies falls, fevers, chest pain, n/v, diaphoresis. Localizes the pain to the left upper back, pain is not reproducible and has clear lung sounds. No rashes noted no abdominal tenderness. Could be musculoskeletal pain but given his history and not reproducible on exam and lo cation feel cta to evaluate for dissection is warranted. Has no tachycardia or hypoxia or evidence of dvt so doubt PE. He states pain feels as though is behing his heart on his description, denies anterior chest pain, will obtain ecg and troponin pt signed out to oncoming provider pending lab and imaging results, final dispo Differential Diagnosis Differential Diagnosis: PE, ptx, musculoskeletal back pain, nstemi Medical Records Medical records reviewed: Yes I reviewed the patient's medical records. ECG Data Attestation: I personally reviewed and interpreted this ECG (s) as follows: Prior ECG tracings: not available for review Interpretation: computer read is afib/flutter but has p waves feel it is sinus rhythm with rate of 95 qtc 466 with pac's. <Alfonso Brown MD - Last Filed: 01/19/20 23:15> Patient signed out to me from Dr. Novoa after presenting with left upper back pain. CT of the chest ordered to evaluate for dissection and PE. EKG without ischemic changes. Laboratory studies unremarkable. White count normal. First troponin negative. CT scan without dissection or PE. He has new inflammatory nodules with resolution of previous nodules. In discussion with patient he reports that this has been an ongoing problem for 2 to 3 years. He is followed by Dr. Baez. No definitive etiology need. Undergoes CT of the chest about every 6 months. At this point patient's pain is gone. We will get the repeat troponin and EKG and if negative plan discharge. Medical Records Medical records reviewed: Yes I reviewed the patient's medical records. Lab Data Lab results reviewed: Yes I reviewed the patient's lab results. HPI <Frederick Novoa MD - Last Filed: 01/19/20 19:38> General Mode of arrival: ambulatory . Date/Time Provider Initiated Documentation: 01/19/20 19:14 . Limitations to Documentation: no limitations . Information obtained by: patient . History of Present Illness 74 year old M presents to the emergency department with the chief complaint of left upper back pain, described as moderate, Patient started experiencing this hour(s) (4) and it has been constant. No relieving factors improve symptom(s), No exacerbating factors reported . Related Data Home Medications Medication Instructions Recorded Confirmed Space Chamber Plus #1 04/27/14 12/21/19 Breo Ellipta 1 tab INHALATION DAILY 10/15/17 01/19/20 Stiolto Respimat 2 puff INHALATION DAILY 10/15/17 01/19/20 multivitamin 1 tab PO DAILY 08/24/18 01/19/20 albuterol sulfate 2.5 mg IH QID PRN #180 ml 05/28/19 01/19/20 albuterol sulfate [Ventolin HFA] 2 puff INHALATION Q6H PRN #1 device 05/28/19 01/19/20 atorvastatin 20 mg tablet 20 mg PO QPM #90 tab 06/08/19 01/19/20 amlodipine 10 mg tablet 10 mg PO DAILY #90 tab 09/21/19 01/19/20 omeprazole 20 mg tablet,delayed 20 mg PO DAILY #90 tab 09/21/19 01/19/20 release aspirin 81 mg tablet,delayed 81 mg PO DAILY #90 tab 11/19/19 01/19/20 release lorazepam 0.5 mg tablet 0.5 mg PO TID PRN #30 tab 12/17/19 01/19/20 losartan 25 mg tablet 25 mg PO DAILY #90 tab-cap 12/21/19 01/19/20 naloxone 4 mg/actuation nasal spray 4 mg NS PRN #2 spray 12/21/19 01/19/20 hydrocodone 5 mg-acetaminophen 325 1 tab PO TID PRN #84 tab MDD 3 tabs 12/27/19 01/19/20 mg tablet tamsulosin 0.4 mg capsule 0.4 mg PO DAILY #90 cap 12/29/19 01/19/20 morphine concentrate 0.25 mg PO Q6H PRN MDD 20 mg 01/19/20 01/19/20 Previous Rx's Medication Instructions Recorded albuterol sulfate 2.5 mg IH QID PRN #180 ml 05/28/19 albuterol sulfate [Ventolin HFA] 2 puff INHALATION Q6H PRN #1 device 05/28/19 atorvastatin 20 mg tablet 20 mg PO QPM #90 tab 06/08/19 amlodipine 10 mg tablet 10 mg PO DAILY #90 tab 09/21/19 omeprazole 20 mg tablet,delayed 20 mg PO DAILY #90 tab 09/21/19 release aspirin 81 mg tablet,delayed 81 mg PO DAILY #90 tab 11/19/19 release lorazepam 0.5 mg tablet 0.5 mg PO TID PRN #30 tab 12/17/19 losartan 25 mg tablet 25 mg PO DAILY #90 tab-cap 12/21/19 naloxone 4 mg/actuation nasal spray 4 mg NS PRN #2 spray 12/21/19 hydrocodone 5 mg-acetaminophen 325 1 tab PO TID PRN #84 tab MDD 3 tabs 12/27/19 mg tablet tamsulosin 0.4 mg capsule 0.4 mg PO DAILY #90 cap 12/29/19 Allergies Allergy/AdvReac Type Severity Reaction Status Date / Time lisinopril Allergy Intermediate RASH; Verified 01/19/20 19:20 PRURITIS diphenhydramine HCl AdvReac Severe Makes him Verified 01/19/20 19:20 [From Benarpitryl] crazy/anxious NSAIDS (Non-Steroidal AdvReac Intermediate GI Verified 01/19/20 19:20 Anti-Inflamma Intolerance tramadol AdvReac Intermediate nausea/vomi Verified 01/19/20 19:20 ting gabapentin AdvReac Unknown GI UPSET Verified 01/19/20 19:20 SCALLOP Allergy Severe THROAT Uncoded 01/19/20 19:20 SWELLING General Stated Complaint: Nk/Back Pain ALFREDO: 3 Review of Systems <Frederick Novoa MD - Last Filed: 01/19/20 19:38> All systems reviewed & are unremarkable except as noted in HPI and below Constitutional Constitutional: Denies chills, Denies fever(s) and Denies weakness Cardiovascular Cardiovascular: Denies chest pain Respiratory Respiratory: Denies cough Gastrointestinal Gastrointestinal: Denies abdominal pain, Denies nausea and Denies vomiting Musculoskeletal Musculoskeletal: Denies joint swelling Neurologic Neurologic: Denies weakness Psychiatric Psychiatric: Denies depression [facility] <Frederick Novoa MD - Last Filed: 01/19/20 19:38> Medical History (Updated 01/19/20 @ 23:06 by Alfonso Brown MD) Anxiety Arthritis Benign prostatic hyperplasia (02/03/13) CAD (coronary artery disease) (12/05/16) 12/05/16 [facility] [place] Cataracts, bilateral Chronic obstructive pulmonary disease (08/05/17) Chronic pain syndrome Chronic shoulder pain 07/17/16~CONTROLLED SUBSTANCE AGREEMENT Chronic, continuous use of opioids Cirrhosis Esophageal varices without bleeding (05/14/16) Essential hypertension (02/26/16) Gastro-esophageal reflux (09/15/13) Lower urinary tract symptoms (LUTS) No able caregiver in household Nocturnal hypoxia Palliative care patient Parent-child estrangement nec not involved in either daughter's life Paroxysmal atrial fibrillation (01/28/17) ford operative aortic valve replacement Social isolation SVT (supraventricular tachycardia) (~02/2018) Surgical History Aortic valve replaced History of surgical procedure on eye proper using laser S/P cardiac cath negative 2 years ago Total replacement of hip LEFT Family History Mother , age 76 from widespread cancer of uncertain origin and ESRD Diabetes Essential hypertension Heart disease Hyperlipidemia Dialysis patient Personal history of malignant neoplasm Brother Essential hypertension Heart disease Grandmother Personal history of malignant neoplasm Father , disappeared when Rafiq was 5 yo; about age 40 Alcohol abuse Sister , from uncertain cause about age 55 Alcohol abuse Substance abuse Brother No problems noted. Daughter Parent-child estrangement nec Daughter Parent-child estrangement nec Social History Smoking/Tobacco Use Status: Former Tobacco Use Quit Date: 03/24/04 Pack-years: 90 Tobacco: How many years used: 45 Second Hand Exposure: No ( smokes outside, Rafiq very careful to avoid cig smoke) Smoking risk assessment performed?: Yes Alcohol Intake: former Year quit: 1984 Drug use: Rarely Substance use type: marijuana Details: cbd gummy bears for pain Caregiver/Support person: No Household members: spouse Housing: house Number of Children: 2 Communication Needs: Corrective Lenses Education Level: college Details: [employer] AD in psychology Do you need help understanding health information?: Rarely 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 Pets and animals: Yes Sexually active: No What is your relationship status?: How often do you talk on the phone with friends or family?: never How often do you get together with friends or relatives?: never Do you belong to any clubs or organized social groups?: no Panel score (0-1 are the most socially isolated patients): 1 What type of physical activity do you participate in: walking and independent ambulation Duration: > 90 minutes/day Frequency: daily Special ofelia needs: No Seatbelt use: always Working smoke detector in home: Yes Fire extinguisher in home: Yes Carbon monox detector in home: Yes Firearms in home: No Do you feel safe at home: Yes Do you feel safe in your relationship?: Yes Additional Social history: Not emotionally close to his , #3. She is chronically ill, obese, sedentary, smokes outside. Rafiq does most of the cooking and all the shopping. They live very separate lives in same trailer. Exam <Frederick Novoa MD - Last Filed: 01/19/20 19:38> Const General: no acute distress Orientation: alert HENMT Head: normal to inspection Ears: external ears normal General nose exam: external nose normal Mouth: moist mucous membranes Eyes General: appearance normal, both eyes and all related structures Neck Neck: normal visual inspection Resp Effort & Inspection: normal respiratory effort and able to speak in complete sentences Cardio Rate: regular rate Back/Spine/Pelvis Back: no CVA tenderness Skin General skin exam: no rashes or lesions noted Neuro General: patient alert and patient oriented x3 Extrem General: normal to inspection Psych Mental Status: mental status grossly normal Course <Frederick Novoa MD - Last Filed: 01/19/20 19:38> Vital Signs Vital signs: Vital Signs Temperature 36.7 C 01/19/20 19:17 Pulse 81 01/19/20 19:17 Respiratory Rate 20 01/19/20 19:17 Blood Pressure 141/71 H 01/19/20 19:17 Pulse Oximetry 95 01/19/20 19:17 Temperature 36.7 C 01/19/20 19:17 Temperature Source Skin 01/19/20 19:17 Pulse 81 01/19/20 19:17 Respiratory Rate 20 01/19/20 19:17 Respiratory Effort Incrsd Work of Breathing 01/19/20 19:26 Blood Pressure 141/71 H 01/19/20 19:17 Blood Pressure Position Sitting 01/19/20 19:17 Pulse Oximetry 95 01/19/20 19:17 Oxygen Delivery Method Room Air 01/19/20 19:17 Oxygen Flow Rate 0 01/19/20 19:17 Pain Level 7 01/19/20 19:17 Sign Out <Frederick Novoa MD - Last Filed: 01/19/20 19:38> Sign Out Data: Sign Out Comment: left upper back pain starting around 2pm, labs and ct pending, reassessment and dispo Last updated by Frederick Novoa MD at 01/19/20 19:38
--- NOTE | 2020-01-19 19:33 | DI.CT_ITS ---
EXAM: CT THORAX CTA CLINICAL HISTORY: left upper back pain TECHNIQUE: COMPARISON: CT CT ABDOMEN PELVIS W from 08/19/[address] CHEST WO from 10/05/2019 FINDINGS: CT examination chest was performed utilizing CT angiography protocol. Images obtained through the upper abdomen show previously noted large right upper pole renal cyst, th ere is a presumed hepatic cirrhosis with a nodular appearance of the hepatic contour. Spleen and khan creas are unremarkable except for mild dilatation of the pancreatic duct. Adrenals are unremarkable. No urinary tract obstruction. There are severe predominantly central lobular pulmonary emphysematous changes. There are waxing and waning bilateral small intrapulmonary areas of nodularity and infiltration, in c omparison with prior study of October 04. Most prominent new area of consolidative opacities in the r ight upper lobe. Prior 15 millimeter spiculated left apical lesion is significantly less prominent o n the current study no pleural effusion. No mediastinal hilar adenopathy. No pulmonary embolic dise ase. Unremarkable appearance the tracheobronchial tree. Ectasia of ascending thoracic aorta again noted at 44 millimeters. IMPRESSION: Waxing and waning bilateral multi focal consolidative and nodular opacities. Infectious versus infla mmatory etiology, neoplastic disease unlikely. Severe underlying emphysematous changes of the lungs noted. RADIATION DOSE DELIVERED: 319.17mGy.cm Total DLP
[2020-01-19] MEDS: Normal Saline - Diluent 50 ML VIAL IV (20:03)
[2020-01-19] MEDS: Omnipaque 350 MG/ML 100 ML BTL IJ (20:03)
[2020-01-19] MEDS: Normal Saline Flush 10 ML SYR IVP (20:03)
[2020-01-19 20:04] LABS: Abs Immature Grans 0.03 10^3/uL (0.0-0.06); Absolute Basophil Count 0.04 10^3/uL (0.0-0.2); Absolute Eosinophil Count 0.37 10^3/uL (0.0-0.7); Absolute Lymphocyte Count 1.86 10^3/uL (1.2-3.4); Absolute Monocyte Count 0.97 10^3/uL (0.1-0.8); Absolute Neutrophil Count 6.08 10^3/uL (1.2-6.7); Basophils % 0.4; HCT 38.4 % (40.0-50.0); HGB 12.9 g/dL (13.5-17.5); Immature Grans % 0.3; Lymphocytes % 19.9; MCH 31.2 pg (27.0-33.0); MCHC 33.6 % (32.0-36.0); MCV 92.8 fL (80-95); MPV 10.2 fL (8.0-11.0); Monocytes % 10.4; Nucleated RBC 0 %; Platelet Count 170 10^3/uL (130-400); RBC 4.14 10^6/uL (4.36-5.78); RDW 13.5 % (11.8-14.1); RDW-SD 45.9 fL; WBC 9.35 10^3/uL (4.4-10.8)
[2020-01-19 20:23] LABS: PTT Activated 27.4 sec (21.0-31.4); Prothrombin Time 10.2 sec (9.3-11.0)
[2020-01-19 20:30] LABS: ALT 33 U/L (16-63); AST 26 U/L (15-37); Albumin 3.6 g/dL (3.4-5.0); Alkaline Phosphatase 95 U/L (46-116); Anion Gap 7.4 mmol/L (3-11); BUN 18 mg/dL (7-18); Bilirubin, Total 0.7 mg/dL (0.2-1.0); CO2 25.6 mmol/L (21.0-32.0); CREATININE 1.46 mg/dL (0.70-1.30); Calcium 8.9 mg/dL (8.5-10.1); Chloride 104 mmol/L (98-107); Estimated GFR 47.46 (mL/min/1.73m2); Glucose 137 mg/dL (74-106); Magnesium 1.9 mg/dL (1.8-2.4); NT-proBNP 129 pg/mL (<300); Sodium 137 mmol/L (136-145); Total Protein 7.1 g/dL (6.4-8.2)
[2020-01-19 20:31] LABS: Troponin I < 0.05 ng/mL (<0.06)
--- NOTE | 2020-01-19 21:02 | DI.VRAD_ITS ---
PROCEDURE INFORMATION: Exam: CT Angiography Chest With Contrast Exam date and time: 01/19/2020 8:02 PM Age: 74 years old Clinical indication: Left upper back pain; Prior surgery TECHNIQUE: Imaging protocol: Computed tomographic angiography of the chest with intravenous contrast. 3D rendering (Not supervised by radiologist): MIP and/or 3D reconstructed images were created by the technologist. COMPARISON: CT CHEST WO 10/05/2019 3:20 PM FINDINGS: Pulmonary arteries: No evidence of pulmonary embolism. Aorta: Stable 4.1 cm aneurysmal dilatation of the ascending thoracic aorta. No aortic dissection. Lungs: Compared to 10/05/2019, interval resolution medial right upper lobe infiltrate. Interval resolution of small patches of infiltrate within the posterior right lower lobe. New small patches of infiltrate within the posterior right upper lobe, medial superior segment of the right lower lobe, superior left lower lobe, and posterolateral left lower lobe. New small inflammatory nodules or small patches of infiltrate within the posterolateral left lower lobe image 346, series 6, and right lower lobe image 403, series 6. It is questioned whether these findings could be secondary to small septic emboli. Compared to 10/05/2019, interval decrease in size of left apical nodule (previously 8-9 mm transversely, currently 5 mm) on axial image 79, series 6. indicating benign etiology. Interval resolution of lateral left upper lobe nodules (10/05/2019 axial image 191, series 3). Interval near-total resolution medial right upper lobe nodule (10/05/2019 axial image 258, series 3). Pleural space: No pleural fluid collection. No pneumothorax. Heart: No right ventricular strain. No pericardial effusion. Prior median sternotomy with aortic valve replacement. Lymph nodes: No enlarged lymph nodes. Liver: The anterior and right lateral margins of the liver exhibit a lobulated contour with relative enlargement of the caudate lobe of the liver compared to to the right and left hepatic lobes. These findings reflect chronic scarring / cirrhosis. Pancreas: Prominent pancreatic duct, otherwise normal pancreas. Kidneys and ureters: Bilateral renal cortical cysts. Bones/joints: Mild spinal degenerative changes. No acute fracture. Prior median sternotomy Soft tissues: Prominent umbilical vein. IMPRESSION: 1. No evidence of pulmonary embolism. 2. Compared to 10/05/2019, interval resolution medial right upper lobe infiltrate. Interval resolution of small patches of infiltrate within the posterior right lower lobe. 3. New small patches of infiltrate within the posterior right upper lobe, medial superior segment of the right lower lobe, superior left lower lobe, and posterolateral left lower lobe. New small inflammatory nodules or small patches of infiltrate within the posterolateral left lower lobe image 346, series 6, and right lower lobe image 403, series 6. It is questioned whether these findings could be secondary to small septic emboli. 4. Compared to 10/05/2019, interval decrease in size of left apical nodule (previously 8-9 mm transversely, currently 5 mm) on axial image 79, series 6. indicating benign etiology. Interval resolution of lateral left upper lobe nodules (10/05/2019 axial image 191, series 3). Interval near-total resolution medial right upper lobe nodule (10/05/2019 axial image 258, series 3). 5. Cirrhosis. Dictated and Authenticated by: Sergio Chawla MD. Ordering:LESLEY Mack MD
[2020-01-19 22:58] LABS: Troponin I < 0.05 ng/mL (<0.06)
--- NOTE | 2020-01-19 23:00 | RT.EKG_ITS ---
APPROVED REPORT Exam: Resting ECG Patient Location: E HR:75 bpm ECG Measurements Heart Rate 75 AXIS [place] 163 P 43 QRSd 112 QRS 74 QT 420 T 29 QTc 469 Conclusion Sinus rhythm...normal P axis, V-rate 60- 99 Atrial premature complexes...SV complexes w/ short R-R intvls Normal [place] Normal ST segments
== END 2020-01-19 23:20 | disposition home or self-care (01) ==
PROVIDERS: Emergency Medicine; Emergency Provider Emergency Medicine; PCP Family Medicine
DX: R91.8 Other nonspecific abnormal finding of lung field (principal); M54.6 Pain in thoracic spine; R06.02 Shortness of breath; J44.9 Chronic obstructive pulmonary disease, unspecified; I10 Essential (primary) hypertension; Z87.891 Personal history of nicotine dependence
CPT/HCPCS: 71275; 80053; 93005; 96374; 99285; 83735; 83880; 84484; 85025; 85610; 85730; 93010; 99284; J3490

== ENCOUNTER 2020-02-22 00:28 | Outpatient (CLI) | payer MEDICARE, SELFPAY ==
--- NOTE | 2020-02-22 | DI.CT_ITS ---
EXAM: CT CHEST WO CLINICAL HISTORY: COPD,J44.9,F/U JOSH NODULE AND RUL INFILTRATE TECHNIQUE: COMPARISON: CT CT CHEST WO from 10/05/2019 FINDINGS: Noncontrast chest CT was performed. Images obtained through the upper abdomen show hepatic contour suggestive of cirrhosis. Upper pole r enal cysts again noted. Thoracic aorta is ectatic at about 45 millimeters. There is an aortic valve prosthesis. There are c oronary artery calcifications. No gross mediastinal or hilar adenopathy. No pleural effusion seen. There are multiple small pulmonary nodules as well as multi focal larger spiculated lesions measuring up to 2 cm in diameter obliquely measured, in the right upper lobe and the left lower lobe. These a re new since the prior CT of October 04. Previously noted area right suprahilar consolidation appears to have resolved since the prior study. A left apical multi nodular radiodensity is less prominent than on the prior study. IMPRESSION: Findings in comparison with prior examination of October 01 again show a waxing and waning appearance of multiple intrapulmonary nodules and spiculated consolidative or mass lesions. Please correlate clinically, the findings as described may represent infectious process but neoplasti c disease including metastatic disease is not excluded on the basis of this examination. RADIATION DOSE DELIVERED: 384.32mGy.cm Total DLP
== END 2020-02-22 00:48 ==
PROVIDERS: PCP Family Medicine; Visit Provider Internal Medicine
DX: R91.8 Other nonspecific abnormal finding of lung field (principal); J44.9 Chronic obstructive pulmonary disease, unspecified
CPT/HCPCS: 71250

== ENCOUNTER 2020-08-10 14:08 | Emergency (ER) | payer MEDICARE, SELFPAY ==
--- NOTE | 2020-08-10 14:00 | RT.EKG_ITS ---
APPROVED REPORT Exam: Resting ECG Reason for Exam: difficulty breathing Patient Location: E HR:93 bpm ECG Measurements Heart Rate 93 AXIS [place] 151 P 62 QRSd 111 QRS 55 QT 370 T 51 QTc 450 Conclusion Sinus rhythm...normal P axis, V-rate 60- 99 Atrial premature complexes in couplets...pair SV complexes w/ short R-R
[2020-08-10 14:23] VITALS: BP 126/90; PULSE 95; RESP 16; TEMP 36.8; O2SAT 94
--- NOTE | 2020-08-10 14:27 | W.ED.GENAD ---
Discharge Plan Disposition Patient Disposition: HOME Condition: Stable Discharge Details Clinical Impression: Acute exacerbation of chronic obstructive pulmonary disease Primary Care Provider: Rayshawn Kothari ED Provider: Brittanie Valdez Home Meds and New Rx's Prescriptions: New prednisone 20 mg tablet See Rx Instructions .ROUTE .COMPLEX Qty: 18 RF: 0 Continued amlodipine [Norvasc] 10 mg tablet 10 mg PO DAILY Qty: 90 RF: 3 omeprazole 20 mg tablet,delayed release (DR/EC) 20 mg PO DAILY Qty: 90 RF: 3 Narcan 4 mg/actuation spray,non-aerosol 4 mg NS PRN Qty: 2 RF: 0 losartan 25 mg tablet 25 mg PO DAILY Qty: 90 RF: 4 atorvastatin 20 mg tablet 20 mg PO QPM Qty: 90 RF: 3 (DME) Space Chamber Plus 1 EACH spacer 1 ea Miscellaneous PRN Qty: 1 RF: 0 Breo Ellipta 1 EACH blister with device 1 tab Inhalation DAILY RF: 0 Stiolto Respimat 4 GM mist 2 puff Inhalation DAILY RF: 0 aspirin [Enteric Coated Aspirin] 81 mg tablet,delayed release (DR/EC) 81 mg PO DAILY Qty: 90 RF: 3 tamsulosin 0.4 mg capsule 0.4 mg PO DAILY Qty: 90 RF: 3 morphine concentrate 100 mg/5 mL (20 mg/mL) solution 0.25 mg PO Q6H MDD 20 mg PRN (Reason: dyspnea) Qty: 30 RF: 0 lorazepam 0.5 mg tablet 0.5 mg PO TID PRN (Reason: anxiety) Qty: 30 RF: 2 hydrocodone-acetaminophen 5-325 mg tablet 1 tab PO TID MDD 3 tabs PRN (Reason: chronic pain) Qty: 84 RF: 0 Hold Instructions: Home Medication placed on hold at Doctor's office albuterol sulfate [Ventolin HFA] 90 mcg/actuation HFA aerosol inhaler 2 puff INHALATION Q6H PRNQty: 1 RF: 0 multivitamin Tablet 1 tab PO DAILY RF: 0 No Action albuterol sulfate 2.5 mg /3 mL (0.083 %) solution for nebulization 2.5 mg IH QID PRN (Reason: shortness of breath or wheezing) Qty: 180 RF: 0 Discharge Instructions Instructions: COPD (Chronic Obstructive Pulmonary Disease) (ED) Additional Instructions: Use your albuterol inhaler and nebulizer as needed and directed. Take your other regular medications as directed. Call the [employer] at [phone] to fruit picker machine operator your nebulizer machine at the department. Your prescription has been sent electronically to your pharmacy. Call the pharmacy to make sure your prescription is ready before pickup. Take the prescription as directed. Follow-up with your primary care doctor in 1 week. Return to the emergency department with any worsening or new concerning symptoms. Discharge Data Discharge Date/Time-TO BE ENTERED AT DEPARTURE: 08/10/20 18:55 Discharge Physician: Brittanie Valdez Medical Decision Making <Frederick Novoa MD - Last Filed: 08/10/20 14:48> 75 yo male with hx of copd who comes in with shortness of breath for a few days denies any fevers but has chest pain with deep breaths. He is speaking in full sentences on exam with apical wheezing otherwise clear lungs. No cough and no abdomen pain. No murmurs and no jvd. The patient is declining any lab work or imaging at this time and only wants a neb. He understands his symptoms could be from a PE, acs, pneumonia, chf which can't be excluded without a workup. He has capacity to make his own decisions and understands risks of missing these diagnoses including and permanent disability and accepts these risks, he is refusing my medically recommended workup. Given his capacity to make decisions and request for neb will order this and reassess pt states he feels better after a neb and is still declining any workup at this time. Will d/c home, strongly recommended to follow up with his pcp and return if he changes his mind and would like further workup patient now changed his mind and is willing to stay for labs and imaging, will obtain troponin and cbc along with metabolic panel and cta of the chest Differential Diagnosis Differential Diagnosis: copd, asthma, pe Medical Records Medical records reviewed: Yes I reviewed the patient's medical records. Lab Data Lab results reviewed: Yes I reviewed the patient's lab results. ECG Data Attestation: I personally reviewed and interpreted this ECG (s) as follows: Prior ECG tracings: available for review Interpretation: sinus rhythm, rate of 93, no acute st t wave ischemic findings <Brittanie Valdez DO - Last Filed: 08/12/20 08:43> 1500 --please see Dr. Novoa's note for initial presentation, exam and plan. Case endorsed to follow-up on labs and imaging and final disposition. Plan is for repeat troponin and EKG. If work-up negative and patient feels better, plan for discharge to home. Patient assessed by me at bedside. He was given 1 neb treatment and 125 Solu-Medrol he states he feels better. He is declining any additional neb treatment. He denies any fever or cough or any other known Covid exposures so this appears less likely. He has clear breath sounds and no wheezing noted on exam but did admit to wheezing earlier. Suspect most likely COPD exacerbation. 1700 -- Labs reviewed. Normal white blood cell count at 6. Troponin negative. EKG unremarkable. BNP 299. CT chest negative for PE or acute disease and notes improvement of previously noted nodules. Patient stated that his currently has a restraining order out on him and he is unable to access his nebulizer machine from his home and has no one that can access this from him. Will discuss with care management. 1830 --repeat troponin negative. Repeat EKG unchanged. Patient reassessed and feels much better and feels comfortable going home. Care management was able to discuss with [employer] who went to patient's home and picked up his nebulizer machine. Nebulizer is currently at [facility] for patient to fruit picker machine operator. Patient was given a name of a naval police coxswain and a number to contact for pickup. A prescription for prednisone was sent electronically to his pharmacy. I do not see an indication for antibiotics. He has plenty of his inhalers not the medication at home. Patient was also offered to speak to care management with any assistance with housing but he is declining this at this time. Medical Records Medical records reviewed: Yes I reviewed the patient's medical records. Imaging Data Radiologic Study: Radiologist's impression: CT CHEST PE CTA CLINICAL HISTORY: ? chest pain and dyspnea. ? TECHNIQUE:? Imaging Protocol: CT angiography of the chest was performed using pulmonary embolus protocol.? Multi planar reconstructions were performed. CONTRAST MATERIAL:? Intravenous: Omnipaque 350 Contrast volume: 100 cc COMPARISON:? CT CT CHEST WO from 02/22/2020 FINDINGS: CHEST: PULMONARY ARTERIES: There are no intraluminal filling defects to suggest acute pulmonary emboli. LUNGS: Is subtle 5 centimeter nodular infiltrate in the right upper lobe which is more evident than previous but there is been sys resolution of the other larger spiculated nodular infiltrates in the right lung..? There has also been almost complete resolution of nodular infiltrates in the left lung the few small remaining nodular densities.? There are no pleural effusions on either side MEDIASTINUM: There is no hilar nor mediastinal adenopathy. Visualized thyroid unremarkable. CARDIAC: Sternotomy wires.? Heart size upper normal.? There is no pericardial effusion.? Enlarged ascending thoracic aorta is again noted with maximum diameter 4.4 cm.? No dissection evident.? Diameter of the aortic arch and descending thoracic aorta upper normal.? PARTIALLY VISUALIZED UPPERMOST ABDOMEN: Partially included cystic structure in the upper right abdomen is noted which is possibly the kidney cyst or related to the adrenal gland. OSSEOUS: No significant osseous lesions.. IMPRESSION: 1. No evidence of acute pulmonary emboli.? No evidence of pulmonary infarction.No pleural effusions. 2. Further improvement in the small spiculated bilateral nodular infiltrates when compared to 02/22/2020.? Other smaller nodular infiltrates noted bilaterally.? There is no intrathoracic adenopathy. 3. Enlarged ascending thoracic aorta.? No dissection.? No pericardial effusion. Lab Data Lab results reviewed: Yes I reviewed the patient's lab results. Labs: Laboratory Tests Range/Units 08/10/20 08/10/20 08/10/20 14:38 14:38 14:38 WBC (4.4-10.8) 10^3/uL 6.65 RBC (4.36-5.78) 10^6/uL 4.19 L Hgb (13.5-17.5) g/dL 12.9 L Hct (40.0-50.0) % 37.9 L MCV (80-95) fL 90.5 MCH (27.0-33.0) pg 30.8 MCHC (32.0-36.0) % 34.0 RDW (11.8-14.1) % 13.2 Plt Count (130-400) 10^3/uL 152 MPV (8.0-11.0) fL 9.6 Immature Gran % 0.5 Neutrophils % 70.0 Lymphocytes % 20.6 Monocytes % 7.8 Eosinophils % 0.6 Basophils % 0.5 Nucleated RBC % % 0 Absolute Neutrophils (1.2-6.7) 10^3/uL 4.66 Absolute Lymphocytes (1.2-3.4) 10^3/uL 1.37 Absolute Monocytes (0.1-0.8) 10^3/uL 0.52 Absolute Eosinophils (0.0-0.7) 10^3/uL 0.04 Absolute Basophils (0.0-0.2) 10^3/uL 0.03 PT (9.3-11.0) sec 10.3 INR (0.9-1.1) 1.0 APTT (21.0-27.5) sec 24.5 Sodium (136-145) mmol/L 140 Potassium (3.5-5.1) mmol/L 3.6 Chloride (98-107) mmol/L 105 Carbon Dioxide (21.0-32.0) mmol/L 24.6 Anion Gap (3-11) mmol/L 10.4 BUN (7-18) mg/dL 15 Creatinine (0.70-1.30) mg/dL 1.5 H Estimated GFR/1.73 m2 (mL/min/1.73m2) 45.87 Glucose (74-106) mg/dL 166 H Calcium (8.5-10.1) mg/dL 8.7 Magnesium (1.8-2.4) mg/dL 1.9 Total Bilirubin (0.2-1.0) mg/dL 0.6 AST (15-37) U/L 35 ALT (16-63) U/L 41 Alkaline Phosphatase (46-116) U/L 81 Troponin I (<0.06) ng/mL NT-Pro-B Natriuret Pep (<300) pg/mL 299 Total Protein (6.4-8.2) g/dL 6.9 Albumin (3.4-5.0) g/dL 3.7 Range/Units 08/10/20 08/10/20 14:38 17:26 WBC (4.4-10.8) 10^3/uL RBC (4.36-5.78) 10^6/uL Hgb (13.5-17.5) g/dL Hct (40.0-50.0) % MCV (80-95) fL MCH (27.0-33.0) pg MCHC (32.0-36.0) % RDW (11.8-14.1) % Plt Count (130-400) 10^3/uL MPV (8.0-11.0) fL Immature Gran % Neutrophils % Lymphocytes % Monocytes % Eosinophils % Basophils % Nucleated RBC % % Absolute Neutrophils (1.2-6.7) 10^3/uL Absolute Lymphocytes (1.2-3.4) 10^3/uL Absolute Monocytes (0.1-0.8) 10^3/uL Absolute Eosinophils (0.0-0.7) 10^3/uL Absolute Basophils (0.0-0.2) 10^3/uL PT (9.3-11.0) sec INR (0.9-1.1) APTT (21.0-27.5) sec Sodium (136-145) mmol/L Potassium (3.5-5.1) mmol/L Chloride (98-107) mmol/L Carbon Dioxide (21.0-32.0) mmol/L Anion Gap (3-11) mmol/L BUN (7-18) mg/dL Creatinine (0.70-1.30) mg/dL Estimated GFR/1.73 m2 (mL/min/1.73m2) Glucose (74-106) mg/dL Calcium (8.5-10.1) mg/dL Magnesium (1.8-2.4) mg/dL Total Bilirubin (0.2-1.0) mg/dL AST (15-37) U/L ALT (16-63) U/L Alkaline Phosphatase (46-116) U/L Troponin I (<0.06) ng/mL < 0.05 < 0.05 NT-Pro-B Natriuret Pep (<300) pg/mL Total Protein (6.4-8.2) g/dL Albumin (3.4-5.0) g/dL ECG Data Attestation: I personally reviewed and interpreted this ECG (s) as follows: Interpretation: #1 --Rate of 93, sinus, PACs. No STEMI. #2 --Rate of 81, sinus, PACs. No STEMI. HPI <Frederick Novoa MD - Last Filed: 08/10/20 14:48> General Mode of arrival: ambulatory. Date/Time Provider Initiated Documentation: 08/10/20 14:09. Limitations to Documentation: no limitations. Information obtained by: patient. History of Present Illness 75 year old M presents to the emergency department with the chief complaint of shortness of breath, described as moderate, Patient started experiencing this day(s) and it has been constant. No relieving factors improve symptom(s), No exacerbating factors reported . Related Data Home Medications Medication Instructions Recorded Confirmed Space Chamber Plus #1 04/27/14 08/10/20 Breo Ellipta 1 tab INHALATION DAILY 10/15/17 08/10/20 Stiolto Respimat 2 puff INHALATION DAILY 10/15/17 08/10/20 multivitamin 1 tab PO DAILY 08/24/18 08/10/20 albuterol sulfate [Ventolin HFA] 2 puff INHALATION Q6H PRN #1 device 05/28/19 08/10/20 atorvastatin 20 mg tablet 20 mg PO QPM #90 tab 06/08/19 08/10/20 amlodipine 10 mg tablet 10 mg PO DAILY #90 tab 09/21/19 08/10/20 omeprazole 20 mg tablet,delayed 20 mg PO DAILY #90 tab 09/21/19 08/10/20 release aspirin 81 mg tablet,delayed 81 mg PO DAILY #90 tab 11/19/19 08/10/20 release losartan 25 mg tablet 25 mg PO DAILY #90 tab-cap 12/21/19 08/10/20 naloxone 4 mg/actuation nasal spray 4 mg NS PRN #2 spray 12/21/19 08/10/20 tamsulosin 0.4 mg capsule 0.4 mg PO DAILY #90 cap 12/29/19 08/10/20 morphine concentrate 100 mg/5 mL 0.25 mg PO Q6H PRN #30 ml MDD 20 mg 03/14/20 08/10/20 (20 mg/mL) oral solution lorazepam 0.5 mg tablet 0.5 mg PO TID PRN #30 tab 08/01/20 08/10/20 hydrocodone 5 mg-acetaminophen 325 1 tab PO TID PRN #84 tab MDD 3 tabs 08/08/20 08/10/20 mg tablet prednisone See Rx Instructions .ROUTE 08/10/20 .COMPLEX #18 tab albuterol sulfate 2.5 mg IH QID PRN #180 ml 08/11/20 Previous Rx's Medication Instructions Recorded albuterol sulfate [Ventolin HFA] 2 puff INHALATION Q6H PRN #1 device 05/28/19 atorvastatin 20 mg tablet 20 mg PO QPM #90 tab 06/08/19 amlodipine 10 mg tablet 10 mg PO DAILY #90 tab 09/21/19 omeprazole 20 mg tablet,delayed 20 mg PO DAILY #90 tab 09/21/19 release aspirin 81 mg tablet,delayed 81 mg PO DAILY #90 tab 11/19/19 release losartan 25 mg tablet 25 mg PO DAILY #90 tab-cap 12/21/19 naloxone 4 mg/actuation nasal spray 4 mg NS PRN #2 spray 12/21/19 tamsulosin 0.4 mg capsule 0.4 mg PO DAILY #90 cap 12/29/19 morphine concentrate 100 mg/5 mL 0.25 mg PO Q6H PRN #30 ml MDD 20 mg 03/14/20 (20 mg/mL) oral solution lorazepam 0.5 mg tablet 0.5 mg PO TID PRN #30 tab 08/01/20 hydrocodone 5 mg-acetaminophen 325 1 tab PO TID PRN #84 tab MDD 3 tabs 08/08/20 mg tablet prednisone See Rx Instructions .ROUTE 08/10/20 .COMPLEX #18 tab albuterol sulfate 2.5 mg IH QID PRN #180 ml 08/11/20 Allergies Allergy/AdvReac Type Severity Reaction Status Date / Time lisinopril Allergy Intermediate RASH; Verified 06/23/20 08:40 PRURITIS diphenhydramine HCl AdvReac Severe Makes him Verified 06/23/20 08:40 [From Benadryl] crazy/anxious NSAIDS (Non-Steroidal AdvReac Intermediate GI Verified 06/23/20 08:40 Anti-Inflamma Intolerance tramadol AdvReac Intermediate nausea/vomi Verified 06/23/20 08:40 ting gabapentin AdvReac Unknown GI UPSET Verified 06/23/20 08:40 SCALLOP Allergy Severe THROAT Uncoded 03/22/20 09:55 SWELLING General Stated Complaint: RespSymp ALFREDO: 3 Review of Systems <Frederick Novoa MD - Last Filed: 08/10/20 14:48> All systems reviewed & are unremarkable except as noted in HPI and below Constitutional Constitutional: Denies chills, Denies fever(s) and Denies weakness Cardiovascular Cardiovascular: Denies chest pain Respiratory Respiratory: Denies cough Gastrointestinal Gastrointestinal: Denies abdominal pain, Denies nausea and Denies vomiting Musculoskeletal Musculoskeletal: Denies joint swelling Neurologic Neurologic: Denies weakness Psychiatric Psychiatric: Denies depression [facility] <Frederick Novoa MD - Last Filed: 08/10/20 14:48> Medical History (Updated 08/10/20 @ 18:30 by Brittanie Valdez DO) Anxiety Arthritis Benign prostatic hyperplasia (02/03/13) CAD (coronary artery disease) (12/05/16) 12/05/16 [facility] [place]~NON OBSTRUCTIVE Cataracts, bilateral Chronic obstructive pulmonary disease (08/05/17) Chronic pain syndrome Chronic shoulder pain 07/17/16~CONTROLLED SUBSTANCE AGREEMENT Chronic, continuous use of opioids Cirrhosis Esophageal varices without bleeding (05/14/16) Essential hypertension (02/26/16) Gastro-esophageal reflux (09/15/13) Lower urinary tract symptoms (LUTS) No able caregiver in household Nocturnal hypoxia Palliative care patient Parent-child estrangement nec not involved in either daughter's life Paroxysmal atrial fibrillation (01/28/17) ford operative aortic valve replacement Social isolation SVT (supraventricular tachycardia) (~02/2018) Surgical History Aortic valve replaced History of surgical procedure on eye proper using laser S/P cardiac cath negative 2 years ago Total replacement of hip LEFT Family History Mother , age 76 from widespread cancer of uncertain origin and ESRD Diabetes Essential hypertension Heart disease Hyperlipidemia Dialysis patient Personal history of malignant neoplasm Brother Essential hypertension Heart disease Grandmother Personal history of malignant neoplasm Father , disappeared when Rafiq was 5 yo; about age 40 Alcohol abuse Sister , from uncertain cause about age 55 Alcohol abuse Substance abuse Brother No problems noted. Daughter Parent-child estrangement nec Daughter Parent-child estrangement nec Social History Smoking/Tobacco Use Status: Former Tobacco Use Quit Date: 03/24/04 Pack-years: 90 Tobacco: How many years used: 45 Second Hand Exposure: No ( smokes outside, Rafiq very careful to avoid cig smoke) Smoking risk assessment performed?: Yes Alcohol Intake: former Year quit: 1984 Drug use: Rarely Substance use type: marijuana Details: cbd gummy bears for pain Caregiver/Support person: No Household members: spouse Housing: house Number of Children: 2 Communication Needs: Corrective Lenses Education Level: college Details: 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 AD in psychology Do you need help understanding health information?: Rarely 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 Pets and animals: Yes Sexually active: No What is your relationship status?: How often do you talk on the phone with friends or family?: never How often do you get together with friends or relatives?: never Do you belong to any clubs or organized social groups?: no Panel score (0-1 are the most socially isolated patients): 1 What type of physical activity do you participate in: walking and independent ambulation Duration: > 90 minutes/day Frequency: daily Special ofelia needs: No Seatbelt use: always Working smoke detector in home: Yes Fire extinguisher in home: Yes Carbon monox detector in home: Yes Firearms in home: No Do you feel safe at home: Yes Do you feel safe in your relationship?: Yes Additional Social history: Not emotionally close to his , #3. She is chronically ill, obese, sedentary, smokes outside. Rafiq does most of the cooking and all the shopping. They live very separate lives in same trailer. Exam <Frederick Novoa MD - Last Filed: 08/10/20 14:48> Const General: no acute distress Orientation: alert [facility] Head: normal to inspection Ears: external ears normal General nose exam: external nose normal Mouth: moist mucous membranes Eyes General: appearance normal, both eyes and all related structures Neck Neck: normal visual inspection Resp Effort & Inspection: normal respiratory effort and able to speak in complete sentences Cardio Rate: regular rate Skin General skin exam: no rashes or lesions noted Neuro General: patient alert and patient oriented x3 Extrem General: normal to inspection Psych Mental Status: mental status grossly normal Course <Frederick Novoa MD - Last Filed: 08/10/20 14:48> Vital Signs Vital signs: Vital Signs Temperature 36.8 C 08/10/20 14:23 Pulse 95 H 08/10/20 14:23 Respiratory Rate 16 08/10/20 14:23 Blood Pressure 126/90 08/10/20 14:23 Pulse Oximetry 94 08/10/20 14:23 Temperature 36.8 C 08/10/20 14:23 Temperature Source Temporal Artery Scan 08/10/20 14:23 Pulse 95 H 08/10/20 14:23 Respiratory Rate 16 08/10/20 14:23 Respiratory Effort 08/10/20 14:25 Blood Pressure 126/90 08/10/20 14:23 Blood Pressure Position Sitting 08/10/20 14:23 Pulse Oximetry 94 08/10/20 14:23 Oxygen Delivery Method Room Air 08/10/20 14:23 Oxygen Flow Rate 0 08/10/20 14:23 Sign Out <Frederick Novoa MD - Last Filed: 08/10/20 14:48> Sign Out Data: Sign Out Comment: several days of pleuritic chest pain , initially refused labs and imaging but then changed his mind. Treating for copd and pending labs and cta, reassessment Last updated by Frederick Novoa MD at 08/10/20 14:51
[2020-08-10] MEDS: Albuterol/Ipratropium 3 ML UPD VIAL UPD (14:41)
--- NOTE | 2020-08-10 14:45 | DI.CT_ITS ---
Exam(s) CT CHEST PE CTA EXAM: CT CHEST PE CTA CLINICAL HISTORY: chest pain and dyspnea. TECHNIQUE: Imaging Protocol: CT angiography of the chest was performed using pulmonary embolus tari col. Multi planar reconstructions were performed. CONTRAST MATERIAL: Intravenous: Omnipaque 350 Contrast volume: 100 cc COMPARISON: CT CT CHEST WO from 02/22/2020 FINDINGS: CHEST: PULMONARY ARTERIES: There are no intraluminal filling defects to suggest acute pulmonary emboli. LUNGS: Is subtle 5 centimeter nodular infiltrate in the right upper lobe which is more evident than p revious but there is been sys resolution of the other larger spiculated nodular infiltrates in the ri ght lung.. There has also been almost complete resolution of nodular infiltrates in the left lung th e few small remaining nodular densities. There are no pleural effusions on either side MEDIASTINUM: There is no hilar nor mediastinal adenopathy. Visualized thyroid unremarkable. CARDIAC: Sternotomy wires. Heart size upper normal. There is no pericardial effusion. Enlarged asc ending thoracic aorta is again noted with maximum diameter 4.4 cm. No dissection evident. Diameter of the aortic arch and descending thoracic aorta upper normal. PARTIALLY VISUALIZED UPPERMOST ABDOMEN: Partially included cystic structure in the upper right abdome n is noted which is possibly the kidney cyst or related to the adrenal gland. OSSEOUS: No significant osseous lesions.. IMPRESSION: 1. No evidence of acute pulmonary emboli. No evidence of pulmonary infarction.No pleural effusions. 2. Further improvement in the small spiculated bilateral nodular infiltrates when compared to 020. Other smaller nodular infiltrates noted bilaterally. There is no intrathoracic adenopathy. 3. Enlarged ascending thoracic aorta. No dissection. No pericardial effusion RADIATION DOSE DELIVERED: 212.79mGy.cm Total DLP DATA REPOSITORY: All CT scans at this facility are submitted to the National Radiology Data Registry (NRDR) Dose Index Registry (DIR) with the [employer] (ACR). RADIATION OPTIMIZATION: All CT scans at this facility use at least one of these dose optimization te chniques: automated exposure control; mA and/or kV adjustment per patient size (includes targeted exa ms where dose is matched to clinical indication); or iterative reconstruction.
[2020-08-10 14:47] LABS: Abs Immature Grans 0.03 10^3/uL (0.0-0.06); Absolute Basophil Count 0.03 10^3/uL (0.0-0.2); Absolute Eosinophil Count 0.04 10^3/uL (0.0-0.7); Absolute Lymphocyte Count 1.37 10^3/uL (1.2-3.4); Absolute Monocyte Count 0.52 10^3/uL (0.1-0.8); Absolute Neutrophil Count 4.66 10^3/uL (1.2-6.7); Basophils % 0.5; Eosinophils % 0.6; HCT 37.9 % (40.0-50.0); HGB 12.9 g/dL (13.5-17.5); Immature Grans % 0.5; Lymphocytes % 20.6; MCH 30.8 pg (27.0-33.0); MCV 90.5 fL (80-95); MPV 9.6 fL (8.0-11.0); Monocytes % 7.8; Nucleated RBC 0 %; Platelet Count 152 10^3/uL (130-400); RBC 4.19 10^6/uL (4.36-5.78); RDW 13.2 % (11.8-14.1); RDW-SD 43.2 fL; WBC 6.65 10^3/uL (4.4-10.8)
[2020-08-10] MEDS: methylPREDNISolone SUCC 125 MG VIAL IVP (14:49)
[2020-08-10 15:02] LABS: PTT Activated 24.5 sec (21.0-27.5); Prothrombin Time 10.3 sec (9.3-11.0)
[2020-08-10 15:12] LABS: ALT 41 U/L (16-63); AST 35 U/L (15-37); Albumin 3.7 g/dL (3.4-5.0); Alkaline Phosphatase 81 U/L (46-116); Anion Gap 10.4 mmol/L (3-11); BUN 15 mg/dL (7-18); Bilirubin, Total 0.6 mg/dL (0.2-1.0); CO2 24.6 mmol/L (21.0-32.0); CREATININE 1.5 mg/dL (0.70-1.30); Calcium 8.7 mg/dL (8.5-10.1); Chloride 105 mmol/L (98-107); Estimated GFR 45.87 (mL/min/1.73m2); Glucose 166 mg/dL (74-106); Magnesium 1.9 mg/dL (1.8-2.4); NT-proBNP 299 pg/mL (<300); Potassium 3.6 mmol/L (3.5-5.1); Sodium 140 mmol/L (136-145); Total Protein 6.9 g/dL (6.4-8.2)
[2020-08-10] MEDS: Omnipaque 350 MG/ML 100 ML BTL IJ (15:25)
[2020-08-10 15:26] VITALS: PULSE 99; RESP 17; TEMP 37.1; O2SAT 97
[2020-08-10] MEDS: Normal Saline - Diluent 50 ML VIAL IV (15:27)
[2020-08-10] MEDS: HYDROcodone 5/Acetaminophen 325 TAB PO (15:29)
[2020-08-10 15:50] VITALS: BP 118/78; PULSE 90; RESP 18; O2SAT 94
--- NOTE | 2020-08-10 16:15 | RT.EKG_ITS ---
APPROVED REPORT Exam: Resting ECG Reason for Exam: sob Patient Location: E HR:81 bpm ECG Measurements Heart Rate 81 AXIS HI 194 P 0 QRSd 113 QRS 11 QT 412 T 50 QTc 480 Conclusion Unknown rhythm, irregular rate...V-rate 58-115, variation>10%. Sinus with PACs. No STEMI. No change from previous.
[2020-08-10 16:45] LABS: Troponin I < 0.05 ng/mL (<0.06)
[2020-08-10 17:53] LABS: Troponin I < 0.05 ng/mL (<0.06)
--- NOTE | 2020-08-10 18:08 | NUR.NOTE ---
Nursing Note:AMBULATES TO RESTROOM WITH STEADY GAIT.
[2020-08-10 18:09] VITALS: BP 133/89; PULSE 73; RESP 16; TEMP 37.1; O2SAT 97
--- NOTE | 2020-08-10 18:22 | NUR.NOTE ---
Nursing Note: PT SITTING ON SIDE OF BED. DENIES ANY NEEDS AT THIS TIME. SKIN PWD. RESP EVEN AND UNLABORED.
--- NOTE | 2020-08-10 18:26 | PDOC.ERCMPRO ---
- If Service Date Differs Date of service: 08/10/20 Time of Service: 18:26 Care Management Progress Note Rafiq presents in the ED for shortness of breath. He reports his has recently obtained a restraining order against him, so he had to leave his home and he has been sleeping in his truck. Rafiq has a nebulizer which is currently at his house, but he is unable to go home and get it because of the restraining order. CM is asked by ED provider to help figure out how to get the nebulizer from his home. CM contacts [facility] dispatch ([phone]) and asks for the assistance of Luis Miguel GREY. Officer Angela is able to go to Rafiq's home to retrieve the nebulizer. Once Rafiq is discharged from [facility], he will contact acid plant operator helper Angela and will make arrangements to get the nebulizer from the [employer].
== END 2020-08-10 18:55 | disposition home or self-care (01) ==
PROVIDERS: Emergency Medicine; Emergency Provider Physician Assistant; PCP Family Medicine
DX: J44.1 Chronic obstructive pulmonary disease with (acute) exacerbation (principal)
CPT/HCPCS: 36415; 71275; 80053; 93005; 94640; 96374; 99285; 83735; 83880; 84484; 85025; 85610; 85730; 93010; 99284; J2930; J3490; J7620

== ENCOUNTER 2020-08-11 17:24 | Emergency (ER) | payer MEDICARE, SELFPAY ==
--- NOTE | 2020-08-11 17:43 | NUR.NOTE ---
front desk administrator called to report patient left, asked front desk administrator if he said anything prior to leaving and he stated he could not wait
== END 2020-08-11 17:39 ==
LOC: ER 17:32
PROVIDERS: PCP Family Medicine
DX: Z53.21 Procedure and treatment not carried out due to patient leaving prior to being seen by health care provider (principal)

== ENCOUNTER 2020-08-23 20:44 | Emergency (ER) | payer MEDICARE, SELFPAY ==
[2020-08-23 20:50] VITALS: BP 128/70; PULSE 80; RESP 18; TEMP 36.7; O2SAT 97
--- NOTE | 2020-08-23 21:05 | W.ED.GENAD ---
Discharge Plan Disposition Patient Disposition: HOME Condition: Improving Discharge Details Clinical Impression: Atypical chest pain, Back pain Primary Care Provider: Rayshawn Kothari. ED Provider: Brittanie Valdez Home Meds and New Rx's Prescriptions: Continued amlodipine [Norvasc] 10 mg tablet 10 mg PO DAILY Qty: 90 RF: 3 omeprazole 20 mg tablet,delayed release (DR/EC) 20 mg PO DAILY Qty: 90 RF: 3 Narcan 4 mg/actuation spray,non-aerosol 4 mg NS PRN Qty: 2 RF: 0 losartan 25 mg tablet 25 mg PO DAILY Qty: 90 RF: 4 atorvastatin 20 mg tablet 20 mg PO QPM Qty: 90 RF: 3 (DME) Space Chamber Plus 1 EACH spacer 1 ea Miscellaneous PRN Qty: 1 RF: 0 Breo Ellipta 1 EACH blister with device 1 tab Inhalation DAILY RF: 0 Stiolto Respimat 4 GM mist 2 puff Inhalation DAILY RF: 0 aspirin [Enteric Coated Aspirin] 81 mg tablet,delayed release (DR/EC) 81 mg PO DAILY Qty: 90 RF: 3 tamsulosin 0.4 mg capsule 0.4 mg PO DAILY Qty: 90 RF: 3 morphine concentrate 100 mg/5 mL (20 mg/mL) solution 0.25 mg PO Q6H MDD 20 mg PRN (Reason: dyspnea) Qty: 30 RF: 0 lorazepam 0.5 mg tablet 0.5 mg PO TID PRN (Reason: anxiety) Qty: 30 RF: 2 hydrocodone-acetaminophen 5-325 mg tablet 1 tab PO TID MDD 3 tabs PRN (Reason: chronic pain) Qty: 84 RF: 0 Hold Instructions: Home Medication placed on hold at Doctor's office albuterol sulfate 2.5 mg /3 mL (0.083 %) solution for nebulization 2.5 mg IH QID PRN (Reason: shortness of breath or wheezing) Qty: 180 RF: 4 albuterol sulfate [Ventolin HFA] 90 mcg/actuation HFA aerosol inhaler 2 puff INHALATION Q6H PRNQty: 1 RF: 0 multivitamin Tablet 1 tab PO DAILY RF: 0 prednisone 20 mg tablet See Rx Instructions .ROUTE .COMPLEX Qty: 18 RF: 0 Discharge Instructions Instructions: Chest Pain (ED), Back Pain (ED) Additional Instructions: Take your pain medication that you have at home as needed and directed for pain. Call your labor relations supervisor office to schedule follow-up appointment for reevaluation and for follow-up of the nodule noted on the CT scan of your chest. Return immediately to the emergency department if you develop any worsening or new concerning symptoms. Discharge Data Discharge Date/Time-TO BE ENTERED AT DEPARTURE: 08/23/20 23:18 Discharge Physician: Brittanie Valdez Medical Decision Making 74-year-old male with a history of COPD, alcohol abuse presents for bilateral chest and back pain for the past 3 days. States the pain is constant. Denies fever, cough, shortness of breath. His vitals are within normal limits and he appears comfortable. Pain is not reproducible. Differential diagnosis includes costochondritis, neuropathic pain, anxiety. History and presentation does not appear typical of PE, ACS, COPD or CHF exacerbation. Considering patient's age and history, will check screening labs and CT chest and give a dose of morphine. Labs and imaging reviewed and unremarkable for acute findings. Normal white blood cell count. Negative troponin. CT chest negative for PE without any change in previously seen thoracic aneurysm. Also noted 17mm JOSH spiculated nodule, likely inflammatory in nature. They mentioned the possibility of considering septic embolus, but patient clinically does not appear consistent with this as he has no history of IV drug use, no complaint of shortness of breath, fever, hemodynamically stable with a normal white blood cell count. Patient feels much better and he feels good to go home. Will ambulate around the ED and if patient feels okay, will discharge to home. Follow-up with your labor relations supervisor for reevaluation and for follow-up of the nodule on your CT chest. Usual and customary return precautions given prior to discharge. Medical Records Medical records reviewed: Yes I reviewed the patient's medical records. Imaging Data Radiologic Study: Radiologist's impression: CTA Chest With Contrast Exam date and time: 08/23/2020 9:19 PM Age: 75 years old Clinical indication: Prior surgery; Surgery date: 6+ months; Surgery type: Valve replacement; Patient HX: Chest and back pain, R/O pe, pneumonia TECHNIQUE: Imaging protocol: Computed tomographic angiography of the chest with contrast. 3D rendering (Not supervised by radiologist): MIP and/or 3D reconstructed images were created by the technologist. Radiation optimization: All CT scans at this facility use at least one of these dose optimization techniques: automated exposure control; mA and/or kV adjustment per patient size (includes targeted exams where dose is matched to clinical indication); or iterative reconstruction. Contrast material: [id number]; Contrast volume: 60 ml; Contrast route: INTRAVENOUS (IV); COMPARISON: CT CHEST PE CTA 08/10/2020 3:36 PM FINDINGS: Pulmonary arteries: Normal. No pulmonary emboli. Aorta: 4.4 cm diameter ascending thoracic aorta. Mild calcified atherosclerotic disease. Lungs: 17 x 12 x 9 mm spiculated mass in the medial left upper lobe was not present on the comparison exam. 5 mm apical left upper lobe nodule is unchanged. 3 mm posterior left upper lobe nodule is unchanged. Numerous other small nodules are not significantly changed. Moderate centrilobular emphysema. Pleural spaces: Unremarkable. No pneumothorax. No pleural effusion. Heart: Prosthetic aortic valve. Lymph nodes: Unremarkable. No enlarged lymph nodes. Liver: Minimal intrahepatic contrast reflux. Kidneys and ureters: 5.7 cm right renal upper pole exophytic simple cyst. Bones/joints: Prior median sternotomy. Multilevel thoracic spondylosis. No acute fracture. Soft tissues: Unremarkable. IMPRESSION: 1. No pulmonary embolism. 2. 4.4 cm fusiform ascending thoracic aortic aneurysm, not significantly changed. 3. 17 mm left upper lobe spiculated nodule, not present on the comparison exam, likely inflammatory in nature. Consider septic embolus. 4. Numerous bilateral small pulmonary nodules, not significantly changed. 5. Right renal simple cyst. No further imaging required. Lab Data Lab results reviewed: Yes I reviewed the patient's lab results. Labs: Laboratory Tests Range/Units 08/23/20 08/23/20 08/23/20 21:29 21:29 21:29 WBC (4.4-10.8) 10^3/uL 7.57 RBC (4.36-5.78) 10^6/uL 4.20 L Hgb (13.5-17.5) g/dL 12.8 L Hct (40.0-50.0) % 38.4 L MCV (80-95) fL 91.4 MCH (27.0-33.0) pg 30.5 MCHC (32.0-36.0) % 33.3 RDW (11.8-14.1) % 13.2 Plt Count (130-400) 10^3/uL 180 MPV (8.0-11.0) fL 10.0 Immature Gran % 0.4 Neutrophils % 61.0 Lymphocytes % 27.3 Monocytes % 8.7 Eosinophils % 2.1 Basophils % 0.5 Nucleated RBC % % 0 Absolute Neutrophils (1.2-6.7) 10^3/uL 4.61 Absolute Lymphocytes (1.2-3.4) 10^3/uL 2.07 Absolute Monocytes (0.1-0.8) 10^3/uL 0.66 Absolute Eosinophils (0.0-0.7) 10^3/uL 0.16 Absolute Basophils (0.0-0.2) 10^3/uL 0.04 PT (9.3-11.0) sec 10.7 INR (0.9-1.1) 1.1 APTT (21.0-27.5) sec 25.0 Sodium (136-145) mmol/L 141 Potassium (3.5-5.1) mmol/L 3.9 Chloride (98-107) mmol/L 106 Carbon Dioxide (21.0-32.0) mmol/L 27.6 Anion Gap (3-11) mmol/L 7.4 BUN (7-18) mg/dL 23 H Creatinine (0.70-1.30) mg/dL 1.5 H Estimated GFR/1.73 m2 (mL/min/1.73m2) 45.87 Glucose (74-106) mg/dL 103 Calcium (8.5-10.1) mg/dL 9.1 Magnesium (1.8-2.4) mg/dL 2.1 Total Bilirubin (0.2-1.0) mg/dL 0.5 AST (15-37) U/L 29 ALT (16-63) U/L 40 Alkaline Phosphatase (46-116) U/L 90 Troponin I (<0.06) ng/mL < 0.05 Total Protein (6.4-8.2) g/dL 7.1 Albumin (3.4-5.0) g/dL 3.7 ECG Data Attestation: I personally reviewed and interpreted this ECG (s) as follows: Interpretation: Rate of 84, sinus, no STEMI, nondiagnostic HPI General Mode of arrival: ambulatory. Date/Time Provider Initiated Documentation: 08/23/20 21:04. Limitations to Documentation: no limitations. Information obtained by: patient. HPI Narrative: Patient is a 75-year-old male with a history of COPD, anxiety, hypertension, paroxysmal atrial fibrillation, former tobacco smoker who presents for chest and back pain for the past 3 days. Patient states this does not feel like it is his heart or his lungs and states he feels that the sides of his chest and back have an aching pain within the bones and vertebrae. He states he took 3 tabs of hydrocodone without relief. He denies any fever, cough, anterior chest pain, difficulty breathing, vomiting, diarrhea, change in appetite. Patient was seen here a couple weeks ago and diagnosed with COPD exacerbation and sent home with steroids which he states he did not take and his symptoms improved Related Data Home Medications Medication Instructions Recorded Confirmed Space Chamber Plus #1 04/27/14 08/10/20 Breo Ellipta 1 tab INHALATION DAILY 10/15/17 08/23/20 Stiolto Respimat 2 puff INHALATION DAILY 10/15/17 08/23/20 multivitamin 1 tab PO DAILY 08/24/18 08/23/20 albuterol sulfate [Ventolin HFA] 2 puff INHALATION Q6H PRN #1 device 05/28/19 08/23/20 atorvastatin 20 mg tablet 20 mg PO QPM #90 tab 06/08/19 08/23/20 amlodipine 10 mg tablet 10 mg PO DAILY #90 tab 09/21/19 08/23/20 omeprazole 20 mg tablet,delayed 20 mg PO DAILY #90 tab 09/21/19 08/23/20 release aspirin 81 mg tablet,delayed 81 mg PO DAILY #90 tab 11/19/19 08/23/20 release losartan 25 mg tablet 25 mg PO DAILY #90 tab-cap 12/21/19 08/23/20 naloxone 4 mg/actuation nasal spray 4 mg NS PRN #2 spray 12/21/19 08/23/20 tamsulosin 0.4 mg capsule 0.4 mg PO DAILY #90 cap 12/29/19 08/23/20 morphine concentrate 100 mg/5 mL 0.25 mg PO Q6H PRN #30 ml MDD 20 mg 03/14/20 08/23/20 (20 mg/mL) oral solution lorazepam 0.5 mg tablet 0.5 mg PO TID PRN #30 tab 08/01/20 08/23/20 hydrocodone 5 mg-acetaminophen 325 1 tab PO TID PRN #84 tab MDD 3 tabs 08/08/20 08/23/20 mg tablet prednisone See Rx Instructions .ROUTE 08/10/20 .COMPLEX #18 tab albuterol sulfate 2.5 mg IH QID PRN #180 ml 08/14/20 08/23/20 Previous Rx's Medication Instructions Recorded albuterol sulfate [Ventolin HFA] 2 puff INHALATION Q6H PRN #1 device 05/28/19 atorvastatin 20 mg tablet 20 mg PO QPM #90 tab 06/08/19 amlodipine 10 mg tablet 10 mg PO DAILY #90 tab 09/21/19 omeprazole 20 mg tablet,delayed 20 mg PO DAILY #90 tab 09/21/19 release aspirin 81 mg tablet,delayed 81 mg PO DAILY #90 tab 11/19/19 release losartan 25 mg tablet 25 mg PO DAILY #90 tab-cap 12/21/19 naloxone 4 mg/actuation nasal spray 4 mg NS PRN #2 spray 12/21/19 tamsulosin 0.4 mg capsule 0.4 mg PO DAILY #90 cap 12/29/19 morphine concentrate 100 mg/5 mL 0.25 mg PO Q6H PRN #30 ml MDD 20 mg 03/14/20 (20 mg/mL) oral solution lorazepam 0.5 mg tablet 0.5 mg PO TID PRN #30 tab 08/01/20 hydrocodone 5 mg-acetaminophen 325 1 tab PO TID PRN #84 tab MDD 3 tabs 08/08/20 mg tablet prednisone See Rx Instructions .ROUTE 08/10/20 .COMPLEX #18 tab albuterol sulfate 2.5 mg IH QID PRN #180 ml 08/14/20 Allergies Allergy/AdvReac Type Severity Reaction Status Date / Time lisinopril Allergy Intermediate RASH; Verified 08/23/20 21:33 PRURITIS diphenhydramine HCl AdvReac Severe Makes him Verified 08/23/20 21:33 [From Benadryl] crazy/anxious NSAIDS (Non-Steroidal AdvReac Intermediate GI Verified 08/23/20 21:33 Anti-Inflamma Intolerance tramadol AdvReac Intermediate nausea/vomi Verified 08/23/20 21:33 ting gabapentin AdvReac Unknown GI UPSET Verified 08/23/20 21:33 SCALLOP Allergy Severe THROAT Uncoded 08/23/20 21:33 SWELLING General Stated Complaint: Chest/Rib ALFREDO: 3 Review of Systems All systems reviewed & are unremarkable except as noted in HPI and below Constitutional Constitutional: Reports as per HPI, Denies chills and Denies fever(s) Eyes Eyes: Denies blurry vision ENT Ears, Nose, Mouth, and Throat: Denies dizziness, Denies sore throat and Denies throat swelling Cardiovascular Cardiovascular: Reports chest pain and Denies dyspnea Respiratory Respiratory: Denies cough and Denies dyspnea Gastrointestinal Gastrointestinal: Denies abdominal pain, Denies diarrhea and Denies vomiting Genitourinary Genitourinary: Denies hematuria and Denies dysuria Musculoskeletal Musculoskeletal: Reports back pain and Denies numbness Integumentary/Breasts Skin/Breast: Denies lesions and Denies rash Neurologic Neurologic: Denies dizziness, Denies localized weakness and Denies numbness Allergic/Immunologic Allergic/Immunologic: Denies throat swelling [facility] Medical History (Updated 08/23/20 @ 23:08 by Brittanie Valdez DO) Anxiety Arthritis Benign prostatic hyperplasia (02/03/13) CAD (coronary artery disease) (12/05/16) 12/05/16 [facility] [place]~NON OBSTRUCTIVE Cataracts, bilateral Chronic obstructive pulmonary disease (08/05/17) Chronic pain syndrome Chronic shoulder pain 07/17/16~CONTROLLED SUBSTANCE AGREEMENT Chronic, continuous use of opioids Cirrhosis Esophageal varices without bleeding (05/14/16) Essential hypertension (02/26/16) Gastro-esophageal reflux (09/15/13) Lower urinary tract symptoms (LUTS) No able caregiver in household Nocturnal hypoxia Palliative care patient Parent-child estrangement nec not involved in either daughter's life Paroxysmal atrial fibrillation (01/28/17) ford operative aortic valve replacement Social isolation SVT (supraventricular tachycardia) (~02/2018) Surgical History Aortic valve replaced History of surgical procedure on eye proper using laser S/P cardiac cath negative 2 years ago Total replacement of hip LEFT Family History Mother , age 76 from widespread cancer of uncertain origin and ESRD Diabetes Essential hypertension Heart disease Hyperlipidemia Dialysis patient Personal history of malignant neoplasm Brother Essential hypertension Heart disease Grandmother Personal history of malignant neoplasm Father , disappeared when Rafiq was 5 yo; about age 40 Alcohol abuse Sister , from uncertain cause about age 55 Alcohol abuse Substance abuse Brother No problems noted. Daughter Parent-child estrangement nec Daughter Parent-child estrangement nec Social History Smoking/Tobacco Use Status: Former Tobacco Use Quit Date: 03/24/04 Pack-years: 90 Tobacco: How many years used: 45 Second Hand Exposure: No ( smokes outside, Rafiq very careful to avoid cig smoke) Smoking risk assessment performed?: Yes Alcohol Intake: former Year quit: 1984 Drug use: Rarely Substance use type: marijuana Details: cbd gummy bears for pain Caregiver/Support person: No Household members: spouse Housing: house Number of Children: 2 Communication Needs: Corrective Lenses Education Level: college Details: 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 AD in psychology Do you need help understanding health information?: Rarely 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 Pets and animals: Yes Sexually active: No What is your relationship status?: How often do you talk on the phone with friends or family?: never How often do you get together with friends or relatives?: never Do you belong to any clubs or organized social groups?: no Panel score (0-1 are the most socially isolated patients): 1 What type of physical activity do you participate in: walking and independent ambulation Duration: > 90 minutes/day Frequency: daily Special ofelia needs: No Seatbelt use: always Working smoke detector in home: Yes Fire extinguisher in home: Yes Carbon monox detector in home: Yes Firearms in home: No Do you feel safe at home: Yes Do you feel safe in your relationship?: Yes Additional Social history: Not emotionally close to his , #3. She is chronically ill, obese, sedentary, smokes outside. Rafiq does most of the cooking and all the shopping. They live very separate lives in same trailer. Exam Const General: cooperative and no acute distress HENMT Head: normal to inspection Face and sinus: normal facial exam Eyes General: appearance normal, both eyes and all related structures EOM: EOM intact bilaterally Neck Neck: normal visual inspection and No submandibular swelling Lymphatic: no lymphadenopathy noted Chest Chest: normal inspection of the chest, normal palpation of entire chest wall, no crepitus, no tenderness and No rash Resp Effort & Inspection: normal respiratory effort and able to speak in complete sentences Auscultation: clear to auscultation bilaterally Cardio Rate: regular rate Rhythm: regular rhythm GI Inspection: normal to inspection Palpation: soft, not firm, not rigid and nontender Auscultation: normal bowel sounds Back/Spine/Pelvis Back: other (barrel-type chest) Thoracic/Lumbar Spine: kyphosis and other (thoracic and lumbar spine nontender, no rash, cellulitis or trauma noted) Skin General skin exam: no rashes or lesions noted Neuro General: patient alert, patient awake and patient oriented x3 Cognition: normal cognition Speech: speech normal Motor: muscle tone normal throughout Sensory Exam: no sensory deficits noted Extrem General: normal to inspection, full ROM, capillary refill normal, no calf tenderness bilaterally and no edema Psych Appearance: grossly normal Mental Status: mental status grossly normal Speech and Movement: speech and movement normal Affect: normal affect Course Vital Signs Vital signs: Vital Signs Temperature 98.1 F 08/23/20 20:50 Pulse 80 08/23/20 20:50 Respiratory Rate 18 08/23/20 20:50 Blood Pressure 128/70 08/23/20 20:50 Pulse Oximetry 97 08/23/20 20:50 Temperature 98.1 F 08/23/20 20:50 Temperature Source Temporal Artery Scan 08/23/20 20:50 Pulse 80 08/23/20 20:50 Respiratory Rate 18 08/23/20 20:50 Respiratory Effort Non-Labored 08/23/20 20:53 Blood Pressure 128/70 08/23/20 20:50 Blood Pressure Position Sitting 08/23/20 20:50 Pulse Oximetry 97 08/23/20 20:50 Oxygen Delivery Method Room Air 08/23/20 20:50 Oxygen Flow Rate 0 08/23/20 20:50 Pain Level 10 08/23/20 20:50
--- NOTE | 2020-08-23 21:15 | RT.EKG_ITS ---
APPROVED REPORT Exam: Resting ECG Reason for Exam: chest and back pain Patient Location: E HR:84 bpm ECG Measurements Heart Rate 84 AXIS WV 153 P 61 QRSd 114 QRS 55 QT 392 T 55 QTc 445 Conclusion Sinus rhythm...normal P axis, V-rate 60- 99 Low voltage, extremity leads...all extremity leads <0.5mV. No STEMI. I have reviewed and interpreted ECG and agree with software generated interpretation.
[2020-08-23 21:25] VITALS: BP 128/70; PULSE 80; RESP 18; TEMP 36.7; O2SAT 97
[2020-08-23] MEDS: Normal Saline 250 ML IV (21:32)
[2020-08-23 21:40] LABS: Abs Immature Grans 0.03 10^3/uL (0.0-0.06); Absolute Basophil Count 0.04 10^3/uL (0.0-0.2); Absolute Eosinophil Count 0.16 10^3/uL (0.0-0.7); Absolute Lymphocyte Count 2.07 10^3/uL (1.2-3.4); Absolute Monocyte Count 0.66 10^3/uL (0.1-0.8); Absolute Neutrophil Count 4.61 10^3/uL (1.2-6.7); Basophils % 0.5; Eosinophils % 2.1; HCT 38.4 % (40.0-50.0); HGB 12.8 g/dL (13.5-17.5); Immature Grans % 0.4; Lymphocytes % 27.3; MCH 30.5 pg (27.0-33.0); MCHC 33.3 % (32.0-36.0); MCV 91.4 fL (80-95); Monocytes % 8.7; Nucleated RBC 0 %; Platelet Count 180 10^3/uL (130-400); RDW 13.2 % (11.8-14.1); RDW-SD 43.8 fL; WBC 7.57 10^3/uL (4.4-10.8)
[2020-08-23] MEDS: Normal Saline Flush 10 ML SYR IVP (21:42)
[2020-08-23] MEDS: Omnipaque 350 MG/ML 100 ML BTL IJ (21:54)
[2020-08-23] MEDS: Normal Saline - Diluent 50 ML VIAL IV (21:55)
--- NOTE | 2020-08-23 21:55 | DI.CT_ITS ---
Exam(s) CT CHEST PE CTA EXAM: CT CHEST PE CTA CLINICAL HISTORY: chest and back pain. TECHNIQUE: Imaging Protocol: Axial CT angiography was performed with multi-slice acquisition and mu lti-planar and/or 3D reconstructions. CONTRAST MATERIAL: Intravenous: Omnipaque 350 Contrast volume:60 mL COMPARISON: CT CT ABDOMEN PELVIS W from 08/19/[address] CHEST PE CTA from 08/10/2020 FINDINGS: Tracheobronchial tree: Patent where visualized. Pulmonary parenchyma: There is a new 1.7 x 1.2 x 0.9 cm spiculated mass in the medial aspect of the l eft upper lobe. This was not present on 08/10/2020. 3 mm nodule in the left lower lobe is unchanged. There is a stable 5 mm nodule in the right upper lobe. Several smaller nodules in the lungs are un changed. Moderate centrilobular pulmonary emphysema. Pulmonary Arteries: No evidence of filling defect to suggest pulmonary emboli. Mediastinum and Elva: No dominant adenopathy or fluid collection. Visualized thyroid gland: Unremarkable. Pleura: No effusion or pneumothorax. Heart: The heart is not dilated. Coronary artery calcifications are present. No pericardial effusion . There is a prosthetic aortic valve. Aorta: The ascending thoracic aorta measures 4.6 cm in diameter. Atherosclerosis is present. No suleman dence of dissection. Upper abdomen: There is a stable right renal cyst. Configuration of the liver is unchanged suggesti ve of hepatic cirrhosis. Soft tissues: Unremarkable. Bones: Sternotomy wires are in place. Degenerative changes are seen in the spine. IMPRESSION: 1. No evidence of pulmonary embolism or thoracic aortic dissection. 2. 4.6 cm ascending thoracic aortic aneurysm which is unchanged. 3. 1.7 cm left upper lobe spiculated nodule not present on the examination from 08/10/2020. This may be inflammatory or infectious in nature. 4. Stable bilateral pulmonary nodules. 5. Stable right renal cysts. No further imaging is required. RADIATION DOSE DELIVERED: 219.49mGy.cm Total DLP DATA REPOSITORY: All CT scans at this facility are submitted to the National Radiology Data Registry (NRDR) Dose Index Registry (DIR) with the [employer] (A[employer]). RADIATION OPTIMIZATION: All CT scans at this facility use at least one of these dose optimization te chniques: automated exposure control; mA and/or kV adjustment per patient size (includes targeted exa ms where dose is matched to clinical indication); or iterative reconstruction.
[2020-08-23 22:10] LABS: ALT 40 U/L (16-63); AST 29 U/L (15-37); Albumin 3.7 g/dL (3.4-5.0); Alkaline Phosphatase 90 U/L (46-116); Anion Gap 7.4 mmol/L (3-11); BUN 23 mg/dL (7-18); Bilirubin, Total 0.5 mg/dL (0.2-1.0); CO2 27.6 mmol/L (21.0-32.0); CREATININE 1.5 mg/dL (0.70-1.30); Calcium 9.1 mg/dL (8.5-10.1); Chloride 106 mmol/L (98-107); Estimated GFR 45.87 (mL/min/1.73m2); Glucose 103 mg/dL (74-106); INR 1.1 (0.9-1.1); Magnesium 2.1 mg/dL (1.8-2.4); Potassium 3.9 mmol/L (3.5-5.1); Prothrombin Time 10.7 sec (9.3-11.0); Sodium 141 mmol/L (136-145); Total Protein 7.1 g/dL (6.4-8.2); Troponin I < 0.05 ng/mL (<0.06)
--- NOTE | 2020-08-23 22:40 | DI.VRAD_ITS ---
PROCEDURE INFORMATION: Exam: CTA Chest With Contrast Exam date and time: 08/23/2020 9:19 PM Age: 75 years old Clinical indication: Prior surgery; Surgery date: 6+ months; Surgery type: Valve replacement; Patient HX: Chest and back pain, R/O pe, pneumonia TECHNIQUE: Imaging protocol: Computed tomographic angiography of the chest with contrast. 3D rendering (Not supervised by radiologist): MIP and/or 3D reconstructed images were created by the technologist. Radiation optimization: All CT scans at this facility use at least one of these dose optimization techniques: automated exposure control; mA and/or kV adjustment per patient size (includes targeted exams where dose is matched to clinical indication); or iterative reconstruction. Contrast material: [id number]; Contrast volume: 60 ml; Contrast route: INTRAVENOUS (IV); COMPARISON: CT CHEST PE CTA 08/10/2020 3:36 PM FINDINGS: Pulmonary arteries: Normal. No pulmonary emboli. Aorta: 4.4 cm diameter ascending thoracic aorta. Mild calcified atherosclerotic disease. Lungs: 17 x 12 x 9 mm spiculated mass in the medial left upper lobe was not present on the comparison exam. 5 mm apical left upper lobe nodule is unchanged. 3 mm posterior left upper lobe nodule is unchanged. Numerous other small nodules are not significantly changed. Moderate centrilobular emphysema. Pleural spaces: Unremarkable. No pneumothorax. No pleural effusion. Heart: Prosthetic aortic valve. Lymph nodes: Unremarkable. No enlarged lymph nodes. Liver: Minimal intrahepatic contrast reflux. Kidneys and ureters: 5.7 cm right renal upper pole exophytic simple cyst. Bones/joints: Prior median sternotomy. Multilevel thoracic spondylosis. No acute fracture. Soft tissues: Unremarkable. IMPRESSION: 1. No pulmonary embolism. 2. 4.4 cm fusiform ascending thoracic aortic aneurysm, not significantly changed. 3. 17 mm left upper lobe spiculated nodule, not present on the comparison exam, likely inflammatory in nature. Consider septic embolus. 4. Numerous bilateral small pulmonary nodules, not significantly changed. 5. Right renal simple cyst. No further imaging required. Dictated and Authenticated by: Agustin Dalton MD. Ordering:RISHI Gu MD
== END 2020-08-23 23:18 | disposition home or self-care (01) ==
PROVIDERS: Emergency Provider Physician Assistant; PCP Family Medicine
DX: R07.89 Other chest pain (principal); M54.9 Dorsalgia, unspecified
CPT/HCPCS: 71275; 80053; 93005; 96361; 96374; 99285; 83735; 84484; 85025; 85610; 85730; 93010; 99283; J3490

== ENCOUNTER 2020-08-27 19:59 | Emergency (ER) | payer MEDICARE, SELFPAY ==
[2020-08-27 20:11] VITALS: BP 135/67; PULSE 54; RESP 18; TEMP 37.1; O2SAT 97
[2020-08-27 21:13] LABS: Abs Immature Grans 0.03 10^3/uL (0.0-0.06); Absolute Basophil Count 0.04 10^3/uL (0.0-0.2); Absolute Eosinophil Count 0.16 10^3/uL (0.0-0.7); Absolute Lymphocyte Count 1.73 10^3/uL (1.2-3.4); Absolute Monocyte Count 0.69 10^3/uL (0.1-0.8); Absolute Neutrophil Count 3.98 10^3/uL (1.2-6.7); Basophils % 0.6; Eosinophils % 2.4; HCT 36.8 % (40.0-50.0); HGB 12.1 g/dL (13.5-17.5); Immature Grans % 0.5; Lymphocytes % 26.1; MCH 30.3 pg (27.0-33.0); MCHC 32.9 % (32.0-36.0); MCV 92.2 fL (80-95); Monocytes % 10.4; Nucleated RBC 0 %; Platelet Count 161 10^3/uL (130-400); RBC 3.99 10^6/uL (4.36-5.78); RDW 13.4 % (11.8-14.1); RDW-SD 45.3 fL; WBC 6.63 10^3/uL (4.4-10.8)
[2020-08-27 21:22] LABS: Prothrombin Time 10.4 sec (9.3-11.0)
[2020-08-27 21:28] LABS: ALT 42 U/L (16-63); AST 37 U/L (15-37); Albumin 3.5 g/dL (3.4-5.0); Alkaline Phosphatase 108 U/L (46-116); Anion Gap 6.7 mmol/L (3-11); BUN 20 mg/dL (7-18); Bilirubin, Total 0.4 mg/dL (0.2-1.0); CO2 27.3 mmol/L (21.0-32.0); CREATININE 1.5 mg/dL (0.70-1.30); Calcium 8.7 mg/dL (8.5-10.1); Chloride 107 mmol/L (98-107); Estimated GFR 45.87 (mL/min/1.73m2); Glucose 112 mg/dL (74-106); Potassium 3.8 mmol/L (3.5-5.1); Sodium 141 mmol/L (136-145); Total Protein 6.7 g/dL (6.4-8.2)
[2020-08-27 21:30] VITALS: BP 142/80; PULSE 57; RESP 16; TEMP 36.1; O2SAT 98
--- NOTE | 2020-08-27 21:42 | W.ED.GENAD ---
Discharge Plan Disposition Patient Disposition: HOME Condition: Good Discharge Details Clinical Impression: Hematoma Primary Care Provider: Rayshawn Kothari ED Provider: Marion Engle Home Meds and New Rx's Prescriptions: No Action amlodipine [Norvasc] 10 mg tablet 10 mg PO DAILY Qty: 90 RF: 3 omeprazole 20 mg tablet,delayed release (DR/EC) 20 mg PO DAILY Qty: 90 RF: 3 Narcan 4 mg/actuation spray,non-aerosol 4 mg NS PRN Qty: 2 RF: 0 losartan 25 mg tablet 25 mg PO DAILY Qty: 90 RF: 4 atorvastatin 20 mg tablet 20 mg PO QPM Qty: 90 RF: 3 (DME) Space Chamber Plus 1 EACH spacer 1 ea Miscellaneous PRN Qty: 1 RF: 0 Breo Ellipta 1 EACH blister with device 1 tab Inhalation DAILY RF: 0 Stiolto Respimat 4 GM mist 2 puff Inhalation DAILY RF: 0 aspirin [Enteric Coated Aspirin] 81 mg tablet,delayed release (DR/EC) 81 mg PO DAILY Qty: 90 RF: 3 tamsulosin 0.4 mg capsule 0.4 mg PO DAILY Qty: 90 RF: 3 morphine concentrate 100 mg/5 mL (20 mg/mL) solution 0.25 mg PO Q6H MDD 20 mg PRN (Reason: dyspnea) Qty: 30 RF: 0 lorazepam 0.5 mg tablet 0.5 mg PO TID PRN (Reason: anxiety) Qty: 30 RF: 2 hydrocodone-acetaminophen 5-325 mg tablet 1 tab PO TID MDD 3 tabs PRN (Reason: chronic pain) Qty: 84 RF: 0 Hold Instructions: Home Medication placed on hold at Doctor's office albuterol sulfate 2.5 mg /3 mL (0.083 %) solution for nebulization 2.5 mg IH QID PRN (Reason: shortness of breath or wheezing) Qty: 180 RF: 4 albuterol sulfate [Ventolin HFA] 90 mcg/actuation HFA aerosol inhaler 2 puff INHALATION Q6H PRNQty: 1 RF: 0 multivitamin Tablet 1 tab PO DAILY RF: 0 prednisone 20 mg tablet See Rx Instructions .ROUTE .COMPLEX Qty: 18 RF: 0 Discharge Instructions Instructions: Hematoma (ED) Additional Instructions: Please follow-up with your primary care physician, your labs today look within normal limits You may take Tylenol as needed for pain You may apply ice to the affected area Please return earlier with blood in stool, spreading bruising, or should you develop new or worsening complaints Medical Decision Making No evidence of infectious etiology of symptoms, platelets within normal limits, no history of coagulopathy, takes baby aspirin only Patient is otherwise well-appearing Ambulatory with steady gait, no evidence of thrombocytopenia or coagulopathy on diagnostic labs, history of renal insufficiency, similar for patient when compared to prior diagnostic labs Check to follow-up with primary care physician Differential Diagnosis Differential Diagnosis: Thrombocytopenia, coagulopathy, hematoma, contusion Medical Records Medical records reviewed: Yes I reviewed the patient's medical records. Lab Data Lab results reviewed: Yes I reviewed the patient's lab results. HPI General Mode of arrival: ambulatory. Date/Time Provider Initiated Documentation: 08/27/20 20:27. Limitations to Documentation: no limitations. Information obtained by: patient. HPI Narrative: 75-year-old male presents with report bruise to right leg. Denies any additional injuries. Denies blood in his stool. He did work in the garden yesterday but he did denies known injury. He was sent in by his doctor reportedly. He denies any dizziness or weakness. He is not anticoagulated. He states that the area is tender. Related Data Home Medications Medication Instructions Recorded Confirmed Space Chamber Plus #1 04/27/14 08/27/20 Breo Ellipta 1 tab INHALATION DAILY 10/15/17 08/27/20 Stiolto Respimat 2 puff INHALATION DAILY 10/15/17 08/27/20 multivitamin 1 tab PO DAILY 08/24/18 08/27/20 albuterol sulfate [Ventolin HFA] 2 puff INHALATION Q6H PRN #1 device 05/28/19 08/27/20 atorvastatin 20 mg tablet 20 mg PO QPM #90 tab 06/08/19 08/27/20 amlodipine 10 mg tablet 10 mg PO DAILY #90 tab 09/21/19 08/27/20 omeprazole 20 mg tablet,delayed 20 mg PO DAILY #90 tab 09/21/19 08/27/20 release aspirin 81 mg tablet,delayed 81 mg PO DAILY #90 tab 11/19/19 08/27/20 release losartan 25 mg tablet 25 mg PO DAILY #90 tab-cap 12/21/19 08/27/20 naloxone 4 mg/actuation nasal spray 4 mg NS PRN #2 spray 12/21/19 08/27/20 tamsulosin 0.4 mg capsule 0.4 mg PO DAILY #90 cap 12/29/19 08/27/20 morphine concentrate 100 mg/5 mL 0.25 mg PO Q6H PRN #30 ml MDD 20 mg 03/14/20 08/27/20 (20 mg/mL) oral solution lorazepam 0.5 mg tablet 0.5 mg PO TID PRN #30 tab 08/01/20 08/27/20 hydrocodone 5 mg-acetaminophen 325 1 tab PO TID PRN #84 tab MDD 3 tabs 08/08/20 08/27/20 mg tablet prednisone See Rx Instructions .ROUTE 08/10/20 08/27/20 .COMPLEX #18 tab albuterol sulfate 2.5 mg IH QID PRN #180 ml 08/14/20 08/27/20 Previous Rx's Medication Instructions Recorded albuterol sulfate [Ventolin HFA] 2 puff INHALATION Q6H PRN #1 device 05/28/19 atorvastatin 20 mg tablet 20 mg PO QPM #90 tab 06/08/19 amlodipine 10 mg tablet 10 mg PO DAILY #90 tab 09/21/19 omeprazole 20 mg tablet,delayed 20 mg PO DAILY #90 tab 09/21/19 release aspirin 81 mg tablet,delayed 81 mg PO DAILY #90 tab 11/19/19 release losartan 25 mg tablet 25 mg PO DAILY #90 tab-cap 12/21/19 naloxone 4 mg/actuation nasal spray 4 mg NS PRN #2 spray 12/21/19 tamsulosin 0.4 mg capsule 0.4 mg PO DAILY #90 cap 12/29/19 morphine concentrate 100 mg/5 mL 0.25 mg PO Q6H PRN #30 ml MDD 20 mg 03/14/20 (20 mg/mL) oral solution lorazepam 0.5 mg tablet 0.5 mg PO TID PRN #30 tab 08/01/20 hydrocodone 5 mg-acetaminophen 325 1 tab PO TID PRN #84 tab MDD 3 tabs 08/08/20 mg tablet prednisone See Rx Instructions .ROUTE 08/10/20 .COMPLEX #18 tab albuterol sulfate 2.5 mg IH QID PRN #180 ml 08/14/20 Allergies Allergy/AdvReac Type Severity Reaction Status Date / Time lisinopril Allergy Intermediate RASH; Verified 08/27/20 20:15 PRURITIS diphenhydramine HCl AdvReac Severe Makes him Verified 08/27/20 20:15 [From Benadryl] crazy/anxious NSAIDS (Non-Steroidal AdvReac Intermediate GI Verified 08/27/20 20:15 Anti-Inflamma Intolerance tramadol AdvReac Intermediate nausea/vomi Verified 08/27/20 20:15 ting gabapentin AdvReac Unknown GI UPSET Verified 08/27/20 20:15 SCALLOP Allergy Severe THROAT Uncoded 08/27/20 20:15 SWELLING General Stated Complaint: RashLesion ALFREDO: 4 Review of Systems Narrative: Review of systems obtained x7 aside from where indicated in HPI [facility] Medical History (Updated 08/27/20 @ 21:34 by DIANA Tirado) Anxiety Arthritis Benign prostatic hyperplasia (02/03/13) CAD (coronary artery disease) (12/05/16) 12/05/16 [facility] [place]~NON OBSTRUCTIVE Cataracts, bilateral Chronic obstructive pulmonary disease (08/05/17) Chronic pain syndrome Chronic shoulder pain 07/17/16~CONTROLLED SUBSTANCE AGREEMENT Chronic, continuous use of opioids Cirrhosis Esophageal varices without bleeding (05/14/16) Essential hypertension (02/26/16) Gastro-esophageal reflux (09/15/13) Lower urinary tract symptoms (LUTS) No able caregiver in household Nocturnal hypoxia Palliative care patient Parent-child estrangement nec not involved in either daughter's life Paroxysmal atrial fibrillation (01/28/17) ford operative aortic valve replacement Social isolation SVT (supraventricular tachycardia) (~02/2018) Surgical History Aortic valve replaced History of surgical procedure on eye proper using laser S/P cardiac cath negative 2 years ago Total replacement of hip LEFT Family History Mother , age 76 from widespread cancer of uncertain origin and ESRD Diabetes Essential hypertension Heart disease Hyperlipidemia Dialysis patient Personal history of malignant neoplasm Brother Essential hypertension Heart disease Grandmother Personal history of malignant neoplasm Father , disappeared when Rafiq was 5 yo; about age 40 Alcohol abuse Sister , from uncertain cause about age 55 Alcohol abuse Substance abuse Brother No problems noted. Daughter Parent-child estrangement nec Daughter Parent-child estrangement nec Social History Smoking/Tobacco Use Status: Former Tobacco Use Quit Date: 03/24/04 Pack-years: 90 Tobacco: How many years used: 45 Second Hand Exposure: No ( smokes outside, Rafiq very careful to avoid cig smoke) Smoking risk assessment performed?: Yes Alcohol Intake: former Year quit: 1984 Drug use: Rarely Substance use type: marijuana Details: cbd gummy bears for pain Caregiver/Support person: No Household members: spouse Housing: house Number of Children: 2 Communication Needs: Corrective Lenses Education Level: college Details: 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 AD in psychology Do you need help understanding health information?: Rarely 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 Pets and animals: Yes Sexually active: No What is your relationship status?: How often do you talk on the phone with friends or family?: never How often do you get together with friends or relatives?: never Do you belong to any clubs or organized social groups?: no Panel score (0-1 are the most socially isolated patients): 1 What type of physical activity do you participate in: walking and independent ambulation Duration: > 90 minutes/day Frequency: daily Special ofelia needs: No Seatbelt use: always Working smoke detector in home: Yes Fire extinguisher in home: Yes Carbon monox detector in home: Yes Firearms in home: No Do you feel safe at home: Yes Do you feel safe in your relationship?: Yes Additional Social history: Not emotionally close to his , #3. She is chronically ill, obese, sedentary, smokes outside. Rafiq does most of the cooking and all the shopping. They live very separate lives in same trailer. Exam Const General: cooperative and no acute distress Chest Chest: normal inspection of the chest Resp Effort & Inspection: normal respiratory effort Auscultation: clear to auscultation bilaterally Cardio Rate: bradycardic Rhythm: regular rhythm Skin Other: Ecchymosis noted to right medial leg, tenderness with palpation, approximately 4 inch x 2 inch region, Neuro General: patient alert and patient oriented x3 Extrem Other: Neurovascularly intact Course Vital Signs Vital signs: Vital Signs Temperature 37.1 C 08/27/20 20:11 Pulse 54 L 08/27/20 20:11 Respiratory Rate 18 08/27/20 20:11 Blood Pressure 135/67 08/27/20 20:11 Pulse Oximetry 97 08/27/20 20:11 Temperature 37.1 C 08/27/20 20:11 Temperature Source Temporal Artery Scan 08/27/20 20:11 Pulse 54 L 08/27/20 20:11 Respiratory Rate 18 08/27/20 20:11 Respiratory Effort 08/27/20 21:03 Blood Pressure 135/67 08/27/20 20:11 Blood Pressure Position Supine 08/27/20 20:11 Pulse Oximetry 97 08/27/20 20:11 Oxygen Delivery Method Room Air 08/27/20 20:11 Oxygen Flow Rate 0 08/27/20 20:11 Lab/Test Results Lab/Test Results: Laboratory Tests Range/Units 08/27/20 08/27/20 08/27/20 20:55 20:55 20:55 WBC (4.4-10.8) 10^3/uL 6.63 RBC (4.36-5.78) 10^6/uL 3.99 L Hgb (13.5-17.5) g/dL 12.1 L Hct (40.0-50.0) % 36.8 L MCV (80-95) fL 92.2 MCH (27.0-33.0) pg 30.3 MCHC (32.0-36.0) % 32.9 RDW (11.8-14.1) % 13.4 Plt Count (130-400) 10^3/uL 161 MPV (8.0-11.0) fL 10.0 Immature Gran % 0.5 Neutrophils % 60.0 Lymphocytes % 26.1 Monocytes % 10.4 Eosinophils % 2.4 Basophils % 0.6 Nucleated RBC % % 0 Absolute Neutrophils (1.2-6.7) 10^3/uL 3.98 Absolute Lymphocytes (1.2-3.4) 10^3/uL 1.73 Absolute Monocytes (0.1-0.8) 10^3/uL 0.69 Absolute Eosinophils (0.0-0.7) 10^3/uL 0.16 Absolute Basophils (0.0-0.2) 10^3/uL 0.04 PT (9.3-11.0) sec 10.4 INR (0.9-1.1) 1.0 Sodium (136-145) mmol/L 141 Potassium (3.5-5.1) mmol/L 3.8 Chloride (98-107) mmol/L 107 Carbon Dioxide (21.0-32.0) mmol/L 27.3 Anion Gap (3-11) mmol/L 6.7 BUN (7-18) mg/dL 20 H Creatinine (0.70-1.30) mg/dL 1.5 H Estimated GFR/1.73 m2 (mL/min/1.73m2) 45.87 Glucose (74-106) mg/dL 112 H Calcium (8.5-10.1) mg/dL 8.7 Total Bilirubin (0.2-1.0) mg/dL 0.4 AST (15-37) U/L 37 ALT (16-63) U/L 42 Alkaline Phosphatase (46-116) U/L 108 Total Protein (6.4-8.2) g/dL 6.7 Albumin (3.4-5.0) g/dL 3.5
== END 2020-08-27 22:00 | disposition home or self-care (01) ==
PROVIDERS: Emergency Provider Physician Assistant; PCP Family Medicine
DX: M79.81 Nontraumatic hematoma of soft tissue (principal)
CPT/HCPCS: 36415; 80053; 99283; 85025; 85610

== ENCOUNTER 2020-08-31 21:36 | Emergency (ER) | payer MEDICARE, SELFPAY ==
--- NOTE | 2020-08-31 22:30 | DI.RAD_ITS ---
Exam(s) XR KNEE RT 4V+ EXAM: XR KNEE RT 4V+ CLINICAL HISTORY: medial injury/bruising. TECHNIQUE: 2D digital imaging was performed. COMPARISON: No exams were available for comparison FINDINGS: BONES: No acute fracture is present. No bony destructive lesion is seen. JOINTS: The knee is normally aligned. No joint effusion is seen. SOFT TISSUE: Normal. Atherosclerosis. IMPRESSION: No acute fracture or dislocation. DATA REPOSITORY: RADIATION DOSE DELIVERED:
--- NOTE | 2020-08-31 22:57 | W.ED.GENAD ---
Discharge Plan Disposition Patient Disposition: HOME Condition: Stable Discharge Details Clinical Impression: Knee pain Primary Care Provider: Rayshawn Kothair ED Provider: Adonis Fox Home Meds and New Rx's Prescriptions: Continued amlodipine [Norvasc] 10 mg tablet 10 mg PO DAILY Qty: 90 RF: 3 omeprazole 20 mg tablet,delayed release (DR/EC) 20 mg PO DAILY Qty: 90 RF: 3 Narcan 4 mg/actuation spray,non-aerosol 4 mg NS PRN Qty: 2 RF: 0 losartan 25 mg tablet 25 mg PO DAILY Qty: 90 RF: 4 (DME) Space Chamber Plus 1 EACH spacer 1 ea Miscellaneous PRN Qty: 1 RF: 0 Breo Ellipta 1 EACH blister with device 1 tab Inhalation DAILY RF: 0 Stiolto Respimat 4 GM mist 2 puff Inhalation DAILY RF: 0 aspirin [Enteric Coated Aspirin] 81 mg tablet,delayed release (DR/EC) 81 mg PO DAILY Qty: 90 RF: 3 tamsulosin 0.4 mg capsule 0.4 mg PO DAILY Qty: 90 RF: 3 lorazepam 0.5 mg tablet 0.5 mg PO TID PRN (Reason: anxiety) Qty: 30 RF: 2 hydrocodone-acetaminophen 5-325 mg tablet 1 tab PO TID MDD 3 tabs PRN (Reason: chronic pain) Qty: 84 RF: 0 Hold Instructions: Home Medication placed on hold at Doctor's office albuterol sulfate 2.5 mg /3 mL (0.083 %) solution for nebulization 2.5 mg IH QID PRN (Reason: shortness of breath or wheezing) Qty: 180 RF: 4 atorvastatin 20 mg tablet 20 mg PO QPM Qty: 90 RF: 3 albuterol sulfate [Ventolin HFA] 90 mcg/actuation HFA aerosol inhaler 2 puff INHALATION Q6H PRNQty: 1 RF: 0 multivitamin Tablet 1 tab PO DAILY RF: 0 prednisone 20 mg tablet See Rx Instructions .ROUTE .COMPLEX Qty: 18 RF: 0 No Action morphine concentrate 100 mg/5 mL (20 mg/mL) solution 5 mg PO Q6H MDD 20 mg PRN (Reason: dyspnea) Qty: 30 RF: 0 Discharge Instructions Instructions: Knee Pain (ED) Additional Instructions: X-ray is unremarkable. Please wear Slick wrap as needed. Rest, elevate, cool and/or warm compresses every 2 hours for 20 minutes. Hncp-hqi-iaryyst medications such as Tylenol for discomfort as directed. Please watch for new or worsening symptoms and return to the ER for any concerns. I do recommend following up with your primary care provider as already scheduled, if symptoms persist referral to orthopedics may be indicated. Discharge Data Discharge Date/Time-TO BE ENTERED AT DEPARTURE: 08/31/20 23:40 Medical Decision Making This is a 75-year-old gentleman who was recently seen in our ER for right knee pain, that was atraumatic. Work-up ensued, but unremarkable and discharged home. Patient presents today stating that the pain and bruising is spreading. He distinctly remembers injury to his right knee, striking his knee with a wheelbarrow handle. He is specifically concerned because during his last evaluation he did not have an x-ray. Clinically he appears well, nontoxic. He is able to ambulate with a slightly antalgic gait. Full range of motion, knee stable, neuro, vascular, tendon intact. Calf is unremarkable. Negative Homans' sign. Clinically I see very little evidence to raise suspicion for DVT, septic joint, internal derangement, etc. Clinically this appears to be a contusion with localized swelling and minimal surrounding ecchymosis. Will obtain x-ray. X-ray of right knee obtained and read by radiology as negative. Discussed x-ray findings with patient. Discussed disposition. He would like his knee wrapped with an Slick wrap, does not want crutches or a cane. He reports that he is scheduled to follow-up with his primary care provider later this month. He was encouraged to return to the ER for new or worsening symptoms. Knee was wrapped with a 6 inch Slick wrap. I did encourage him to see if he could be evaluated sooner by his primary care provider if symptoms are persisting. Outpatient referral to orthopedics may be indicated if symptoms persist. Medical Records Medical records reviewed: Yes I reviewed the patient's medical records. Imaging Data Radiologic Study: Attestation: I personally reviewed and interpreted this imaging study as follows: Imaging: X-Ray Radiologist's impression: Exam(s) XR KNEE RT 4V+ EXAM: XR KNEE RT 4V+ CLINICAL HISTORY: medial injury/bruising. TECHNIQUE: 2D digital imaging was performed. COMPARISON: No exams were available for comparison FINDINGS: BONES: No acute fracture is present. No bony destructive lesion is seen. JOINTS: The knee is normally aligned. No joint effusion is seen. SOFT TISSUE: Normal. Atherosclerosis. IMPRESSION: No acute fracture or dislocation. HPI General Mode of arrival: ambulatory. Date/Time Provider Initiated Documentation: 08/31/20 21:37. Limitations to Documentation: no limitations. Information obtained by: patient. HPI Narrative: 75-year-old gentleman, past medical history that includes anxiety, arthritis, BPH, CAD, COPD, chronic pain syndrome, hypertension, GERD, proximal A. fib, seen in our ER 4 days ago for right knee pain presents tonight stating the pain and bruising is getting worse. He initially stated that there is no injury during his visit 4 days ago but tells me today that he distinctly remembers striking his inner knee with the handle of a wheelbarrow. He is concerned that he might have cracked a bone. He reports that the bruising although may be spreading in size is decreasing in color. He denies any new injury. He has no other acute concerns or time. Denies numbness, tingling, weakness. During his recent ER visit he had denied any obvious injury and therefore had a nontraumatic knee work-up but states at that time he did not have an x-ray. This evening he is specifically requesting an x-ray. He is able to ambulate without assistance but does report the pain is worse with movement. He denies any chest pain, shortness of breath, calf pain or swelling. Patient denies any new injury since striking his knee directly with the handle of a wheelbarrow. Related Data Home Medications Medication Instructions Recorded Confirmed Space Chamber Plus #1 04/27/14 08/27/20 Breo Ellipta 1 tab INHALATION DAILY 10/15/17 08/27/20 Stiolto Respimat 2 puff INHALATION DAILY 10/15/17 08/27/20 multivitamin 1 tab PO DAILY 08/24/18 08/27/20 albuterol sulfate [Ventolin HFA] 2 puff INHALATION Q6H PRN #1 device 05/28/19 08/27/20 amlodipine 10 mg tablet 10 mg PO DAILY #90 tab 09/21/19 08/27/20 omeprazole 20 mg tablet,delayed 20 mg PO DAILY #90 tab 09/21/19 08/27/20 release aspirin 81 mg tablet,delayed 81 mg PO DAILY #90 tab 11/19/19 08/27/20 release losartan 25 mg tablet 25 mg PO DAILY #90 tab-cap 12/21/19 08/27/20 naloxone 4 mg/actuation nasal spray 4 mg NS PRN #2 spray 12/21/19 08/27/20 tamsulosin 0.4 mg capsule 0.4 mg PO DAILY #90 cap 12/29/19 08/27/20 lorazepam 0.5 mg tablet 0.5 mg PO TID PRN #30 tab 08/01/20 08/27/20 hydrocodone 5 mg-acetaminophen 325 1 tab PO TID PRN #84 tab MDD 3 tabs 08/08/20 08/27/20 mg tablet prednisone See Rx Instructions .ROUTE 08/10/20 08/27/20 .COMPLEX #18 tab albuterol sulfate 2.5 mg IH QID PRN #180 ml 08/14/20 08/27/20 atorvastatin 20 mg tablet 20 mg PO QPM #90 tab 08/28/20 morphine concentrate 100 mg/5 mL 5 mg PO Q6H PRN #30 ml MDD 20 mg 09/01/20 09/01/20 (20 mg/mL) oral solution Previous Rx's Medication Instructions Recorded albuterol sulfate [Ventolin HFA] 2 puff INHALATION Q6H PRN #1 device 05/28/19 amlodipine 10 mg tablet 10 mg PO DAILY #90 tab 09/21/19 omeprazole 20 mg tablet,delayed 20 mg PO DAILY #90 tab 09/21/19 release aspirin 81 mg tablet,delayed 81 mg PO DAILY #90 tab 11/19/19 release losartan 25 mg tablet 25 mg PO DAILY #90 tab-cap 12/21/19 naloxone 4 mg/actuation nasal spray 4 mg NS PRN #2 spray 12/21/19 tamsulosin 0.4 mg capsule 0.4 mg PO DAILY #90 cap 12/29/19 lorazepam 0.5 mg tablet 0.5 mg PO TID PRN #30 tab 08/01/20 hydrocodone 5 mg-acetaminophen 325 1 tab PO TID PRN #84 tab MDD 3 tabs 08/08/20 mg tablet prednisone See Rx Instructions .ROUTE 08/10/20 .COMPLEX #18 tab albuterol sulfate 2.5 mg IH QID PRN #180 ml 08/14/20 atorvastatin 20 mg tablet 20 mg PO QPM #90 tab 08/28/20 morphine concentrate 100 mg/5 mL 5 mg PO Q6H PRN #30 ml MDD 20 mg 09/01/20 (20 mg/mL) oral solution Allergies Allergy/AdvReac Type Severity Reaction Status Date / Time lisinopril Allergy Intermediate RASH; Verified 08/31/20 11:10 PRURITIS diphenhydramine HCl AdvReac Severe Makes him Verified 08/31/20 11:10 [From Benadryl] crazy/anxious NSAIDS (Non-Steroidal AdvReac Intermediate GI Verified 08/31/20 11:10 Anti-Inflamma Intolerance tramadol AdvReac Intermediate nausea/vomi Verified 08/31/20 11:10 ting gabapentin AdvReac Unknown GI UPSET Verified 08/31/20 11:10 SCALLOP Allergy Severe THROAT Uncoded 08/27/20 20:15 SWELLING General Stated Complaint: Orthopedic ALFREDO: 5 Review of Systems Constitutional Constitutional: Denies fever(s) Cardiovascular Cardiovascular: Denies chest pain and Denies dyspnea Respiratory Respiratory: Denies dyspnea Musculoskeletal Musculoskeletal: Denies deformity, Reports arthralgias, Reports joint swelling, Denies numbness, Reports stiffness and Denies tingling Integumentary/Breasts Skin/Breast: Denies erythema Neurologic Neurologic: Denies numbness and Denies tingling [facility] Medical History Anxiety Arthritis Benign prostatic hyperplasia (02/03/13) CAD (coronary artery disease) (12/05/16) 12/05/16 [facility]~NON OBSTRUCTIVE Cataracts, bilateral Chronic obstructive pulmonary disease (08/05/17) Chronic pain syndrome Chronic shoulder pain 07/17/16~CONTROLLED SUBSTANCE AGREEMENT Chronic, continuous use of opioids Cirrhosis Esophageal varices without bleeding (05/14/16) Essential hypertension (02/26/16) Gastro-esophageal reflux (09/15/13) Lower urinary tract symptoms (LUTS) No able caregiver in household Nocturnal hypoxia Palliative care patient Parent-child estrangement nec not involved in either daughter's life Paroxysmal atrial fibrillation (01/28/17) ford operative aortic valve replacement Social isolation SVT (supraventricular tachycardia) (~02/2018) Surgical History Aortic valve replaced History of surgical procedure on eye proper using laser S/P cardiac cath negative 2 years ago Total replacement of hip LEFT Family History Mother , age 76 from widespread cancer of uncertain origin and ESRD Diabetes Essential hypertension Heart disease Hyperlipidemia Dialysis patient Personal history of malignant neoplasm Brother Essential hypertension Heart disease Grandmother Personal history of malignant neoplasm Father , disappeared when Rafiq was 5 yo; about age 40 Alcohol abuse Sister , from uncertain cause about age 55 Alcohol abuse Substance abuse Brother No problems noted. Daughter Parent-child estrangement nec Daughter Parent-child estrangement nec Social History Smoking/Tobacco Use Status: Former Tobacco Use Quit Date: 03/24/04 Pack-years: 90 Tobacco: How many years used: 45 Second Hand Exposure: No ( smokes outside, Rafiq very careful to avoid cig smoke) Smoking risk assessment performed?: Yes Alcohol Intake: former Year quit: 1984 Drug use: Rarely Substance use type: marijuana Details: cbd gummy bears for pain Caregiver/Support person: No Household members: spouse Housing: house Number of Children: 2 Communication Needs: Corrective Lenses Education Level: college Details: 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 AD in psychology Do you need help understanding health information?: Rarely 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 Pets and animals: Yes Sexually active: No What is your relationship status?: How often do you talk on the phone with friends or family?: never How often do you get together with friends or relatives?: never Do you belong to any clubs or organized social groups?: no Panel score (0-1 are the most socially isolated patients): 1 What type of physical activity do you participate in: walking and independent ambulation Duration: > 90 minutes/day Frequency: daily Special ofelia needs: No Seatbelt use: always Working smoke detector in home: Yes Fire extinguisher in home: Yes Carbon monox detector in home: Yes Firearms in home: No Do you feel safe at home: Yes Do you feel safe in your relationship?: Yes Additional Social history: Not emotionally close to his , #3. She is chronically ill, obese, sedentary, smokes outside. Rafiq does most of the cooking and all the shopping. They live very separate lives in same trailer. Exam Const General: cooperative, healthy appearing, comfortable and no acute distress Orientation: alert and awake [facility] Head: normal to inspection, normocephalic and atraumatic Eyes General: appearance normal, both eyes and all related structures Conjunctivae: conjunctivae normal Neck Neck: normal visual inspection, trachea midline and supple Resp Effort & Inspection: normal respiratory effort and able to speak in complete sentences Auscultation: clear to auscultation bilaterally Cardio Rate: regular rate Rhythm: regular rhythm Skin General skin exam: no rashes or lesions noted Neuro General: patient alert, patient awake, moves all extremities and no focal motor deficits Cognition: normal cognition Speech: speech normal Gait: antalgic (Minimally) Motor: muscle tone normal throughout and strength 5/5 throughout Sensory Exam: no sensory deficits noted Extrem General: full ROM and capillary refill normal Right lower extremity: full ROM, normal capillary refill, hip/thigh Details: normal ROM; no tenderness and no swelling, knee Details: abnormal to inspection, tenderness, swelling, normal ROM, knee ligament exam normal and ecchymosis; no crepitus and no unusual warmth, lower leg Details: no edema and ecchymosis; no tenderness, no localized swelling, no palpable cords and no unusual warmth, ankle Details: normal to inspection, abnormal to inspection, no edema and normal ROM; no tenderness and no swelling and foot Details: normal capillary refill, normal to inspection and toes with normal ROM Knee images: 1. Contusion, minimal swelling, what appears to be old ecchymosis, mild tenderness. Full range of motion. Skin is intact without erythema or warmth. 2. Mild what appears to be healing ecchymosis, no swelling or discomfort. 3. Mild what appears to be healing ecchymosis, no swelling or discomfort to palpation. 4. 3 separate semicircular areas of macular ecchymosis. Appears to be in a healing phase. Without tenderness. Full range of motion. Neuro, vascular, tendon intact. Other: Right lower extremity without calf pain, swelling, erythema. Negative Homans' sign. Neuro, vascular, tendon intact Psych Appearance: grossly normal Mental Status: mental status grossly normal
--- NOTE | 2020-08-31 23:26 | DI.VRAD_ITS ---
PROCEDURE INFORMATION: Exam: XR Right Knee Exam date and time: 08/31/2020 10:39 PM Age: 75 years old Clinical indication: Injury or trauma; Other: Hit wheel barrel; Sprain or strain; Patella or knee; Right; Injury date: 2 days ago TECHNIQUE: Imaging protocol: XR Right knee. Views: 4 or more views. COMPARISON: No relevant prior studies available. FINDINGS: Bones/joints: Normal. Soft tissues: Atherosclerotic calcifications. IMPRESSION: No acute findings. Dictated and Authenticated by: Frederick Lynn MD. Ordering:VIRGINIA Lamb MD
== END 2020-08-31 23:40 | disposition home or self-care (01) ==
PROVIDERS: Emergency Provider Physician Assistant; PCP Family Medicine
DX: M25.561 Pain in right knee (principal)
CPT/HCPCS: 99282; 73564

== ENCOUNTER 2020-09-05 10:39 | Emergency (ER) | payer MEDICARE, SELFPAY ==
[2020-09-05] VITALS (41 sets, daily range): BP systolic 83–155; BP diastolic 56–97; PULSE 56–84; RESP 12–28; TEMP 36.9; O2SAT 91–99
--- NOTE | 2020-09-05 10:30 | RT.EKG_ITS ---
APPROVED REPORT Exam: Resting ECG Reason for Exam: chest pain Patient Location: E HR:79 bpm ECG Measurements Heart Rate 79 AXIS OR 158 P 49 QRSd 109 QRS 86 QT 410 T -23 QTc 442 Conclusion Sinus rhythm...normal P axis, V-rate 60- 99 Atrial premature complexes...SV complexes w/ short R-R intvls
--- NOTE | 2020-09-05 11:00 | DI.RAD_ITS ---
Exam(s) XR CHEST 2V PA LATERAL EXAM: XR CHEST 2V PA LATERAL CLINICAL HISTORY: left sided chest pain TECHNIQUE: 2D digital imaging was performed. COMPARISON: CR,XR XR CHEST 2V PA LATERAL from 05/24/2019 FINDINGS: MEDIASTINUM: Normal. HEART: Normal. Aortic valve replacement. PULMONARY VASCULATURE: Normal. LUNGS: Hyperinflation of the lungs consistent with COPD. No focal consolidating infiltrates. PLEURAL SPACE: No pleural effusion or pneumothorax. BONE:Within normal limits for the patient's age. Sternal wires. OTHER FINDINGS:Normal. IMPRESSION: No acute pulmonary findings. DATA REPOSITORY: RADIATION DOSE DELIVERED:
[2020-09-05] MEDS: Lidocaine 5% Patch 1 PATCH TP (11:17)
[2020-09-05 11:25] LABS: Abs Immature Grans 0.02 10^3/uL (0.0-0.06); Absolute Basophil Count 0.04 10^3/uL (0.0-0.2); Absolute Eosinophil Count 0.14 10^3/uL (0.0-0.7); Absolute Lymphocyte Count 1.54 10^3/uL (1.2-3.4); Absolute Monocyte Count 0.63 10^3/uL (0.1-0.8); Absolute Neutrophil Count 4.15 10^3/uL (1.2-6.7); Basophils % 0.6; Eosinophils % 2.1; HCT 37.7 % (40.0-50.0); HGB 12.6 g/dL (13.5-17.5); Immature Grans % 0.3; Lymphocytes % 23.6; MCH 30.5 pg (27.0-33.0); MCHC 33.4 % (32.0-36.0); MCV 91.3 fL (80-95); MPV 9.8 fL (8.0-11.0); Monocytes % 9.7; Neutrophils % 63.7; Nucleated RBC 0 %; Platelet Count 201 10^3/uL (130-400); RBC 4.13 10^6/uL (4.36-5.78); RDW 13.7 % (11.8-14.1); RDW-SD 46.5 fL; WBC 6.52 10^3/uL (4.4-10.8)
--- NOTE | 2020-09-05 11:29 | W.ED.GENAD ---
Discharge Plan Disposition Patient Disposition: HOME Condition: Stable Discharge Details Clinical Impression: Left-sided chest pain Primary Care Provider: Rayshawn Kothari ED Provider: Adonis Fox Home Meds and New Rx's Prescriptions: Continued amlodipine [Norvasc] 10 mg tablet 10 mg PO DAILY Qty: 90 RF: 3 omeprazole 20 mg tablet,delayed release (DR/EC) 20 mg PO DAILY Qty: 90 RF: 3 Narcan 4 mg/actuation spray,non-aerosol 4 mg NS PRN Qty: 2 RF: 0 losartan 25 mg tablet 25 mg PO DAILY Qty: 90 RF: 4 morphine concentrate 100 mg/5 mL (20 mg/mL) solution 5 mg PO Q6H MDD 20 mg PRN (Reason: dyspnea) Qty: 30 RF: 0 (DME) Space Chamber Plus 1 EACH spacer 1 ea Miscellaneous PRN Qty: 1 RF: 0 Breo Ellipta 1 EACH blister with device 1 tab Inhalation DAILY RF: 0 Stiolto Respimat 4 GM mist 2 puff Inhalation DAILY RF: 0 aspirin [Enteric Coated Aspirin] 81 mg tablet,delayed release (DR/EC) 81 mg PO DAILY Qty: 90 RF: 3 tamsulosin 0.4 mg capsule 0.4 mg PO DAILY Qty: 90 RF: 3 albuterol sulfate 2.5 mg /3 mL (0.083 %) solution for nebulization 2.5 mg IH QID PRN (Reason: shortness of breath or wheezing) Qty: 180 RF: 4 atorvastatin 20 mg tablet 20 mg PO QPM Qty: 90 RF: 3 hydrocodone-acetaminophen 5-325 mg tablet 1 tab PO TID MDD 3 tabs PRN (Reason: chronic pain) Qty: 84 RF: 0 Hold Instructions: Home Medication placed on hold at Doctor's office albuterol sulfate [Ventolin HFA] 90 mcg/actuation HFA aerosol inhaler 2 puff INHALATION Q6H PRNQty: 1 RF: 0 multivitamin Tablet 1 tab PO DAILY RF: 0 No Action cyclobenzaprine 5 mg tablet 5 mg PO TID PRN (Reason: muscle spasm) Qty: 12 RF: 0 Discharge Instructions Instructions: Chest Pain (ED) Additional Instructions: Work-up in the ER does not reveal any obvious emergent process. CT imaging does reveal pulmonary nodules that were present during your last work-up. Radiology recommends that you have an outpatient repeat chest CT in the next 1-2 months to further evaluate these pulmonary nodules. I strongly recommend contacting your primary care provider later today or tomorrow to discuss outpatient reevaluation. [id number] medications such as Tylenol and/or Lidoderm patch as directed for symptomatic control. Please follow the instructions given to you by care management. Please watch for new or worsening symptoms and return to the ER for any concerns. Discharge Data Discharge Date/Time-TO BE ENTERED AT DEPARTURE: 09/05/20 15:48 Medical Decision Making <DIANA Haider - Last Filed: 09/05/20 16:23> 75-year-old gentleman presents with left lateral chest wall discomfort that he states is worse with movement or taking a deep breath, began yesterday, was atraumatic. Clinically he appears well, nontoxic. He has reproducible chest wall discomfort, no signs of a shingles-like rash, that is worse with movement or deep breathing. Certainly seems musculoskeletal in nature but given his age a work-up is warranted. Patient states he took a baby aspirin this morning, refuses additional 3 baby aspirin as he states this makes him sick to his stomach. He is agreeable to Tylenol and a Lidoderm patch. Will obtain a D-dimer to rule out PE. Reviewing the patient's medical records it appears as though he was here recently for atypical chest pain. Subsequently was brought to my attention that the patient had a restraining order against him from his and he has been living out of his truck. Initial laboratory values are unremarkable for obvious emergent process. White blood cell count 6.52 hemoglobin 12.6 hematocrit 37.7 platelet count 201. INR 1.0 awaiting D-dimer. Electrolytes unremarkable. Creatinine 1.2 with a GFR 59.35. Troponin less than 0.05. D-dimer 1635, chest x-ray negative per radiology. We will pursue CTA. Patient reports no improvement of his discomfort, he was evaluated by Dr. Callahan, who provided analgesia. Please see his note Chest CT reveals no evidence of pulmonary embolism or thoracic aortic dissection. Increased number of nodular opacities in the lung, infectious or inflammatory process should be considered. Follow-up CT scan chest in 1-2 months should be considered for reevaluation. COPD. Clinically extremely low suspicion for acute infectious process. Repeat troponin remains less than 0.05 Repeat EKG performed at 1353, please see official report by Dr. Callahan. Sinus rhythm, ventricular rate of 62. PVC present. No dynamic changes when compared to initial EKG. Discussed work-up with patient. He is relieved and has no additional questions or concerns. He is comfortable with discharge. He was encouraged to return to the ER for new or worsening symptoms. We discussed the importance of outpatient follow-up with his primary care provider regarding his pulmonary nodules and need for outpatient CT imaging I did request that our care management team come evaluate the patient to discuss his current living situation as he has presented multiple times recently and this would coincide with what sounds to be his restraining order and living in his truck. Please see her note. Medical Records Medical records reviewed: Yes I reviewed the patient's medical records. Lab Data Lab results reviewed: Yes I reviewed the patient's lab results. Labs: Laboratory Tests Range/Units 09/05/20 09/05/20 09/05/20 10:50 10:50 11:25 WBC (4.4-10.8) 10^3/uL 6.52 RBC (4.36-5.78) 10^6/uL 4.13 L Hgb (13.5-17.5) g/dL 12.6 L Hct (40.0-50.0) % 37.7 L MCV (80-95) fL 91.3 MCH (27.0-33.0) pg 30.5 MCHC (32.0-36.0) % 33.4 RDW (11.8-14.1) % 13.7 Plt Count (130-400) 10^3/uL 201 MPV (8.0-11.0) fL 9.8 Immature Gran % 0.3 Neutrophils % 63.7 Lymphocytes % 23.6 Monocytes % 9.7 Eosinophils % 2.1 Basophils % 0.6 Nucleated RBC % % 0 Absolute Neutrophils (1.2-6.7) 10^3/uL 4.15 Absolute Lymphocytes (1.2-3.4) 10^3/uL 1.54 Absolute Monocytes (0.1-0.8) 10^3/uL 0.63 Absolute Eosinophils (0.0-0.7) 10^3/uL 0.14 Absolute Basophils (0.0-0.2) 10^3/uL 0.04 PT (9.3-11.0) sec 10.5 INR (0.9-1.1) 1.0 APTT (21.0-27.5) sec 25.5 D-Dimer (<500) ng/mlFEU 1635 H Sodium (136-145) mmol/L 141 Potassium (3.5-5.1) mmol/L 4.1 Chloride (98-107) mmol/L 107 Carbon Dioxide (21.0-32.0) mmol/L 25.9 Anion Gap (3-11) mmol/L 8.1 BUN (7-18) mg/dL 16 Creatinine (0.70-1.30) mg/dL 1.2 Estimated GFR/1.73 m2 (mL/min/1.73m2) 59.35 Glucose (74-106) mg/dL 126 H Calcium (8.5-10.1) mg/dL 8.9 Magnesium (1.8-2.4) mg/dL 2.0 Total Bilirubin (0.2-1.0) mg/dL 0.6 AST (15-37) U/L 30 ALT (16-63) U/L 37 Alkaline Phosphatase (46-116) U/L 97 Troponin I (<0.06) ng/mL < 0.05 Total Protein (6.4-8.2) g/dL 6.9 Albumin (3.4-5.0) g/dL 3.5 Range/Units 09/05/20 13:50 WBC (4.4-10.8) 10^3/uL RBC (4.36-5.78) 10^6/uL Hgb (13.5-17.5) g/dL Hct (40.0-50.0) % MCV (80-95) fL MCH (27.0-33.0) pg MCHC (32.0-36.0) % RDW (11.8-14.1) % Plt Count (130-400) 10^3/uL MPV (8.0-11.0) fL Immature Gran % Neutrophils % Lymphocytes % Monocytes % Eosinophils % Basophils % Nucleated RBC % % Absolute Neutrophils (1.2-6.7) 10^3/uL Absolute Lymphocytes (1.2-3.4) 10^3/uL Absolute Monocytes (0.1-0.8) 10^3/uL Absolute Eosinophils (0.0-0.7) 10^3/uL Absolute Basophils (0.0-0.2) 10^3/uL PT (9.3-11.0) sec INR (0.9-1.1) APTT (21.0-27.5) sec D-Dimer (<500) ng/mlFEU Sodium (136-145) mmol/L Potassium (3.5-5.1) mmol/L Chloride (98-107) mmol/L Carbon Dioxide (21.0-32.0) mmol/L Anion Gap (3-11) mmol/L BUN (7-18) mg/dL Creatinine (0.70-1.30) mg/dL Estimated GFR/1.73 m2 (mL/min/1.73m2) Glucose (74-106) mg/dL Calcium (8.5-10.1) mg/dL Magnesium (1.8-2.4) mg/dL Total Bilirubin (0.2-1.0) mg/dL AST (15-37) U/L ALT (16-63) U/L Alkaline Phosphatase (46-116) U/L Troponin I (<0.06) ng/mL < 0.05 Total Protein (6.4-8.2) g/dL Albumin (3.4-5.0) g/dL ECG Data Attestation: I personally reviewed and interpreted this ECG (s) as follows: Interpretation: Please see official report by Dr. Callahan. Sinus rhythm, ventricular rate 79. PAC, no STEMI <Narayan Callahan MD - Last Filed: 09/15/20 23:34> Patient seen, examined, and discussed with DIANA Fox. I agree with treatment plan as discussed/documented. HPI <DIANA Haider - Last Filed: 09/05/20 16:23> General Mode of arrival: ambulatory. Date/Time Provider Initiated Documentation: 09/05/20 10:41. Limitations to Documentation: no limitations. Information obtained by: patient. HPI Narrative: This is a 75-year-old gentleman, past sickle history that includes anxiety, arthritis, BPH, CAD, COPD, chronic pain syndrome, cirrhosis, hypertension, GERD, proximal atrial fibrillation, aortic valve replacement, presenting to the ER today with a chief complaint of left lateral chest pain. Patient states that yesterday he developed left lateral chest pain at rest, reports the pain is intermittent, when it is present it is sharp and typically presents with deep inspiration or movement. He denies recent illness or chest trauma. He denies any fever, cough, shortness of breath, radiation of pain, abdominal pain, nausea, vomiting or back pain, change in bowel or bladder function. Denies pain or swelling in his calf. Patient is a former smoker. He has not taken any suua-gms-[id number] medications for his symptoms. Patient denies any history of CT or stent. He is not anticoagulated. Denies any rash Related Data Home Medications Medication Instructions Recorded Confirmed Space Chamber Plus #1 04/27/14 08/27/20 Breo Ellipta 1 tab INHALATION DAILY 10/15/17 09/11/20 Stiolto Respimat 2 puff INHALATION DAILY 10/15/17 09/11/20 multivitamin 1 tab PO DAILY 08/24/18 09/11/20 albuterol sulfate [Ventolin HFA] 2 puff INHALATION Q6H PRN #1 device 05/28/19 09/11/20 amlodipine 10 mg tablet 10 mg PO DAILY #90 tab 09/21/19 09/11/20 omeprazole 20 mg tablet,delayed 20 mg PO DAILY #90 tab 09/21/19 09/11/20 release aspirin 81 mg tablet,delayed 81 mg PO DAILY #90 tab 11/19/19 09/11/20 release losartan 25 mg tablet 25 mg PO DAILY #90 tab-cap 12/21/19 09/11/20 naloxone 4 mg/actuation nasal spray 4 mg NS PRN #2 spray 12/21/19 09/11/20 tamsulosin 0.4 mg capsule 0.4 mg PO DAILY #90 cap 12/29/19 09/11/20 albuterol sulfate 2.5 mg IH QID PRN #180 ml 08/14/20 09/11/20 atorvastatin 20 mg tablet 20 mg PO QPM #90 tab 08/28/20 09/11/20 morphine concentrate 100 mg/5 mL 5 mg PO Q6H PRN #30 ml MDD 20 mg 09/01/20 09/11/20 (20 mg/mL) oral solution hydrocodone 5 mg-acetaminophen 325 1 tab PO TID PRN #84 tab MDD 3 tabs 09/05/20 09/11/20 mg tablet cyclobenzaprine 5 mg tablet 5 mg PO TID PRN #12 tab 09/13/20 09/13/20 Previous Rx's Medication Instructions Recorded albuterol sulfate [Ventolin HFA] 2 puff INHALATION Q6H PRN #1 device 05/28/19 amlodipine 10 mg tablet 10 mg PO DAILY #90 tab 09/21/19 omeprazole 20 mg tablet,delayed 20 mg PO DAILY #90 tab 09/21/19 release aspirin 81 mg tablet,delayed 81 mg PO DAILY #90 tab 11/19/19 release losartan 25 mg tablet 25 mg PO DAILY #90 tab-cap 12/21/19 naloxone 4 mg/actuation nasal spray 4 mg NS PRN #2 spray 12/21/19 tamsulosin 0.4 mg capsule 0.4 mg PO DAILY #90 cap 12/29/19 albuterol sulfate 2.5 mg IH QID PRN #180 ml 08/14/20 atorvastatin 20 mg tablet 20 mg PO QPM #90 tab 08/28/20 morphine concentrate 100 mg/5 mL 5 mg PO Q6H PRN #30 ml MDD 20 mg 09/01/20 (20 mg/mL) oral solution hydrocodone 5 mg-acetaminophen 325 1 tab PO TID PRN #84 tab MDD 3 tabs 09/05/20 mg tablet cyclobenzaprine 5 mg tablet 5 mg PO TID PRN #12 tab 09/13/20 Allergies Allergy/AdvReac Type Severity Reaction Status Date / Time lisinopril Allergy Intermediate RASH; Verified 09/05/20 10:52 PRURITIS diphenhydramine HCl AdvReac Severe Makes him Verified 09/05/20 10:52 [From Bennil[place]] crazy/anxious NSAIDS (Non-Steroidal AdvReac Intermediate GI Verified 09/05/20 10:52 Anti-Inflamma Intolerance tramadol AdvReac Intermediate nausea/vomi Verified 09/05/20 10:52 ting gabapentin AdvReac Unknown GI UPSET Verified 09/05/20 10:52 SCALLOP Allergy Severe THROAT Uncoded 09/05/20 10:52 SWELLING General Stated Complaint: Chest/Rib ALFREDO: 2 Review of Systems <DIANA Haider - Last Filed: 09/05/20 16:23> Constitutional Constitutional: Denies fatigue, Denies fever(s), Denies headache(s) and Denies weakness ENT Ears, Nose, Mouth, and Throat: Denies headache(s) and Denies neck pain Cardiovascular Cardiovascular: Reports chest pain and Denies dyspnea Respiratory Respiratory: Denies cough and Denies dyspnea Gastrointestinal Gastrointestinal: Denies abdominal pain, Denies nausea and Denies vomiting Musculoskeletal Musculoskeletal: Denies back pain, Denies neck pain, Denies numbness and Denies tingling Integumentary/Breasts Skin/Breast: Denies rash Neurologic Neurologic: Denies headache(s), Denies numbness, Denies tingling and Denies weakness Endocrine Endocrine: Denies fatigue Hematologic/Lymphatic Hematologic/Lymphatic: Denies easy bleeding and Denies easy bruising [facility] <DIANA Haider - Last Filed: 09/05/20 16:23> Medical History (Updated 09/11/20 @ 21:18 by Fito Malave DO) Anxiety Arthritis Benign prostatic hyperplasia (02/03/13) CAD (coronary artery disease) (12/05/16) 12/05/16 [facility]~NON OBSTRUCTIVE Cataracts, bilateral Chronic obstructive pulmonary disease (08/05/17) Chronic pain syndrome Chronic shoulder pain 07/17/16~CONTROLLED SUBSTANCE AGREEMENT Chronic, continuous use of opioids Cirrhosis Esophageal varices without bleeding (05/14/16) Essential hypertension (02/26/16) Gastro-esophageal reflux (09/15/13) Lower urinary tract symptoms (LUTS) No able caregiver in household Nocturnal hypoxia Palliative care patient Parent-child estrangement nec not involved in either daughter's life Paroxysmal atrial fibrillation (01/28/17) ford operative aortic valve replacement Social isolation SVT (supraventricular tachycardia) (~02/2018) Surgical History Aortic valve replaced History of surgical procedure on eye proper using laser S/P cardiac cath negative 2 years ago Total replacement of hip LEFT Family History Mother , age 76 from widespread cancer of uncertain origin and ESRD Diabetes Essential hypertension Heart disease Hyperlipidemia Dialysis patient Personal history of malignant neoplasm Brother Essential hypertension Heart disease Grandmother Personal history of malignant neoplasm Father , disappeared when Rafiq was 5 yo; about age 40 Alcohol abuse Sister , from uncertain cause about age 55 Alcohol abuse Substance abuse Brother No problems noted. Daughter Parent-child estrangement nec Daughter Parent-child estrangement nec Social History Smoking/Tobacco Use Status: Former Tobacco Use Quit Date: 03/24/04 Pack-years: 90 Tobacco: How many years used: 45 Second Hand Exposure: No ( smokes outside, Rafiq very careful to avoid cig smoke) Smoking risk assessment performed?: Yes Alcohol Intake: former Year quit: 1984 Drug use: Rarely Substance use type: marijuana Details: cbd gummy bears for pain Caregiver/Support person: No Household members: spouse Housing: house Number of Children: 2 Communication Needs: Corrective Lenses Education Level: college Details: 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 AD in psychology Do you need help understanding health information?: Rarely 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 Pets and animals: Yes Sexually active: No What is your relationship status?: How often do you talk on the phone with friends or family?: never How often do you get together with friends or relatives?: never Do you belong to any clubs or organized social groups?: no Panel score (0-1 are the most socially isolated patients): 1 What type of physical activity do you participate in: walking and independent ambulation Duration: > 90 minutes/day Frequency: daily Special ofelia needs: No Seatbelt use: always Working smoke detector in home: Yes Fire extinguisher in home: Yes Carbon monox detector in home: Yes Firearms in home: No Do you feel safe at home: Yes Do you feel safe in your relationship?: Yes Additional Social history: Not emotionally close to his , #3. She is chronically ill, obese, sedentary, smokes outside. Rafiq does most of the cooking and all the shopping. They live very separate lives in same trailer. Exam <DIANA Haider - Last Filed: 09/05/20 16:23> Const General: cooperative, healthy appearing, comfortable and no acute distress Orientation: alert, awake and oriented x3 HENMT Head: normal to inspection, normocephalic and atraumatic Mouth: moist mucous membranes Throat: posterior oropharynx normal Eyes General: appearance normal, both eyes and all related structures Conjunctivae: conjunctivae normal Neck Neck: normal visual inspection, full ROM, trachea midline and supple Chest Chest: normal inspection of the chest, tenderness and No rash Resp Effort & Inspection: normal respiratory effort and able to speak in complete sentences Auscultation: diminished lung sounds bilaterally in the lower lung dimas Cardio Rate: regular rate Rhythm: regular rhythm GI Inspection: normal to inspection Palpation: soft and nontender Back/Spine/Pelvis Back: no CVA tenderness and No back tenderness Skin General skin exam: no rashes or lesions noted Neuro General: patient alert, patient awake, moves all extremities and no focal motor deficits Cognition: normal cognition Speech: speech normal Gait: normal gait Motor: muscle tone normal throughout and strength 5/5 throughout Sensory Exam: no sensory deficits noted Extrem General: full ROM, capillary refill normal, no pedal edema and no calf tenderness Psych Appearance: grossly normal Mental Status: mental status grossly normal Course <DIANA Haider - Last Filed: 09/05/20 16:23> Vital Signs Vital signs: Vital Signs Temperature 36.9 C 09/05/20 10:47 Pulse 83 09/05/20 10:47 Respiratory Rate 14 09/05/20 10:47 Pulse Oximetry 97 09/05/20 10:47 Temperature 36.9 C 09/05/20 10:47 Temperature Source Skin 09/05/20 10:47 Pulse 69 09/05/20 11:01 Pulse 83 09/05/20 11:02 Respiratory Rate 20 09/05/20 11:02 Respiratory Effort Non-Labored 09/05/20 10:54 Respiratory Depth Normal 09/05/20 10:54 Respiratory Pattern Normal 09/05/20 10:54 Blood Pressure 125/68 09/05/20 11:01 Blood Pressure Mean 82 09/05/20 11:01 Blood Pressure Position Supine 09/05/20 10:47 Pulse Oximetry 97 09/05/20 11:02 Oxygen Delivery Method Room Air 09/05/20 10:47 Oxygen Flow Rate 0 09/05/20 10:47 Pain Level 8 09/05/20 10:54 Lab/Test Results Lab/Test Results: Laboratory Tests Range/Units 09/05/20 10:50 WBC (4.4-10.8) 10^3/uL 6.52 RBC (4.36-5.78) 10^6/uL 4.13 L Hgb (13.5-17.5) g/dL 12.6 L Hct (40.0-50.0) % 37.7 L MCV (80-95) fL 91.3 MCH (27.0-33.0) pg 30.5 MCHC (32.0-36.0) % 33.4 RDW (11.8-14.1) % 13.7 Plt Count (130-400) 10^3/uL 201 MPV (8.0-11.0) fL 9.8 Immature Gran % 0.3 Neutrophils % 63.7 Lymphocytes % 23.6 Monocytes % 9.7 Eosinophils % 2.1 Basophils % 0.6 Nucleated RBC % % 0 Absolute Neutrophils (1.2-6.7) 10^3/uL 4.15 Absolute Lymphocytes (1.2-3.4) 10^3/uL 1.54 Absolute Monocytes (0.1-0.8) 10^3/uL 0.63 Absolute Eosinophils (0.0-0.7) 10^3/uL 0.14 Absolute Basophils (0.0-0.2) 10^3/uL 0.04
[2020-09-05 11:39] LABS: ALT 37 U/L (16-63); AST 30 U/L (15-37); Albumin 3.5 g/dL (3.4-5.0); Alkaline Phosphatase 97 U/L (46-116); Anion Gap 8.1 mmol/L (3-11); BUN 16 mg/dL (7-18); Bilirubin, Total 0.6 mg/dL (0.2-1.0); CO2 25.9 mmol/L (21.0-32.0); CREATININE 1.2 mg/dL (0.70-1.30); Calcium 8.9 mg/dL (8.5-10.1); Chloride 107 mmol/L (98-107); Estimated GFR 59.35 (mL/min/1.73m2); Glucose 126 mg/dL (74-106); Potassium 4.1 mmol/L (3.5-5.1); Sodium 141 mmol/L (136-145); Total Protein 6.9 g/dL (6.4-8.2)
[2020-09-05 11:40] LABS: Troponin I < 0.05 ng/mL (<0.06)
[2020-09-05 11:48] LABS: PTT Activated 25.5 sec (21.0-27.5); Prothrombin Time 10.5 sec (9.3-11.0)
--- NOTE | 2020-09-05 12:00 | DI.CT_ITS ---
Exam(s) CT CHEST PE CTA EXAM: CT CHEST PE CTA CLINICAL HISTORY: Left sided CP, elevated dimer. TECHNIQUE: Imaging Protocol: Axial CT angiography was performed with multi-slice acquisition and mu lti-planar and/or 3D reconstructions. CONTRAST MATERIAL: Intravenous: Omnipaque 350 Contrast volume:100 mL COMPARISON: CT CT CHEST PE CTA from 08/23/2020 FINDINGS: The lung apices were not included on this examination. Tracheobronchial tree: Patent where visualized. Pulmonary parenchyma: Since the prior examination there developed a few more nodular opacities in bot h lungs. The largest new area is in the right lung apex and measures 1.3 x 0.9 cm. There is a 0.9 c m nodular opacity in the medial aspect of the left lower lobe. Moderate centrilobular pulmonary emph ysema. Pulmonary Arteries: No evidence of filling defect to suggest pulmonary emboli. Mediastinum and Elva: No dominant adenopathy or fluid collection. Visualized thyroid gland: Unremarkable. Pleura: No effusion or pneumothorax. Heart: The heart is not dilated. Coronary artery calcification and/or stents. No pericardial effusio n. Aorta: Stable enlargement of the ascending thoracic aorta. Atherosclerosis. No definite evidence of dissection. Upper abdomen: Bilateral renal cysts. Colonic diverticulosis. Soft tissues: Unremarkable. Bones: Sternotomy.Degenerative changes in the spine. IMPRESSION: 1. No evidence of pulmonary embolism or thoracic aortic dissection. 2. Increased number of nodular opacities in the lungs. Given the short time interval from the prior examination, an infectious or inflammatory process should be considered. A follow-up CT scan of the c hest in 1-2 months should be considered for re-evaluation of the pulmonary nodules. 3. COPD. 4. Results of this exam have been verbally communicated with provider. RADIATION DOSE DELIVERED: 190.63mGy.cm Total DLP DATA REPOSITORY: All CT scans at this facility are submitted to the National Radiology Data Registry (NRDR) Dose Index Registry (DIR) with the [employer] (A[employer]). RADIATION OPTIMIZATION: All CT scans at this facility use at least one of these dose optimization te chniques: automated exposure control; mA and/or kV adjustment per patient size (includes targeted exa ms where dose is matched to clinical indication); or iterative reconstruction.
[2020-09-05 12:03] LABS: D-Dimer 1635 ng/mlFEU (<500)
[2020-09-05] MEDS: Acetaminophen 500 MG TAB 1000 MG PO (12:14)
[2020-09-05] MEDS: oxyCODONE 5 MG TAB PO (13:06)
[2020-09-05] MEDS: Normal Saline - Diluent 50 ML VIAL IV (13:35)
[2020-09-05] MEDS: Omnipaque 350 MG/ML 100 ML BTL IJ (13:35)
--- NOTE | 2020-09-05 13:45 | RT.EKG_ITS ---
APPROVED REPORT Exam: Resting ECG Reason for Exam: chest pain Patient Location: E HR:62 bpm ECG Measurements Heart Rate 62 AXIS WV 166 P 40 QRSd 113 QRS 19 QT 460 T 31 QTc 456 Conclusion Sinus bradycardia...rate< 60 Ventricular premature complex...V complex w/ short R-R interval
[2020-09-05 14:19] LABS: Troponin I < 0.05 ng/mL (<0.06)
--- NOTE | 2020-09-05 17:39 | PDOC.ERCMPRO ---
- If Service Date Differs Date of service: 09/05/20 Time of Service: 17:39 Care Management Progress Note Eddie presents in the ED for left sided chest pain. This is Rafiq's 4th visit to the emergency room this month. At the request of ED provider, CM meets with Rafiq to assess needs and offer resources. Rafiq reports he is doing ok. He and his were for a while but he has returned home. He shares that he has been gardening and doing yard work and he believes he may have over done it. Rafiq sees Rayshawn Kothari MD, at [facility] but he states things have changed at [facility] and he wants to speak with Dr. Kothari about the possibility of transferring his medical care somewhere else. Rafiq states he has come to the ED on several occasions recently instead of seeing his PCP because he felt he needed x-rays and a full work-up, which his PCP does not have the capability of doing in the office. Rafiq denies any unmet needs at this time.
== END 2020-09-05 15:48 | disposition home or self-care (01) ==
PROVIDERS: Emergency Provider Physician Assistant; PCP Family Medicine
DX: R07.89 Other chest pain (principal)
CPT/HCPCS: 36415; 71275; 80053; 93005; 99285; 71046; 83735; 84484; 85025; 85379; 85610; 85730; 93010; 99284; J3490

== ENCOUNTER 2020-09-06 04:06 | Emergency (ER) | payer MEDICARE, SELFPAY, MEDICAID | END 2020-09-06 04:10 | LOC: ER 04:20 | PROVIDERS: PCP Family Medicine | DX: Z53.29 Procedure and treatment not carried out because of patient's decision for other reasons (principal) ==

== ENCOUNTER 2020-09-11 19:43 | Emergency (ER) | payer OTHER, MEDICARE, SELFPAY ==
--- NOTE | 2020-09-11 19:45 | DI.CT_ITS ---
Exam(s) CT HEAD CERVICAL SPINE WO EXAM: CT HEAD CERVICAL SPINE WO COMPARISON: CT CT CHEST PE CTA from 09/05/[address] CHEST PE CTA from 09/05/2020 FINDINGS: CT examination of the cervical spine was performed without contrast administration. In comparison with prior chest CT of September 05, note is again made of nodular opacities in left upper lobe which are waxing and waning since the previous examination. There is a new area of consolidati on in the right lung apex. The findings are highly suggestive of infectious process. Appropriate fo llow-up studies requested. There is upper thoracic kyphosis with exaggerated cervical lordosis. There are marked degenerative c hanges of the cervical spine. There is no evidence of acute cervical spine fracture or dislocation. Intervertebral disc spaces are well maintained. Tracheolaryngeal structures appear intact. No cervical mass or adenopathy. Noncontrast cranial CT was performed. There is marked generalized cerebral atrophy. No evidence of acute intracranial hemorrhage, mass effect, or midline shift. No calvarial fracture. The orbital and temporal bone structures appear intact. Visualized mastoid air cells and paranasal sinuses appear clear. IMPRESSION: No evidence of acute cervical spine injury. No evidence of acute intracranial injury. Increased consolidation in right lung apex consistent with infectious process. Waxing and waning nod ular opacities in left lung apex also consistent with infectious process. RADIATION DOSE DELIVERED: 1,429.87mGy.cm Total DLP 1,429.87mGy.cm Total DLP DATA REPOSITORY: All CT scans at this facility are submitted to the National Radiology Data Registry (NRDR) Dose Index Registry (DIR) with the [employer] (ACR). RADIATION OPTIMIZATION: All CT scans at this facility use at least one of these dose optimization te chniques: automated exposure control; mA and/or kV adjustment per patient size (includes targeted exa ms where dose is matched to clinical indication); or iterative reconstruction.
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
[2020-09-11 19:46] VITALS: BP 164/83; PULSE 79; RESP 16; TEMP 36.6; O2SAT 96
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
== END 2020-09-11 22:05 | disposition home or self-care (01) ==
PROVIDERS: Emergency Provider Student in an Organized Health Care Education/Training Program; PCP Family Medicine
DX: S13.4XXA Sprain of ligaments of cervical spine, initial encounter (principal); M54.5 Low back pain; V49.49XA Driver injured in collision with other motor vehicles in traffic accident, initial encounter
CPT/HCPCS: 99284; 70450; 72110; 72125; 99283

== ENCOUNTER 2020-09-20 01:39 | Outpatient (CLI) | payer OTHER, MEDICARE, SELFPAY ==
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
== END 2020-09-20 01:59 ==
PROVIDERS: PCP Family Medicine; Visit Provider Family Medicine
DX: M43.16 Spondylolisthesis, lumbar region (principal); M48.061 Spinal stenosis, lumbar region without neurogenic claudication; R15.9 Full incontinence of feces; M50.321 Other cervical disc degeneration at C4-C5 level; M40.204 Unspecified kyphosis, thoracic region; M48.02 Spinal stenosis, cervical region; M47.812 Spondylosis without myelopathy or radiculopathy, cervical region; M47.27 Other spondylosis with radiculopathy, lumbosacral region; G54.8 Other nerve root and plexus disorders
CPT/HCPCS: 72141; 72148

== ENCOUNTER 2020-10-06 03:27 | Outpatient (CLI) | payer MEDICARE, SELFPAY ==
[2020-10-06 18:04] LABS: Iron 30 ug/dL (65-175); Total Iron Binding Capacity 326 ug/dL (250-450); Transferrin Sat 9 % (20-55)
[2020-10-06 21:26] LABS: Calculated LDL 58 mg/dL (<100); Cholesterol 149 mg/dL (<200); HDL Cholesterol 80 mg/dL (40-60); Triglyceride 55 mg/dL (<150); Vitamin B12 380 pg/mL (193-986)
== END 2020-10-06 03:28 | disposition home or self-care (01) ==
LOC: LBO 03:32
PROVIDERS: PCP Family Medicine; Visit Provider Family Medicine
DX: E78.5 Hyperlipidemia, unspecified; D64.9 Anemia, unspecified; G89.29 Other chronic pain; Z79.899 Other long term (current) drug therapy
CPT/HCPCS: 36415; 80061; 82607; 83540; 83550

== ENCOUNTER 2020-11-12 11:19 | Emergency (ER) | payer MEDICARE, OTHER, MEDICAID, SELFPAY ==
[2020-11-12] VITALS (16 sets, daily range): BP systolic 114–154; BP diastolic 59–98; PULSE 53–70; RESP 14–24; TEMP 36.9; O2SAT 95–99
--- NOTE | 2020-11-12 12:00 | DI.RAD_ITS ---
Exam(s) XR CHEST 2V PA LATERAL EXAM: XR CHEST 2V PA LATERAL CLINICAL HISTORY: shortness of breath, r/o acute disease. TECHNIQUE: 2D digital imaging was performed. COMPARISON: CR XR CHEST 2V PA LATERAL from 09/05/2020 FINDINGS: Sternotomy wires and prosthetic aortic valve noted. No infiltrates nor pleural effusions. No pulmonary edema. IMPRESSION: No acute pulmonary findings.Please note that prior CT scan recommended follow-up for lung nodules. R ecommend follow-up chest CT scan at this time. DATA REPOSITORY: RADIATION DOSE DELIVERED:
--- NOTE | 2020-11-12 12:00 | RT.EKG_ITS ---
APPROVED REPORT Exam: Resting ECG Reason for Exam: shortness of breath Patient Location: E HR:60 bpm ECG Measurements Heart Rate 60 AXIS FL 159 P 57 QRSd 110 QRS 50 QT 431 T 41 QTc 430 Conclusion Sinus rhythm...normal P axis, V-rate 60- 99 Low voltage, extremity leads...all extremity leads <0.5mV. No STEMI. I have reviewed and interpreted ECG and agree with software generated interpretation.
--- NOTE | 2020-11-12 12:15 | W.ED.GENAD ---
Discharge Plan Disposition Patient Disposition: HOME Condition: Improving Discharge Details Clinical Impression: Shortness of breath, History of COPD Primary Care Provider: Rayshawn Kothari ED Provider: Brittanie Valdez Home Meds and New Rx's Prescriptions: Continued Narcan 4 mg/actuation spray,non-aerosol 4 mg NS PRN Qty: 2 RF: 0 omeprazole 20 mg tablet,delayed release (DR/EC) 20 mg PO DAILY Qty: 90 RF: 3 losartan 25 mg tablet 25 mg PO DAILY Qty: 90 RF: 4 tamsulosin 0.4 mg capsule 0.4 mg PO DAILY Qty: 90 RF: 3 amlodipine [Norvasc] 10 mg tablet 10 mg PO DAILY Qty: 90 RF: 3 morphine concentrate 100 mg/5 mL (20 mg/mL) solution 5 mg PO Q6H MDD 20 mg PRN (Reason: dyspnea) Qty: 30 RF: 0 PreserVision AREDS 14,320-226-200 hnrf-ky-easw capsule 1 cap PO DAILY Qty: 1 RF: 0 vitamin B complex [B Complex-Vitamin B12] Tablet 1 tab PO DAILY RF: 0 Breztri Aerosphere 160-9-4.8 mcg/actuation HFA aerosol inhaler 2 inh inhalation BID Qty: 10.7 RF: 5 (DME) Space Chamber Plus 1 EACH spacer 1 ea Miscellaneous PRN Qty: 1 RF: 0 aspirin [Enteric Coated Aspirin] 81 mg tablet,delayed release (DR/EC) 81 mg PO DAILY Qty: 90 RF: 3 albuterol sulfate 2.5 mg /3 mL (0.083 %) solution for nebulization 2.5 mg IH QID PRN (Reason: shortness of breath or wheezing) Qty: 180 RF: 4 atorvastatin 20 mg tablet 20 mg PO QPM Qty: 90 RF: 3 albuterol sulfate [Ventolin HFA] 90 mcg/actuation HFA aerosol inhaler 2 puff INHALATION Q6H PRNQty: 1 RF: 0 multivitamin Tablet 1 tab PO DAILY RF: 0 Discharge Instructions Instructions: Dyspnea (ED) Additional Instructions: Stay inside in the air conditioning as much as possible during the hot and humid weather. Avoid heavy exertional activity as much as possible. Drink plenty of fluids and get plenty of rest. Continue to use your regular medications as needed and directed. Follow-up with your primary care doctor in 1 week. Return to the emergency department with any worsening or new concerning symptoms. Discharge Data Discharge Physician: Brittanie Valdez Medical Decision Making 75-year-old male with a history of COPD and known pulmonary nodules who is well-known to the emergency department for frequent visits for COPD presents for shortness of breath. Patient admitted to some improvement since coming into the air conditioning here in the ED. EKG on arrival notes a rate of 60, sinus, no STEMI and nondiagnostic. Considering patient's age and history, screening labs and chest x-ray obtained. Labs and imaging reviewed. White blood cell count normal at six. Normal electrolytes. Troponin negative. Chest x-ray notes his chronic COPD and pulmonary nodule findings but no other acute disease. Patient reassessed and he feels much better. Patient states he would rather not take steroids. He declined any neb treatment here. He was observed on the monitor with oxygen saturation mid to high 90s on room air with no signs of respiratory distress. Patient was advised to avoid the high heat mobility as much as possible and stay hydrated. Advised to continue his regular medications including his inhalers as needed and directed. Advised to follow up with the primary care doctor for re-evaluation. Usual and customary return precautions given prior to discharge. Medical Records Medical records reviewed: Yes I reviewed the patient's medical records. Imaging Data Radiologic Study: Radiologist's impression: XR Chest Exam date and time: 11/12/2020 12:14 PM Age: 75 years old Clinical indication: Other: Shortness of breath, R/O acute disease TECHNIQUE: Imaging protocol: XR of the chest. Views: 2 views. COMPARISON: CR XR CHEST 2V PA LATERAL 09/05/2020 11:34 AM FINDINGS: Lungs: The lungs are hyperinflated with increased AP thoracic diameter and flattening of the hemidiaphragms, as can be seen with emphysema/COPD. No pulmonary infiltrates. Median sternotomy sutures. Biapical pleuroparenchymal thickening and scarring. Nodular densities in the upper lobes medially. 8 mm left mid lung nodule. Pleural spaces: No significant pleural effusions. No pneumothorax. Heart/Mediastinum: Cardiomediastinal silhouette is unremarkable. Mediastinal clips. Vasculature: Aortic valve replacement. Bones/joints: Multilevel spondylosis. IMPRESSION: The lungs are hyperinflated with increased AP thoracic diameter and flattening of the hemidiaphragms, compatible with emphysema/COPD. Nodular densities in the upper lobes medially. 8 mm left midlung nodule. Of note, on recent CT angiogram of the chest from 09/05/2020, multiple nodular pulmonary opacities were described, with 1-2 month follow-up recommended at that time. Repeat CT is recommended. Lab Data Lab results reviewed: Yes I reviewed the patient's lab results. Labs: Laboratory Tests Range/Units 11/12/20 11/12/20 12:25 12:25 WBC (4.4-10.8) 10^3/uL 6.49 RBC (4.36-5.78) 10^6/uL 4.42 Hgb (13.5-17.5) g/dL 13.5 Hct (40.0-50.0) % 41.3 MCV (80-95) fL 93.4 MCH (27.0-33.0) pg 30.5 MCHC (32.0-36.0) % 32.7 RDW (11.8-14.1) % 13.2 Plt Count (130-400) 10^3/uL 156 MPV (8.0-11.0) fL 10.0 Immature Gran % 0.3 Neutrophils % 60.5 Lymphocytes % 27.0 Monocytes % 9.1 Eosinophils % 2.5 Basophils % 0.6 Nucleated RBC % % 0 Absolute Neutrophils (1.2-6.7) 10^3/uL 3.93 Absolute Lymphocytes (1.2-3.4) 10^3/uL 1.75 Absolute Monocytes (0.1-0.8) 10^3/uL 0.59 Absolute Eosinophils (0.0-0.7) 10^3/uL 0.16 Absolute Basophils (0.0-0.2) 10^3/uL 0.04 Sodium (136-145) mmol/L 140 Potassium (3.5-5.1) mmol/L 3.9 Chloride (98-107) mmol/L 105 Carbon Dioxide (21.0-32.0) mmol/L 27.6 Anion Gap (3-11) mmol/L 7.4 BUN (7-18) mg/dL 18 Creatinine (0.70-1.30) mg/dL 1.2 Estimated GFR/1.73 m2 (mL/min/1.73m2) 59.35 Glucose (74-106) mg/dL 96 Calcium (8.5-10.1) mg/dL 8.9 Magnesium (1.8-2.4) mg/dL 2.2 Total Bilirubin (0.2-1.0) mg/dL 0.5 AST (15-37) U/L 20 ALT (16-63) U/L 29 Alkaline Phosphatase (46-116) U/L 97 Troponin I (<0.06) ng/mL < 0.05 Total Protein (6.4-8.2) g/dL 7.1 Albumin (3.4-5.0) g/dL 3.8 ECG Data Attestation: I personally reviewed and interpreted this ECG (s) as follows: Interpretation: rate of 60, sinus, no stemi. HPI General Mode of arrival: ambulatory. Date/Time Provider Initiated Documentation: 11/12/20 11:46. Limitations to Documentation: no limitations. Information obtained by: patient. HPI Narrative: Patient is a 75-year-old male with a history of anxiety, COPD, known pulmonary nodules and multiple ED visits for COPD and complaints of shortness of breath presents for shortness of breath for the past few days, worse when outside and humidity. Patient states he feels that the outside humidity and heat is making his COPD worse. He denies any chest pain, fever, cough, vomiting or diarrhea. He states his symptoms have improved since coming into the air conditioning in the emergency department. He states he took a neb treatment at 10 AM this morning with some improvement. Related Data Home Medications Medication Instructions Recorded Confirmed Space Chamber Plus #1 04/27/14 11/10/20 multivitamin 1 tab PO DAILY 08/24/18 11/12/20 albuterol sulfate [Ventolin HFA] 2 puff INHALATION Q6H PRN #1 device 05/28/19 11/12/20 aspirin 81 mg tablet,delayed 81 mg PO DAILY #90 tab 11/19/19 11/12/20 release naloxone 4 mg/actuation nasal spray 4 mg NS PRN #2 spray 12/21/19 11/12/20 albuterol sulfate 2.5 mg IH QID PRN #180 ml 08/14/20 11/12/20 atorvastatin 20 mg tablet 20 mg PO QPM #90 tab 08/28/20 11/12/20 amlodipine 10 mg tablet 10 mg PO DAILY #90 tab 10/03/20 11/12/20 losartan 25 mg tablet 25 mg PO DAILY #90 tab-cap 10/03/20 11/12/20 omeprazole 20 mg tablet,delayed 20 mg PO DAILY #90 tab 10/03/20 11/12/20 release tamsulosin 0.4 mg capsule 0.4 mg PO DAILY #90 cap 10/03/20 11/12/20 morphine concentrate 100 mg/5 mL 5 mg PO Q6H PRN #30 ml MDD 20 mg 10/06/20 11/12/20 (20 mg/mL) oral solution budesonide 160 mcg-glycopyr 9 2 inh INHALATION BID #10.7 g 11/03/20 11/12/20 mcg-formot 4.8 mcg/actuation HFA inhaler vitamin B complex 1 tab PO DAILY 11/03/20 11/12/20 vitamins A,C,R-ojbh-szugrt 14,320 1 cap PO DAILY #1 cap 11/10/20 11/12/20 unit-226 mg-200 unit capsule Previous Rx's Medication Instructions Recorded albuterol sulfate [Ventolin HFA] 2 puff INHALATION Q6H PRN #1 device 05/28/19 aspirin 81 mg tablet,delayed 81 mg PO DAILY #90 tab 11/19/19 release naloxone 4 mg/actuation nasal spray 4 mg NS PRN #2 spray 12/21/19 albuterol sulfate 2.5 mg IH QID PRN #180 ml 08/14/20 atorvastatin 20 mg tablet 20 mg PO QPM #90 tab 08/28/20 amlodipine 10 mg tablet 10 mg PO DAILY #90 tab 10/03/20 losartan 25 mg tablet 25 mg PO DAILY #90 tab-cap 10/03/20 omeprazole 20 mg tablet,delayed 20 mg PO DAILY #90 tab 10/03/20 release tamsulosin 0.4 mg capsule 0.4 mg PO DAILY #90 cap 10/03/20 morphine concentrate 100 mg/5 mL 5 mg PO Q6H PRN #30 ml MDD 20 mg 10/06/20 (20 mg/mL) oral solution budesonide 160 mcg-glycopyr 9 2 inh INHALATION BID #10.7 g 11/03/20 mcg-formot 4.8 mcg/actuation HFA inhaler vitamins A,C,T-kbvl-xhgizh 14,320 1 cap PO DAILY #1 cap 11/10/20 unit-226 mg-200 unit capsule Allergies Allergy/AdvReac Type Severity Reaction Status Date / Time lisinopril Allergy Intermediate RASH; Verified 11/12/20 11:44 PRURITIS diphenhydramine HCl AdvReac Severe Makes him Verified 11/12/20 11:44 [From Benadryl] crazy/anxious NSAIDS (Non-Steroidal AdvReac Intermediate GI Verified 11/12/20 11:44 Anti-Inflamma Intolerance tramadol AdvReac Intermediate nausea/vomi Verified 11/12/20 11:44 ting gabapentin AdvReac Unknown GI UPSET Verified 11/12/20 11:44 SCALLOP Allergy Severe THROAT Uncoded 11/12/20 11:44 SWELLING General Stated Complaint: SOB ALFREDO: 3 Review of Systems All systems reviewed & are unremarkable except as noted in HPI and below Constitutional Constitutional: Reports as per HPI, Denies chills and Denies fever(s) Eyes Eyes: Denies blurry vision ENT Ears, Nose, Mouth, and Throat: Denies dizziness, Denies sore throat and Denies throat swelling Cardiovascular Cardiovascular: Denies chest pain and Reports dyspnea Respiratory Respiratory: Denies cough and Reports dyspnea Gastrointestinal Gastrointestinal: Denies abdominal pain, Denies diarrhea and Denies vomiting Genitourinary Genitourinary: Denies hematuria and Denies dysuria Musculoskeletal Musculoskeletal: Denies back pain and Denies numbness Integumentary/Breasts Skin/Breast: Denies lesions and Denies rash Neurologic Neurologic: Denies dizziness, Denies localized weakness and Denies numbness Allergic/Immunologic Allergic/Immunologic: Denies throat swelling [facility] Medical History Anxiety Arthritis Benign prostatic hyperplasia (02/03/13) CAD (coronary artery disease) (12/05/16) [place] [facility] [place] Cataracts, bilateral Chronic obstructive pulmonary disease (08/05/17) Chronic pain syndrome Chronic shoulder pain 07/17/16~CONTROLLED SUBSTANCE AGREEMENT Chronic, continuous use of opioids Cirrhosis COPD (chronic obstructive pulmonary disease) Esophageal varices without bleeding (05/14/16) Essential hypertension (02/26/16) Gastro-esophageal reflux (09/15/13) Lower urinary tract symptoms (LUTS) No able caregiver in household Nocturnal hypoxia Palliative care patient Parent-child estrangement nec not involved in either daughter's life Paroxysmal atrial fibrillation (01/28/17) ford operative aortic valve replacement Social isolation SVT (supraventricular tachycardia) (~02/2018) Surgical History Aortic valve replaced History of surgical procedure on eye proper using laser S/P cardiac cath negative 2 years ago Total replacement of hip LEFT Family History Mother , age 76 from widespread cancer of uncertain origin and ESRD Diabetes Essential hypertension Heart disease Hyperlipidemia Dialysis patient Personal history of malignant neoplasm Brother Essential hypertension Heart disease Grandmother Personal history of malignant neoplasm Father , disappeared when Rafiq was 5 yo; about age 40 Alcohol abuse Sister , from uncertain cause about age 55 Alcohol abuse Substance abuse Brother No problems noted. Daughter Parent-child estrangement nec Daughter Parent-child estrangement nec Social History Smoking/Tobacco Use Status: Former Tobacco Use tobacco type: cigarettes Quit Date: 03/24/04 Pack-years: 90 Tobacco: How many years used: 45 Second Hand Exposure: Yes ( smokes outside, Rafiq very careful to avoid cig smoke) Smoking risk assessment performed?: Yes Alcohol Intake: former Year quit: 1984 Drug use: Rarely Substance use type: marijuana Details: cbd gummy bears for pain Household members: none Number of Children: 2 Communication Needs: None Education Level: college Details: 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 AD in psychology 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 Pets and animals: Yes Pets and animals: cat(s) Sexually active: No Do you think of yourself as: straight/heterosexual Current gender identity: male What is your relationship status?: How often do you talk on the phone with friends or family?: three or more times per week How often do you get together with friends or relatives?: three or more times per week Panel score (0-1 are the most socially isolated patients): 1 Duration: < 15 minutes/day Isadora/Faith: No preference Special isadora needs: No Seatbelt use: always Helmet use: No Drive intox or ride w/intox company driver: No Working smoke detector in home: Yes Fire extinguisher in home: Yes Carbon monox detector in home: Yes Firearms in home: No Do you feel safe at home: Yes Do you feel safe in your relationship?: Yes Additional Social history: Not emotionally close to his , #3. She is chronically ill, obese, sedentary, smokes outside. Rafiq does most of the cooking and all the shopping. They live very separate lives in same trailer. Exam Const General: cooperative and no acute distress HENMT Head: normal to inspection Face and sinus: normal facial exam Eyes General: appearance normal, both eyes and all related structures EOM: EOM intact bilaterally Neck Neck: normal visual inspection and No submandibular swelling Lymphatic: no lymphadenopathy noted Chest Chest: normal inspection of the chest and no tenderness Resp Effort & Inspection: normal respiratory effort and able to speak in complete sentences Auscultation: clear to auscultation bilaterally Cardio Rate: regular rate Rhythm: regular rhythm GI Inspection: normal to inspection Palpation: soft, not firm, not rigid and nontender Auscultation: normal bowel sounds Skin General skin exam: no rashes or lesions noted Neuro General: patient alert, patient awake and patient oriented x3 Cognition: normal cognition Speech: speech normal Motor: muscle tone normal throughout Sensory Exam: no sensory deficits noted Extrem General: normal to inspection, full ROM, capillary refill normal, no calf tenderness bilaterally and no edema Psych Appearance: grossly normal Mental Status: mental status grossly normal Speech and Movement: speech and movement normal Affect: normal affect Course Vital Signs Vital signs: Vital Signs Temperature 98.4 F 11/12/20 11:40 Pulse 70 11/12/20 11:40 Respiratory Rate 16 11/12/20 11:40 Blood Pressure 123/74 11/12/20 11:40 Pulse Oximetry 97 11/12/20 11:40 Temperature 98.4 F 11/12/20 11:40 Temperature Source Skin 11/12/20 11:40 Pulse 70 11/12/20 11:40 Respiratory Rate 16 11/12/20 11:40 Respiratory Effort 11/12/20 11:53 Respiratory Pattern Normal 11/12/20 11:53 Blood Pressure 123/74 11/12/20 11:40 Blood Pressure Position Sitting 11/12/20 11:40 Pulse Oximetry 97 11/12/20 11:40 Oxygen Delivery Method Room Air 11/12/20 11:40 Oxygen Flow Rate 0 08/22/21 11:40 Pain Level 4 11/12/20 11:40 Comment 11/12/20 11:40
[2020-11-12 13:45] LABS: Abs Immature Grans 0.02 10^3/uL (0.0-0.06); Absolute Basophil Count 0.04 10^3/uL (0.0-0.2); Absolute Eosinophil Count 0.16 10^3/uL (0.0-0.7); Absolute Lymphocyte Count 1.75 10^3/uL (1.2-3.4); Absolute Monocyte Count 0.59 10^3/uL (0.1-0.8); Absolute Neutrophil Count 3.93 10^3/uL (1.2-6.7); Basophils % 0.6; Eosinophils % 2.5; HCT 41.3 % (40.0-50.0); HGB 13.5 g/dL (13.5-17.5); Immature Grans % 0.3; MCH 30.5 pg (27.0-33.0); MCHC 32.7 % (32.0-36.0); MCV 93.4 fL (80-95); Monocytes % 9.1; Neutrophils % 60.5; Nucleated RBC 0 %; Platelet Count 156 10^3/uL (130-400); RBC 4.42 10^6/uL (4.36-5.78); RDW 13.2 % (11.8-14.1); RDW-SD 45.1 fL; WBC 6.49 10^3/uL (4.4-10.8)
[2020-11-12 14:01] LABS: ALT 29 U/L (16-63); AST 20 U/L (15-37); Albumin 3.8 g/dL (3.4-5.0); Alkaline Phosphatase 97 U/L (46-116); Anion Gap 7.4 mmol/L (3-11); BUN 18 mg/dL (7-18); Bilirubin, Total 0.5 mg/dL (0.2-1.0); CO2 27.6 mmol/L (21.0-32.0); CREATININE 1.2 mg/dL (0.70-1.30); Calcium 8.9 mg/dL (8.5-10.1); Chloride 105 mmol/L (98-107); Estimated GFR 59.35 (mL/min/1.73m2); Glucose 96 mg/dL (74-106); Magnesium 2.2 mg/dL (1.8-2.4); Potassium 3.9 mmol/L (3.5-5.1); Sodium 140 mmol/L (136-145); Total Protein 7.1 g/dL (6.4-8.2)
--- NOTE | 2020-11-12 14:01 | DI.VRAD_ITS ---
PROCEDURE INFORMATION: Exam: XR Chest Exam date and time: 11/12/2020 12:14 PM Age: 75 years old Clinical indication: Other: Shortness of breath, R/O acute disease TECHNIQUE: Imaging protocol: XR of the chest. Views: 2 views. COMPARISON: CR XR CHEST 2V PA LATERAL 09/05/2020 11:34 AM FINDINGS: Lungs: The lungs are hyperinflated with increased AP thoracic diameter and flattening of the hemidiaphragms, as can be seen with emphysema/COPD. No pulmonary infiltrates. Median sternotomy sutures. Biapical pleuroparenchymal thickening and scarring. Nodular densities in the upper lobes medially. 8 mm left mid lung nodule. Pleural spaces: No significant pleural effusions. No pneumothorax. Heart/Mediastinum: Cardiomediastinal silhouette is unremarkable. Mediastinal clips. Vasculature: Aortic valve replacement. Bones/joints: Multilevel spondylosis. IMPRESSION: The lungs are hyperinflated with increased AP thoracic diameter and flattening of the hemidiaphragms, compatible with emphysema/COPD. Nodular densities in the upper lobes medially. 8 mm left midlung nodule. Of note, on recent CT angiogram of the chest from 09/05/2020, multiple nodular pulmonary opacities were described, with 1-2 month follow-up recommended at that time. Repeat CT is recommended. Dictated and Authenticated by: Javon Young MD. Ordering:RISHI Gu MD
[2020-11-12 14:03] LABS: Troponin I < 0.05 ng/mL (<0.06)
[2020-11-12] MEDS: Normal Saline 500 ML IV (14:23)
== END 2020-11-12 15:10 | disposition home or self-care (01) ==
PROVIDERS: Emergency Provider Physician Assistant; PCP Family Medicine
DX: R06.02 Shortness of breath (principal); J44.9 Chronic obstructive pulmonary disease, unspecified
CPT/HCPCS: 36415; 80053; 93005; 96360; 99285; 71046; 83735; 84484; 85025; 93010

== ENCOUNTER 2020-12-31 16:42 | Emergency (ER) | payer MEDICARE, MEDICAID, SELFPAY ==
--- NOTE | 2020-12-31 16:45 | RT.EKG_ITS ---
APPROVED REPORT Exam: Resting ECG Reason for Exam: sob Patient Location: E HR:93 bpm ECG Measurements Heart Rate 93 AXIS IL 153 P 76 QRSd 109 QRS 86 QT 363 T 39 QTc 451 Conclusion Sinus rhythm...normal P axis, V-rate 60- 99 Atrial premature complexes in couplets...pair SV complexes w/ short R-R Low voltage, extremity leads...all extremity leads <0.5mV
[2020-12-31 16:50] VITALS: BP 144/93; PULSE 78; TEMP 37.6; O2SAT 93
== END 2020-12-31 19:11 ==
PROVIDERS: PCP Family Medicine
DX: Z53.21 Procedure and treatment not carried out due to patient leaving prior to being seen by health care provider (principal); R06.02 Shortness of breath
CPT/HCPCS: 93005; 93010

== ENCOUNTER 2021-01-26 09:50 | Outpatient (REF) | payer MEDICARE, MEDICAID, SELFPAY ==
[2021-01-27 16:11] LABS: COVID-19 RT-PCR UVMMC Result Negative (Negative)
== END 2021-01-26 09:51 | disposition home or self-care (01) ==
LOC: LBN 09:50
PROVIDERS: PCP Family Medicine; Visit Provider Physician Assistant
DX: Z20.822 Contact with and (suspected) exposure to COVID-19 (principal)
CPT/HCPCS: U0003; U0005

== ENCOUNTER 2021-02-26 00:29 | Outpatient (CLI) | payer MEDICARE, MEDICAID, SELFPAY ==
--- NOTE | 2021-02-26 13:12 | DI.CT_ITS ---
Exam(s) CT CHEST WO EXAM: CT CHEST WO CLINICAL HISTORY: f/u nodules seen in August 2020,r91.8. TECHNIQUE: Multi planar reconstructions were performed. CONTRAST MATERIAL: None COMPARISON: CT CT CHEST PE CTA from 09/05/[address] CHEST PE CTA from 09/05/2020 CR,XR XR CHEST 2V PA LATERAL from 11/12/2020 FINDINGS: CHEST: This chest CT scan is compared to the prior study of 09/05/2020. That study did not apparentl y include the lung apices. LUNGS: In the immediate right sub apical region of the right upper lobe there is a 1.7 by 1.0 cm stel late density which may be related to the overlying right apical scarring. Cannot compared to the john paul or study which did not include this level. However, there are addition new nodular infiltrates in th e right lung. Laterally in the right upper lobe there is a pleural-based 2 by 1 point 5 cm infiltrat e, not associated with overlying rib destruction. Another stellate nodular infiltrate in the superio r segment of the right lower lobe measures 2 by 0.8 cm. Another similar nodular infiltrate is seen s lightly lower down the right lower lobe measuring 1.3 x 0.7 cm, not previously present. There is rel ative sparing of the basal segments of the right lower lobe. No pleural effusion. In the opposite-left lung there is an unchanged 6 millimeter nodule in the sub apical aspect of the l eft upper lobe. To the nodular infiltrates of significant decrease in left upper lobe but there are few smaller new nodules of similar spiculated appearance evident. In addition, there is an [address] noncalcified subpleural nodule laterally in the left upper lobe also not previously present. Ano ther small subpleural nodular infiltrate is noted in the left upper lobe anterior segment measuring a pproximately 7 x 5 millimeters. No significant focal findings in the lingular segments of the left l leila. In the left lower lobe superior segment there is a new spiculated nodular infiltrate measuring 8 x 5 millimeters. There is sparing of the basal segments of the left lower lobe and indeed a previo usly described 1 cm nodular infiltrate in left lower lobe as resolved. There are no pleural effusions on either side. No new focal findings in the trachea and mainstem bro nchi. MEDIASTINUM: There is no obvious hilar nor mediastinal adenopathy. Visualized thyroid unremarkable.No obvious axillary adenopathy CARDIAC: Sternotomy wires are again noted. Heart size normal. Coronary artery calcification noted. Prosthetic aortic valve. Diameter of the ascending thoracic aorta is abnormally enlarged, measuring 4.5 cm.This is unchanged. VISUALIZED UPPER ABDOMEN:No adrenal masses. Cyst in the upper pole of the right kidney is noted, betty suring 4.6 x 4.6 cm. Previously present and unchanged. Also smaller cyst again noted in the lateral cortex of the opposite-left kidney measuring 1.8 x 1.6 cm. Cirrhotic appearing liver including enla rged caudate lobe again noted. Calcified granulomas in the spleen. Spleen is not enlarged. There i s no ascites. OSSEOUS: No significant osseous lesions.. IMPRESSION: 1. Compared to the prior CT scan of 09/06/2019 few of the previously described spiculated lung nodule s have resolved but there are multiple new similar-appearing nodules in both lungs with the exception of relative sparing of the basal segments of both lower lobes. First consideration is for inflammatory/infectious nodules, given that some have disappeared. Nevert heless cannot completely exclude malignancy. None of these nodular infiltrates exhibit cavitation. 2. There are no pleural effusions and there is no obvious new intrathoracic adenopathy. 3. Sternotomy wires. Prosthetic aortic valve. Abnormal enlarged ascending thoracic aorta, again betty suring 4.5 cm diameter. 4. Cirrhotic appearing liver again noted, including enlarged caudate lobe. There is no ascites or s plenomegaly evident in the visualized upper abdomen. Kidney cysts are again noted. RADIATION DOSE DELIVERED: 334.06mGy.cm Total DLP DATA REPOSITORY: All CT scans at this facility are submitted to the National Radiology Data Registry (NRDR) Dose Index Registry (DIR) with the [employer] (A[employer]). RADIATION OPTIMIZATION: All CT scans at this facility use at least one of these dose optimization te chniques: automated exposure control; mA and/or kV adjustment per patient size (includes targeted exa ms where dose is matched to clinical indication); or iterative reconstruction.
== END 2021-02-26 00:49 ==
PROVIDERS: PCP Family Medicine; Visit Provider Student in an Organized Health Care Education/Training Program
DX: R91.8 Other nonspecific abnormal finding of lung field (principal); N28.1 Cyst of kidney, acquired; K74.60 Unspecified cirrhosis of liver
CPT/HCPCS: 71250

== ENCOUNTER → 2021-04-05 12:47 | Outpatient (BNVA) | payer MEDICARE, MEDICAID, SELFPAY | PROVIDERS: PCP Family Medicine; Referring Provider Family Medicine | DX: M67.911 Unspecified disorder of synovium and tendon, right shoulder (principal); M67.912 Unspecified disorder of synovium and tendon, left shoulder | CPT/HCPCS: 20610; J1040 ==

== ENCOUNTER 2021-04-25 15:03 | Outpatient (REF) | payer MEDICARE, MEDICAID, SELFPAY ==
[2021-04-26 16:13] LABS: COVID-19 RT-PCR UVMMC Result Negative (Negative)
== END 2021-04-25 15:04 | disposition home or self-care (01) ==
LOC: LBN 15:03
PROVIDERS: PCP Family Medicine; Visit Provider Family Medicine
DX: Z20.822 Contact with and (suspected) exposure to COVID-19 (principal)
CPT/HCPCS: U0003; U0005

== ENCOUNTER 2021-04-28 10:02 | Emergency (ER) | payer MEDICARE, MEDICAID, SELFPAY ==
[2021-04-28] VITALS (28 sets, daily range): BP systolic 107–131; BP diastolic 58–91; PULSE 79–118; RESP 12–27; TEMP 37.1; O2SAT 95–100
--- NOTE | 2021-04-28 10:00 | RT.EKG_ITS ---
APPROVED REPORT Exam: Resting ECG Reason for Exam: chest pain from coughing Patient Location: E HR:106 bpm ECG Measurements Heart Rate 106 AXIS WA 150 P 71 QRSd 108 QRS 64 QT 344 T 33 QTc 453 Conclusion Sinus tachycardia No ST elevation
--- NOTE | 2021-04-28 10:30 | DI.CT_ITS ---
Exam(s) CT CHEST PE CTA EXAM: CT CHEST PE CTA CLINICAL HISTORY: shortness of breath, tachycardia. TECHNIQUE: Imaging Protocol: CT angiography of the chest was performed using pulmonary embolus tari col. Multi planar reconstructions were performed. CONTRAST MATERIAL: Intravenous: Omnipaque 350 Contrast volume: 100 cc COMPARISON: CT CT CHEST WO from 02/26/2021 FINDINGS: CHEST: PULMONARY ARTERIES: There are no intraluminal filling defects to suggest acute pulmonary emboli. LUNGS: Although there has been some improvement in some of the previously described lung findings, th ere is now a new large mass in the right upper lobe which measures approximately 6.6 cm AP by 3.8 cm wide by 4.2 cm craniocaudal.. Appearance is suspicious for malignancy but cannot exclude inflammator y given that this has developed over an interval of only 2 months time. . It contains some air bubb les or cavitations in its superior aspect. It extends from the right suprahilar region out to the up per lobe pleural surface, not associated with overlying rib destruction. No prominent ipsilateral hi lar adenopathy. With respect other findings in the right lung, sub apical density described on the prior study has re solved. Posteriorly located density is unchanged. Peripheral right upper lobe has resolved. Right lower lobe superior segment finding has significantly decreased. There is no pleural effusion on eit her side. In the opposite-left lung previously described findings remain stable and decreased in size from the 02/26/2021 study. There is no pleural effusion. No findings in the trachea and mainstem bronchi. MEDIASTINUM: Right hilum is somewhat difficult to assess because the mass in the right upper lobe is contiguous with the right hilum. There is no evidence of right paratracheal adenopathy nor other med iastinal adenopathy. No adenopathy in the opposite-left hilum.Visualized thyroid unremarkable. CARDIAC: Sternotomy wires are noted. Heart size is upper normal. Coronary artery calcification. Pr osthetic aortic valve noted. Again noted is aneurysmal dilatation of the ascending thoracic aorta wi thout evidence of dissection. Maximum diameter of the ascending thoracic aorta is 4.3 cm. There i s no significant shift of the interventricular septum. PARTIALLY VISUALIZED UPPERMOST ABDOMEN: Cirrhotic appearing liver again noted. No obvious perihepati c ascites. No adrenal masses. Cysts are again noted in the partially visualized kidneys. No spleno megaly. Thickened GE junction. OSSEOUS: No significant osseous lesions.. IMPRESSION: 1. No evidence of acute pulmonary emboli. No evidence of pulmonary infarction.No pleural effusions. 2. However, there is now a 6.6 x 3.8 x 4.2 cm mass-infiltrate which was not evident on the recent CT scan 2 months ago (02/26/2021). Although it has appearance is suspicious for neoplasm, the fact that this has developed over a 2 month period may also indicate that this is infectious. 3. There is both stability and further improvement in other bilateral pulmonary findings-nodular inf iltrates. There are no pleural effusions. No prominent mediastinal adenopathy. Thoracic aortic aneurysm again noted in this patient who has had sternotomy and has a prosthetic aort ic valve. Maximum diameter of the ascending thoracic aorta is 4.3 cm, unchanged. There is no dissec tion. Cirrhotic appearing liver again noted. No splenomegaly. Thickened GE junction. RADIATION DOSE DELIVERED: 254.68mGy.cm Total DLP DATA REPOSITORY: All CT scans at this facility are submitted to the National Radiology Data Registry (NRDR) Dose Index Registry (DIR) with the [employer] (ACR). RADIATION OPTIMIZATION: All CT scans at this facility use at least one of these dose optimization te chniques: automated exposure control; mA and/or kV adjustment per patient size (includes targeted exa ms where dose is matched to clinical indication); or iterative reconstruction.
[2021-04-28 10:34] LABS: Abs Immature Grans 0.08 10^3/uL (0.0-0.06); Absolute Basophil Count 0.04 10^3/uL (0.0-0.2); Absolute Eosinophil Count 0.17 10^3/uL (0.0-0.7); Absolute Monocyte Count 0.88 10^3/uL (0.1-0.8); Basophils % 0.3; Eosinophils % 1.3; HCT 40.6 % (40.0-50.0); HGB 13.3 g/dL (13.5-17.5); Immature Grans % 0.6; Lymphocytes % 15.8; MCHC 32.8 % (32.0-36.0); MCV 91.4 fL (80-95); MPV 9.6 fL (8.0-11.0); Monocytes % 6.6; Neutrophils % 75.4; Nucleated RBC 0 %; Platelet Count 223 10^3/uL (130-400); RBC 4.44 10^6/uL (4.36-5.78); RDW 13.1 % (11.8-14.1); RDW-SD 44.1 fL; WBC 13.33 10^3/uL (4.4-10.8)
[2021-04-28 10:35] LABS: Absolute Lymphocyte Count 2.11 10^3/uL (1.2-3.4); Absolute Neutrophil Count 10.05 10^3/uL (1.2-6.7)
[2021-04-28 10:36] LABS: Lactate 1.4 mmol/L (0.6-1.4)
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
[2021-04-28 10:59] LABS: ALT 36 U/L (16-63); AST 23 U/L (15-37); Alkaline Phosphatase 100 U/L (46-116); Anion Gap 10.5 mmol/L (3-11); BUN 20 mg/dL (7-18); Bilirubin, Total 0.4 mg/dL (0.2-1.0); CO2 25.5 mmol/L (21.0-32.0); CREATININE 1.3 mg/dL (0.70-1.30); Chloride 100 mmol/L (98-107); Estimated GFR 53.96 (mL/min/1.73m2); Glucose 173 mg/dL (74-106); Lipase 103 U/L (73-393); NT-proBNP 120 pg/mL (<300); Potassium 3.9 mmol/L (3.5-5.1); Sodium 136 mmol/L (136-145); Total Protein 7.5 g/dL (6.4-8.2); Troponin I < 50 ng/L (<or=60)
[2021-04-28] MEDS: Acetaminophen 325 MG TAB 650 MG PO (11:07)
[2021-04-28] MEDS: methylPREDNISolone SUCC 125 MG VIAL 80 MG IVP (11:07)
[2021-04-28] MEDS: Benzonatate 100 MG CAP PO (11:07)
[2021-04-28] MEDS: Normal Saline 500 ML IV (11:11)
--- NOTE | 2021-04-28 12:17 | NUR.NOTE ---
Nursing Note:Pt reports breathing feeling much better , IVF complete, decreased cough noted. Pt to CT for CTA with tech.
[2021-04-28] MEDS: Omnipaque 350 MG/ML 100 ML BTL IJ (12:18)
--- NOTE | 2021-04-28 12:37 | NUR.NOTE ---
Nursing Note: Pt return from CT via stretcher, no new concerns/complaints, cont. to monitor.
--- NOTE | 2021-04-28 12:38 | DI.VRAD_ITS ---
Addendum created by Mi Arrington MD on 04/28/2021 12:40:27 PM EST: THIS REPORT CONTAINS FINDINGS THAT MAY BE CRITICAL TO PATIENT CARE. The findings were verbally communicated via telephone conference with Marion Engle at 12:40 PM EST on 04/28/2021. The findings were acknowledged and understood. Initial report created on 04/28/2021 12:37:45 PM EST: PROCEDURE INFORMATION: Exam: CTA Chest With Contrast Exam date and time: 04/28/2021 10:38 AM Age: 76 years old Clinical indication: Shortness of breath and other: Tachycardia TECHNIQUE: Imaging protocol: Computed tomographic angiography of the chest with contrast. 3D rendering (Not supervised by radiologist): MIP and/or 3D reconstructed images were created by the technologist. Radiation optimization: All CT scans at this facility use at least one of these dose optimization techniques: automated exposure control; mA and/or kV adjustment per patient size (includes targeted exams where dose is matched to clinical indication); or iterative reconstruction. Contrast material: OMNIPAQUE 350; Contrast volume: 100 ml; Contrast route: INTRAVENOUS (IV); COMPARISON: CT CHEST PE CTA 09/05/2020 2:05 PM FINDINGS: Pulmonary arteries: No evidence of pulmonary embolus to the segmental level. Aorta: Unruptured aneurysm of the ascending aorta 4.47 by 4.41. No dissection of the aorta. Lungs: Soft tissue opacity in the right upper lobe 6.8 by 3.8 cm most likely represents malignancy. It was not clearly present on the prior study.. Small nodules in the left upper lobe. Pleural spaces: Unremarkable. No pneumothorax. No pleural effusion. Heart: Aortic valve replacement Lymph nodes: Unremarkable. No enlarged lymph nodes. Diaphragm: Mild hiatal hernia Liver: Lobulated liver consistent with cirrhosis. Kidneys and ureters: Bilateral renal cysts Bones/joints: Median sternotomy Soft tissues: Unremarkable. IMPRESSION: 1. No evidence of pulmonary embolus to the segmental level. 2. Unruptured aneurysm of the ascending aorta 4.47 by 4.41. 3. No dissection of the aorta. 4. Soft tissue opacity in the right upper lobe 6.8 by 3.8 cm most likely represents malignancy. It was not clearly present on the prior study.. Dictated and Authenticated by: Mi Arrington MD. Ordering:MARILYN Schultz MD
--- NOTE | 2021-04-28 14:14 | NUR.NOTE ---
Referral faxed to PCP for lung mass to be seen ANGELA. Referral faxed to [facility] Pulmonology for lung mass to be seen ANGELA. Nancy Tompkins Nursing Note:
== END 2021-04-28 13:18 | disposition home or self-care (01) ==
PROVIDERS: Emergency Provider Physician Assistant; PCP Family Medicine
DX: R91.8 Other nonspecific abnormal finding of lung field (principal); J44.9 Chronic obstructive pulmonary disease, unspecified; R05.1 Acute cough; Z87.891 Personal history of nicotine dependence; R06.02 Shortness of breath
CPT/HCPCS: 36415; 71275; 80053; 83690; 87040; 93005; 96361; 96374; 99285; 83605; 83880; 84484; 85025; 93010; 99284; J2930; J3490

== ENCOUNTER 2021-04-30 10:55 | Outpatient (CLI) | payer MEDICARE, MEDICAID, SELFPAY ==
--- NOTE | 2021-04-30 10:45 | RT.EKG_ITS ---
APPROVED REPORT Exam: Resting ECG Reason for Exam: chest discomfort Patient Location: O HR:103 bpm ECG Measurements Heart Rate 103 AXIS NE 153 P 70 QRSd 106 QRS 70 QT 351 T 45 QTc 453 Conclusion Sinus tachycardia...rate> 99 Low voltage, extremity leads...all extremity leads <0.5mV Baseline artifact
== END 2021-04-30 10:56 | disposition home or self-care (01) ==
LOC: DI.CM 10:56
PROVIDERS: PCP Family Medicine; Visit Provider Nurse Practitioner Family
DX: R07.89 Other chest pain (principal)
CPT/HCPCS: 93010

== ENCOUNTER 2021-04-30 11:32 | Emergency (ER) | payer MEDICARE, MEDICAID, SELFPAY ==
--- NOTE | 2021-04-30 11:45 | RT.EKG_ITS ---
APPROVED REPORT Exam: Resting ECG Reason for Exam: weakness Patient Location: E HR:95 bpm ECG Measurements Heart Rate 95 AXIS NE 147 P 52 QRSd 108 QRS 35 QT 368 T 16 QTc 463 Conclusion Sinus rhythm...normal P axis, V-rate 60- 99 no STEMI, non-diagnostic EKG I have reviewed and interpreted ECG and agree with software generated interpretation.
[2021-04-30 11:48] VITALS: BP 129/80; PULSE 98; RESP 20; TEMP 36.6; O2SAT 95
--- NOTE | 2021-04-30 12:00 | DI.RAD_ITS ---
Exam(s) XR CHEST 2V PA LATERAL EXAM: XR CHEST 2V PA LATERAL CLINICAL HISTORY: cough increasing since imaging 2 days ago. TECHNIQUE: 2D digital imaging was performed. COMPARISON: CR XR CHEST, 2 VIEWS from 01/03/2021 FINDINGS: Sternotomy wires again noted. Heart size unchanged Heart size is normal. The mediastinum is not widened. There is new infiltrate/possible mass in the right suprahilar region, measuring 4.5 x 3.5 cm. No new left lung findings. No pleural effusions. IMPRESSION: Right para-suprahilar region infiltrate/mass. Close follow-up required. Recommend contrast infused CT scan. DATA REPOSITORY: RADIATION DOSE DELIVERED:
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
[2021-04-30 13:25] LABS: Abs Immature Grans 0.12 10^3/uL (0.0-0.06); Absolute Basophil Count 0.03 10^3/uL (0.0-0.2); Absolute Lymphocyte Count 0.81 10^3/uL (1.2-3.4); Absolute Monocyte Count 0.33 10^3/uL (0.1-0.8); Basophils % 0.2; HCT 40.5 % (40.0-50.0); HGB 13.5 g/dL (13.5-17.5); Immature Grans % 0.8; Lymphocytes % 5.7; MCH 30.5 pg (27.0-33.0); MCHC 33.3 % (32.0-36.0); MCV 91.6 fL (80-95); MPV 9.6 fL (8.0-11.0); Monocytes % 2.3; Nucleated RBC 0 %; Platelet Count 226 10^3/uL (130-400); RBC 4.42 10^6/uL (4.36-5.78); RDW 13.3 % (11.8-14.1); RDW-SD 45.1 fL; WBC 14.18 10^3/uL (4.4-10.8)
[2021-04-30 13:36] VITALS: RESP 18
[2021-04-30 13:40] LABS: ALT 42 U/L (16-63); AST 28 U/L (15-37); Albumin 3.1 g/dL (3.4-5.0); Alkaline Phosphatase 118 U/L (46-116); Anion Gap 7.9 mmol/L (3-11); BUN 29 mg/dL (7-18); Bilirubin, Total 0.3 mg/dL (0.2-1.0); CO2 27.1 mmol/L (21.0-32.0); CREATININE 1.2 mg/dL (0.70-1.30); Calcium 9.2 mg/dL (8.5-10.1); Chloride 102 mmol/L (98-107); Estimated GFR 59.18 (mL/min/1.73m2); Glucose 203 mg/dL (74-106); Potassium 4.6 mmol/L (3.5-5.1); Sodium 137 mmol/L (136-145); Total Protein 7.6 g/dL (6.4-8.2); Troponin I < 50 ng/L (<or=60)
[2021-04-30] MEDS: levoFLOXacin 500 MG, levoFLOXacin 250 MG 750 MG PO (14:03)
[2021-04-30 14:14] VITALS: BP 127/75; PULSE 88; TEMP 37.2; O2SAT 97
== END 2021-04-30 14:33 | disposition home or self-care (01) ==
PROVIDERS: Emergency Provider Physician Assistant; PCP Family Medicine
DX: J18.9 Pneumonia, unspecified organism (principal); R91.8 Other nonspecific abnormal finding of lung field; J44.9 Chronic obstructive pulmonary disease, unspecified; R07.9 Chest pain, unspecified; Z87.891 Personal history of nicotine dependence; R53.1 Weakness
CPT/HCPCS: 36415; 80053; 93005; 99284; 71046; 84484; 85025; 93010

== ENCOUNTER 2021-05-11 20:38 | Outpatient (CLI) | payer MEDICARE, MEDICAID, SELFPAY ==
--- NOTE | 2021-05-11 08:45 | DI.RAD_ITS ---
Exam(s) XR HAND RT COMPLETE EXAM: XR HAND RT COMPLETE CLINICAL HISTORY: pain in rt thumb; underlying arthritis, pain rt thumb, M79.644. TECHNIQUE: 2D digital imaging was performed of the right hand. Three images were obtained. AP, late ral and oblique views were obtained. COMPARISON: No exams were available for comparison FINDINGS: BONES: No acute fracture is present. No bony destructive lesion is seen. JOINTS: There is marked osteoarthritis of the hand particularly in the DIP joints. There is also mar ked arthritic changes seen at the 1st CMC joint with subluxation noted. Metacarpophalangeal joints a re well maintained. SOFT TISSUE: Atherosclerosis is present. IMPRESSION: Marked osteoarthritis of the right hand. DATA REPOSITORY: RADIATION DOSE DELIVERED:
== END 2021-05-11 20:58 ==
PROVIDERS: PCP Family Medicine; Visit Provider Family Medicine
DX: M79.644 Pain in right finger(s) (principal); M19.041 Primary osteoarthritis, right hand; M18.11 Unilateral primary osteoarthritis of first carpometacarpal joint, right hand
CPT/HCPCS: 73130

== ENCOUNTER 2021-05-16 21:05 | Emergency (ER) | payer MEDICARE, MEDICAID, SELFPAY ==
[2021-05-16 21:09] VITALS: BP 137/76; PULSE 69; RESP 18; TEMP 36.7; O2SAT 96
[2021-05-16 21:42] VITALS: RESP 18
--- NOTE | 2021-05-16 21:45 | DI.RAD_ITS ---
Exam(s) XR CHEST 2V PA LATERAL EXAM: XR CHEST 2V PA LATERAL CLINICAL HISTORY: hemoptysis, recent lung mass diagnosis. TECHNIQUE: 2D digital imaging was performed. COMPARISON: CR XR CHEST 2V PA LATERAL from 04/30/2021 FINDINGS: Sternotomy wires again noted Heart size is normal. The mediastinum is not widened. Right suprahilar infiltrate again noted. No new areas of infiltrate nor pleural effusions. IMPRESSION: Persistent right upper lobe-right suprahilar infiltrate. Imaging follow-up to resolution is recommen ded given the masslike appearance. Cannot exclude neoplasm. DATA REPOSITORY: RADIATION DOSE DELIVERED:
[2021-05-16 22:17] LABS: Abs Immature Grans 0.04 10^3/uL (0.0-0.06); Absolute Basophil Count 0.05 10^3/uL (0.0-0.2); Absolute Eosinophil Count 0.18 10^3/uL (0.0-0.7); Absolute Lymphocyte Count 1.74 10^3/uL (1.2-3.4); Absolute Monocyte Count 0.99 10^3/uL (0.1-0.8); Absolute Neutrophil Count 5.28 10^3/uL (1.2-6.7); Basophils % 0.6; Eosinophils % 2.2; HCT 40.6 % (40.0-50.0); HGB 13.3 g/dL (13.5-17.5); Immature Grans % 0.5; MCH 30.4 pg (27.0-33.0); MCHC 32.8 % (32.0-36.0); MCV 92.9 fL (80-95); MPV 10.2 fL (8.0-11.0); Neutrophils % 63.7; Nucleated RBC 0 %; Platelet Count 108 10^3/uL (130-400); RBC 4.37 10^6/uL (4.36-5.78); RDW 13.9 % (11.8-14.1); RDW-SD 47.2 fL; WBC 8.28 10^3/uL (4.4-10.8)
[2021-05-16 22:30] LABS: ALT 33 U/L (16-63); AST 25 U/L (15-37); Albumin 3.4 g/dL (3.4-5.0); Alkaline Phosphatase 115 U/L (46-116); Anion Gap 8.3 mmol/L (3-11); BUN 13 mg/dL (7-18); Bilirubin, Total 0.3 mg/dL (0.2-1.0); CO2 26.7 mmol/L (21.0-32.0); CREATININE 1.3 mg/dL (0.70-1.30); Calcium 8.8 mg/dL (8.5-10.1); Chloride 106 mmol/L (98-107); Estimated GFR 53.96 (mL/min/1.73m2); Glucose 89 mg/dL (74-106); Potassium 3.8 mmol/L (3.5-5.1); Sodium 141 mmol/L (136-145); Total Protein 6.9 g/dL (6.4-8.2)
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
--- NOTE | 2021-05-16 22:52 | DI.VRAD_ITS ---
PROCEDURE INFORMATION: Exam: XR Chest Exam date and time: 05/16/2021 9:59 PM Age: 76 years old Clinical indication: Other: Hemoptysis, recent lung mass diagnosis TECHNIQUE: Imaging protocol: XR of the chest. Views: 2 views. COMPARISON: CR XR CHEST 2V PA LATERAL 04/30/2021 12:37 PM, CT chest April 28, 2021 FINDINGS: Lungs: The previously seen masslike opacity in the right upper lobe appears less prominent on today's exam. Otherwise, no pulmonary consolidation is seen. There is pulmonary hyperinflation with flattening of the hemidiaphragms on the lateral view suggesting COPD. Pleural spaces: No pleural effusion or pneumothorax is seen. Heart/Mediastinum: The heart is normal in size. There is a prosthetic aortic valve. Median sternotomy wires are noted. Bones/joints: There is thoracic kyphosis. IMPRESSION: Previously seen masslike right upper lobe opacity redemonstrated but improved since the prior exam. Continued follow-up is recommended to document complete resolution, particularly given the masslike appearance on the CT exam from April 28, 2021. Dictated and Authenticated by: Douglas Cantu MD. Ordering:DULCE Lisa MD
[2021-05-16 23:28] LABS: PTT Activated 25.3 sec (21.0-27.5); Prothrombin Time 9.9 sec (9.3-11.0)
== END 2021-05-16 23:49 | disposition home or self-care (01) ==
PROVIDERS: Emergency Provider Emergency Medicine; PCP Family Medicine
DX: R04.2 Hemoptysis (principal); R91.8 Other nonspecific abnormal finding of lung field
CPT/HCPCS: 36415; 80053; 99283; 71046; 85025; 85610; 85730

== ENCOUNTER 2021-05-17 12:11 | Outpatient (CLI) | payer MEDICARE, MEDICAID, SELFPAY ==
--- NOTE | 2021-05-17 12:00 | RT.EKG_ITS ---
APPROVED REPORT Exam: Resting ECG Reason for Exam: chest discomfort Patient Location: O HR:94 bpm ECG Measurements Heart Rate 94 AXIS IL 188 P 81 QRSd 108 QRS 43 QT 374 T 53 QTc 468 Conclusion Sinus rhythm with atrial premature beats ..V-rate 74-139, variation>10% Low voltage, extremity leads...all extremity leads <0.5mV
== END 2021-05-17 12:12 | disposition home or self-care (01) ==
LOC: DI.CM 12:17
PROVIDERS: PCP Family Medicine; Visit Provider Nurse Practitioner Family
DX: R07.89 Other chest pain (principal); R94.31 Abnormal electrocardiogram [ECG] [EKG]; I49.1 Atrial premature depolarization
CPT/HCPCS: 93010

== ENCOUNTER 2021-05-17 12:24 | Outpatient (REF) | payer MEDICARE, MEDICAID, SELFPAY ==
[2021-05-19 12:19] LABS: COVID-19 RT-PCR UVMMC Result Negative (Negative)
== END 2021-05-17 12:25 | disposition home or self-care (01) ==
LOC: LBN 12:24
PROVIDERS: PCP Family Medicine; Visit Provider Nurse Practitioner Family
DX: Z20.822 Contact with and (suspected) exposure to COVID-19 (principal)
CPT/HCPCS: U0003

== ENCOUNTER 2021-05-17 12:58 | Emergency (ER) | payer MEDICARE, MEDICAID, SELFPAY ==
[2021-05-17] VITALS (15 sets, daily range): BP systolic 143–155; BP diastolic 74–96; PULSE 68–103; RESP 14–22; TEMP 36.3; O2SAT 93–98
--- NOTE | 2021-05-17 13:00 | DI.CT_ITS ---
Exam(s) CT CHEST PE CTA EXAM: CT CHEST PE CTA CLINICAL HISTORY: lung mass, hemoptysis. TECHNIQUE: Imaging Protocol: CT angiography of the chest was performed using pulmonary embolus tari col. Multi planar reconstructions were performed. CONTRAST MATERIAL: Intravenous: Omnipaque 350 Contrast volume: 100 cc COMPARISON: CT CT CHEST PE CTA from 04/28/2021 FINDINGS: CHEST: PULMONARY ARTERIES: There are no intraluminal filling defects to suggest acute pulmonary emboli. LUNGS: The large infiltrate in right upper lobe has somewhat decreased in size but not resolved. No c avitation therein.. Mild infiltrate in the most superior aspect of the superior segment of the right lower lobe is unchanged. There is no pleural effusion. No significant focal findings in the opposite- left lung and no left pleural effusion MEDIASTINUM: There is no hilar nor mediastinal adenopathy. Visualized thyroid unremarkable. CARDIAC: Sternotomy wires are noted. Heart size normal. Coronary artery calcifications noted. The asc ending thoracic aorta is enlarged, exhibiting diameter 4 point 4.2 cm., unchanged. There is no dissec tion. There is no significant shift of the interventricular septum. PARTIALLY VISUALIZED UPPERMOST ABDOMEN: Cirrhotic appearing liver again noted. No splenomegaly. Cyst in the superior aspect of the right kidney noted measuring 3.8 cm. Right kidney not included complete ly in the field of view. OSSEOUS: No significant osseous lesions.. IMPRESSION: 1. No evidence of acute pulmonary emboli. No evidence of pulmonary infarction.No pleural effusions. 2. Significant size right upper lobe infiltrate again noted. This has decreased in size but not resol shalini. This requires follow-up to resolution to rule out malignancy. There is no obvious ipsilateral hi lar adenopathy. No mediastinal adenopathy. Small pleural based infiltrate also again noted in superio r segment right lower lobe, also unchanged. 3. Cirrhotic appearing liver again noted. RADIATION DOSE DELIVERED: 234.51mGy.cm Total DLP DATA REPOSITORY: All CT scans at this facility are submitted to the National Radiology Data Registry (NRDR) Dose Index Registry (DIR) with the [employer] ([employer]). RADIATION OPTIMIZATION: All CT scans at this facility use at least one of these dose optimization te chniques: automated exposure control; mA and/or kV adjustment per patient size (includes targeted exa ms where dose is matched to clinical indication); or iterative reconstruction.
--- NOTE | 2021-05-17 13:00 | RT.EKG_ITS ---
APPROVED REPORT Exam: Resting ECG Reason for Exam: shortness of breath Patient Location: E HR:90 bpm ECG Measurements Heart Rate 90 AXIS RI 160 P 71 QRSd 110 QRS 41 QT 385 T 29 QTc 472 Conclusion Sinus rhythm...normal P axis, V-rate 60- 99 Atrial premature complexes...SV complexes w/ short R-R intvls. Sinus. PACs. No STEMI. I have reviewed and interpreted ECG and agree with software generated interpretation.
[2021-05-17 13:26] LABS: Abs Immature Grans 0.03 10^3/uL (0.0-0.06); Absolute Basophil Count 0.03 10^3/uL (0.0-0.2); Absolute Eosinophil Count 0.15 10^3/uL (0.0-0.7); Absolute Lymphocyte Count 1.13 10^3/uL (1.2-3.4); Absolute Monocyte Count 0.67 10^3/uL (0.1-0.8); Absolute Neutrophil Count 4.21 10^3/uL (1.2-6.7); Basophils % 0.5; Eosinophils % 2.4; HCT 41.6 % (40.0-50.0); HGB 13.7 g/dL (13.5-17.5); Immature Grans % 0.5; Lymphocytes % 18.2; MCH 30.2 pg (27.0-33.0); MCHC 32.9 % (32.0-36.0); MCV 91.6 fL (80-95); MPV 9.7 fL (8.0-11.0); Monocytes % 10.8; Neutrophils % 67.6; Nucleated RBC 0 %; Platelet Count 102 10^3/uL (130-400); RBC 4.54 10^6/uL (4.36-5.78); RDW 13.7 % (11.8-14.1); RDW-SD 46.2 fL; WBC 6.22 10^3/uL (4.4-10.8)
[2021-05-17 13:37] LABS: ALT 32 U/L (16-63); AST 25 U/L (15-37); Albumin 3.4 g/dL (3.4-5.0); Alkaline Phosphatase 102 U/L (46-116); Anion Gap -2.5 mmol/L (3-11); BUN 12 mg/dL (7-18); Bilirubin, Total 0.5 mg/dL (0.2-1.0); CO2 27.5 mmol/L (21.0-32.0); CREATININE 1.2 mg/dL (0.70-1.30); Calcium 8.4 mg/dL (8.5-10.1); Chloride 106 mmol/L (98-107); Estimated GFR 59.18 (mL/min/1.73m2); Glucose 111 mg/dL (74-106); Potassium 3.4 mmol/L (3.5-5.1); Sodium 131 mmol/L (136-145); Total Protein 6.8 g/dL (6.4-8.2)
[2021-05-17] MEDS: Omnipaque 350 MG/ML 100 ML BTL IJ (13:54)
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
[2021-05-17] MEDS: Normal Saline 500 ML IV (14:32)
--- NOTE | 2021-05-17 16:00 | NUR.NOTE ---
Marion Engle has requested pulmonology appt forn pneumonia ANGELA request faxed
[2021-05-17 21:39] LABS: C-Reactive Protein 0.63 mg/dL (0.0-0.3)
== END 2021-05-17 16:03 | disposition home or self-care (01) ==
PROVIDERS: Emergency Provider Physician Assistant; PCP Family Medicine
DX: J18.9 Pneumonia, unspecified organism (principal); R04.2 Hemoptysis; Z87.891 Personal history of nicotine dependence; J44.9 Chronic obstructive pulmonary disease, unspecified; R91.8 Other nonspecific abnormal finding of lung field; R06.02 Shortness of breath
CPT/HCPCS: 36415; 71275; 80053; 86850; 86900; 86901; 93005; 96360; 99285; 85025; 86140; 87070; 87205; 93010; 99284; J3490

== ENCOUNTER → 2021-05-22 10:40 | Outpatient (BNVA) | payer MEDICARE, MEDICAID, SELFPAY | PROVIDERS: PCP Family Medicine; Referring Provider Family Medicine; Visit Provider Nurse Practitioner Gerontology | DX: N40.1 Benign prostatic hyperplasia with lower urinary tract symptoms (principal); R35.0 Frequency of micturition; R35.1 Nocturia | CPT/HCPCS: 81003; 99215 ==

== ENCOUNTER 2021-06-04 13:03 | Outpatient (REF) | payer MEDICARE, MEDICAID, SELFPAY ==
[2021-06-05 11:11] LABS: IgA 375 mg/dL (85-499); IgG 716 mg/dL (610-1,616); IgM 135 mg/dL (35-242)
[2021-06-06 11:05] LABS: IgE 396 IU/mL (<158)
== END 2021-06-04 13:04 | disposition home or self-care (01) ==
LOC: LBN 13:03
PROVIDERS: PCP Family Medicine; Visit Provider Student in an Organized Health Care Education/Training Program
DX: J18.9 Pneumonia, unspecified organism (principal); J44.9 Chronic obstructive pulmonary disease, unspecified
CPT/HCPCS: 82784; 82785; 82787

== ENCOUNTER 2021-06-25 01:58 | Outpatient (CLI) | payer MEDICARE, MEDICAID, SELFPAY ==
--- NOTE | 2021-06-25 06:30 | DI.CT_ITS ---
Exam(s) CT CHEST WO EXAM: CT CHEST WO CLINICAL HISTORY: f/u previously seen lung infiltrate AND NODULES, J18.9,R91.8. TECHNIQUE: Multi planar reconstructions were performed. CONTRAST MATERIAL: None COMPARISON: CT CT CHEST PE CTA from 05/17/2021 FINDINGS: CHEST: LUNGS: There is now a prominent area of infiltrate in the apical posterior segment of the left upper lobe with starting cavitation therein. This infiltrate does not violate the superior aspect of the m ajor fissure and does not involve the adjacent superior segment of the left lower lobe. There are no focal findings in the left lower lobe. There is a 6 5 millimeter nodular density in the peripheral aspect of the left upper lobe which is unchanged. There is no pleural effusion. In the opposite-right lung the previously described right upper lobe infiltrate has slightly decrease d in size but not resolved. In addition, there is now a spiculated infiltrate evident in the superio r segment of the right lower lobe, not previously present, this measuring approximately 2.7 x 2.3 cm. No pleural effusion on either side. No new findings in the trachea and mainstem bronchi. MEDIASTINUM: There is no obvious hilar nor mediastinal adenopathy. Visualized thyroid unremarkable.No obvious axillary adenopathy CARDIAC: Heart size is normal. There are sternotomy wires. Evidence of coronary artery calcificatio n. There is no pericardial effusion. There is a prosthetic aortic valve.The ascending thoracic aort a is enlarged with external diameter 4.4 cm. Diameter of the mid thoracic arch is 2.6 cm. Diameter of the proximal descending thoracic aorta is 2.8 cm. Diameter of the mid-distal descending thoracic aorta is 2.6 cm. Cannot assess for dissection as this is a noninfused study. VISUALIZED UPPER ABDOMEN:Cirrhotic appearing liver with grossly enlarged caudate lobe again noted. . No splenomegaly. No adrenal masses. Again noted is a 3 centimeters cyst in the superior pole of t he left kidney and a 1.5 cm cyst in the lateral cortex of the opposite-left kidney. The entire kidne ys are not included in the field of view. OSSEOUS: No significant osseous lesions.No fractures. IMPRESSION: 1. Compared to the CT scan of 05/17/2021 there has been deterioration with appearance of new prominen t area of partially cavitated infiltrate in the apical posterior segment of the left upper lobe as we ll as the appearance of a new 2.7 x 2.3 cm spiculated infiltrate in the right lower lobe. The previo usly described right upper lobe infiltrate is slightly smaller but not resolved. There are no pleura l effusions on either side. Close follow-up recommended given the above findings. The new bilateral infiltrates would be most likely infectious/inflammatory and less likely malignant given that there were not evident on the prior scan of less than 6 weeks ago. 2. No obvious new intrathoracic adenopathy. 3. Sternotomy. Prosthetic aortic valve. Dilated ascending thoracic aorta (4.4 cm diameter) again no naila. 4. Cirrhotic liver again noted. No ascites nor splenomegaly evident. RADIATION DOSE DELIVERED: 371.71mGy.cm Total DLP DATA REPOSITORY: All CT scans at this facility are submitted to the National Radiology Data Registry (NRDR) Dose Index Registry (DIR) with the [employer] ([employer]). RADIATION OPTIMIZATION: All CT scans at this facility use at least one of these dose optimization te chniques: automated exposure control; mA and/or kV adjustment per patient size (includes targeted exa ms where dose is matched to clinical indication); or iterative reconstruction.
== END 2021-06-25 02:18 ==
PROVIDERS: PCP Family Medicine; Visit Provider Student in an Organized Health Care Education/Training Program
DX: J18.9 Pneumonia, unspecified organism (principal); R91.8 Other nonspecific abnormal finding of lung field; K74.60 Unspecified cirrhosis of liver; Z95.5 Presence of coronary angioplasty implant and graft
CPT/HCPCS: 71250

== ENCOUNTER 2021-07-09 19:07 | Outpatient (REF) | payer MEDICARE, MEDICAID, SELFPAY ==
[2021-07-09 19:33] LABS: Procalcitonin < 0.1 ng/mL
[2021-07-10 21:12] LABS: Rheumatoid Factor 9.3 IU/mL (<12.0)
[2021-07-11 09:11] LABS: Cyclic Citrullinated Peptide <2.5 U/mL (<5.0)
[2021-07-11 13:32] LABS: ANA Interpretation Negative (Negative)
[2021-07-11 14:53] LABS: Leukemia/Lymphoma by FC (Blood (See below)
[2021-07-11 21:37] LABS: Fungitell Qualitative Negative (Negative); Fungitell Quantitative Value <31 pg/mL (<60 pg/mL)
[2021-07-12 13:23] LABS: dsDNA Ab, IgG <12.3 IU/mL (<30.0)
== END 2021-07-09 19:08 | disposition home or self-care (01) ==
LOC: LBN 19:07
PROVIDERS: PCP Family Medicine; Visit Provider Student in an Organized Health Care Education/Training Program
DX: R91.8 Other nonspecific abnormal finding of lung field (principal); R59.0 Localized enlarged lymph nodes
CPT/HCPCS: 84145; 86200; 87449; 88185; 86038; 86225; 86431; 88184; 88189

== ENCOUNTER → 2021-08-31 13:40 | Outpatient (BNVA) | payer MEDICARE, MEDICAID, SELFPAY | PROVIDERS: PCP Family Medicine; Referring Provider Family Medicine; Visit Provider Nurse Practitioner Gerontology | DX: N40.1 Benign prostatic hyperplasia with lower urinary tract symptoms (principal); R35.0 Frequency of micturition | CPT/HCPCS: 51798; 99214 ==

== ENCOUNTER 2021-10-20 10:58 | Emergency (ER) | payer MEDICARE, MEDICAID, SELFPAY ==
[2021-10-20] VITALS (23 sets, daily range): BP systolic 143; BP diastolic 71; PULSE 65–104; RESP 22; TEMP 36.6; O2SAT 92–100
--- NOTE | 2021-10-20 10:45 | RT.EKG_ITS ---
APPROVED REPORT Exam: Resting ECG Reason for Exam: sob Patient Location: E HR:105 bpm ECG Measurements Heart Rate 105 AXIS MT 143 P 48 QRSd 114 QRS 71 QT 342 T 9 QTc 449 Conclusion Sinus tachycardia...rate> 99 sinus tach, normal axis, PACs and PVCs
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
[2021-10-20] MEDS: Levalbuterol 1.25 MG/3 ML UPD VIAL UPD (11:23)
[2021-10-20] MEDS: Dexamethasone 10 MG/ML VIAL IVP (11:24)
[2021-10-20] MEDS: Ipratropium 0.5 MG/2.5 ML UPD VIAL UPD (11:24)
[2021-10-20] MEDS: LORazepam 20 MG/10 ML VIAL IVP (11:31)
[2021-10-20 11:53] LABS: Abs Immature Grans 0.07 10^3/uL (0.0-0.06); Absolute Basophil Count 0.03 10^3/uL (0.0-0.2); Absolute Eosinophil Count 0.06 10^3/uL (0.0-0.7); Absolute Monocyte Count 0.28 10^3/uL (0.1-0.8); Absolute Neutrophil Count 11.16 10^3/uL (1.2-6.7); Basophils % 0.2; Eosinophils % 0.5; HCT 43.1 % (40.0-50.0); HGB 14.7 g/dL (13.5-17.5); Immature Grans % 0.6; Lymphocytes % 7.2; MCH 31.7 pg (27.0-33.0); MCHC 34.1 % (32.0-36.0); MCV 93 fL (80-95); MPV 10.3 fL (8.0-11.0); Monocytes % 2.2; Neutrophils % 89.3; Platelet Count 121 10^3/uL (130-400); RBC 4.64 10^6/uL (4.36-5.78); RDW 12.5 % (11.8-14.1); RDW-SD 42.8 fL
[2021-10-20 12:00] LABS: ALT 36 U/L (16-63); AST 28 U/L (15-37); Alkaline Phosphatase 98 U/L (46-116); Anion Gap 7.7 mmol/L (3-11); BUN 22 mg/dL (7-18); Bilirubin, Total 0.8 mg/dL (0.2-1.0); CO2 28.3 mmol/L (21.0-32.0); CREATININE 1.3 mg/dL (0.70-1.30); Calcium 8.6 mg/dL (8.5-10.1); Chloride 106 mmol/L (98-107); Estimated GFR 53.96 (mL/min/1.73m2); Glucose 142 mg/dL (74-106); Potassium 3.7 mmol/L (3.5-5.1); Sodium 142 mmol/L (136-145); Total Protein 7.1 g/dL (6.4-8.2)
[2021-10-20] MEDS: Lidocaine 5% Patch 1 PATCH TP (13:18)
[2021-10-20] MEDS: Cyclobenzaprine 10 MG TAB PO (13:19)
== END 2021-10-20 14:51 | disposition home or self-care (01) ==
PROVIDERS: Emergency Provider Emergency Medicine; PCP Family Medicine
DX: J44.1 Chronic obstructive pulmonary disease with (acute) exacerbation (principal); I49.3 Ventricular premature depolarization; Z87.891 Personal history of nicotine dependence; Z79.51 Long term (current) use of inhaled steroids
CPT/HCPCS: 36415; 80053; 93005; 96374; 96375; 99284; 85025; 93010; J1100; J3490; J7614; J7644

== ENCOUNTER 2021-10-22 16:28 | Outpatient (CLI) | payer MEDICARE, SELFPAY ==
[2021-10-22 15:15] LABS: Anion Gap 10.3 mmol/L (3-11); BUN 25 mg/dL (7-18); CO2 23.7 mmol/L (21.0-32.0); CREATININE 1.4 mg/dL (0.70-1.30); Chloride 103 mmol/L (98-107); Estimated GFR 49.54 (mL/min/1.73m2); Glucose 112 mg/dL (74-106); Potassium 3.8 mmol/L (3.5-5.1); Sodium 137 mmol/L (136-145)
== END 2021-10-22 16:29 | disposition home or self-care (01) ==
LOC: LBO 16:29
PROVIDERS: PCP Family Medicine; Visit Provider Family Medicine
DX: E87.1 Hypo-osmolality and hyponatremia (principal); R73.9 Hyperglycemia, unspecified
CPT/HCPCS: 36415; 80048

== ENCOUNTER → 2021-11-05 08:18 | Outpatient (BNVA) | payer MEDICARE, MEDICAID, SELFPAY | PROVIDERS: PCP Family Medicine; Referring Provider Family Medicine; Visit Provider Student in an Organized Health Care Education/Training Program | DX: M67.911 Unspecified disorder of synovium and tendon, right shoulder (principal); M67.912 Unspecified disorder of synovium and tendon, left shoulder | CPT/HCPCS: 20610; J1040 ==

== ENCOUNTER → 2021-11-28 13:22 | Outpatient (BNVA) | payer MEDICARE, MEDICAID, SELFPAY | PROVIDERS: PCP Family Medicine; Referring Provider Family Medicine; Visit Provider Nurse Practitioner Gerontology | DX: N40.1 Benign prostatic hyperplasia with lower urinary tract symptoms (principal); R35.1 Nocturia | CPT/HCPCS: 99214 ==

== ENCOUNTER 2021-12-09 16:42 | Emergency (ER) | payer MEDICARE, MEDICAID, SELFPAY ==
--- NOTE | 2021-12-09 16:30 | RT.EKG_ITS ---
APPROVED REPORT Exam: Resting ECG Reason for Exam: chest pain Patient Location: E HR:78 bpm ECG Measurements Heart Rate 78 AXIS SC 157 P 42 QRSd 108 QRS 49 QT 387 T 39 QTc 440 Conclusion Sinus rhythm...normal P axis, V-rate 60- 99. Sinus. No STEMI. I have reviewed and interpreted ECG and agree with software generated interpretation.
[2021-12-09 16:49] VITALS: BP 150/84; PULSE 80; RESP 12; TEMP 37.3; O2SAT 97
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
[2021-12-09 17:20] LABS: Abs Immature Grans 0.08 10^3/uL (0.0-0.06); Absolute Basophil Count 0.06 10^3/uL (0.0-0.2); Absolute Eosinophil Count 0.18 10^3/uL (0.0-0.7); Absolute Monocyte Count 0.97 10^3/uL (0.1-0.8); Basophils % 0.4; Eosinophils % 1.2; HCT 41.8 % (40.0-50.0); HGB 14.3 g/dL (13.5-17.5); Immature Grans % 0.5; Lymphocytes % 11.3; MCH 32.1 pg (27.0-33.0); MCHC 34.2 % (32.0-36.0); MCV 94 fL (80-95); MPV 9.7 fL (8.0-11.0); Monocytes % 6.4; Neutrophils % 80.2; Platelet Count 121 10^3/uL (130-400); RBC 4.45 10^6/uL (4.36-5.78); RDW 12.6 % (11.8-14.1); RDW-SD 43.8 fL; WBC 15.18 10^3/uL (4.4-10.8)
[2021-12-09 17:22] LABS: Absolute Lymphocyte Count 1.72 10^3/uL (1.2-3.4); Absolute Neutrophil Count 12.17 10^3/uL (1.2-6.7)
[2021-12-09 17:34] LABS: PTT Activated 24.9 sec (21.0-27.5); Prothrombin Time 9.9 sec (9.3-11.0)
[2021-12-09 17:37] LABS: ALT 35 U/L (16-63); AST 21 U/L (15-37); Albumin 3.6 g/dL (3.4-5.0); Alkaline Phosphatase 100 U/L (46-116); Anion Gap 8.4 mmol/L (3-11); BUN 13 mg/dL (7-18); Bilirubin, Total 0.6 mg/dL (0.2-1.0); CO2 26.6 mmol/L (21.0-32.0); Calcium 8.8 mg/dL (8.5-10.1); Chloride 104 mmol/L (98-107); Estimated GFR 78.98 (mL/min/1.73m2); Glucose 115 mg/dL (74-106); Potassium 3.6 mmol/L (3.5-5.1); Sodium 139 mmol/L (136-145)
[2021-12-09 17:46] LABS: Magnesium 1.7 mg/dL (1.8-2.4); NT-proBNP 447 pg/mL (<300); Troponin I < 50 ng/L (<or=60)
--- NOTE | 2021-12-09 18:00 | DI.RAD_ITS ---
Exam(s) XR PORTABLE CHEST AP EXAM: XR PORTABLE CHEST AP CLINICAL HISTORY: SOB TECHNIQUE: 2D digital imaging was performed. COMPARISON: CT CT CHEST WO from 06/25/2021 FINDINGS: Leads overlie the chest. Sternal wires are present. LUNGS: Upper lobe scarring, right greater than left. No acute infiltrate. No pleural abnormality se en. HEART: Normal. AORTA: Normal. BONES: Unremarkable for age. Soft tissues: Unremarkable. IMPRESSION: No acute findings. DATA REPOSITORY: RADIATION DOSE DELIVERED:
[2021-12-09] MEDS: Aspirin 81 MG CHEW 243 MG CH (18:03)
[2021-12-09 18:39] LABS: Bilirubin Negative (Negative); Blood Negative (Negative); Clarity Clear (Clear); Glucose Negative (Negative); Ketones Negative (Negative); Leukocyte Esterase Negative (Negative); Nitrite Negative (Negative); Urobilinogen 0.2 EU/dL (Up TO 0.2)
[2021-12-09] MEDS: nitroGLYcerin 0.4 MG TAB SL (19:02)
--- NOTE | 2021-12-09 19:14 | DI.VRAD_ITS ---
PROCEDURE INFORMATION: Exam: XR Chest Exam date and time: 12/09/2021 6:19 PM Age: 76 years old Clinical indication: Chest pain; Prior surgery TECHNIQUE: Imaging protocol: Radiologic exam of the chest. Views: 1 view. COMPARISON: CT CHEST WO 06/25/2021 8:13 AM FINDINGS: Tubes, catheters and devices: Cardiac leads superimposed over the chest. Lungs: No alveolar infiltrate. Right upper lobe linear parenchymal scarring or subsegmental collapse / atelectasis. Pleural spaces: No pleural fluid collection. No pneumothorax. Heart/Mediastinum: Normal heart size. Bones/joints: Prior median sternotomy. IMPRESSION: No active pulmonary disease. Dictated and Authenticated by: Sergio Chawla MD. Ordering:JAMES Hernandez MD
[2021-12-09 20:08] LABS: Source Nasal/Nares
[2021-12-09 20:32] LABS: Troponin I < 50 ng/L (<or=60)
[2021-12-09 20:41] LABS: COVID-19 PCR Negative (Negative)
[2021-12-09 20:55] VITALS: BP 140/62; PULSE 68; RESP 24; TEMP 36.8; O2SAT 98
== END 2021-12-09 20:58 | disposition home or self-care (01) ==
PROVIDERS: Emergency Provider Registered Nurse Emergency; PCP Family Medicine
DX: R07.9 Chest pain, unspecified (principal); I10 Essential (primary) hypertension; I25.10 Atherosclerotic heart disease of native coronary artery without angina pectoris; J44.9 Chronic obstructive pulmonary disease, unspecified; D72.829 Elevated white blood cell count, unspecified; Z95.4 Presence of other heart-valve replacement; Z79.82 Long term (current) use of aspirin; Z87.891 Personal history of nicotine dependence; Z20.822 Contact with and (suspected) exposure to COVID-19; R06.02 Shortness of breath; R53.83 Other fatigue
CPT/HCPCS: 80053; 87635; 93005; 99283; 99285; 71045; 81003; 83735; 83880; 84484; 85025; 85610; 85730; 93010

== ENCOUNTER → 2022-01-24 08:15 | Outpatient (BNVA) | payer MEDICARE, MEDICAID, SELFPAY | PROVIDERS: PCP Family Medicine; Referring Provider Family Medicine; Visit Provider Nurse Practitioner Gerontology | DX: N40.1 Benign prostatic hyperplasia with lower urinary tract symptoms (principal); R39.15 Urgency of urination; R32 Unspecified urinary incontinence | CPT/HCPCS: 51798; 99214 ==

== ENCOUNTER 2022-02-18 21:08 | Emergency (ER) | payer MEDICARE, MEDICAID, SELFPAY ==
--- NOTE | 2022-02-18 21:00 | RT.EKG_ITS ---
APPROVED REPORT Exam: Resting ECG Reason for Exam: chest pain Patient Location: E HR:87 bpm ECG Measurements Heart Rate 87 AXIS AK 148 P 69 QRSd 118 QRS 0 QT 377 T 56 QTc 455 Conclusion Sinus rhythm...normal P axis, V-rate 60- 99 Nonspecific intraventricular conduction delay...QRSd >115mS, not LBBB/RBBB Low voltage, extremity leads...all extremity leads <0.5mV. Sinus. No STEMI. I have reviewed and interpreted ECG and agree with software generated interpretation.
[2022-02-18 21:17] VITALS: BP 153/70; PULSE 87; RESP 18; TEMP 36.7; O2SAT 97
--- NOTE | 2022-02-18 21:30 | DI.RAD_ITS ---
Exam(s) XR CHEST 2V PA LATERAL EXAM: XR CHEST 2V PA LATERAL CLINICAL HISTORY: chest pain, r/o acute disease TECHNIQUE: 2D digital imaging was performed of the chest. Two images were obtained. PA and lateral views were obtained. COMPARISON: CR,XR XR CHEST 2V PA LATERAL from 05/16/2021 FINDINGS: MEDIASTINUM: Normal. HEART: Normal. There is an aortic valve replacement. PULMONARY VASCULATURE: Normal. LUNGS: Chronic parenchymal changes are seen in the lungs. These are stable. No acute pulmonary infi ltrates are seen. PLEURAL SPACE: No pleural effusion or pneumothorax. BONE:Within normal limits for the patient's age. OTHER FINDINGS:Normal. IMPRESSION: No acute pulmonary findings. DATA REPOSITORY: RADIATION DOSE DELIVERED:
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
[2022-02-18 21:41] LABS: Abs Immature Grans 0.03 10^3/uL (0.0-0.06); Absolute Basophil Count 0.05 10^3/uL (0.0-0.2); Absolute Eosinophil Count 0.35 10^3/uL (0.0-0.7); Absolute Lymphocyte Count 1.93 10^3/uL (1.2-3.4); Absolute Monocyte Count 0.83 10^3/uL (0.1-0.8); Absolute Neutrophil Count 6.96 10^3/uL (1.2-6.7); Basophils % 0.5; Eosinophils % 3.4; HCT 40.4 % (40.0-50.0); HGB 13.8 g/dL (13.5-17.5); Immature Grans % 0.3; MCH 31.7 pg (27.0-33.0); MCHC 34.2 % (32.0-36.0); MCV 93 fL (80-95); MPV 9.9 fL (8.0-11.0); Monocytes % 8.2; Neutrophils % 68.6; Platelet Count 139 10^3/uL (130-400); RBC 4.35 10^6/uL (4.36-5.78); RDW-SD 41.7 fL; WBC 10.15 10^3/uL (4.4-10.8)
[2022-02-18 22:11] LABS: ALT 32 U/L (16-63); AST 34 U/L (15-37); Albumin 3.8 g/dL (3.4-5.0); Alkaline Phosphatase 93 U/L (46-116); Anion Gap 9.4 mmol/L (3-11); BUN 18 mg/dL (7-18); Bilirubin, Total 0.6 mg/dL (0.2-1.0); CO2 25.6 mmol/L (21.0-32.0); CREATININE 1.2 mg/dL (0.70-1.30); Calcium 8.9 mg/dL (8.5-10.1); Chloride 101 mmol/L (98-107); Estimated GFR 63.46 (mL/min/1.73m2); Glucose 138 mg/dL (74-106); Magnesium 1.9 mg/dL (1.8-2.4); Potassium 3.7 mmol/L (3.5-5.1); Sodium 136 mmol/L (136-145); Total Protein 7.3 g/dL (6.4-8.2); Troponin I < 50 ng/L (<or=60)
--- NOTE | 2022-02-18 22:18 | DI.VRAD_ITS ---
PROCEDURE INFORMATION: Exam: XR Chest Exam date and time: 02/18/2022 10:07 PM Age: 76 years old Clinical indication: Patient HX: Chest pain, R/O acute disease TECHNIQUE: Imaging protocol: Radiologic exam of the chest. Views: 2 views. COMPARISON: XR PORTABLE CHEST AP 12/09/2021 6:19 PM FINDINGS: Lungs: Chronic interstitial prominence No consolidation. Pleural spaces: No pleural effusion. No pneumothorax. Heart/Mediastinum: No cardiomegaly. Bones/joints: Grossly stable IMPRESSION: No acute findings. Dictated and Authenticated by: Benigno Taylor MD. Ordering:RISHI Gu MD
--- NOTE | 2022-02-19 00:15 | RT.EKG_ITS ---
APPROVED REPORT Exam: Resting ECG Reason for Exam: chest pain Patient Location: E HR:74 bpm ECG Measurements Heart Rate 74 AXIS [place] 160 P 63 QRSd 120 QRS 73 QT 439 T 54 QTc 482 Conclusion Sinus rhythm...normal P axis, V-rate 60- 99 Atrial premature complex...SV complex w/ short R-R interval Nonspecific intraventricular conduction delay...QRSd >115mS, not LBBB/RBBB
[2022-02-19 00:37] LABS: Troponin I < 50 ng/L (<or=60)
[2022-02-19 01:27] VITALS: BP 152/70; PULSE 79; RESP 16; TEMP 36.3; O2SAT 97
== END 2022-02-19 01:31 | disposition home or self-care (01) ==
PROVIDERS: Physician Assistant; Emergency Provider Emergency Medicine; PCP Family Medicine
DX: R07.9 Chest pain, unspecified (principal); F41.9 Anxiety disorder, unspecified; I10 Essential (primary) hypertension; I25.10 Atherosclerotic heart disease of native coronary artery without angina pectoris; J44.9 Chronic obstructive pulmonary disease, unspecified; I48.91 Unspecified atrial fibrillation; F43.10 Post-traumatic stress disorder, unspecified; E78.5 Hyperlipidemia, unspecified; Z95.4 Presence of other heart-valve replacement; Z79.82 Long term (current) use of aspirin; Z79.51 Long term (current) use of inhaled steroids; Z87.891 Personal history of nicotine dependence
CPT/HCPCS: 80053; 93005; 99283; 71046; 83735; 84484; 85025; 93010; 99285

== ENCOUNTER → 2022-05-02 14:56 | Outpatient (BNVA) | payer MEDICARE, MEDICAID, SELFPAY | PROVIDERS: PCP Student in an Organized Health Care Education/Training Program; Visit Provider Nurse Practitioner Gerontology | DX: N40.1 Benign prostatic hyperplasia with lower urinary tract symptoms (principal); R39.89 Other symptoms and signs involving the genitourinary system | CPT/HCPCS: 51798; 99213 ==

== ENCOUNTER 2022-06-03 15:27 | Emergency (ER) | payer MEDICARE, MEDICAID, SELFPAY ==
--- NOTE | 2022-06-03 15:15 | RT.EKG_ITS ---
APPROVED REPORT Exam: Resting ECG Reason for Exam: Patient Location: E HR:78 bpm ECG Measurements Heart Rate 78 AXIS MO 170 P 25 QRSd 114 QRS 60 QT 409 T 20 QTc 463 Conclusion Sinus rhythm...normal P axis, V-rate 60- 99 Atrial premature complex...SV complex w/ short R-R interval motion artifact, no stemi
[2022-06-03 15:37] VITALS: BP 148/88; PULSE 83; RESP 20; TEMP 36.6; O2SAT 97
--- NOTE | 2022-06-03 15:45 | DI.RAD_ITS ---
Exam(s) XR CHEST 2V PA LATERAL EXAM: XR CHEST 2V PA LATERAL CLINICAL HISTORY: cough TECHNIQUE: 2D digital imaging was performed of the chest. Two images were obtained. PA and lateral views were obtained. COMPARISON: CR,XR XR CHEST 2V PA LATERAL from 02/18/2022 FINDINGS: MEDIASTINUM: Normal. HEART: Normal. There is an aortic valve replacement. PULMONARY VASCULATURE: Normal. LUNGS: Clear. PLEURAL SPACE: No pleural effusion or pneumothorax. BONE:Within normal limits for the patient's age. Sternal wires are in place. OTHER FINDINGS:Normal. IMPRESSION: No acute pulmonary findings. DATA REPOSITORY: RADIATION DOSE DELIVERED:
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
[2022-06-03 17:32] VITALS: BP 132/85; PULSE 81; RESP 18; O2SAT 97
== END 2022-06-03 17:33 | disposition home or self-care (01) ==
PROVIDERS: Emergency Provider Physician Assistant; PCP Student in an Organized Health Care Education/Training Program
DX: J06.9 Acute upper respiratory infection, unspecified (principal); R07.9 Chest pain, unspecified; J44.9 Chronic obstructive pulmonary disease, unspecified
CPT/HCPCS: 87426; 93005; 99283; 99284; 71046; 93010

== ENCOUNTER 2022-06-04 08:50 | Emergency (ER) | payer MEDICARE, MEDICAID, SELFPAY ==
[2022-06-04] VITALS (26 sets, daily range): BP systolic 107–160; BP diastolic 52–80; PULSE 64–79; RESP 18; TEMP 37.2; O2SAT 92–97
--- NOTE | 2022-06-04 09:00 | RT.EKG_ITS ---
APPROVED REPORT Exam: Resting ECG Reason for Exam: nausea Patient Location: E HR:71 bpm ECG Measurements Heart Rate [address] 153 P 71 QRSd 113 QRS -65 QT 432 T 53 QTc 469 Conclusion Sinus rhythm...normal P axis, V-rate 60- 99
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
[2022-06-04] MEDS: Normal Saline 1,000 ML 1000 ML IV (09:12)
[2022-06-04 09:17] LABS: Abs Immature Grans 0.04 10^3/uL (0.0-0.06); Absolute Basophil Count 0.02 10^3/uL (0.0-0.2); Absolute Eosinophil Count 0.02 10^3/uL (0.0-0.7); Absolute Lymphocyte Count 0.91 10^3/uL (1.2-3.4); Absolute Monocyte Count 0.56 10^3/uL (0.1-0.8); Absolute Neutrophil Count 9.48 10^3/uL (1.2-6.7); Basophils % 0.2; Eosinophils % 0.2; HCT 42.1 % (40.0-50.0); HGB 14.4 g/dL (13.5-17.5); Immature Grans % 0.4; Lymphocytes % 8.2; MCH 31.9 pg (27.0-33.0); MCHC 34.2 % (32.0-36.0); MCV 93 fL (80-95); MPV 9.5 fL (8.0-11.0); Monocytes % 5.1; Neutrophils % 85.9; Platelet Count 117 10^3/uL (130-400); RBC 4.52 10^6/uL (4.36-5.78); RDW 12.5 % (11.8-14.1); RDW-SD 42.7 fL; WBC 11.04 10^3/uL (4.4-10.8)
[2022-06-04] MEDS: Prochlorperazine 10 MG/2 ML VIAL 5 MG IVP (09:34)
[2022-06-04 09:36] LABS: ALT 26 U/L (16-63); AST 22 U/L (15-37); Albumin 3.9 g/dL (3.4-5.0); Alkaline Phosphatase 80 U/L (46-116); Anion Gap 13.3 mmol/L (3-11); BUN 16 mg/dL (7-18); Bilirubin, Total 0.9 mg/dL (0.2-1.0); CO2 22.7 mmol/L (21.0-32.0); CREATININE 1.1 mg/dL (0.70-1.30); Chloride 106 mmol/L (98-107); Estimated GFR 70.01 (mL/min/1.73m2); Glucose 141 mg/dL (74-106); Potassium 3.7 mmol/L (3.5-5.1); Sodium 142 mmol/L (136-145)
[2022-06-04 09:58] LABS: COVID-19 PCR Negative (Negative); Influenza A PCR Negative (Negative); Influenza B PCR Negative (Negative); RSV PCR Negative (Negative)
[2022-06-04] MEDS: LORazepam 2 MG/ML VIAL 0.5 MG IVP (09:58)
[2022-06-04 10:07] LABS: Source Nasopharynx
[2022-06-04 11:39] LABS: Creatine Kinase 124 U/L (39-308)
== END 2022-06-04 12:08 | disposition home or self-care (01) ==
PROVIDERS: Emergency Provider Physician Assistant; PCP Student in an Organized Health Care Education/Training Program
DX: R11.2 Nausea with vomiting, unspecified (principal); R19.7 Diarrhea, unspecified; G24.01 Drug induced subacute dyskinesia; T43.3X5A Adverse effect of phenothiazine antipsychotics and neuroleptics, initial encounter
CPT/HCPCS: 36415; 80053; 82550; 87637; 93005; 96361; 96365; 96375; 99284; 85025; 93010; J0131; J0780; J2060

== ENCOUNTER 2022-06-06 13:04 | Outpatient (CLI) | payer MEDICARE, MEDICAID, SELFPAY ==
--- NOTE | 2022-06-06 08:00 | DI.RAD_ITS ---
Exam(s) XR CHEST 2V PA LATERAL EXAM: XR CHEST 2V PA LATERAL CLINICAL HISTORY: cough, frothy sputum, J06.9, R05.9, R05.8, R09.3, eval for pneumonia TECHNIQUE: 2D digital imaging was performed. COMPARISON: No exams were available for comparison FINDINGS: HEART: Normal size. Valve prosthesis. Aorta: Not dilated. PULMONARY VASCULATURE: Normal. LUNGS: Stable right upper lobe scarring. No acute infiltrate or pulmonary edema. PLEURAL SPACE: No pleural effusion or pneumothorax. BONE:Stable kyphosis. No compression fractures. Sternal wires. IMPRESSION: No acute abnormality. DATA REPOSITORY: RADIATION DOSE DELIVERED:
== END 2022-06-06 13:24 ==
LOC: DI 13:26
PROVIDERS: PCP Student in an Organized Health Care Education/Training Program; Visit Provider Student in an Organized Health Care Education/Training Program
DX: J06.9 Acute upper respiratory infection, unspecified (principal); R05.8 Other specified cough; R09.3 Abnormal sputum; J98.4 Other disorders of lung
CPT/HCPCS: 71046

== ENCOUNTER 2022-06-25 01:56 | Outpatient (CLI) | payer MEDICARE, MEDICAID, SELFPAY ==
--- NOTE | 2022-06-25 07:37 | DI.RAD_ITS ---
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 TECHNIQUE: 2D digital imaging was performed. Two views of both hands. COMPARISON: CR XR HAND RT COMPLETE from 05/11/2021 FINDINGS: Right hand: Severe degenerative changes of the distal interphalangeal joints of the 2nd through 5th f ingers with a [id number] appearance and periarticular spurring. Flexion deformities. Marked joint space narrowing of the interphalangeal joints but no significant periarticular spurring. Severe degenerative changes at the 1st carpal metacarpal joint with deformity at the base of the 1st metacarpal with subchondral cyst and prominent periarticular spurring. Proximal and lateral subluxat ion. Severe narrowing also noted at the 1st metacarpophalangeal joint which shows mild spurring and or extension.. Mild degenerative changes noted interphalangeal joint of the thumb. No bony erosions . The bone mineralization appears normal. Findings appear stable from prior. Left hand: Severe joint space narrowing with a [id number] appearance and periarticular spurring inv olving the distal interphalangeal joints of the 1st through 5th fingers. Flexion deformities. Mild degenerative changes of the proximal interphalangeal joint and interphalangeal joint of the thumb. M [id number] degenerative changes at the 1st metacarpophalangeal joint. Severe degenerative jennings es 1st carpal metacarpal joint with prominent periarticular spurring and subluxation of the 1st meta carpal laterally and proximally. Small degenerative bony fragments. IMPRESSION: Findings consistent with severe osteoarthritis bilaterally in the interval distal interphalangeal brennan nts of the fingers and 1st carpometacarpal joints. DATA REPOSITORY: RADIATION DOSE DELIVERED:
== END 2022-06-25 02:16 ==
LOC: DI 01:56
PROVIDERS: PCP Student in an Organized Health Care Education/Training Program; Visit Provider Student in an Organized Health Care Education/Training Program
DX: M25.541 Pain in joints of right hand; M25.542 Pain in joints of left hand; R20.0 Anesthesia of skin; M18.0 Bilateral primary osteoarthritis of first carpometacarpal joints; M19.041 Primary osteoarthritis, right hand; M19.042 Primary osteoarthritis, left hand
CPT/HCPCS: 73120

== ENCOUNTER → 2022-08-29 13:13 | Outpatient (BNVA) | payer MEDICARE, MEDICAID, SELFPAY | PROVIDERS: PCP Student in an Organized Health Care Education/Training Program; Referring Provider Student in an Organized Health Care Education/Training Program; Visit Provider Student in an Organized Health Care Education/Training Program | DX: M18.11 Unilateral primary osteoarthritis of first carpometacarpal joint, right hand (principal); M18.12 Unilateral primary osteoarthritis of first carpometacarpal joint, left hand | CPT/HCPCS: 20604; J1030 ==

== ENCOUNTER 2022-09-10 09:43 | Outpatient (CLI) | payer MEDICARE, MEDICAID, SELFPAY ==
--- NOTE | 2022-09-10 09:15 | DI.RAD_ITS ---
Exam(s) XR SHOULDER LT COMPLETE 2+V EXAM: XR SHOULDER LT COMPLETE 2+V CLINICAL HISTORY: left shoulder pain. TECHNIQUE: 2D digital imaging was performed of the left shoulder. Two images were obtained. AP and axillary views were obtained. COMPARISON: No exams were available for comparison FINDINGS: BONES: No acute fracture is present. No bony destructive lesion is seen. JOINTS: No dislocation present. Mild degenerative changes seen at the acromioclavicular joint. The g lenohumeral joint is well maintained. SOFT TISSUE: There is a tiny soft tissue calcification adjacent to the greater tuberosity suggestive of calcific tendinitis. IMPRESSION: Mild degenerative changes of the left shoulder as described above. DATA REPOSITORY: RADIATION DOSE DELIVERED:
--- NOTE | 2022-09-10 09:15 | DI.RAD_ITS ---
Exam(s) XR SHOULDER RT COMPLETE 2+V EXAM: XR SHOULDER RT COMPLETE 2+V CLINICAL HISTORY: right shoulder pain. TECHNIQUE: 2D digital imaging was performed of the right shoulder. Two images were obtained. AP an d axillary views were obtained. COMPARISON: No exams were available for comparison FINDINGS: BONES: No acute fracture is present. No bony destructive lesion is seen. JOINTS: No dislocation present. The joint spaces are well maintained. SOFT TISSUE: Normal. IMPRESSION: No acute abnormality. DATA REPOSITORY: RADIATION DOSE DELIVERED:
== END 2022-09-10 09:44 | disposition home or self-care (01) ==
LOC: DIORS 09:44
PROVIDERS: PCP Student in an Organized Health Care Education/Training Program; Referring Provider Student in an Organized Health Care Education/Training Program; Visit Provider Physician Assistant
DX: M25.511 Pain in right shoulder (principal); M25.512 Pain in left shoulder; R20.0 Anesthesia of skin
CPT/HCPCS: 20610; 73030; J1040

== ENCOUNTER 2022-09-16 15:01 | Outpatient (CLI) | payer MEDICARE, MEDICAID, SELFPAY ==
[2022-09-16 07:44] LABS: Hemoglobin A1C 5.5 % (<5.7)
[2022-09-16 08:01] LABS: Anion Gap 9.1 mmol/L (3-11); BUN 22 mg/dL (7-18); CO2 29.9 mmol/L (21.0-32.0); CREATININE 1.2 mg/dL (0.70-1.30); Calcium 8.9 mg/dL (8.5-10.1); Calculated LDL 114 mg/dL (<100); Chloride 103 mmol/L (98-107); Cholesterol 222 mg/dL (<200); Estimated GFR 63.07 (mL/min/1.73m2); Glucose 103 mg/dL (74-106); HDL Cholesterol 94 mg/dL (40-60); Sodium 142 mmol/L (136-145); Triglyceride 71 mg/dL (<150)
[2022-09-16 17:22] LABS: Rheumatoid Factor <8.6 IU/mL (<12.0)
== END 2022-09-16 15:02 | disposition home or self-care (01) ==
LOC: LBO 15:08
PROVIDERS: PCP Student in an Organized Health Care Education/Training Program; Visit Provider Student in an Organized Health Care Education/Training Program
DX: I10 Essential (primary) hypertension (principal); I25.10 Atherosclerotic heart disease of native coronary artery without angina pectoris; Z13.220 Encounter for screening for lipoid disorders; R73.09 Other abnormal glucose; M19.041 Primary osteoarthritis, right hand; R29.898 Other symptoms and signs involving the musculoskeletal system
CPT/HCPCS: 36415; 80048; 80061; 83036; 86431

== ENCOUNTER 2022-09-17 20:07 | Emergency (ER) | payer MEDICARE, MEDICAID, SELFPAY ==
[2022-09-17] VITALS (63 sets, daily range): BP systolic 122–160; BP diastolic 74–98; PULSE 72–119; RESP 4–32; TEMP 36.7; O2SAT 94–100
--- NOTE | 2022-09-17 20:00 | RT.EKG_ITS ---
APPROVED REPORT Exam: Resting ECG Reason for Exam: short of breath Patient Location: E HR:75 bpm ECG Measurements Heart Rate 75 AXIS PA 145 P 12 QRSd 115 QRS 0 QT 410 T [id number] QTc 457 Conclusion Sinus rhythm...normal P axis, V-rate 60- 99 Nonspecific intraventricular conduction delay...QRSd >115mS, not LBBB/RBBB
--- NOTE | 2022-09-17 20:15 | DI.RAD_ITS ---
Exam(s) XR PORTABLE CHEST AP EXAM: XR PORTABLE CHEST AP CLINICAL HISTORY: shortness of breath TECHNIQUE: 2D digital imaging was performed of the chest. One image was obtained. An AP view was ob tained. COMPARISON: CR,XR XR PORTABLE CHEST AP from 12/09/2021 CR XR CHEST 2V PA LATERAL from 06/06/2022 FINDINGS: MEDIASTINUM: Normal. HEART: Aortic valve is in place. Heart size is within normal limits. PULMONARY VASCULATURE: Normal. LUNGS: There is stable scarring in the lung apices. No focal consolidating infiltrates are present. The lungs appear hyperinflated suggesting underlying COPD. PLEURAL SPACE: No pleural effusion or pneumothorax. BONE:Within normal limits for the patient's age. OTHER FINDINGS:Normal. IMPRESSION: No acute pulmonary findings. DATA REPOSITORY: RADIATION DOSE DELIVERED:
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
[2022-09-17] MEDS: Albuterol/Ipratropium 3 ML UPD VIAL UPD (20:27)
[2022-09-17] MEDS: methylPREDNISolone SUCC 125 MG VIAL IVP (20:27)
[2022-09-17] MEDS: Albuterol 2.5 MG/3 ML INH SOLN VIAL 5 MG UPD ×2 (20:27→21:28)
[2022-09-17 20:31] LABS: Abs Immature Grans 0.07 10^3/uL (0.0-0.06); Absolute Basophil Count 0.03 10^3/uL (0.0-0.2); Absolute Eosinophil Count 0.08 10^3/uL (0.0-0.7); Absolute Lymphocyte Count 2.13 10^3/uL (1.2-3.4); Absolute Monocyte Count 0.87 10^3/uL (0.1-0.8); Absolute Neutrophil Count 7.31 10^3/uL (1.2-6.7); Basophils % 0.3; Eosinophils % 0.8; HGB 15.8 g/dL (13.5-17.5); Immature Grans % 0.7; Lymphocytes % 20.3; MCH 31.9 pg (27.0-33.0); MCHC 34.3 % (32.0-36.0); MCV 93 fL (80-95); MPV 9.6 fL (8.0-11.0); Monocytes % 8.3; Neutrophils % 69.6; Platelet Count 142 10^3/uL (130-400); RBC 4.96 10^6/uL (4.36-5.78); RDW 12.6 % (11.8-14.1); RDW-SD 43.1 fL; WBC 10.49 10^3/uL (4.4-10.8)
[2022-09-17 20:54] LABS: ALT 39 U/L (16-63); AST 24 U/L (15-37); Albumin 4.2 g/dL (3.4-5.0); Alkaline Phosphatase 103 U/L (46-116); Anion Gap 9.5 mmol/L (3-11); BUN 29 mg/dL (7-18); Bilirubin, Total 0.7 mg/dL (0.2-1.0); CO2 26.5 mmol/L (21.0-32.0); CREATININE 1.5 mg/dL (0.70-1.30); Calcium 9.3 mg/dL (8.5-10.1); Chloride 101 mmol/L (98-107); Estimated GFR 48.25 (mL/min/1.73m2); Glucose 143 mg/dL (74-106); Magnesium 2.1 mg/dL (1.8-2.4); NT-proBNP 159 pg/mL (<300); Potassium 4.2 mmol/L (3.5-5.1); Sodium 137 mmol/L (136-145); Total Protein 7.6 g/dL (6.4-8.2); Troponin I < 50 ng/L (<or=60)
[2022-09-17 21:42] LABS: COVID-19 PCR Negative (Negative); Influenza A PCR Negative (Negative); Influenza B PCR Negative (Negative); RSV PCR Negative (Negative)
[2022-09-17 21:46] LABS: Source Nasopharynx
--- NOTE | 2022-09-17 21:47 | DI.VRAD_ITS ---
PROCEDURE INFORMATION: Exam: XR Chest Exam date and time: 09/17/2022 8:49 PM Age: 77 years old Clinical indication: Shortness of breath; Prior surgery; Surgery date: 6+ months; Surgery type: Aortic valve replaced 5 years ago; Patient HX: SOB TECHNIQUE: Imaging protocol: Radiologic exam of the chest. Views: 1 view. COMPARISON: CR XR CHEST 2V PA LATERAL 06/06/2022 8:21 AM FINDINGS: Tubes, catheters and devices: There are sternal wires consistent with previous sternotomy incision. Lungs: Mild scarring and atelectasis present within the right upper right lower left upper and left lower lobes of the lung. There is diffuse mild nonspecific prominence of the pulmonary interstitium. Pleural spaces: There is no evidence of pneumothorax. There are no pleural effusions present. Heart/Mediastinum: There is mild cardiomegaly. Mediastinum is slightly prominent. Vasculature: The aorta is mildly ectatic. Bones/joints: The skeletal structures and soft tissues show no evidence of fracture or other acute processes. Soft tissues: The soft tissues of the extrathoracic region are unremarkable. IMPRESSION: 1. Atelectasis and scarring within the lungs bilaterally. There is diffuse mild nonspecific prominence of the pulmonary interstitium. 2. No definitive active pneumonia. Dictated and Authenticated by: Everardo Restrepo MD. Ordering:YOANNA Calzada MD
--- NOTE | 2022-09-19 10:13 | NUR.NOTE ---
Nursing Note: Accessed pt chart to get the discharge diagnosis for [facility].
== END 2022-09-17 22:18 | disposition home or self-care (01) ==
PROVIDERS: Emergency Provider Student in an Organized Health Care Education/Training Program; PCP Student in an Organized Health Care Education/Training Program
DX: J44.1 Chronic obstructive pulmonary disease with (acute) exacerbation (principal); R06.02 Shortness of breath
CPT/HCPCS: 80053; 87637; 93005; 96374; 99284; 71045; 83735; 83880; 84484; 85025; 93010; J2930; J7613; J7620

== ENCOUNTER → 2022-10-17 15:22 | Outpatient (BNVA) | payer MEDICARE, MEDICAID, SELFPAY | PROVIDERS: PCP Student in an Organized Health Care Education/Training Program; Referring Provider Student in an Organized Health Care Education/Training Program; Visit Provider Nurse Practitioner Adult Health | DX: R20.2 Paresthesia of skin (principal); R20.0 Anesthesia of skin; I10 Essential (primary) hypertension; J44.9 Chronic obstructive pulmonary disease, unspecified | CPT/HCPCS: 99203; 99213 ==

== ENCOUNTER 2022-10-28 14:11 | Emergency (ER) | payer MEDICARE, MEDICAID, SELFPAY ==
--- NOTE | 2022-10-28 14:15 | RT.EKG_ITS ---
APPROVED REPORT Exam: Resting ECG Reason for Exam: arm pain Patient Location: E HR:74 bpm ECG Measurements Heart Rate 74 AXIS KS 171 P 35 QRSd 119 QRS 13 QT 408 T 1 QTc 453 Conclusion Sinus rhythm...normal P axis, V-rate 60- 99 Nonspecific intraventricular conduction delay...QRSd >115mS, not LBBB/RBBB
[2022-10-28 14:19] VITALS: BP 137/78; PULSE 72; RESP 20; TEMP 37.1; O2SAT 98
--- NOTE | 2022-10-28 15:00 | DI.RAD_ITS ---
Exam(s) XR SHOULDER LT COMPLETE 2+V EXAM: XR SHOULDER LT COMPLETE 2+V CLINICAL HISTORY: pain throughout, no new injury. TECHNIQUE: 2D digital imaging was performed. Three views. COMPARISON: CR XR SHOULDER RT COMPLETE 2+V from 09/10/2022 FINDINGS: BONES: No acute fracture is present. No bony destructive lesion is seen. Spurring at the undersurfac e of the acromion. JOINTS: No dislocation present. No AC joint widening or significant spurring. Glenohumeral joint is maintained. No significant degenerative changes. SOFT TISSUE: Normal. No tendon calcifications. IMPRESSION: Mild degenerative changes. No acute abnormality. DATA REPOSITORY: RADIATION DOSE DELIVERED:
[2022-10-28] MEDS: Lidocaine 5% Patch 1 PATCH TP (15:10)
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
== END 2022-10-28 15:53 | disposition home or self-care (01) ==
PROVIDERS: Emergency Provider Student in an Organized Health Care Education/Training Program; PCP Student in an Organized Health Care Education/Training Program
DX: M75.02 Adhesive capsulitis of left shoulder (principal)
CPT/HCPCS: 93005; 99283; 73030; 93010

== ENCOUNTER → 2022-11-06 14:30 | Outpatient (BNVA) | payer MEDICARE, MEDICAID, SELFPAY | PROVIDERS: PCP Student in an Organized Health Care Education/Training Program; Visit Provider Nurse Practitioner Gerontology | DX: R39.89 Other symptoms and signs involving the genitourinary system (principal); I10 Essential (primary) hypertension | CPT/HCPCS: 51798; 99213 ==

== ENCOUNTER → 2022-11-07 07:48 | Outpatient (BNVA) | payer MEDICARE, MEDICAID, SELFPAY | PROVIDERS: PCP Student in an Organized Health Care Education/Training Program; Referring Provider Student in an Organized Health Care Education/Training Program; Visit Provider Student in an Organized Health Care Education/Training Program | DX: M67.912 Unspecified disorder of synovium and tendon, left shoulder (principal); M67.911 Unspecified disorder of synovium and tendon, right shoulder | CPT/HCPCS: 20610; J1040 ==

== ENCOUNTER 2022-11-21 21:00 | Emergency (ER) | payer MEDICARE, MEDICAID, SELFPAY ==
--- NOTE | 2022-11-21 21:00 | DI.RAD_ITS ---
Exam(s) XR WRIST RT COMPLETE EXAM: XR WRIST RT COMPLETE CLINICAL HISTORY: ulnar pain. TECHNIQUE: 2D digital imaging was performed. Three views. COMPARISON: CR XR ARTHRITIS SERIES from 06/25/2022 FINDINGS: BONES: No acute fracture is present. No bony destructive lesion is seen. JOINTS: Severe degenerative changes at the 1st carpal metacarpal joint with proximal subluxation of t he 1st metacarpal related to the trapezium. This appears unchanged from prior. There is widening of the scapholunate distance and ventral tilt of the lunate.. SOFT TISSUE: Vascular calcifications. Swelling around the wrist. IMPRESSION: Severe degenerative changes 1st carpal metacarpal joint. Widening of scapholunate distance and dorsa l tilt of the lunate of uncertain chronicity. DATA REPOSITORY: RADIATION DOSE DELIVERED:
[2022-11-21 21:08] VITALS: BP 126/65; PULSE 65; TEMP 36.7; O2SAT 96
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
[2022-11-21] MEDS: Dexamethasone 10 MG/ML VIAL PO (21:23)
--- NOTE | 2022-11-21 22:23 | DI.VRAD_ITS ---
PROCEDURE INFORMATION: Exam: XR Right Wrist Exam date and time: 11/21/2022 9:39 PM Age: 77 years old Clinical indication: Other: Ulnar pain TECHNIQUE: Imaging protocol: Radiologic exam of the right wrist. Views: 3 or more views. COMPARISON: CR XR HAND RT COMPLETE 05/11/2021 12:19 PM FINDINGS: Bones/joints: Decreased osseous mineralization. No discrete or displaced fracture. No joint dislocation. Redemonstrated severe degenerative changes of the right 1st CMC joint with degenerative subluxation, similar to comparison exam. There is widening of the scapholunate interval which appears to be new compared to prior although difference could also be related to differences in patient positioning. Suggested volar tilt of the lunate although nonspecific. Soft tissues: Right wrist soft tissue edema. Vasculature: Scattered vascular calcifications. IMPRESSION: 1. No discrete or displaced fracture. 2. Widening of the scapholunate interval. Correlate with history/symptoms to suggest scapholunate ligament injury. 3. Severe degenerative changes of the right 1st CMC joint. Dictated and Authenticated by: Chris Garza MD. Ordering:DULCE Lisa MD
[2022-11-21 22:32] VITALS: RESP 15
[2022-11-25 10:38] LABS: Lyme Ab w Rflx to Lyme Confirm Negative (Negative)
[2022-11-25 14:29] LABS: Anaplasma phagocytophilum Negative (Negative); B. miyamotoi PCR Negative (Negative); Babesia divergens/MO-1 Negative (Negative); Babesia duncani Negative (Negative); Babesia microti Negative (Negative); Ehrlichia chaffeensis Negative (Negative); Ehrlichia ewingii/canis Negative (Negative); Ehrlichia muris eauclairensis Negative (Negative)
== END 2022-11-21 22:51 | disposition home or self-care (01) ==
PROVIDERS: Emergency Provider Emergency Medicine; PCP Student in an Organized Health Care Education/Training Program
DX: M25.531 Pain in right wrist (principal)
CPT/HCPCS: 36415; 87798; 99283; 73110; 86618; J1100

== ENCOUNTER 2022-11-24 15:12 | Emergency (ER) | payer MEDICARE, SELFPAY ==
[2022-11-24 15:16] VITALS: BP 132/76; PULSE 71; RESP 19; TEMP 37.1; O2SAT 96
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
[2022-11-24 16:08] LABS: ESR 3 mm/hr (0-20)
[2022-11-24] MEDS: Lidocaine/Epinephri/Tetracaine Topical Gel 3 ML TP (16:10)
[2022-11-24 16:12] LABS: Abs Immature Grans 0.05 10^3/uL (0.0-0.06); Absolute Basophil Count 0.06 10^3/uL (0.0-0.2); Absolute Eosinophil Count 0.18 10^3/uL (0.0-0.7); Absolute Lymphocyte Count 2.19 10^3/uL (1.2-3.4); Absolute Monocyte Count 0.87 10^3/uL (0.1-0.8); Absolute Neutrophil Count 7.76 10^3/uL (1.2-6.7); Basophils % 0.5; Eosinophils % 1.6; HCT 40.7 % (40.0-50.0); HGB 14.1 g/dL (13.5-17.5); Immature Grans % 0.5; Lymphocytes % 19.7; MCH 32.3 pg (27.0-33.0); MCHC 34.6 % (32.0-36.0); MCV 93 fL (80-95); MPV 9.9 fL (8.0-11.0); Monocytes % 7.8; Neutrophils % 69.9; Platelet Count 137 10^3/uL (130-400); RBC 4.37 10^6/uL (4.36-5.78); RDW-SD 44.7 fL
[2022-11-24 16:20] LABS: C-Reactive Protein < 0.05 mg/dL (0.0-0.3)
[2022-11-24] MEDS: Ketorolac 30 MG/ML VIAL (16:41)
== END 2022-11-24 16:51 | disposition home or self-care (01) ==
PROVIDERS: Emergency Provider Student in an Organized Health Care Education/Training Program; PCP Student in an Organized Health Care Education/Training Program
DX: M79.89 Other specified soft tissue disorders (principal); M19.031 Primary osteoarthritis, right wrist
CPT/HCPCS: 85652; 99283; 85025; 86140; 99284; J1885

== ENCOUNTER 2022-11-28 12:41 | Outpatient (CLI) | payer MEDICARE, SELFPAY ==
[2022-11-28 13:16] LABS: ALT 30 U/L (16-63); AST 23 U/L (15-37); Alkaline Phosphatase 79 U/L (46-116); Anion Gap 9.3 mmol/L (3-11); BUN 19 mg/dL (7-18); Bilirubin, Total 0.7 mg/dL (0.2-1.0); CO2 26.7 mmol/L (21.0-32.0); CREATININE 1.2 mg/dL (0.70-1.30); Chloride 104 mmol/L (98-107); Estimated GFR 63.07 (mL/min/1.73m2); Glucose 107 mg/dL (74-106); Magnesium 2.1 mg/dL (1.8-2.4); Potassium 3.8 mmol/L (3.5-5.1); Sodium 140 mmol/L (136-145); Total Protein 6.9 g/dL (6.4-8.2)
== END 2022-11-28 12:42 | disposition home or self-care (01) ==
LOC: LBO 12:43
PROVIDERS: PCP Student in an Organized Health Care Education/Training Program; Visit Provider Student in an Organized Health Care Education/Training Program
DX: E87.8 Other disorders of electrolyte and fluid balance, not elsewhere classified; N17.9 Acute kidney failure, unspecified
CPT/HCPCS: 36415; 80053; 83735

== ENCOUNTER → 2022-12-02 14:40 | Outpatient (BNVA) | payer MEDICARE, SELFPAY | PROVIDERS: PCP Student in an Organized Health Care Education/Training Program; Referring Provider Student in an Organized Health Care Education/Training Program; Visit Provider Nurse Practitioner Gerontology | DX: R39.89 Other symptoms and signs involving the genitourinary system (principal); I10 Essential (primary) hypertension | CPT/HCPCS: 99213 ==

== ENCOUNTER → 2023-01-02 00:33 | Outpatient (CLI) | payer MEDICARE, SELFPAY ==
--- NOTE | 2023-01-02 12:57 | DI.CT_ITS ---
Exam(s) CT UPPER EXTREMITY RT WO CT UPPER EXTREMITY LT WO XR HAND RT COMPLETE EXAM: CT UPPER EXTREMITY RT WO, XR hand RT complete, and CT upper extremity LT WO CLINICAL HISTORY: eval RA,bony erosion,rheumatoid arth flareupmsprain,s63.062n. TECHNIQUE: Imaging Protocol: Axial computed tomography images with coronal and sagittal reformatted images were created and reviewed. COMPARISON: CT LT. UPPER EXTREMITY W CONTRAST from 06/20/2016 CR XR HAND RT COMPLETE from 05/11/[address] UPPER EXTREMITY LT WO from 01/02/2023 CR XR HAND RT COMPLETE from 01/02/2023 FINDINGS: Right hand: CT scan of the right hand and XR hand RT complete Bones: The osseous structures and articular surfaces are intact. There is volar tilt of the lunate. There is widening of the scapholunate distance and proximal migration of the capitate. No cellulit ic or osteomyelitic changes are identified. The metacarpophalangeal joints appear well maintained. No erosions are seen. There are marked degenerative changes seen in the hand and wrist characterized by joint space narrowing and osteophytes. The findings are most marked at the 1st carpometacarpal j oint and the DIP joints of the fingers. Soft Tissues: Atherosclerosis is present. No significant soft tissue swelling is seen. Left hand: CT scan of the left hand Bones: The osseous structures and articular surfaces are intact. The metacarpal phalangeal joints are well maintained. There is an erosion at the radial aspect of the base of the proximal phalanx of th e 2nd finger. No cellulitic or osteomyelitic changes are identified. There are marked degenerative c hanges seen of the hand and wrist characterized by joint space narrowing and osteophytes. The findin gs are most marked at the 1st carpometacarpal joint and the distal interphalangeal joints of the fing ers. There does appear to be widening of the scapholunate distance suggesting scapholunate ligament tear. Soft Tissues: Atherosclerosis is present. There is no significant soft tissue swelling. IMPRESSION: 1. No significant inflammatory arthritic changes in the right hand. 2. 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 3. Small erosion at the base of the proximal phalanx of the 2nd finger of the left hand. This can be seen with inflammatory arthritis. 4. Marked osteoarthritis of the hands bilaterally. 5. Atherosclerosis. RADIATION DOSE DELIVERED: Total DLP Total DLP DATA REPOSITORY: All CT scans at this facility are submitted to the National Radiology Data Registry (NRDR) Dose Index Registry (DIR) with the [employer] (ACR). RADIATION OPTIMIZATION: All CT scans at this facility use at least one of these dose optimization te chniques: automated exposure control; mA and/or kV adjustment per patient size (includes targeted exa ms where dose is matched to clinical indication); or iterative reconstruction.
== END ==
PROVIDERS: PCP Student in an Organized Health Care Education/Training Program; Visit Provider Student in an Organized Health Care Education/Training Program
DX: M19.041 Primary osteoarthritis, right hand (principal); M19.042 Primary osteoarthritis, left hand; I70.8 Atherosclerosis of other arteries
CPT/HCPCS: 73130; 73200

== ENCOUNTER → 2023-01-30 09:54 | Outpatient (BNVA) | payer MEDICARE, SELFPAY | PROVIDERS: PCP Student in an Organized Health Care Education/Training Program; Referring Provider Student in an Organized Health Care Education/Training Program; Visit Provider Physician Assistant Surgical | DX: J44.9 Chronic obstructive pulmonary disease, unspecified (principal); Z79.51 Long term (current) use of inhaled steroids; R91.8 Other nonspecific abnormal finding of lung field; I27.20 Pulmonary hypertension, unspecified; Z87.891 Personal history of nicotine dependence | CPT/HCPCS: 99214 ==

== ENCOUNTER → 2023-04-25 12:18 | Outpatient (CLI) | payer MEDICARE, SELFPAY ==
--- NOTE | 2023-04-25 12:10 | DI.RAD_ITS ---
Exam(s) XR FOOT LT COMPLETE EXAM: XR FOOT LT COMPLETE CLINICAL HISTORY: foot pain, bony prominence M79.672 PAIN LEFT FOOT M89.8X9. TECHNIQUE: 2D digital imaging was performed. COMPARISON: No exams were available for comparison FINDINGS: 3 views No evidence of acute fracture or diastasis of the Maria Esther ca joint. Mild degenerative changes at the great toe metatarsophalangeal joint. The more medial of the 2 sesamoid bones subjacent to the great toe metatarsal head is noted to be bipartite. No osseous lesions nor erosions. No pes planus. Vasc ular calcification in the plantar arteries is noted. No inferior calcaneal spur. IMPRESSION: Mild findings as above. DATA REPOSITORY: RADIATION DOSE DELIVERED:
== END ==
PROVIDERS: PCP Student in an Organized Health Care Education/Training Program; Visit Provider Student in an Organized Health Care Education/Training Program
DX: M79.672 Pain in left foot (principal)
CPT/HCPCS: 73630

== ENCOUNTER 2023-06-13 19:18 | Emergency (ER) | payer MEDICARE, SELFPAY ==
[2023-06-13] VITALS (15 sets, daily range): BP systolic 144–189; BP diastolic 78–93; PULSE 64–80; RESP 12–23; TEMP 36.6; O2SAT 93–97
--- NOTE | 2023-06-13 19:15 | RT.EKG_ITS ---
APPROVED REPORT Exam: Resting ECG Reason for Exam: Chest Pain Patient Location: E HR:75 bpm ECG Measurements Heart Rate 75 AXIS PA 199 P 45 QRSd 114 QRS 69 QT 431 T 70 QTc 475 Conclusion Sinus rhythm...normal P axis, V-rate 60- 99 Atrial premature complex...SV complex w/ short R-R interval Nonspecific T abnormalities, lateral leads...T <-0.10mV, I aVL V5 V6
--- NOTE | 2023-06-13 19:30 | DI.CT_ITS ---
Exam(s) CT THORAX CTA EXAM: CT THORAX CTA CLINICAL HISTORY: ?dissection. TECHNIQUE: Imaging Protocol: Axial CT angiography was performed with multi-slice acquisition and mu lti-planar reconstructions as well as axial, coronal and sagittal MIP reconstructions. CONTRAST MATERIAL: Intravenous: Omnipaque 350 Contrast volume:100 ml COMPARISON: CT CT CHEST WO from 06/25/2021 FINDINGS: Pulmonary Arteries: No evidence of filling defect to suggest pulmonary emboli. Tracheobronchial tree: No mucous plugging. Mediastinum and Elva: No dominant adenopathy or fluid collection. Esophageal varices. Small hiatal hernia. Pulmonary parenchyma: No consolidation or dominant measurable mass. Emphysematous changes, greatest a t the upper lobes.. Pleura: No effusion or pneumothorax. Heart: The heart is not dilated. [id number] coronary artery calcifications are seen. Aorta: Aortic valve prosthesis. Ascending aorta dilated to 4.6 cm, not significantly changed from pr ior. No dissection. Mild to moderate mural calcification . Upper abdomen: Cirrhotic appearing liver. Bones: Kyphosis but no evidence of compression fracture. Degenerative changes. Tubes, Catheters, and Lines: None Soft tissues: Unremarkable. IMPRESSION: No evidence of aortic dissection. No evidence of pulmonary emboli. Emphysematous changes. No infiltrates. Stable appearance of dilated ascending aorta. AVR. RADIATION DOSE DELIVERED: Total DLP DATA REPOSITORY: All CT scans at this facility are submitted to the National Radiology Data Registry (NRDR) Dose Index Registry (DIR) with the [employer] (ACR). RADIATION OPTIMIZATION: All CT scans at this facility use at least one of these dose optimization te chniques: automated exposure control; mA and/or kV adjustment per patient size (includes targeted exa ms where dose is matched to clinical indication); or iterative reconstruction.
[2023-06-13 19:34] LABS: Abs Immature Grans 0.04 10^3/uL (0.0-0.06); Absolute Basophil Count 0.05 10^3/uL (0.0-0.2); Absolute Eosinophil Count 0.27 10^3/uL (0.0-0.7); Basophils % 0.7; Eosinophils % 3.7; HCT 40.4 % (40.0-50.0); HGB 13.8 g/dL (13.5-17.5); Immature Grans % 0.5; MCH 32.4 pg (27.0-33.0); MCHC 34.2 % (32.0-36.0); MCV 95 fL (80-95); MPV 10.2 fL (8.0-11.0); Monocytes % 9.5; Neutrophils % 51.6; Platelet Count 130 10^3/uL (130-400); RBC 4.26 10^6/uL (4.36-5.78); RDW 12.8 % (11.8-14.1); RDW-SD 44.1 fL; WBC 7.36 10^3/uL (4.4-10.8)
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
[2023-06-13] MEDS: HYDROmorphone 2 MG/ML SYR 1 MG IVP (19:37)
[2023-06-13 19:43] LABS: Lipase 77 U/L (16-77)
[2023-06-13 19:46] LABS: PTT Activated 26.1 sec (23.6-32.8); Prothrombin Time 10.3 sec (9.1-11.1)
[2023-06-13 19:51] LABS: ALT 24 U/L (16-63); AST 18 U/L (15-37); Albumin 3.8 g/dL (3.4-5.0); Alkaline Phosphatase 108 U/L (46-116); Anion Gap 8.2 mmol/L (3-11); BUN 18 mg/dL (7-18); Bilirubin, Total 0.3 mg/dL (0.2-1.0); CO2 26.8 mmol/L (21.0-32.0); CREATININE 1.3 mg/dL (0.70-1.30); Calcium 8.8 mg/dL (8.5-10.1); Chloride 106 mmol/L (98-107); Estimated GFR 56.93 (mL/min/1.73m2); Glucose 93 mg/dL (74-106); Magnesium 1.9 mg/dL (1.8-2.4); Potassium 4.1 mmol/L (3.5-5.1); Sodium 141 mmol/L (136-145); Troponin I < 50 ng/L (< or =60)
[2023-06-13] MEDS: Normal Saline - Diluent 50 ML VIAL IJ (19:58)
[2023-06-13] MEDS: Omnipaque 350 MG/ML 100 ML BTL IJ (19:59)
--- NOTE | 2023-06-13 20:20 | DI.VRAD_ITS ---
PROCEDURE INFORMATION: Exam: CTA Chest With Contrast Exam date and time: 06/13/2023 7:46 PM Age: 78 years old Clinical indication: Pain; Chest pressure; Prior surgery; Surgery date: 6+ months; Surgery type: PT sts HX of aortic valve replacement x at least 3 years ago; Additional info: ? Dissection TECHNIQUE: Imaging protocol: Computed tomographic angiography of the chest with contrast. Exam focused on the arteries. 3D rendering (Not supervised by radiologist): MIP and/or 3D reconstructed images were created by the technologist. Contrast material: OMNI 350; Contrast volume: 100 ml; Contrast route: INTRAVENOUS (IV); COMPARISON: CT CHEST PE CTA 05/17/2021 1:39 PM FINDINGS: Pulmonary arteries: No pulmonary emboli. Aorta: Ascending aorta is ectatic, 4.1 cm, previously measured at 4.6 cm. Aortic arch is normal caliber, 3.5 cm. Descending thoracic aorta is normal caliber, 2.8 cm, there is no aortic dissection. Lungs: Centrilobular emphysema. Bilateral apical fibrotic changes in the lungs. 5 mm left lung nodule, series 5, image 187. Few additional small bilateral nonspecific pulmonary nodules elsewhere. Pleural spaces: Unremarkable. No pneumothorax. No pleural effusion. Heart: Bioprosthetic aortic valve in place. Coronary arteries: Coronary arterial calcifications. Lymph nodes: Unremarkable. No enlarged lymph nodes. Diaphragm: Small hiatal hernia. Liver: Cirrhotic liver. Bones/joints: Status post thoracotomy via mid sternotomy. Soft tissues: Unremarkable. IMPRESSION: Status post aortic valve replacement. Ectatic ascending aorta. No aortic dissection. Dictated and Authenticated by: Claudy Mackey MD. Ordering:LESLEY Mack MD
[2023-06-13] MEDS: Lidocaine 5% Patch 1 PATCH TP ×2 (20:46)
== END 2023-06-13 20:58 | disposition home or self-care (01) ==
PROVIDERS: Emergency Provider Emergency Medicine; PCP Student in an Organized Health Care Education/Training Program
DX: R07.9 Chest pain, unspecified (principal); I10 Essential (primary) hypertension; E78.5 Hyperlipidemia, unspecified; I25.10 Atherosclerotic heart disease of native coronary artery without angina pectoris; J44.9 Chronic obstructive pulmonary disease, unspecified; K21.9 Gastro-esophageal reflux disease without esophagitis; Z79.82 Long term (current) use of aspirin; Z95.2 Presence of prosthetic heart valve; Z87.891 Personal history of nicotine dependence
CPT/HCPCS: 71275; 80053; 83690; 93005; 96374; 99285; 83735; 84484; 85025; 85610; 85730; 93010; 99284; J1170; J3490

== ENCOUNTER → 2023-07-10 03:18 | Outpatient (CLI) | payer MEDICARE, SELFPAY ==
--- NOTE | 2023-07-10 07:45 | DI.MRI_ITS ---
Exam(s) MR UPPER JOINT LT WO EXAM: MR UPPER JOINT LT WO CLINICAL HISTORY: pain,rotator cuff arthropathy lt shoulder,M12.812. TECHNIQUE: Multiplanar multisequence MRI was performed. COMPARISON: CR XR SHOULDER LT COMPLETE 2+V from 10/28/2022 FINDINGS: The examination is limited due to patient motion artifact. BONES: There is no fracture or contusion pattern. JOINTS: There are degenerative changes seen at the acromioclavicular joint. There also degenerative changes seen at the glenohumeral joint. TENDONS: Supraspinatus: There is a complete tear of the supraspinatus tendon with retraction almost to the lev el of the acromioclavicular joint (image 8 on the T2 coronal fat-suppressed images). There is result ant superior subluxation of the humeral head relative to the glenoid. Infraspinatus: There is tendinosis of the infraspinatus tendon. Subscapularis: Tendinosis of the subscapularis tendon. Teres Minor: Unremarkable. Biceps and Hanson: Unremarkable. MUSCLES: There is mild fatty atrophy of the supraspinatus muscle. GLENOID LABRUM: Unremarkable on this noncontrast examination. SOFT TISSUES: Unremarkable. LIGAMENTS: Unremarkable. OTHER: There is fluid seen in the subacromial subdeltoid bursa. IMPRESSION: 1. Examination is limited secondary to patient motion artifact. 2. There is a complete tear of the supraspinatus tendon with retraction almost to the level of the ac romioclavicular joint. 3. Tendinosis of the infraspinatus and subscapularis tendons. 4. Mild fatty atrophy of the supraspinatus muscle. 5. Degenerative changes seen at the glenohumeral and acromioclavicular joints. DATA REPOSITORY:
== END ==
PROVIDERS: PCP Student in an Organized Health Care Education/Training Program; Visit Provider Student in an Organized Health Care Education/Training Program
DX: M75.122 Complete rotator cuff tear or rupture of left shoulder, not specified as traumatic (principal); M67.814 Other specified disorders of tendon, left shoulder; M62.512 Muscle wasting and atrophy, not elsewhere classified, left shoulder; M19.012 Primary osteoarthritis, left shoulder
CPT/HCPCS: 73221

== ENCOUNTER → 2023-07-18 00:16 | Outpatient (CLI) | payer MEDICARE, SELFPAY ==
--- NOTE | 2023-07-18 07:00 | DI.MRI_ITS ---
Exam(s) MR LOWER JOINT RT WO EXAM: MR LOWER JOINT RT WO CLINICAL HISTORY: eval rt hip; ?possible replacement.RT HIP PAIN, M25.551 TECHNIQUE: Multiplanar multisequence MRI of right hip was performed COMPARISON: MR MRI L LOWER JOINT WO CONT from 11/01/2009 CR BILATERAL HIPS ADULT from 06/12/2016 FINDINGS: There is artifact in the left pelvis from the patient's left total hip replacement. Bones: There is no evidence of a fracture or avascular necrosis. There is cartilage loss seen in th e right acetabulum. There is a small amount of fluid in the joint space. There is blunting of the s uperior labrum consistent with degeneration and/or tear. There are degenerative signal changes seen in the right sacroiliac joint. The left sacroiliac joint is well maintained. Musculotendinous structures: There is mild fatty atrophy of the right gluteus medius muscle. Intrap elvic structures demonstrate no significant abnormality. Soft tissues: There is mild edema seen in the gluteus medius muscle best appreciated on the coronal v iews. There is edema seen in the soft tissues adjacent to the greater trochanter and mild subchondra l edema in this right greater trochanter. Note is made of diverticula in the urinary bladder. There is also sigmoid colon diverticulosis. IMPRESSION: 1. 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 2. Right labral degeneration and/or tear. 3. Mild degenerative changes seen in the right sacroiliac joint. 4. Mild fatty atrophy of the right gluteus medius muscle. Mild edema seen in the gluteus medius musc le and adjacent to the right greater trochanter suggesting trochanteric bursitis. 5. Left total hip replacement. DATA REPOSITORY:
== END ==
PROVIDERS: PCP Student in an Organized Health Care Education/Training Program; Visit Provider Student in an Organized Health Care Education/Training Program
DX: M25.551 Pain in right hip (principal); Z96.642 Presence of left artificial hip joint; Z98.890 Other specified postprocedural states
CPT/HCPCS: 73721

== ENCOUNTER 2023-07-24 19:27 | Emergency (ER) | payer MEDICARE, SELFPAY ==
--- NOTE | 2023-07-24 19:15 | RT.EKG_ITS ---
APPROVED REPORT Exam: Resting ECG Reason for Exam: Sob Patient Location: E HR:95 bpm ECG Measurements Heart Rate 95 AXIS DE 149 P 79 QRSd 112 QRS 76 QT 352 T 46 QTc 441 Conclusion Sinus rhythm...normal P axis, V-rate 60- 99 Atrial premature complex...SV complex w/ short R-R interval
[2023-07-24 19:31] VITALS: BP 131/85; PULSE 90; RESP 20; TEMP 36.3; O2SAT 95
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
--- NOTE | 2023-07-24 19:45 | DI.RAD_ITS ---
Exam(s) XR PORTABLE CHEST AP EXAM: XR PORTABLE CHEST AP CLINICAL HISTORY: dyspnea, cough. TECHNIQUE: 2D digital imaging was performed. COMPARISON: CR,XR XR PORTABLE CHEST AP from 09/17/2022 FINDINGS: Single AP portable view. Sternotomy wires again noted. Prosthetic aortic valve noted Heart size is upper normal. The mediastinum is not widened. Lungs are clear. No infiltrates nor obvious pleural effusions. No pulmonary edema. IMPRESSION: No acute pulmonary findings on this single AP portable view of the chest. DATA REPOSITORY: RADIATION DOSE DELIVERED:
[2023-07-24] MEDS: Albuterol/Ipratropium 3 ML UPD VIAL UPD ×2 (19:52)
[2023-07-24] MEDS: methylPREDNISolone SUCC 125 MG VIAL IVP (19:52)
[2023-07-24 19:53] LABS: BE (Venous) 3 mmol/L (-2-3); HCO3 (Venous) 28 mmol/L (23-28); O2 Sat (Venous) 99 %; TCO2 (Venous) 25 mmol/L (24-29); pCO2 (Venous) 44 mmHg (41-51); pH (Venous) 7.41 (7.31-7.41); pO2 (Venous) 119 mmHg
[2023-07-24 19:58] LABS: Abs Immature Grans 0.01 10^3/uL (0.0-0.06); Absolute Basophil Count 0.04 10^3/uL (0.0-0.2); Absolute Eosinophil Count 0.27 10^3/uL (0.0-0.7); Absolute Lymphocyte Count 2.39 10^3/uL (1.2-3.4); Absolute Monocyte Count 0.67 10^3/uL (0.1-0.8); Absolute Neutrophil Count 5.19 10^3/uL (1.2-6.7); Basophils % 0.5 %; Eosinophils % 3.2 %; HCT 38.7 % (40.0-50.0); HGB 13.1 g/dL (13.5-17.5); Immature Grans % 0.1 %; Lymphocytes % 27.9 %; MCH 32.2 pg (27.0-33.0); MCHC 33.9 % (32.0-36.0); MCV 95 fL (80-95); MPV 9.8 fL (8.0-11.0); Monocytes % 7.8 %; Neutrophils % 60.5 %; Platelet Count 119 10^3/uL (130-400); RBC 4.07 10^6/uL (4.36-5.78); RDW 12.5 % (11.8-14.1); RDW-SD 43.7 fL; WBC 8.57 10^3/uL (4.4-10.8)
[2023-07-24 20:18] LABS: ALT 32 U/L (16-63); AST 24 U/L (15-37); Albumin 3.6 g/dL (3.4-5.0); Alkaline Phosphatase 93 U/L (46-116); BUN 21 mg/dL (7-18); Bilirubin, Total 0.4 mg/dL (0.2-1.0); CREATININE 1.4 mg/dL (0.70-1.30); Calcium 8.7 mg/dL (8.5-10.1); Chloride 103 mmol/L (98-107); Estimated GFR 52.09 (mL/min/1.73m2); Glucose 112 mg/dL (74-106); NT-proBNP 391 pg/mL (<300); Sodium 138 mmol/L (136-145); Total Protein 6.5 g/dL (6.4-8.2); Troponin I < 50 ng/L (< or =60)
[2023-07-24 20:29] LABS: Procalcitonin < 0.1 ng/mL
[2023-07-24 20:40] LABS: Prothrombin Time 10.4 sec (9.1-11.1)
[2023-07-24] MEDS: cefTRIAXone 2 GM/50 ML BAG IVPB (20:42)
[2023-07-24 21:04] VITALS: BP 112/58; PULSE 84; RESP 18; TEMP 37.1; O2SAT 91
[2023-07-24 21:13] VITALS: BP 112/58; PULSE 84; RESP 18; TEMP 37.1; O2SAT 91
[2023-07-24 21:14] VITALS: BP 112/58; PULSE 84; RESP 18; TEMP 37.1; O2SAT 92
--- NOTE | 2023-07-25 14:02 | DI.VRAD_ITS ---
PROCEDURE INFORMATION: Exam: XR Chest Exam date and time: 07/24/2023 7:54 PM Age: 78 years old Clinical indication: Cough and dyspnea; Additional info: Dyspnea, cough TECHNIQUE: Imaging protocol: Radiologic exam of the chest. Views: 1 view. COMPARISON: CT THORAX CTA 06/13/2023 7:46 PM FINDINGS: Tubes, catheters and devices: Monitoring wires are present. Lungs: Lungs are hyperaerated. Interstitial markings are prominent bilaterally. No consolidation. No vascular congestion. Pleural spaces: Unremarkable. No pleural effusion. No pneumothorax. Heart/Mediastinum: No cardiomegaly. Aortic valve replacement faintly visible. Correlate for any post CABG changes. Markers are noted in the mediastinum. Bones/joints: Sternotomy wires are noted. IMPRESSION: 1. Chronic lung disease. 2. Interstitial infiltrates/edema. Dictated and Authenticated by: Frederick Michael MD. Ordering:LESLEY Mack MD
== END 2023-07-24 21:14 | disposition home or self-care (01) ==
PROVIDERS: Emergency Provider Emergency Medicine; PCP Student in an Organized Health Care Education/Training Program
DX: J44.1 Chronic obstructive pulmonary disease with (acute) exacerbation (principal); I10 Essential (primary) hypertension; I25.10 Atherosclerotic heart disease of native coronary artery without angina pectoris; Z79.82 Long term (current) use of aspirin; Z87.891 Personal history of nicotine dependence; Z95.2 Presence of prosthetic heart valve
CPT/HCPCS: 80053; 82805; 84145; 87040; 87635; 93005; 96374; 96375; 99285; 71045; 83735; 83880; 84484; 85025; 85610; 85730; 93010; J0696; J2919; J7620

== ENCOUNTER 2023-07-25 23:10 | Inpatient (IN) | payer MEDICARE, SELFPAY ==
[2023-07-25] VITALS (11 sets, daily range): BP systolic 148–157; BP diastolic 57–74; PULSE 80–115; RESP 5–30; TEMP 36.5; O2SAT 94–98
--- NOTE | 2023-07-25 23:00 | RT.EKG_ITS ---
APPROVED REPORT Exam: Resting ECG Reason for Exam: short of breath Patient Location: E HR:93 bpm ECG Measurements Heart Rate 93 AXIS UT 162 P 76 QRSd 110 QRS 56 QT 380 T 31 QTc 474 Conclusion Sinus rhythm...normal P axis, V-rate 60- 99 Supraventricular bigeminy...bigeminy string>4 w/ SV complexes no ST segment or T wave abnormalities to suggest occlusive FL
--- NOTE | 2023-07-25 23:15 | DI.RAD_ITS ---
Exam(s) XR PORTABLE CHEST AP EXAM: XR PORTABLE CHEST AP CLINICAL HISTORY: short of breath TECHNIQUE: 2D digital imaging was performed. COMPARISON: CT CT THORAX CTA from 06/13/2023 CR,XR XR PORTABLE CHEST AP from 07/24/2023 FINDINGS: LUNGS: Emphysematous and fibrotic changes, otherwise clear. No pleural abnormality seen. HEART: Normal size. AORTA: Dilated ascending aorta again noted. Aortic valve prosthesis again noted. Central pulmonary artery prominence. No pulmonary edema visible. BONES: Sternal wires. Spine obscured. Soft tissues: Unremarkable. IMPRESSION: No acute findings. DATA REPOSITORY: RADIATION DOSE DELIVERED:
[2023-07-25 23:25] LABS: Lactate 2.4 mmol/L (0.6-1.4)
[2023-07-25 23:27] LABS: Abs Immature Grans 0.06 10^3/uL (0.0-0.06); Absolute Basophil Count 0.01 10^3/uL (0.0-0.2); Absolute Lymphocyte Count 1.27 10^3/uL (1.2-3.4); Absolute Monocyte Count 0.64 10^3/uL (0.1-0.8); Absolute Neutrophil Count 11.38 10^3/uL (1.2-6.7); Basophils % 0.1 %; HCT 37.6 % (40.0-50.0); HGB 13.2 g/dL (13.5-17.5); Immature Grans % 0.4 %; Lymphocytes % 9.5 %; MCH 32.6 pg (27.0-33.0); MCHC 35.1 % (32.0-36.0); MCV 93 fL (80-95); MPV 9.8 fL (8.0-11.0); Monocytes % 4.8 %; Neutrophils % 85.2 %; Platelet Count 128 10^3/uL (130-400); RBC 4.05 10^6/uL (4.36-5.78); RDW 12.4 % (11.8-14.1); RDW-SD 42.7 fL; WBC 13.36 10^3/uL (4.4-10.8)
[2023-07-25] MEDS: methylPREDNISolone SUCC 125 MG VIAL IVP (23:27)
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
[2023-07-25 23:44] LABS: ALT 31 U/L (16-63); AST 21 U/L (15-37); Albumin 3.8 g/dL (3.4-5.0); Alkaline Phosphatase 107 U/L (46-116); Anion Gap 10.5 mmol/L (3-11); BUN 27 mg/dL (7-18); Bilirubin, Total 0.4 mg/dL (0.2-1.0); CO2 25.5 mmol/L (21.0-32.0); CREATININE 1.5 mg/dL (0.70-1.30); Calcium 8.9 mg/dL (8.5-10.1); Chloride 103 mmol/L (98-107); Estimated GFR 47.95 (mL/min/1.73m2); Glucose 190 mg/dL (74-106); Magnesium 2.2 mg/dL (1.8-2.4); Sodium 139 mmol/L (136-145); Troponin I < 50 ng/L (< or =60)
[2023-07-25] MEDS: Albuterol/Ipratropium 3 ML UPD VIAL (23:46)
[2023-07-25] MEDS: Albuterol/Ipratropium 3 ML UPD VIAL UPD (23:46)
[2023-07-25] MEDS: LORazepam 2 MG/ML VIAL 0.5 MG IVP (23:47)
[2023-07-25 23:54] LABS: BE (Venous) 0 mmol/L (-2-3); HCO3 (Venous) 24 mmol/L (23-28); O2 Sat (Venous) 94 %; TCO2 (Venous) 22 mmol/L (24-29); pCO2 (Venous) 37 mmHg (41-51); pH (Venous) 7.42 (7.31-7.41); pO2 (Venous) 67 mmHg
[2023-07-26] VITALS (37 sets, daily range): BP systolic 104–147; BP diastolic 56–86; PULSE 74–135; RESP 2–32; TEMP 36.7–37; O2SAT 89–97
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
--- NOTE | 2023-07-26 00:16 | DI.VRAD_ITS ---
PROCEDURE INFORMATION: Exam: XR Chest Exam date and time: 07/25/2023 23:47 Age: 78 years old Clinical indication: Shortness of breath TECHNIQUE: Imaging protocol: Radiologic exam of the chest. Views: 1 view. COMPARISON: CR XR PORTABLE CHEST AP 07/24/2023 19:54 FINDINGS: Lungs: The lungs appear hyperinflated. No ca airspace consolidation on portable imaging. Pleural spaces: No pleural effusion. No pneumothorax. Heart/Mediastinum: Probable aortic valve. Vasculature: Prominent ascending aortic contour is stable and compatible with a known ascending aortic aneurysm. Mild cardiomegaly with minor venous cephalization, similar to prior. Bones/joints: Median sternotomy wires. No displaced fracture. IMPRESSION: 1. Mild cardiomegaly with minor venous cephalization, similar to prior. 2. Additional chronic findings as described. Dictated and Authenticated by: Tabitha Johnson MD. Ordering:EDGARDO Jain MD
[2023-07-26 00:19] LABS: COVID-19 PCR Negative (Negative); Influenza A PCR Negative (Negative); Influenza B PCR Negative (Negative); RSV PCR Negative (Negative)
[2023-07-26 00:30] LABS: Source Nasopharynx
[2023-07-26] MEDS: Albuterol 2.5 MG/3 ML INH SOLN VIAL (00:42)
[2023-07-26 01:41] LABS: NT-proBNP 485 pg/mL (<300)
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
[2023-07-26] MEDS: Albuterol/Ipratropium 3 ML UPD VIAL UPD ×2 (02:07→06:06)
[2023-07-26] MEDS: cefTRIAXone 1 GM/50 ML BAG IVPB (02:18)
[2023-07-26] MEDS: MORPHine 10 MG/ML VIAL 2 MG IVP (02:33)
[2023-07-26] MEDS: Furosemide 40 MG/4 ML VIAL IVP (02:36)
[2023-07-26 02:41] LABS: Troponin I < 50 ng/L (< or =60)
[2023-07-26] MEDS: AZITHROMYCIN 500 MG in Normal Saline 250 ML 250 MG IVPB (04:33)
[2023-07-26 06:47] LABS: HGB 11.8 g/dL (13.5-17.5); MCH 32.2 pg (27.0-33.0); MCHC 33.7 % (32.0-36.0); MCV 96 fL (80-95); MPV 10.1 fL (8.0-11.0); Platelet Count 109 10^3/uL (130-400); RBC 3.66 10^6/uL (4.36-5.78); RDW 12.5 % (11.8-14.1); RDW-SD 44.7 fL; WBC 10.69 10^3/uL (4.4-10.8)
[2023-07-26 07:10] LABS: ALT 25 U/L (16-63); AST 21 U/L (15-37); Albumin 3.3 g/dL (3.4-5.0); Alkaline Phosphatase 80 U/L (46-116); Anion Gap 12.5 mmol/L (3-11); BUN 28 mg/dL (7-18); Bilirubin, Total 0.3 mg/dL (0.2-1.0); CO2 24.5 mmol/L (21.0-32.0); CREATININE 1.6 mg/dL (0.70-1.30); Calcium 8.3 mg/dL (8.5-10.1); Chloride 102 mmol/L (98-107); Estimated GFR 44.38 (mL/min/1.73m2); Glucose 269 mg/dL (74-106); Potassium 3.6 mmol/L (3.5-5.1); Sodium 139 mmol/L (136-145); Total Protein 6.2 g/dL (6.4-8.2)
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
[2023-07-26] MEDS: Enoxaparin 40 MG/0.4 ML SYR SC (08:42)
[2023-07-26] MEDS: Pantoprazole 40 MG VIAL IVP (08:43)
[2023-07-26] MEDS: Normal Saline Flush 10 ML SYR IVP (08:44)
[2023-07-26] MEDS: methylPREDNISolone SUCC 125 MG VIAL 80 MG IVP (08:44)
[2023-07-26] MEDS: Vitamins B Comp w/C TAB 1 TAB PO (08:45)
[2023-07-26] MEDS: Tamsulosin 0.4 MG CAPCR PO (08:45)
[2023-07-26] MEDS: Finasteride 5 MG TAB PO (08:45)
[2023-07-26] MEDS: Losartan 25 MG TAB PO (08:45)
[2023-07-26] MEDS: Multivitamin TAB 1 TAB PO (08:45)
[2023-07-26] MEDS: Aspirin E.C. 81 MG TABEC PO (08:45)
[2023-07-26] MEDS: Magnesium Oxide 400 MG TAB PO (08:45)
[2023-07-26] MEDS: Gabapentin 300 MG CAP PO (08:46)
[2023-07-26] MEDS: amLODIPine 10 MG TAB PO (08:46)
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
== END 2023-07-26 09:30 | disposition home or self-care (01) | DRG 190 ==
LOC: ER 07-26 01:58 → ICU 07-26 02:00
PROVIDERS: Admitting Provider Family Medicine; Emergency Provider Student in an Organized Health Care Education/Training Program; PCP Student in an Organized Health Care Education/Training Program; Visit Provider Family Medicine
DX: J44.1 Chronic obstructive pulmonary disease with (acute) exacerbation (principal); I50.33 Acute on chronic diastolic (congestive) heart failure; I85.10 Secondary esophageal varices without bleeding; I47.10 Supraventricular tachycardia, unspecified; I11.0 Hypertensive heart disease with heart failure; I48.0 Paroxysmal atrial fibrillation; F41.9 Anxiety disorder, unspecified; I25.10 Atherosclerotic heart disease of native coronary artery without angina pectoris; G89.29 Other chronic pain; M54.50 Low back pain, unspecified; Z95.4 Presence of other heart-valve replacement; K21.9 Gastro-esophageal reflux disease without esophagitis; Z87.891 Personal history of nicotine dependence; Z96.642 Presence of left artificial hip joint; R06.03 Acute respiratory distress
CPT/HCPCS: 00123; 36415; 80053; 82805; 85027; 87637; 93005; 94640; 96374; 96375; 99291; J1650; 71045; 83605; 83735; 83880; 84484; 85025; 85610; 93010; 94660; 94667; 99234; J0456; J0696; J1940; J2060; J2270; J2470; J2919; J7613; J7620

== ENCOUNTER 2023-07-27 23:24 | Observation (INO) | payer MEDICARE, SELFPAY ==
[2023-07-27] VITALS (7 sets, daily range): BP systolic 111–124; BP diastolic 68–71; PULSE 76–91; RESP 14–22; TEMP 37.1–37.2; O2SAT 93–100
--- NOTE | 2023-07-27 23:30 | RT.EKG_ITS ---
APPROVED REPORT Exam: Resting ECG Reason for Exam: short of breath Patient Location: E HR:82 bpm ECG Measurements Heart Rate 82 AXIS SC 149 P 65 QRSd 111 QRS 83 QT 384 T 54 QTc 448 Conclusion Sinus rhythm...normal P axis, V-rate 60- 99 Atrial premature complex...SV complex w/ short R-R interval
[2023-07-28] VITALS (47 sets, daily range): BP systolic 108–165; BP diastolic 54–84; PULSE 58–99; RESP 2–31; TEMP 36.1–37.1; O2SAT 78–97
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
--- NOTE | 2023-07-28 00:01 | DI.RAD_ITS ---
Exam(s) XR PORTABLE CHEST AP EXAM: XR PORTABLE CHEST AP CLINICAL HISTORY: shortness of breath TECHNIQUE: 2D digital imaging was performed. COMPARISON: CR,XR XR PORTABLE CHEST AP from 07/25/2023 FINDINGS: LUNGS: Clear. No pleural abnormality seen. HEART: Mildly enlarged. AORTA: Normal diameter. BONES: Sternal wires. Soft tissues: Unremarkable. IMPRESSION: No acute findings. DATA REPOSITORY: RADIATION DOSE DELIVERED:
[2023-07-28] MEDS: methylPREDNISolone SUCC 125 MG VIAL 60 MG IVP (00:05)
[2023-07-28] MEDS: Albuterol/Ipratropium 3 ML UPD VIAL UPD ×5 (00:05→21:00)
[2023-07-28 00:09] LABS: Abs Immature Grans 0.05 10^3/uL (0.0-0.06); Absolute Basophil Count 0.02 10^3/uL (0.0-0.2); Absolute Lymphocyte Count 0.83 10^3/uL (1.2-3.4); Absolute Monocyte Count 0.72 10^3/uL (0.1-0.8); Basophils % 0.2 %; HGB 12.3 g/dL (13.5-17.5); Immature Grans % 0.4 %; Lymphocytes % 7.3 %; MCH 32.2 pg (27.0-33.0); MCHC 34.2 % (32.0-36.0); MCV 94 fL (80-95); MPV 10.1 fL (8.0-11.0); Monocytes % 6.4 %; Neutrophils % 85.7 %; Platelet Count 123 10^3/uL (130-400); RBC 3.82 10^6/uL (4.36-5.78); RDW 12.6 % (11.8-14.1); RDW-SD 43.7 fL; WBC 11.32 10^3/uL (4.4-10.8)
[2023-07-28 00:25] LABS: ALT 35 U/L (16-63); AST 25 U/L (15-37); Albumin 3.5 g/dL (3.4-5.0); Alkaline Phosphatase 105 U/L (46-116); Anion Gap 7.4 mmol/L (3-11); BUN 30 mg/dL (7-18); Bilirubin, Total 0.4 mg/dL (0.2-1.0); CO2 29.6 mmol/L (21.0-32.0); CREATININE 1.4 mg/dL (0.70-1.30); Calcium 8.3 mg/dL (8.5-10.1); Chloride 101 mmol/L (98-107); Estimated GFR 52.09 (mL/min/1.73m2); Glucose 96 mg/dL (74-106); Magnesium 2.5 mg/dL (1.8-2.4); NT-proBNP 615 pg/mL (<300); Potassium 4.6 mmol/L (3.5-5.1); Sodium 138 mmol/L (136-145); Total Protein 6.4 g/dL (6.4-8.2); Troponin I < 50 ng/L (< or =60)
[2023-07-28 00:41] LABS: BE (Venous) 6 mmol/L (-2-3); HCO3 (Venous) 30 mmol/L (23-28); O2 Sat (Venous) 98 %; TCO2 (Venous) 27 mmol/L (24-29); pCO2 (Venous) 41 mmHg (41-51); pH (Venous) 7.47 (7.31-7.41); pO2 (Venous) 93 mmHg
--- NOTE | 2023-07-28 01:49 | DI.VRAD_ITS ---
PROCEDURE INFORMATION: Exam: XR Chest Exam date and time: 07/28/2023 12:20 AM Age: 78 years old Clinical indication: Shortness of breath; Prior surgery; Surgery date: 6+ months; Surgery type: Aortic valve replacement; Patient HX: SOB TECHNIQUE: Imaging protocol: Radiologic exam of the chest. Views: 1 view. COMPARISON: CR XR PORTABLE CHEST AP 07/25/2023 11:47 PM FINDINGS: Lungs: Mild hyperexpansion and hyperlucency with mild diaphragmatic flattening suggesting possible COPD. Pulmonary vasculature grossly normal. No gross pulmonary infiltrates or edema pattern. Pleural spaces: No pleural effusion. No pneumothorax. Heart/Mediastinum: Heart size normal. No tracheal/mediastinal shift. Bones/joints: Prior median sternotomy. No acute osseous abnormalities are identified. Osteopenia. IMPRESSION: 1. No acute thoracic process. 2. Evidence of COPD. 3. Prior median sternotomy. Dictated and Authenticated by: Jesse Gonsales MD. Ordering:ISABELLE Louise MD
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
[2023-07-28] MEDS: LORazepam 1 MG TAB PO (02:45)
[2023-07-28 02:59] LABS: Bilirubin Negative (Negative); Blood Negative (Negative); Clarity Clear (Clear); Glucose Negative (Negative); Ketones Negative (Negative); Leukocyte Esterase Negative (Negative); Nitrite Negative (Negative); Specific Gravity 1.015 (1.005-1.025); Urobilinogen 0.2 mg/dL (Up to 0.2); pH 6.5 (5-8)
[2023-07-28 03:11] LABS: Troponin I < 50 ng/L (< or =60)
[2023-07-28 03:27] LABS: COVID-19 PCR Negative (Negative); Influenza A PCR Negative (Negative); Influenza B PCR Negative (Negative); RSV PCR Negative (Negative)
[2023-07-28 03:31] LABS: Source Nasopharynx
[2023-07-28] MEDS: Normal Saline Flush 10 ML SYR (06:01)
[2023-07-28] MEDS: methylPREDNISolone SUCC 40 MG VIAL IVP (06:02)
[2023-07-28] MEDS: Omeprazole 20 MG CAPCR 40 MG PO (07:35)
[2023-07-28] MEDS: Vitamins B Comp w/C TAB 1 TAB PO (07:36)
[2023-07-28] MEDS: Losartan 25 MG TAB PO (07:36)
[2023-07-28] MEDS: Multivitamin TAB 1 TAB PO (07:37)
[2023-07-28] MEDS: Amoxicillin 875/Clav. 125 TAB PO ×2 (07:37→20:06)
[2023-07-28] MEDS: amLODIPine 10 MG TAB PO (07:37)
[2023-07-28] MEDS: Azithromycin 250 MG TAB PO (07:37)
[2023-07-28] MEDS: Tamsulosin 0.4 MG CAPCR PO ×2 (07:38→20:06)
[2023-07-28] MEDS: Magnesium Oxide 400 MG TAB PO (07:38)
[2023-07-28] MEDS: Finasteride 5 MG TAB PO (07:38)
[2023-07-28] MEDS: Aspirin E.C. 81 MG TABEC PO (07:38)
[2023-07-28] MEDS: Gabapentin 300 MG CAP PO ×2 (07:39→20:06)
[2023-07-28] MEDS: Budesonide/Formoterol 160/4.5 6 GM 60 PUFF INH IH ×2 (08:25→21:58)
[2023-07-28] MEDS: Tiotropium/Olodaterol 10 PUFF INHALER IH (08:26)
[2023-07-28] MEDS: Diclofenac 1% Gel 100 GM TUBE TP ×4 (09:30→20:11)
[2023-07-28] MEDS: Clotrimazole 1% 15 GM TUBE TP ×2 (09:30→20:12)
[2023-07-28] MEDS: Albuterol 2.5 MG/3 ML INH SOLN VIAL UPD (12:09)
--- NOTE | 2023-07-28 13:32 | PHA.REVIEW2 ---
Pharmacy Admission Review Admission Clinical Review Admission Pharmacy Review: lisinopril Allergy (Intermediate, Verified 07/27/23 23:49) RASH; PRURITIS diphenhydramine HCl [From Benadryl] Adverse Reaction (Severe, Verified 07/27/23 23:49) Makes him crazy/anxious mirtazapine Adverse Reaction (Intermediate, Verified 07/27/23 23:49) made me angry NSAIDS (Non-Steroidal Anti-Inflamma Adverse Reaction (Intermediate, Verified 07/27/23 23:49) GI Intolerance tramadol Adverse Reaction (Intermediate, Verified 07/27/23 23:49) nausea/vomiting guaifenesin Adverse Reaction (Verified 07/27/23 23:49) Nausea oxycodone Adverse Reaction (Verified 07/27/23 23:49) Makes patient physically sick SCALLOP Allergy (Severe, Uncoded 07/27/23 23:49) THROAT SWELLING Resuscitation Status Full Code Height 5 ft 6 in Weight 63.3 kg Pharmacy Admission Review Renal Dosing Renal Dosing: BUN 30 mg/dL (7-18) H 07/27/23 23:47 Creatinine 1.4 mg/dL (0.70-1.30) H 07/27/23 23:47 Medications needing adjustments: Reviewed (CrCl 40 mL/min) List of meds needing interventions: Current medications are okay Anticoagulation Anticoagulation: Hgb 12.3 g/dL (13.5-17.5) L 07/27/23 23:47 Hct 36.0 % (40.0-50.0) L 07/27/23 23:47 Plt Count 123 10^3/uL (130-400) L 07/27/23 23:47 Creatinine 1.4 mg/dL (0.70-1.30) H 07/27/23 23:47 DVT Prophylaxis: Intervened (None at this time, spoke with provider who said patient is most likely discharging tomorrow and will not need any) Opiate Usage Evaluate Pain Scale/Pains Meds: Reviewed (hydrocodone/APAP PRN) Scheduled Bowel Reg ordered if on Opiates?: No Relevant Labs Relevant Labs: Sodium 138 mmol/L (136-145) 07/27/23 23:47 Potassium 4.6 mmol/L (3.5-5.1) D 07/27/23 23:47 Chloride 101 mmol/L (98-107) 07/27/23 23:47 Magnesium 2.5 mg/dL (1.8-2.4) H 07/27/23 23:47 Electrolytes, C-Reactive P, ESR: Reviewed (No new labs for today) Cardiac Review Cardiac Review: Troponin I < 50 ng/L (< or =60) 07/28/23 02:49 NT-Pro-B Natriuret Pep 615 pg/mL (<300) H 07/27/23 23:47 BP, HR, EF%: Reviewed (HR/BP WNL) QTc Review QTc: Reviewed (474 from 07/24/23) IV to PO Switch IV Medications: Reviewed Home Meds Home Med List reviewed: Reviewed Relevent Home Meds Not ordered & why?: Breo Ellipta (has order for Symbicort) and naloxone (PRN) Current Meds Current Medication Order Review: Reviewed
[2023-07-28] MEDS: predniSONE 20 MG TAB 40 MG PO (13:34)
[2023-07-28] MEDS: Acetaminophen 500 MG TAB 1000 MG PO (13:36)
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
[2023-07-28] MEDS: Atorvastatin 20 MG TAB PO (20:06)
[2023-07-28] MEDS: Ferrous Sulfate 325 MG TAB PO (20:06)
[2023-07-28] MEDS: HYDROcodone 5/Acetaminophen 325 TAB PO (22:14)
[2023-07-29 02:25] VITALS: PULSE 75; RESP 18; O2SAT 78
[2023-07-29] MEDS: Albuterol/Ipratropium 3 ML UPD VIAL UPD ×2 (02:25→07:55)
[2023-07-29 02:35] VITALS: PULSE 78; RESP 16; O2SAT 98
[2023-07-29 07:20] VITALS: BP 124/85; PULSE 77; RESP 19; TEMP 36.3; O2SAT 94
[2023-07-29] MEDS: Tamsulosin 0.4 MG CAPCR PO (07:37)
[2023-07-29] MEDS: Omeprazole 20 MG CAPCR 40 MG PO (07:37)
[2023-07-29] MEDS: Amoxicillin 875/Clav. 125 TAB PO (07:37)
[2023-07-29] MEDS: Magnesium Oxide 400 MG TAB PO (07:37)
[2023-07-29] MEDS: Vitamins B Comp w/C TAB 1 TAB PO (07:37)
[2023-07-29] MEDS: Gabapentin 300 MG CAP PO (07:38)
[2023-07-29] MEDS: predniSONE 20 MG TAB 40 MG PO (07:38)
[2023-07-29] MEDS: Losartan 25 MG TAB PO (07:38)
[2023-07-29] MEDS: Multivitamin TAB 1 TAB PO (07:39)
[2023-07-29] MEDS: Azithromycin 250 MG TAB PO (07:39)
[2023-07-29] MEDS: Aspirin E.C. 81 MG TABEC PO (07:39)
[2023-07-29] MEDS: Finasteride 5 MG TAB PO (07:39)
[2023-07-29] MEDS: amLODIPine 10 MG TAB PO (07:39)
[2023-07-29] MEDS: Clotrimazole 1% 15 GM TUBE TP (07:42)
[2023-07-29] MEDS: Diclofenac 1% Gel 100 GM TUBE TP (07:44)
[2023-07-29 07:55] VITALS: PULSE 78; RESP 19; RESP 9; O2SAT 97
[2023-07-29] MEDS: Tiotropium/Olodaterol 10 PUFF INHALER IH (07:58)
[2023-07-29] MEDS: Budesonide/Formoterol 160/4.5 6 GM 60 PUFF INH IH (07:58)
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
--- NOTE | 2023-07-29 16:04 | CMDISCH_ITS ---
Date of service: 07/29/23 Time of Service: 16:04 LACE Index Scoring Tool Questions: Length of Stay (in days): 1 Was the patient admitted via the E.D.?: Yes Comorbidities: Congestive Heart Failure and Chronic Pulmonary Disease E.D. Visits: 3 Answers: Total Score: 12 Risk of Readmission: High Risk Care Management Discharge Plan Reason for Hospitalization: COPD-readmission Discharge Plan: Rafiq will return home with no additional services at this time. He will follow up with outpatient providers, Palliative Care and his PCP. He will transport via private vehicle with his family. Patient/Family Education Needs: Review discharge instructions, discuss Ask Me Three. SDOH Health Related Social Needs: Health related social needs inadequate housing, food i nsecurity Health related social needs: inadequate housing(Z59.1) and food insecurity(Z59.41) Health related social needs details: Heat and MOW. Referrals and interventions: Referred to [facility] Referrals: [facility]
== END 2023-07-29 11:45 | disposition home or self-care (01) ==
LOC: ER 07-28 03:34 → MS 07-28 03:37
PROVIDERS: Admitting Provider General Practice; Emergency Provider Emergency Medicine Emergency Medical Services; PCP Student in an Organized Health Care Education/Training Program; Visit Provider General Practice
DX: J44.1 Chronic obstructive pulmonary disease with (acute) exacerbation (principal); R06.02 Shortness of breath; R05.8 Other specified cough; I11.0 Hypertensive heart disease with heart failure; J98.01 Acute bronchospasm; Z79.899 Other long term (current) drug therapy; I50.9 Heart failure, unspecified; G89.4 Chronic pain syndrome; I25.10 Atherosclerotic heart disease of native coronary artery without angina pectoris; I48.0 Paroxysmal atrial fibrillation; Z95.4 Presence of other heart-valve replacement; I47.19 Other supraventricular tachycardia; R91.8 Other nonspecific abnormal finding of lung field; I27.20 Pulmonary hypertension, unspecified; F12.90 Cannabis use, unspecified, uncomplicated; Z87.891 Personal history of nicotine dependence
CPT/HCPCS: 00123; 36415; 80053; 82805; 87637; 93005; 94640; 96374; 96376; 99285; 71045; 81003; 83735; 83880; 84484; 85025; 93010; 94664; 94760; 99222; 99238; G0378; J2919; J7512; J7613; J7620

== ENCOUNTER 2023-08-21 10:31 | Outpatient (CLI) | payer MEDICARE, SELFPAY ==
--- NOTE | 2023-08-21 06:00 | DI.RAD_ITS ---
Exam(s) XR PAIN CLINIC FLUORO JOINT IN EXAM: XR PAIN CLINIC FLUORO JOINT IN CLINICAL HISTORY: DX: Left shoulder adhesive capsulitis TECHNIQUE: 2D and realtime digital imaging was performed. CONTRAST MATERIAL: Refer to procedure report. COMPARISON: No exams were available for comparison FINDINGS: Fluoroscopy was provided for Dr. Mancilla during the performance of a left shoulder glenohumeral joint i njection. Please refer to the procedure report for complete details. Ka,r=1.17 mGy IMPRESSION: RADIATION DOSE DELIVERED: 0.0 0.0 0
[2023-08-21 10:42] VITALS: BP 144/81; PULSE 71; RESP 20; TEMP 36.6; O2SAT 96
[2023-08-21 11:31] VITALS: PULSE 67; O2SAT 97
[2023-08-21] MEDS: Nerve Block Tray 1 EACH MC (11:32)
[2023-08-21] MEDS: Lidocaine 2% Pres-Free 5 ML VIAL IJ (11:33)
[2023-08-21] MEDS: methylPREDNISolone ACETATE 40 MG/ML VIAL IJ (11:33)
[2023-08-21] MEDS: Normal Saline 20 ML VIAL 10 ML IJ (11:33)
[2023-08-21] MEDS: Omnipaque 240 MG/ML 50 ML BTL IJ (11:34)
--- NOTE | 2023-08-26 08:03 | PDOC.PAIN_ITS ---
Date of service: 08/21/23 Time of Service: 11:30 Pain Managment Procedure Note Procedure Note Procedure Note: PROCEDURE NOTE LEFT INTRA-ARTICULAR SHOULDER JOINT STEROID INJECTION/DILATION Date of Service: August 21, 2023 Patient:? Eddie Hanson? Provider:? Agustin Mancilla DO, MPH Eddie Hanson has been referred to the [facility] for LEFT intra-articular shoulder joint injection. Pre-operative diagnosis: Left shoulder Osteoarthritis Post-operative diagnosis: Same Pre-procedure pain: VAS=8/10 COMMENTS: We had initially planned to inject both shoulders, but his right shoulder is now doing great with no pain and excellent range of motion. We will just do this procedure on the left shoulder. Eddie?was interviewed and the medical record was reviewed.? There were no medical, pharmacologic, radiographic or other structural contraindications to attempting fluoroscopically guided LEFT intra-articular knee joint injection.? Risks and expected side effects as well as potential benefit of the procedure were reviewed with Eddie, and the patient's voiced concerns were addressed.? The printed consent form was signed.? Standard time-out procedure was performed. Eddie was placed in the supine position on the fluoroscopy table and the pulse oximeter was applied. The skin entry point for approaching superolateral aspect of the LEFT humeral head area was identified under the most advantageous fluoroscopic view and marked. Following thorough Chlorhexadine preparation of the skin and draping, 1% lidocaine infiltration of the skin entry point and subcutaneous tissues was accomplished using a 1.5 25G needle. Next, the 1.5 25G needle was advanced to the 12 o'clock position under fluoroscopic guidance into the LEFT shoulder joint. Intra-articular placement was confirmed by a clear arthrogram resulting from the injection of 2 ml Omnipaque 240. Next, 40 mg Depo-Medrol mixed with 3 mls of 1% Lidocaine was injected into the joint. This was followed with 20 cc of Normal Saline. (48 mls of Omnipaque was wasted). There was no unusual discomfort expressed by Eddie. The needle was withdrawn without difficulty. Eddie was observed and was without hemodynamic, neurologic, or allergic reactions.? Fluoroscopic images were digitally archived. Eddie's vital signs were stable throughout the procedure and were as recorded in the docflowsheet by the nursing staff. If given, dosages of intravenous drugs for anxiolysis and analgesia were documented in MAY. Follow up plans and appointments were discussed with Eddie.? Post procedure instruction was given as documented in nursing documentation and having met discharge criteria, Eddie [facility] COMMENTS: No apparent complications. Post-procedure pain: VAS= 0/10. Eddie to contact [facility] as needed. If at least 50% improvement in pain and/or function for at least 3 months is achieved, this procedure can be repeated. He was taught gentle range of motion exercises. I personally completed the entire procedure. AGUSTIN MANCILLA DO, MPH ABPM&R - Subspecialty board certification in Pain Medicine [facility]
== END 2023-08-21 10:32 | disposition home or self-care (01) ==
LOC: PC 10:31
PROVIDERS: PCP Student in an Organized Health Care Education/Training Program; Visit Provider Preventive Medicine Occupational Medicine
DX: M19.012 Primary osteoarthritis, left shoulder (principal)
CPT/HCPCS: 20610; 77002; J1010; Q9967

== ENCOUNTER 2023-09-15 12:01 | Emergency (ER) | payer MEDICARE, SELFPAY ==
[2023-09-15 12:06] VITALS: BP 115/76; PULSE 73; RESP 16; TEMP 36.9; O2SAT 94
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
--- NOTE | 2023-09-15 13:10 | DI.RAD_ITS ---
Exam(s) XR FOOT LT COMPLETE EXAM: XR FOOT LT COMPLETE CLINICAL HISTORY: L foot tenderness. TECHNIQUE: 2D digital imaging was performed of the left foot. Three images were obtained. AP, obli que and lateral views were obtained. COMPARISON: CR XR FOOT LT COMPLETE from 04/25/2023 FINDINGS: BONES: There is deformity of the cortex at the distal meta diaphyseal junction of the proximal phalan x of the 4th toe suspicious for nondisplaced fracture. No bony destructive lesion is seen. JOINTS: No dislocation present. SOFT TISSUE: There is soft tissue swelling of the 4th toe. Vascular calcification is seen. IMPRESSION: Findings suspicious for nondisplaced fracture involving the distal metadiaphyseal junction of the pro ximal phalanx of the 4th toe with associated soft tissue swelling. DATA REPOSITORY: RADIATION DOSE DELIVERED:
== END 2023-09-15 14:24 | disposition home or self-care (01) ==
PROVIDERS: Emergency Provider Physician Assistant; PCP Student in an Organized Health Care Education/Training Program
DX: S92.515A Nondisplaced fracture of proximal phalanx of left lesser toe(s), initial encounter for closed fracture (principal); W22.8XXA Striking against or struck by other objects, initial encounter
CPT/HCPCS: 99283; 73630

== ENCOUNTER 2023-09-29 15:10 | Outpatient (CLI) | payer MEDICARE, MEDICAID, SELFPAY ==
--- NOTE | 2023-09-29 14:35 | DI.RAD_ITS ---
Exam(s) XR HIP RT COMPLETE AP PELVIS EXAM: XR HIP RT COMPLETE AP PELVIS INDICATION: eval R hip OA. COMPARISON: CR BILATERAL HIPS ADULT from 06/12/[address] ABDOMEN PELVIS W from 08/19/2019 CR,XR XR LUMBAR SPINE COMPLETE from 09/11/[address] CHEST PE CTA from 05/17/[address] THORAX CTA from 06/13/2023 MR MR LOWER JOINT RT WO from 07/18/2023 TECHNIQUE: 2D digital imaging was performed. Two views. FINDINGS: Stable appearance of left hip prosthesis. Right hip joint space is maintained. Calcifications projecting over the home femoral head likely related to vascular calcifications. Impression: No acute abnormality. DATA REPOSITORY: RADIATION DOSE DELIVERED:
--- NOTE | 2023-09-29 14:42 | DI.RAD_ITS ---
Exam(s) XR TOE LT FOURTH EXAM: XR TOE LT FOURTH CLINICAL HISTORY: L toe fx. TECHNIQUE: 2D digital imaging was performed. Three views. COMPARISON: CR XR FOOT LT COMPLETE from 09/15/2023 FINDINGS: BONES: Fractures better seen on today's exam which extends through distal neck of the proximal phala nx of the 4th toe. A there is some dorsal displacement. No additional fractures are seen.. No bony destructive lesion is seen. JOINTS: No dislocation present. Degenerative changes in the interphalangeal joints of the toes. SOFT TISSUE: Normal. IMPRESSION: Fourth proximal phalangeal fracture with dorsal displacement. DATA REPOSITORY: RADIATION DOSE DELIVERED:
== END 2023-09-29 15:11 | disposition home or self-care (01) ==
LOC: DIORS 15:11
PROVIDERS: PCP Student in an Organized Health Care Education/Training Program; Referring Provider Student in an Organized Health Care Education/Training Program; Visit Provider Student in an Organized Health Care Education/Training Program
DX: S73.191A Other sprain of right hip, initial encounter (principal); M16.11 Unilateral primary osteoarthritis, right hip; S92.502A Displaced unspecified fracture of left lesser toe(s), initial encounter for closed fracture; M70.61 Trochanteric bursitis, right hip; M67.911 Unspecified disorder of synovium and tendon, right shoulder; M67.912 Unspecified disorder of synovium and tendon, left shoulder; X58.XXXA Exposure to other specified factors, initial encounter
CPT/HCPCS: 20610; J1010; 73502; 73660

== ENCOUNTER 2023-10-29 14:05 | Emergency (ER) | payer MEDICARE, MEDICAID, SELFPAY ==
[2023-10-29] VITALS (32 sets, daily range): BP systolic 96–150; BP diastolic 63–110; PULSE 60–82; RESP 13–29; TEMP 37.1; O2SAT 94–99
--- NOTE | 2023-10-29 14:00 | RT.EKG_ITS ---
APPROVED REPORT Exam: Resting ECG Reason for Exam: syncope Patient Location: E HR:83 bpm ECG Measurements Heart Rate 83 AXIS KS 163 P 13 QRSd 107 QRS 24 QT 381 T -6 QTc 427 Conclusion Sinus rhythm...normal P axis, V-rate 60- 99 Atrial premature complexes in couplets...pair SV complexes w/ short R-R sinus, PACs, non ischemic
--- NOTE | 2023-10-29 14:15 | DI.RAD_ITS ---
Exam(s) XR CHEST 2V PA LATERAL EXAM: XR CHEST 2V PA LATERAL CLINICAL HISTORY: copd. chest pain TECHNIQUE: 2D digital imaging was performed. Two views. COMPARISON: CT CT THORAX CTA from 06/13/2023 CR,XR XR PORTABLE CHEST AP from 07/24/2023 CR,XR XR PORTABLE CHEST AP from 07/25/2023 CR,XR XR PORTABLE CHEST AP from 07/28/2023 FINDINGS: HEART: Normal size. Aortic valve prosthesis. Aorta: Not dilated. PULMONARY VASCULATURE: Normal. MEDIASTINUM: Unremarkable. LUNGS: Emphysematous changes. No infiltrate or pulmonary edema. PLEURAL SPACE: No pleural effusion or pneumothorax. BONE:Sternal wires. SOFT TISSUES: Unremarkable. IMPRESSION: No acute abnormality. DATA REPOSITORY: RADIATION DOSE DELIVERED:
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
[2023-10-29] MEDS: Albuterol/Ipratropium 3 ML UPD VIAL UPD (14:47)
[2023-10-29] MEDS: Dexamethasone 10 MG/ML VIAL IVP (14:47)
[2023-10-29] MEDS: Aspirin 81 MG CHEW 324 MG CH (14:47)
[2023-10-29 14:48] LABS: Abs Immature Grans 0.03 10^3/uL (0.0-0.06); Absolute Basophil Count 0.03 10^3/uL (0.0-0.2); Absolute Eosinophil Count 0.08 10^3/uL (0.0-0.7); Absolute Lymphocyte Count 1.75 10^3/uL (1.2-3.4); Absolute Monocyte Count 0.69 10^3/uL (0.1-0.8); Absolute Neutrophil Count 4.99 10^3/uL (1.2-6.7); Basophils % 0.4 %; Eosinophils % 1.1 %; HCT 39.7 % (40.0-50.0); HGB 13.9 g/dL (13.5-17.5); Immature Grans % 0.4 %; Lymphocytes % 23.1 %; MCH 33.7 pg (27.0-33.0); MCV 96 fL (80-95); MPV 9.8 fL (8.0-11.0); Monocytes % 9.1 %; Neutrophils % 65.9 %; Platelet Count 157 10^3/uL (130-400); RBC 4.13 10^6/uL (4.36-5.78); RDW 11.7 % (11.8-14.1); RDW-SD 41.1 fL; WBC 7.57 10^3/uL (4.4-10.8)
[2023-10-29 14:58] LABS: INR 1.1 (0.9-1.1); Prothrombin Time 10.7 sec (9.1-11.1)
[2023-10-29 15:19] LABS: ALT 31 U/L (16-63); AST 25 U/L (15-37); Albumin 4.1 g/dL (3.4-5.0); Alkaline Phosphatase 78 U/L (46-116); BUN 19 mg/dL (7-18); Bilirubin, Total 0.45 mg/dL (0.2-1.0); CREATININE 1.8 mg/dL (0.70-1.30); Calcium 9.4 mg/dL (8.5-10.1); Chloride 101 mmol/L (98-107); Estimated GFR 38.53 (mL/min/1.73m2); Glucose 116 mg/dL (74-106); Magnesium 2.3 mg/dL (1.8-2.4); NT-proBNP 830 pg/mL (<300); Potassium 3.7 mmol/L (3.5-5.1); Sodium 137 mmol/L (136-145); Total Protein 6.9 g/dL (6.4-8.2); Troponin I < 50 ng/L (< or =60)
[2023-10-29 18:07] LABS: Troponin I < 50 ng/L (< or =60)
== END 2023-10-29 19:12 | disposition home or self-care (01) ==
LOC: ER 19:01 → RED 19:12
PROVIDERS: Emergency Provider Emergency Medicine; PCP Student in an Organized Health Care Education/Training Program
DX: R07.9 Chest pain, unspecified (principal); R55 Syncope and collapse; J44.9 Chronic obstructive pulmonary disease, unspecified; I25.10 Atherosclerotic heart disease of native coronary artery without angina pectoris; I11.0 Hypertensive heart disease with heart failure; I50.9 Heart failure, unspecified; I48.0 Paroxysmal atrial fibrillation; Z95.2 Presence of prosthetic heart valve; Z79.899 Other long term (current) drug therapy; Z87.891 Personal history of nicotine dependence
CPT/HCPCS: 36415; 80053; 82962; 93005; 94640; 96374; 99285; 71046; 83735; 83880; 84484; 85025; 85610; 85730; 93010; 99284; J1100; J7620

== ENCOUNTER 2023-11-05 11:30 | Outpatient (CLI) | payer MEDICARE, MEDICAID, SELFPAY ==
--- NOTE | 2023-11-05 09:00 | DI.RAD_ITS ---
Exam(s) XR SHOULDER LT COMPLETE 2+V EXAM: XR SHOULDER LT COMPLETE 2+V CLINICAL HISTORY: BILATERAL SHOULDER PAIN. TECHNIQUE: 2D digital imaging was performed of the left shoulder. Two images were obtained. Grashe y and axillary views were obtained. COMPARISON: CR XR SHOULDER LT COMPLETE 2+V from 10/28/2022 FINDINGS: BONES: No acute fracture is present. No bony destructive lesion is seen. JOINTS: No dislocation present. The joint spaces are well maintained. Due to patient positioning the acromioclavicular joint is poorly visualized on the Grashey view. SOFT TISSUE: Normal. IMPRESSION: Within the limits of the examination, no acute abnormalities identified. DATA REPOSITORY: RADIATION DOSE DELIVERED:
--- NOTE | 2023-11-05 09:00 | DI.RAD_ITS ---
Exam(s) XR SHOULDER RT COMPLETE 2+V EXAM: XR SHOULDER RT COMPLETE 2+V CLINICAL HISTORY: BILATERAL SHOULDER PAIN. TECHNIQUE: 2D digital imaging was performed of the right shoulder. Two images were obtained. Grash ey and axillary views were obtained. COMPARISON: CR XR SHOULDER RT COMPLETE 2+V from 09/10/2022 FINDINGS: BONES: No acute fracture is present. No bony destructive lesion is seen. JOINTS: No dislocation present. The acromioclavicular and glenohumeral joints appear well maintained. SOFT TISSUE: Normal. IMPRESSION: No acute abnormality. DATA REPOSITORY: RADIATION DOSE DELIVERED:
== END 2023-11-05 11:31 | disposition home or self-care (01) ==
LOC: DIORS 11:30
PROVIDERS: PCP Student in an Organized Health Care Education/Training Program; Referring Provider Student in an Organized Health Care Education/Training Program; Visit Provider Student in an Organized Health Care Education/Training Program
DX: M75.101 Unspecified rotator cuff tear or rupture of right shoulder, not specified as traumatic; M75.102 Unspecified rotator cuff tear or rupture of left shoulder, not specified as traumatic; M12.811 Other specific arthropathies, not elsewhere classified, right shoulder; M12.812 Other specific arthropathies, not elsewhere classified, left shoulder
CPT/HCPCS: 99214; 73030

== ENCOUNTER 2023-11-18 02:16 | Outpatient (CLI) | payer MEDICARE, MEDICAID, SELFPAY ==
--- NOTE | 2023-11-18 08:22 | DI.US_ITS ---
APPROVED REPORT EXAM: Comprehensive 2D, Doppler, and color-flow Echocardiogram Patient Location: [facility] Supervisor: Shira Powell RDCS (AE) Indications: Evaluate cardiac function, Pre operative evaluation, CHF, HTN, CAD, h/o aoritc valve dis order Other Information Study Quality: Fair. Technically limited study due to body habitus, inability to position patient exa m done in supine position.. Conclusion Normal left ventricular wall thickness and chamber size. Ejection fraction is 55%. Wall motion is n ormal Normal right ventricular size and function Both atria are normal in size There is a bioprosthetic aortic valve. Mean gradient is 8 mmHg. There is no aortic regurgitation There is no additional structural or hemodynamically significant valvular disease Estimated right ventricular systolic pressure is 28 mmHg Wall motion Left Ventricle Technically limited parasternal imaging, calculations not performed Very low imaging window available . The overall left ventricular systolic function appears normal. There is normal LV segmental wall mo tion. There is no ventricular septal defect visualized. LVEF is 55%. Right Ventricle Right ventricle is grossly normal in size. Right ventricular systolic function is grossly normal. Atria The left atrium size is normal. The right atrium size is normal. The interatrial septum is intact wit h no evidence for an atrial septal defect. Aortic Valve There is no aortic valvular stenosis. No aortic regurgitation is present. Bioprosthetic aortic valve is present. Mitral Valve Mild mitral annular calcification. No evidence of mitral valve stenosis. Trace mitral regurgitation. Tricuspid Valve The tricuspid valve is normal in structure. There is no tricuspid valve stenosis. Mild tricuspid reg urgitation. The RVSP is 28.1 mmHg. Pulmonic Valve The pulmonary valve is normal in structure. There is no pulmonic valvular stenosis. There is no pulmo justice valvular regurgitation. Great Vessels The aortic root is normal in size. Ascending aorta is not well visualized. Aortic arch is not well vi sualized. IVC is normal in size and collapses >50% with inspiration. Pericardium There is no pericardial effusion. 2D Dimensions Ao Root d 2.10 cm M: 3.1 - 3.7 M-Mode TAPSE 1.34 cm (M/F) >1.7 Auto EF LV EDV A4C 118.3 mL LV EDV A2C 154.1 mL LV EDV BP 136.5 mL LV ESV A4C 57.9 mL LV ESV A2C 74.8 mL LV ESV BP 67.6 mL LVEF(%) A4C 51.1 % LVEF(%) A2C 51.4 % LVEF(%) BP 50.5 % LV SV A4C 60.5 ml LV SV A2C 79.3 ml LV SV BP 68.9 ml LV CO A4C 3.6 L/min LV CO A2C 4.5 L/min LV CO BP 4.1 L/min HR A4C 59.61 BPM HR A2C 57.33 BPM LV EDV Index (BP) LA Volume LA Length A4C 5.1 cm LA Length A2C 6.5 cm LA Area A4C s 16.05 cm2 LA Area A2C s 22.34 cm2 LA Vol A4C A-L 42.66 mL LA Vol A2C A-L 65.23 mL LA Vol Biplane A-L 59.4 mL LA Vol/BSA A4C A-L LA Vol/BSA A2C A-L LA Vol/BSA BP A-L 36.0 mL/m2 LA Vol A4C MOD 38.2 mL LA Vol A2C MOD 62.6 mL LA Vol BP MOD 54.2 mL LV Diastology MV E' medial 0.068 (>0.07 m/s) MV E Vmax 0.70 (0.4-1.3 m/s) MV E/E' MED 10.28 (<14) MV A Vmax 0.75 (0.4-1.3 m/s) MV E' lateral 0.093 (>0.1 m/s) E/A Ratio 0.9 MV E/E' LAT 7.55 (<14) MV E' Average 0.080 m/s MV E/E'(average) 8.70 Aortic Valve AoV Vmax 1.96 m/s LVOT Vmax 1.36 m/s AoV Peak Grad 15.4 mmHg LVOT Peak Grad 7.4 mmHg AoV Area (Vmax) 2.16 cm2 LVOT VTI 0.358 m AoV VTI 0.480 m LVOT Mean Grad 6.1 mmHg AoV Mean Gerard. 1.29 m/s LVOT SV 111.51 mL AoV Mean Grad 7.9 mmHg LVOT Diam s 1.95 cm AoV Area (VTI) 2.32 cm2 AV Regurg Peak Gr. 15.43 mmHg Velocity Ratio 0.69 Mitral Valve MV DT 305 (160-240 msec) MV Vmax TIPS 0.82 m/s MV Mean Grad 1.3 (<2mmHg) MV VTI 0.292 m Pulmonary Valve PV Vmax 0.98 (0.5-1.5 m/s) RVOT Vmax 0.87 m/s PV Peak Grad 3.8 mmHg RVOT Peak Gr. 3.1 mmHg PV Mean Gerard 0.63 m/s RVOT VTI 0.188 m PV Mean Grad 1.9 mmHg RVOT Mean Gr. 1.4 mmHg Tricuspid Valve RA Pressure 3.00 mmHg TR Vmax 2.50 m/s TV S' 0.09 m/s TR Peak Grad 25.0 mmHg RVSP (TR) 28.1 mmHg
== END 2023-11-18 02:36 ==
PROVIDERS: PCP Student in an Organized Health Care Education/Training Program; Visit Provider Student in an Organized Health Care Education/Training Program
DX: I10 Essential (primary) hypertension (principal); I50.33 Acute on chronic diastolic (congestive) heart failure; I27.20 Pulmonary hypertension, unspecified; Z86.79 Personal history of other diseases of the circulatory system; I25.10 Atherosclerotic heart disease of native coronary artery without angina pectoris; Z01.810 Encounter for preprocedural cardiovascular examination
CPT/HCPCS: 93306; 73200

== ENCOUNTER 2023-11-18 02:16 | Outpatient (CLI) | payer MEDICARE, SELFPAY ==
--- NOTE | 2023-11-18 07:00 | DI.CT_ITS ---
Exam(s) CT UPPER EXTREMITY LT WO EXAM: CT UPPER EXTREMITY LT WO CLINICAL HISTORY: LEFT SHOULDER RTC ARTHROPATHY,SURG PLANNING,m75.102,m12.812,m75.101 TECHNIQUE: Imaging Protocol: Axial computed tomography images with coronal and sagittal reformatted images were created and reviewed. CONTRAST MATERIAL: Intravenous: None COMPARISON: CR XR SHOULDER LT COMPLETE 2+V from 11/05/2023 CR XR SHOULDER RT COMPLETE 2+V from 11/05/2023 FINDINGS: OSSEOUS: No evidence of dislocation nor abnormal soft tissue calcifications. There is approximately [address] subluxation of the humeral head in the osseous glenoid fossa. The subacromial space height is 5.8 mm. There are no calcifications in the subacromial space. There are mild degenerative changes in t he glenohumeral joint. No osteophytes nor degenerative subarticular cysts evident. No significant o sseous lesions. The ipsilateral AC joint appears unremarkable IMPRESSION: Some degenerative change in the glenohumeral joint and there is 1 cm cephalad subluxation of the juan ral head within the osseous glenoid fossa evident. RADIATION DOSE DELIVERED: 84.59mGy.cm Total DLP DATA REPOSITORY: All CT scans at this facility are submitted to the National Radiology Data Registry (NRDR) Dose Index Registry (DIR) with the [employer] ([employer]). RADIATION OPTIMIZATION: All CT scans at this facility use at least one of these dose optimization te chniques: automated exposure control; mA and/or kV adjustment per patient size (includes targeted exa ms where dose is matched to clinical indication); or iterative reconstruction.
== END 2023-11-18 02:36 ==
LOC: DI 02:16
PROVIDERS: PCP Student in an Organized Health Care Education/Training Program; Visit Provider Student in an Organized Health Care Education/Training Program
DX: M12.812 Other specific arthropathies, not elsewhere classified, left shoulder
CPT/HCPCS: 73200

== ENCOUNTER 2023-11-19 18:27 | Emergency (ER) | payer MEDICARE, MEDICAID, SELFPAY ==
[2023-11-19 18:28] VITALS: BP 119/69; PULSE 81; RESP 16; TEMP 37.2; O2SAT 94
--- NOTE | 2023-11-19 18:30 | DI.RAD_ITS ---
Exam(s) XR PORTABLE CHEST AP EXAM: XR PORTABLE CHEST AP CLINICAL HISTORY: cough, r/o pneumonia. TECHNIQUE: 2D digital imaging was performed. COMPARISON: CR XR CHEST 2V PA LATERAL from 10/29/2023 FINDINGS: Single AP portable view. Sternotomy wires again noted. Heart size is upper normal. The mediastinum is not widened. There are mild increased markings in the right upper lobe, possibly mild infiltrate. Slightly increa sed markings in the left lower lobe noted which are most probably vascular. There are no pleural eff usions. No pulmonary edema. No fractures evident. No pneumothorax IMPRESSION: Focal increased markings in the right upper lobe probable small area of infiltrate or nodular infiltr ate. Appropriate follow-up recommended. Sternotomy wires. Upper normal heart size. No pulmonary edema. DATA REPOSITORY: RADIATION DOSE DELIVERED:
[2023-11-19 19:19] LABS: COVID-19 PCR Negative (Negative); Influenza A PCR Negative (Negative); Influenza B PCR Negative (Negative); RSV PCR Negative (Negative)
[2023-11-19 19:20] LABS: Source NASOPHARYNX
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
[2023-11-19] MEDS: Doxycycline Hyclate 100 MG, 2 CAPS/BTL PO (20:17)
[2023-11-19 20:18] VITALS: BP 119/69; PULSE 78; RESP 22; TEMP 37.2; O2SAT 94
== END 2023-11-19 20:20 | disposition home or self-care (01) ==
PROVIDERS: Emergency Provider Student in an Organized Health Care Education/Training Program; PCP Student in an Organized Health Care Education/Training Program
DX: J18.9 Pneumonia, unspecified organism (principal)
CPT/HCPCS: 87637; 99283; 71045

== ENCOUNTER → 2023-11-25 14:44 | Outpatient (BNVA) | payer MEDICARE, MEDICAID, SELFPAY | PROVIDERS: PCP Student in an Organized Health Care Education/Training Program; Referring Provider Student in an Organized Health Care Education/Training Program; Visit Provider Student in an Organized Health Care Education/Training Program | DX: M75.101 Unspecified rotator cuff tear or rupture of right shoulder, not specified as traumatic (principal); M75.102 Unspecified rotator cuff tear or rupture of left shoulder, not specified as traumatic; M12.811 Other specific arthropathies, not elsewhere classified, right shoulder; M12.812 Other specific arthropathies, not elsewhere classified, left shoulder | CPT/HCPCS: 99214 ==

== ENCOUNTER 2023-12-19 02:53 | Outpatient (CLI) | payer MEDICARE, MEDICAID, SELFPAY ==
[2023-12-19] MEDS: Inhaler, Assist Device 1 EACH MC (14:24)
[2023-12-19] MEDS: Levalbuterol HFA 15 GM INH 4 PUFF IH (14:29)
--- NOTE | 2023-12-23 16:34 | W.PFT ---
Date of service: 12/19/23 Time of Service: 13:04 Pulmonary Function Test Result Indications: Pulmonary hypertension Interpretation Spirometry: There is moderate airflow limitation. No bronchodilator response. Lung Volumes: There is air trapping and hyperinflation. Diffusion Capacity: Normal diffusion. Airway Pressure: Increased airways resistance Impression Moderate airflow obstruction with air trapping and increased airways resistance. This could represent COPD (chronic bronchitis), severe asthma, or Asthma-COPD overlap syndrome. Clinical Correlation therefore is recommended.
== END 2023-12-19 02:54 | disposition home or self-care (01) ==
LOC: RT 02:53
PROVIDERS: PCP Student in an Organized Health Care Education/Training Program; Visit Provider Student in an Organized Health Care Education/Training Program
DX: J45.909 Unspecified asthma, uncomplicated (principal); I50.33 Acute on chronic diastolic (congestive) heart failure
CPT/HCPCS: 94060; 94726; 94729

== ENCOUNTER → 2024-01-14 10:08 | Outpatient (BNVA) | payer MEDICARE, MEDICAID, SELFPAY | PROVIDERS: PCP Student in an Organized Health Care Education/Training Program; Referring Provider Student in an Organized Health Care Education/Training Program; Visit Provider Physician Assistant Surgical | DX: J43.8 Other emphysema (principal); R91.8 Other nonspecific abnormal finding of lung field; I27.20 Pulmonary hypertension, unspecified; Z87.891 Personal history of nicotine dependence | CPT/HCPCS: 99214 ==

== ENCOUNTER 2024-01-20 01:07 | Outpatient (CLI) | payer MEDICARE, MEDICAID, SELFPAY ==
--- NOTE | 2024-01-20 07:00 | DI.CT_ITS ---
Exam(s) CT CHEST WO EXAM: CT CHEST WO CLINICAL HISTORY: pulmonary nodules,j43.8,r91.8,copd. TECHNIQUE: Multi planar reconstructions were performed. CONTRAST MATERIAL: None COMPARISON: CT CT THORAX CTA from 06/13/2023 CR XR PORTABLE CHEST AP from 11/19/2023 FINDINGS: CHEST: LUNGS: Again noted is bilateral hyperinflation and COPD changes. There are emphysematous changes in the upper lobes again noted. Mild area of infiltrate is seen in the right upper lobe measuring appro ximately 1.2 x 1.0 cm. No other new right lung findings. No pleural effusions. In the opposite-left lung there is an unchanged 5 mm nodule again noted. No new significant left upp er lobe nor lingular segment findings. In the superior segment of the left lower lobe there is a 5 m m noncalcified nodule noted, slightly more prominent than previous. There is also an unchanged 2 mil limeter nodule in the left lower lobe. No pleural effusion. No new findings in trachea and mainstem bronchi. MEDIASTINUM: There is no obvious hilar nor mediastinal adenopathy. Visualized thyroid unremarkable.No obvious axillary adenopathy CARDIAC: Sternotomy wires again noted. Heart size is normal. There is no pericardial effusion. Aor tic valve prosthesis is again noted. The ascending thoracic aorta is again noted be aneurysmal, with maximum diameter approximately 4.8 cm, slightly increased. Cannot assess for dissection without IV contrast. The diameter of the mid thoracic AA arch is within normal limits. Diameter of the descend ing thoracic aorta is again noted to be mildly prominent.. There is coronary artery calcification ag ain noted VISUALIZED UPPER ABDOMEN:No adrenal masses. Cirrhotic appearing liver. Spleen size normal. Cysts a re again noted in the partially included kidneys. OSSEOUS: Gradual kyphosis without a distinct thoracic vertebral fracture evident. No osseous lesions . Sternotomy wires again noted. IMPRESSION: 1. COPD findings again noted. There is a small patchy infiltrate measuring 12 x 10 mm in the right u pper lobe which was not evident on the prior CT scan of 06/13/2023. One of the previously described nodules in the left lower lobe appears slightly larger than previous by approximately 1 mm. There ar e no pleural effusions. No obvious intrathoracic adenopathy. For these lung findings recommend repe at CT scan in 6 months. 2. Sternotomy. Prosthetic aortic valve and aneurysmal dilatation of the ascending thoracic aorta whi presently measures 4.8 cm, slightly increased from the 4.6 cm reading of 06/13/2023. Heart size r emains normal and there is no pericardial effusion. Cannot assess for aortic dissection as this is a non IV contrast study. RADIATION DOSE DELIVERED: 185.36mGy.cm Total DLP DATA REPOSITORY: All CT scans at this facility are submitted to the National Radiology Data Registry (NRDR) Dose Index Registry (DIR) with the [employer] ([employer]). RADIATION OPTIMIZATION: All CT scans at this facility use at least one of these dose optimization te chniques: automated exposure control; mA and/or kV adjustment per patient size (includes targeted exa ms where dose is matched to clinical indication); or iterative reconstruction.
== END 2024-01-20 01:27 ==
PROVIDERS: PCP Student in an Organized Health Care Education/Training Program; Visit Provider Physician Assistant Surgical
DX: J43.8 Other emphysema (principal); R91.8 Other nonspecific abnormal finding of lung field
CPT/HCPCS: 71250

== ENCOUNTER 2024-03-23 15:20 | Outpatient (CLI) | payer MEDICARE, MEDICAID, SELFPAY ==
[2024-03-23 12:00] LABS: Abs Immature Grans 0.03 10^3/uL (0.0-0.06); Absolute Basophil Count 0.03 10^3/uL (0.0-0.2); Absolute Lymphocyte Count 1.83 10^3/uL (1.2-3.4); Absolute Monocyte Count 0.63 10^3/uL (0.1-0.8); Absolute Neutrophil Count 3.52 10^3/uL (1.2-6.7); Basophils % 0.5 %; Eosinophils % 3.2 %; HGB 13.5 g/dL (13.5-17.5); Immature Grans % 0.5 %; Lymphocytes % 29.3 %; MCH 32.8 pg (27.0-33.0); MCHC 34.6 % (32.0-36.0); MCV 95 fL (80-95); MPV 9.9 fL (8.0-11.0); Monocytes % 10.1 %; Neutrophils % 56.4 %; Platelet Count 152 10^3/uL (130-400); RBC 4.11 10^6/uL (4.36-5.78); RDW 12.9 % (11.8-14.1); RDW-SD 45.3 fL; WBC 6.24 10^3/uL (4.4-10.8)
[2024-03-23 19:15] LABS: CRP, High Sensitivity 0.56 mg/L (See Note)
== END 2024-03-23 15:21 | disposition home or self-care (01) ==
LOC: LBO 15:23
PROVIDERS: PCP Student in an Organized Health Care Education/Training Program; Visit Provider Family Medicine
DX: R60.9 Edema, unspecified (principal); R29.898 Other symptoms and signs involving the musculoskeletal system; G89.18 Other acute postprocedural pain
CPT/HCPCS: 36415; 86141; 73130; 85025

== ENCOUNTER 2024-03-23 15:20 | Outpatient (CLI) | payer MEDICARE, MEDICAID, SELFPAY ==
--- NOTE | 2024-03-23 11:34 | DI.RAD_ITS ---
Exam(s) XR HAND RT COMPLETE EXAM: XR HAND RT COMPLETE CLINICAL HISTORY: Persistent pain after surgery of R hand, r/o osteo, post op pain, G89.18. TECHNIQUE: 2D digital imaging was performed. COMPARISON: CR XR HAND RT COMPLETE from 01/02/2023 FINDINGS: 3 views There has been interval resection of the trapezium bone of the distal carpal row. A single surgical clip is noted in this region. There is some lucency evident in the base of the thumb metacarpal but this is probably related to the pre-existing osteoarthritic degenerative changes, as opposed to osteo myelitis. There are no fractures evident. Other carpal row bones appear unremarkable. Vascular alee cification is noted at the wrist. There are advanced arthritis changes at the DIP joints of the 2nd, 3rd, 4th and 5th fingers. There i s relative sparing of the PIP joints and MCP joints. There are mild degenerative changes in the inte rphalangeal joint of the thumb. IMPRESSION: Postsurgical changes at the 1st carpometacarpal joint. Some lucency is seen in the base of the thumb metacarpal. Probably related to prior degenerative changes but cannot completely exclude osteomyeli tis. Other findings as above. DATA REPOSITORY: RADIATION DOSE DELIVERED:
== END 2024-03-23 15:40 ==
LOC: DI 15:23
PROVIDERS: PCP Student in an Organized Health Care Education/Training Program; Visit Provider Family Medicine
DX: G89.18 Other acute postprocedural pain (principal)
CPT/HCPCS: 73130

== ENCOUNTER → 2024-07-13 10:24 | Outpatient (BNVA) | payer MEDICARE, MEDICAID, SELFPAY | PROVIDERS: PCP Family Medicine; Referring Provider Student in an Organized Health Care Education/Training Program; Visit Provider Physician Assistant Surgical | DX: J43.8 Other emphysema (principal); R91.8 Other nonspecific abnormal finding of lung field; I27.20 Pulmonary hypertension, unspecified; F41.9 Anxiety disorder, unspecified; Z87.891 Personal history of nicotine dependence | CPT/HCPCS: 99214 ==

== ENCOUNTER → 2024-08-03 13:54 | Outpatient (BNVA) | payer MEDICARE, SELFPAY | PROVIDERS: PCP Family Medicine; Referring Provider Family Medicine; Visit Provider Student in an Organized Health Care Education/Training Program | DX: M75.101 Unspecified rotator cuff tear or rupture of right shoulder, not specified as traumatic (principal); M12.811 Other specific arthropathies, not elsewhere classified, right shoulder; M75.102 Unspecified rotator cuff tear or rupture of left shoulder, not specified as traumatic; M12.812 Other specific arthropathies, not elsewhere classified, left shoulder; J44.9 Chronic obstructive pulmonary disease, unspecified | CPT/HCPCS: 99214 ==

== ENCOUNTER 2024-11-01 11:53 | Outpatient (CLI) | payer MEDICARE, SELFPAY ==
--- NOTE | 2024-11-01 10:15 | DI.RAD_ITS ---
Exam(s) XR HIP RT COMPLETE AP PELVIS EXAM: XR HIP RT COMPLETE AP PELVIS CLINICAL HISTORY: Worsening R hip pain M25.551 PAIN RT HIP G89.29 CHRONIC PAIN. TECHNIQUE: 2D digital imaging was performed of the right hip. Two images were obtained. AP pelvis and lateral right hip views were obtained. COMPARISON: CR XR HIP RT COMPLETE AP PELVIS from 09/29/2023 FINDINGS: BONES: No acute fracture is present. No bony destructive lesion is seen. JOINTS: No dislocation present. There again seen findings of a prior left total hip arthroplasty. There is mild narrowing of the right hip. The joint is otherwise well maintained. SOFT TISSUE: Atherosclerotic calcifications are present. IMPRESSION: Mild joint space narrowing of the right hip. DATA REPOSITORY: RADIATION DOSE DELIVERED:
== END 2024-11-01 12:13 ==
LOC: DI 11:54
PROVIDERS: PCP Family Medicine; Visit Provider Family Medicine
DX: M25.551 Pain in right hip (principal)
CPT/HCPCS: 73502

== ENCOUNTER 2024-11-26 11:06 | Outpatient (CLI) | payer MEDICARE, SELFPAY | END 2024-11-26 11:07 | disposition home or self-care (01) | LOC: DI.KIM 11:07 | PROVIDERS: PCP Family Medicine; Visit Provider Family Medicine | CPT/HCPCS: 93010 ==

== ENCOUNTER 2024-11-29 09:15 | Outpatient (CLI) | payer MEDICARE, SELFPAY ==
--- NOTE | 2024-11-29 09:15 | RT.EKG_ITS ---
APPROVED REPORT Exam: Resting ECG Reason for Exam: Monitor for Afib Patient Location: O HR:69 bpm ECG Measurements Heart Rate 69 AXIS NE 146 P 48 QRSd 112 QRS 35 QT 417 T 53 QTc 447 Conclusion Sinus rhythm...normal P axis, V-rate 50- 99 Atrial premature complexes...SV complexes w/ short R-R intvls Low voltage, extremity leads...all extremity leads <0.5mV Baseline wander in lead(s) V6
== END 2024-11-29 09:16 | disposition home or self-care (01) ==
LOC: DI.KIM 09:16
PROVIDERS: PCP Family Medicine; Visit Provider Family Medicine
DX: I48.0 Paroxysmal atrial fibrillation (principal)
CPT/HCPCS: 93010

== ENCOUNTER 2024-12-01 02:43 | Outpatient (CLI) | payer MEDICARE, SELFPAY ==
--- NOTE | 2024-12-01 14:51 | DI.RAD_ITS ---
Exam(s) XR FOOT LT COMPLETE XR FOOT RT COMPLETE EXAM: XR FOOT LT COMPLETE CLINICAL HISTORY: Left foot pain,m79.672. TECHNIQUE: 2D digital imaging was performed. Three views of both feet. COMPARISON: CR XR FOOT RT COMPLETE from 12/01/2024 FINDINGS: BONES: No acute fracture is present. No bony destructive lesion is seen. The bones appear osteopenic. JOINTS: No dislocation present. Hammertoe deformities. SOFT TISSUE: Normal. IMPRESSION: Bilateral hammertoe deformities. DATA REPOSITORY: RADIATION DOSE DELIVERED:
== END 2024-12-01 03:03 ==
LOC: DI 02:43
PROVIDERS: PCP Family Medicine; Visit Provider Podiatrist
DX: M79.672 Pain in left foot (principal); M79.671 Pain in right foot; M20.42 Other hammer toe(s) (acquired), left foot; M20.41 Other hammer toe(s) (acquired), right foot
CPT/HCPCS: 73630

== ENCOUNTER → 2024-12-29 13:42 | Outpatient (BNVA) | payer MEDICARE, SELFPAY | PROVIDERS: PCP Family Medicine; Referring Provider Family Medicine; Visit Provider Podiatrist | DX: M20.41 Other hammer toe(s) (acquired), right foot (principal); M20.42 Other hammer toe(s) (acquired), left foot; M77.41 Metatarsalgia, right foot; M77.42 Metatarsalgia, left foot; L84 Corns and callosities; M21.621 Bunionette of right foot; M21.622 Bunionette of left foot; G62.9 Polyneuropathy, unspecified; Z59.89 Other problems related to housing and economic circumstances | CPT/HCPCS: 99213 ==

== ENCOUNTER → 2025-01-12 13:48 | Outpatient (BNVA) | payer MEDICARE, SELFPAY | PROVIDERS: PCP Family Medicine; Referring Provider Family Medicine; Visit Provider Physician Assistant Surgical | DX: J44.9 Chronic obstructive pulmonary disease, unspecified (principal); I27.20 Pulmonary hypertension, unspecified; R91.8 Other nonspecific abnormal finding of lung field; J43.8 Other emphysema; Z87.891 Personal history of nicotine dependence | CPT/HCPCS: 99214 ==

== ENCOUNTER 2025-01-12 14:57 | Emergency (ER) | payer MEDICARE, SELFPAY ==
--- NOTE | 2025-01-12 15:00 | RT.EKG_ITS ---
APPROVED REPORT Exam: Resting ECG Reason for Exam: Chest pain Patient Location: E HR:86 bpm ECG Measurements Heart Rate 86 AXIS MN 165 P 52 QRSd 109 QRS 88 QT 383 T 38 QTc 453 Conclusion Sinus rhythm, rate 86 No interval abnormalities No STEMI PAC No significant changes from prior
[2025-01-12 15:16] VITALS: BP 127/78; PULSE 66; RESP 20; TEMP 36.7; O2SAT 94
[2025-01-12] MEDS: Aspirin 81 MG CHEW (15:22)
[2025-01-12 16:25] LABS: Abs Immature Grans 0.02 10^3/uL (0.0-0.06); HCT 40.9 % (40.0-50.0); HGB 13.9 g/dL (13.5-17.5); Immature Grans % 0.3 %; MCH 33.0 pg (27.0-33.0); MCHC 34.0 % (32.0-36.0); MCV 97 fL (80-95); MPV 10.4 fL (8.0-11.0); Platelet Count 142 10^3/uL (130-400); RBC 4.21 10^6/uL (4.36-5.78); RDW 12.0 % (11.8-14.1); RDW-SD 43.2 fL; WBC 8.00 10^3/uL (4.4-10.8)
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
[2025-01-12 17:13] LABS: ALT 17 U/L (16-63); AST 23 U/L (15-37); Albumin 3.4 g/dL (3.4-5.0); Alkaline Phosphatase 84 U/L (46-116); Anion Gap 8.0 mmol/L (3-11); BUN 14 mg/dL (7-18); Bilirubin, Total 0.6 mg/dL (0.2-1.0); CO2 28.0 mmol/L (21.0-32.0); Calcium 8.8 mg/dL (8.5-10.1); Chloride 103 mmol/L (98-107); Estimated GFR 62.29 (mL/min/1.73m2); Glucose 94 mg/dL (74-106); Magnesium 2.1 mg/dL (1.8-2.4); NT-proBNP 832 pg/mL (<300); Potassium 4.0 mmol/L (3.5-5.1); Sodium 139 mmol/L (136-145); Total Protein 6.6 g/dL (6.4-8.2); Troponin I 11 ng/L (<or=76)
[2025-01-12] MEDS: Normal Saline Flush 10 ML SYR IVP (17:21)
[2025-01-12] MEDS: Normal Saline - Diluent 50 ML VIAL IJ (17:21)
[2025-01-12] MEDS: Omnipaque 350 MG/ML 100 ML BTL IJ (17:21)
--- NOTE | 2025-01-12 17:32 | DI.CT_ITS ---
Exam(s) CT CHEST PE CTA EXAM: CT CHEST PE CTA CLINICAL HISTORY: R. pleuritic CP. TECHNIQUE: Imaging Protocol: Axial CT angiography was performed with multi- slice acquisition and multi-planar reconstructions as well as axial, coronal and sagittal MIP reconstructions. Computer aided detection (CAD) was utilized. CONTRAST MATERIAL: Intravenous: Omnipaque 350 Contrast volume:65 ml COMPARISON: CT CT ABDOMEN PELVIS W from 08/19/[address] CHEST WO from 01/20/2024 FINDINGS: Pulmonary Arteries: No evidence of filling defect to suggest pulmonary emboli. Mediastinum and Elva: No dominant adenopathy or fluid collection. Pulmonary parenchyma: Moderate emphysematous changes. No consolidation or dominant measurable mass. Pleura: No effusion or pneumothorax. Heart: The heart is mildly dilated. Aortic valve prosthesis. Severe coronary artery calcifications are seen. Aorta: The ascending aorta measures 5.1 cm which is mildly increased when compared with the previous exam where it measured 4.8 cm. No dissection. Mild moderate atherosclerotic changes. Upper abdomen: No acute findings. Small hiatal hernia. Nodular appearing liver with enlargement of the caudate lobe, consistent with cirrhosis. Similar appearance to 2019. Bones: Sternal wires. Accentuation of the thoracic kyphosis the without evidence of compression fractures. Tubes, Catheters, and Lines: None Soft tissues: Unremarkable. IMPRESSION: No evidence of pulmonary embolism or other acute abnormality. RADIATION DOSE DELIVERED: Total DLP DATA REPOSITORY: All CT scans at this facility are submitted to the National Radiology Data Registry (NRDR) Dose Index Registry (DIR) with the [employer] ([employer]). RADIATION OPTIMIZATION: All CT scans at this facility use at least one of these dose optimization techniques: automated exposure control; mA and/or kV adjustment per patient size (includes targeted exams where dose is matched to clinical indication); or iterative reconstruction.
[2025-01-12 17:35] LABS: Troponin I 12 ng/L (<or=76)
[2025-01-12] MEDS: Lidocaine 5% Patch 1 PATCH TP (18:34)
== END 2025-01-12 18:36 | disposition home or self-care (01) ==
PROVIDERS: Emergency Provider Emergency Medicine; PCP Family Medicine
DX: R07.9 Chest pain, unspecified (principal); I10 Essential (primary) hypertension; I48.0 Paroxysmal atrial fibrillation; E78.5 Hyperlipidemia, unspecified; J44.9 Chronic obstructive pulmonary disease, unspecified; I27.20 Pulmonary hypertension, unspecified; Z95.2 Presence of prosthetic heart valve; Z79.82 Long term (current) use of aspirin; Z87.891 Personal history of nicotine dependence
CPT/HCPCS: 71275; 80053; 93005; 99214; 99285; 83735; 83880; 84484; 85025; 93010; J3490

== ENCOUNTER 2025-02-01 20:42 | Emergency (ER) | payer MEDICARE, SELFPAY ==
[2025-02-01] VITALS (14 sets, daily range): BP systolic 174–189; BP diastolic 70–97; PULSE 64–88; RESP 11–21; TEMP 36.6; O2SAT 93–97
--- NOTE | 2025-02-01 21:15 | RT.EKG_ITS ---
APPROVED REPORT Exam: Resting ECG Reason for Exam: weakness Patient Location: E HR:73 bpm ECG Measurements Heart Rate 73 AXIS SC 161 P 29 QRSd 114 QRS -4 QT 453 T 18 QTc 481 Conclusion Sinus rhythm, rate 73 No interval abnormalities No STEMI PVCs
--- NOTE | 2025-02-01 21:18 | DI.CT_ITS ---
Exam(s) CT ABDOMEN PELVIS W EXAM: CT ABDOMEN PELVIS W CLINICAL HISTORY: right flank pain. TECHNIQUE: Imaging Protocol: Axial computed tomography images with coronal and sagittal reformatted images were created and reviewed CONTRAST MATERIAL: Intravenous: Omnipaque 350 Contrast volume:75 ml Oral: no COMPARISON: CT abdomen pelvis 19 Aug 2019 FINDINGS: ABDOMEN and PELVIS: Lung Bases: No acute findings. Small hiatal hernia. Liver: Normal density. Nodular cirrhotic appearance with enlargement of the caudate lobe, consistent with cirrhosis. No suspicious mass. Gallbladder and biliary tract: No radiodense calculus. No wall thickening or pericholecystic fluid. No biliary dilation. Pancreas: Mildly atrophic. Dilatation of the pancreatic duct in the head of through body.. No stone or mass is visible. No visible inflammation. No abnormal calcifications or inflammatory process. No evidence of mass. Spleen: Normal. Kidneys: Normal size, contour and axis. No radiodense stones. No obstructive uropathy. Bilateral simple renal cysts. No suspicious masses seen. Adrenal glands: No masses seen. Vasculature: Abdominal aorta non-dilated. Atherosclerotic changes. Soft tissues: Unremarkable. Bladder: No gross wall thickening. No calculi.No focal mass. Bowel: No obstruction. No bowel wall thickening. Appendix normal. Diverticulosis. No evidence of diverticulitis. Peritoneal cavity: Small amount of fluid in the pelvis.. No focal collection. No mesenteric inflammatory response. No free air. Bones: Left hip prosthesis. Degenerative changes in the spine. Reproductive organs: Unremarkable. Lymph nodes: No pathologically enlarged lymph nodes. IMPRESSION:: Cirrhotic liver. Increased dilatation of the pancreatic duct. No visible stone or mass. ERCP could be considered for further evaluation. The preliminary [facility] report was reviewed. RADIATION DOSE DELIVERED: 288.08mGy.cm Total DLP DATA REPOSITORY: All CT scans at this facility are submitted to the National Radiology Data Registry (NRDR) Dose Index Registry (DIR) with the [employer] ([employer]). RADIATION OPTIMIZATION: All CT scans at this facility use at least one of these dose optimization techniques: automated exposure control; mA and/or kV adjustment per patient size (includes targeted exams where dose is matched to clinical indication); or iterative reconstruction.
[2025-02-01 21:29] LABS: Abs Immature Grans 0.02 10^3/uL (0.0-0.06); HCT 39.1 % (40.0-50.0); HGB 13.5 g/dL (13.5-17.5); Immature Grans % 0.2 %; MCH 32.6 pg (27.0-33.0); MCHC 34.5 % (32.0-36.0); MCV 94 fL (80-95); MPV 10.6 fL (8.0-11.0); Platelet Count 151 10^3/uL (130-400); RBC 4.14 10^6/uL (4.36-5.78); RDW 12.2 % (11.8-14.1); RDW-SD 42.5 fL; WBC 9.19 10^3/uL (4.4-10.8)
[2025-02-01] MEDS: MORPHine 10 MG/ML VIAL 4 MG IVP (21:39)
[2025-02-01] MEDS: ACETAMINOPHEN 500 MG/50 ML BAG 200 MG IVPB (21:39)
[2025-02-01] MEDS: Normal Saline Flush 10 ML SYR IVP (21:44)
[2025-02-01] MEDS: Normal Saline - Diluent 50 ML VIAL IJ (21:44)
[2025-02-01] MEDS: Omnipaque 350 MG/ML 100 ML BTL IJ (21:44)
[2025-02-01 21:50] LABS: Lipase 24 U/L (<53)
[2025-02-01 21:51] LABS: Magnesium 2.0 mg/dL (1.6-2.6); Troponin I 5 ng/L (<54)
[2025-02-01 21:53] LABS: ALT 15 U/L (10-49); AST 30 U/L (<34); Albumin 4.4 g/dL (3.4-5.0); Alkaline Phosphatase 123 U/L (46-116); Anion Gap 7.1 mmol/L (3-11); BUN 14 mg/dL (9-23); Bilirubin, Total 0.80 mg/dL (0.2-1.2); CO2 25.9 mmol/L (20.0-31.0); Calcium 9.1 mg/dL (8.3-10.6); Chloride 107 mmol/L (98-107); Glucose 91 mg/dL (74-106); Potassium 4.0 mmol/L (3.5-5.1); Sodium 140 mmol/L (136-145); Total Protein 7.4 g/dL (5.7-8.2)
--- NOTE | 2025-02-01 22:10 | DI.[facility]_ITS ---
PROCEDURE INFORMATION: Exam: CT Abdomen And Pelvis With Contrast Exam date and time: 02/01/2025 9:45 PM Age: 79 years old Clinical indication: Abdominal pain; Flank; Right; Prior surgery; Surgery date: 6+ months; Surgery type: Hip replacement, aorta surg; Additional info: Right flank pain TECHNIQUE: Imaging protocol: Computed tomography of the abdomen and pelvis with contrast. Contrast material: OMNI 350; Contrast volume: 75 ml; Contrast route: INTRAVENOUS (IV); COMPARISON: CT ABDOMEN PELVIS W 08/19/2019 1:48 AM FINDINGS: Liver: Cirrhosis and fatty infiltration No mass. Gallbladder and biliary ducts: Normal. No calcified stones. No ductal dilation. Pancreas: Moderate ductal dilation. Spleen: Normal. No splenomegaly. Adrenal glands: Normal. No mass. Kidneys and ureters: Normal. No hydronephrosis. Stomach and bowel: Colonic diverticulosis. No obstruction. No mucosal thickening. Appendix: No evidence of appendicitis. Intraperitoneal space: Small pelvic fluid. No free air. No significant fluid collection. Vasculature: Unremarkable. No abdominal aortic aneurysm. Lymph nodes: Unremarkable. No enlarged lymph nodes. Urinary bladder: Unremarkable as visualized. Reproductive: Unremarkable as visualized. Bones/joints: Left hip arthroplasty. Degenerative changes in the spine No acute fracture. Soft tissues: Unremarkable. IMPRESSION: Interval worsening of pancreatic ductal dilatation. No CT evidence for acute pancreatitis. No discrete pancreatic lesion noted. Follow-up evaluation may be helpful Cirrhosis and fatty infiltration of the liver Dictated and Authenticated by: Benigno Taylor MD. Orderin Oniel Schultz MD
[2025-02-01] MEDS: Normal Saline 1,000 ML 1000 ML IV (22:20)
[2025-02-01 22:32] LABS: Glucose Negative (Negative)
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
[2025-02-01 22:46] LABS: Troponin I 5 ng/L (<54)
[2025-02-01] MEDS: Prochlorperazine 10 MG TAB PO (22:53)
== END 2025-02-01 23:10 | disposition home or self-care (01) ==
PROVIDERS: Emergency Provider Physician Assistant; PCP Family Medicine
DX: R11.2 Nausea with vomiting, unspecified (principal); M54.9 Dorsalgia, unspecified
CPT/HCPCS: 99284 ×2; 36415; 96375; 80053; 83690; 93005; 96361; 96365; 74177; 81003; 83735; 84484; 85025; 93010; J0131; J2270; J3490